=== PATIENT | male | born 1980 | race Caucasian/White ===

== ENCOUNTER → 2018-12-20 09:31 | Outpatient (CLI) | payer BC, SELFPAY ==
[2018-12-20 10:14] LABS: Basophils % 1.2 % (0.1-2.0); Eosinophils # 0.2 K/mm3 (0.0-0.4); Eosinophils % 4.9 % (0.1-12.0); Hematocrit 46.8 % (42.0-52.0); Hemoglobin 15.1 g/dL (14.1-18.0); Lymphocytes # 1.5 K/mm3 (0.7-4.5); Lymphocytes % 46.6 % (10-50); Mean Corpuscular HGB Conc 32.3 g/dL (31.8-35.4); Mean Corpuscular Hemoglobin 31.7 pg (27.0-31.2); Mean Corpuscular Volume 98.2 fl (80-94); Mean Platelet Volume 7.1 fl (7.4-10.4); Monocytes # 0.3 K/mm3 (0.1-1.0); Monocytes % 8.8 % (1.7-9.3); Neutrophils # 1.2 K/mm3 (1.8-7.8); Neutrophils % 38.5 % (37.0-80.0); Platelet Count 191 K/mm3 (142-424); Red Blood Count 4.76 M/mm3 (4.60-6.20); Red Cell Distribution Width 13.5 % (11.5-17.5); White Blood Count 3.1 K/mm3 (4.8-10.8)
[2018-12-20 10:54] LABS: Alanine Aminotransferase 164 U/L (12-78); Albumin Level 3.4 gm/dL (3.4-5.0); Albumin/Globulin Ratio 0.9 (1.1-1.8); Alkaline Phosphatase 96 U/L (46-116); Anion Gap 15.4 mEq/L (5-15); Aspartate Amino Transferase 158 U/L (15-37); Bilirubin,Total 0.5 mg/dL (0.2-1.0); Blood Urea Nitrogen 7 mg/dL (7-18); Calcium 8.5 mg/dL (8.5-10.1); Carbon Dioxide 26 mmol/L (21.0-32.0); Chloride 103 mmol/L (98-107); Creatinine,Serum 0.75 mg/dL (0.70-1.30); Estimated Glomerular Filt Rate 116 ml/min (>60); GFR (African American) 140 ML/MIN (>60); Globulin 3.8 gm/dl (1.3-3.2); Glucose 100 mg/dL (74-106); Potassium 4.4 mmoL/L (3.5-5.1); Sodium 140 mmol/L (136-145); Total Protein,Serum 7.2 gm/dL (6.4-8.2)
[2018-12-23 09:55] LABS: Folate 10.6 ng/mL (>3.0); Testosterone,Total 367 ng/dL (264-916); Vitamin B12 291 pg/mL (232-1245)
[2018-12-23 09:56] LABS: Vitamin D 25 Hydroxy 9.3 ng/mL (30.0-100.0)
== END ==
PROVIDERS: Visit Provider Nurse Practitioner
DX: R53.82 Chronic fatigue, unspecified (principal)
CPT/HCPCS: 36415; 80053; 82607; 82652; 82746; 84403; 85025

== ENCOUNTER → 2019-01-16 15:55 | Outpatient (CLI) | payer BC, SELFPAY | PROVIDERS: PCP Nurse Practitioner; Visit Provider Nurse Practitioner | DX: G47.30 Sleep apnea, unspecified (principal); G47.10 Hypersomnia, unspecified; R06.83 Snoring; E66.9 Obesity, unspecified; G47.33 Obstructive sleep apnea (adult) (pediatric) | CPT/HCPCS: 95806 ==

== ENCOUNTER → 2019-12-31 14:35 | Outpatient (CLI) | payer BC, SELFPAY ==
--- NOTE | 2019-12-31 14:39 | XR_ITS ---
PROCEDURE: XR FOOT WT BEARING RT 3V CLINICAL INDICATION: foot pain COMPARISON: No exams were available for comparison FINDINGS: No fracture or dislocation. No lytic or blastic change. There is normal mineralization. The joint spaces are well-preserved. No significant degenerative/arthritic changes. No erosive changes evident. Other findings:There is a type 2 os navicularis with some osteosclerosis at the ossification center. Small calcaneal spurs noted and there is a small bone island in the mid aspect of the calcaneus. IMPRESSION: 1. Type 2 os navicularis with some sclerosis of the ossification center. 2. Small calcaneal spur and small calcaneal bone island. Dictated by: Ravindra Briseno MD 12/31/2019 15:16 Electronically signed by Ravindra Briseno MD in [place] 12/31/2019 15:16
--- NOTE | 2019-12-31 14:39 | XR_ITS ---
PROCEDURE: XR FOOT WT BEARING LT 3V CLINICAL INDICATION: foot pain COMPARISON: No exams were available for comparison FINDINGS: No fracture or dislocation. No lytic or blastic change. There is normal mineralization. The joint spaces are well-preserved. No significant degenerative/arthritic changes. No erosive changes evident. There is minimal spurring dorsally at the tarsal metatarsal junction. Other findings:There is a type 2 os navicularis without sclerosis at the accessory ossification site. IMPRESSION: No acute finding. Type 2 os navicularis Dictated by: Ravindra Briseno MD 12/31/2019 15:15 Electronically signed by Ravindra Briseno MD in [place] 12/31/2019 15:15
== END ==
PROVIDERS: PCP Family Medicine; Visit Provider Podiatrist
DX: M79.672 Pain in left foot (principal); M79.671 Pain in right foot
CPT/HCPCS: 73630

== ENCOUNTER 2020-03-08 10:35 | Emergency (ER) | payer BC, SELFPAY ==
[2020-03-08 10:40] VITALS: BP 162/97; PULSE 129; RESP 20; TEMP 36.7; O2SAT 96; BMI 37.7
--- NOTE | 2020-03-08 10:51 | HMH.EDGENADL ---
ED Disposition Clinical Impression: Epigastric pain, Alcohol abuse Vomiting Qualifiers: Vomiting type: unspecified Vomiting Intractability: non-intractable Nausea presence: with nausea Qualified Code(s): R11.2 - Nausea with vomiting, unspecified Hematemesis Qualifiers: Nausea presence: with nausea Qualified Code(s): K92.0 - Hematemesis Disposition: Home, Self-Care Condition on Discharge: Good Instructions: DI for Abdominal Pain-Adult, DI for Alcohol Abuse, DI for Nausea -- Adult, DI for Vomiting -- Adult, DI for Alcohol Poisoning Additional Instructions: See Dr. Munoz in his office at 3 PM today. Additional instructions for ABDOMINAL PAIN: See your physician as soon as possible for further evaluation. Return immediately if worsening abdominal pain, vomiting, shortness of breath, fever, vomiting of blood or abdominal distention. Referrals: Nick Munoz MD [Primary Care Provider] - - Critical Care Critical Care Time: No Attestation: On 03/08/20, the high probability of a clinically significant, sudden or life threatening deterioration of the following system(s) required my full and direct attention, intervention and personal management. The time I documented below is in addition to time spent performing reported procedures but includes the following listed in this critical care notation. Medical Decision Making - Medical Records Medical records reviewed: Yes: I reviewed the patient's medical records. - Deny Inquiry Pt receiving controlled substance: Yes Deny was queried for this patient: Yes Reference #:: [id number] Risks and benefits of using a controlled substance: were not discussed with pt by me Comment: 5 rxs. last rx tramadol 10/01/19 Vital Signs: 03/08/20 10:40 03/08/20 11:41 Temperature 98.1 F Temperature Source Oral Pulse Rate [Right Radial] 129 H 120 H Respiratory Rate 20 26 H Blood Pressure [Right Arm] 162/97 H 158/105 H Blood Pressure Mean [Right Arm] 118 122 Blood Pressure Source [Right Arm] Automatic Cuff Blood Pressure Position [Right Arm] Sitting 02 Sat by Pulse Oximetry 96 Oxygen Delivery Method Room Air - Lab Data Lab results reviewed: Yes: I reviewed the patient's lab results. Lab Results 03/08/20 10:40: Urine Color Yellow, Urine Appearance Clear, Urine pH 6.0, Ur Specific [place] >= 1.030, Urine Protein 1+, Urine Glucose (UA) Negative, Urine Ketones 1+, Urine Blood Trace-l, Urine Nitrate Negative, Urine Bilirubin Negative, Urine Urobilinogen 0.2, Ur Leukocyte Esterase Negative, Urine RBC 5-10, Urine WBC 5-10, Ur Squamous Epith Cells Occasional, Urine Bacteria 1+, Hyaline Casts Occasional, Urine Mucus 3+ 03/08/20 10:40: Urine Opiates Screen Negative, Urine Methadone Screen Negative, Ur Barbituates Screen Negative, Ur Phencyclidine Scrn Negative, Ur Amphetamines Screen Negative, U Benzodiazepines Scrn Negative, Urine Cocaine Screen Negative, U Marijuana (THC) Screen Negative 03/08/20 10:48: WBC 5.4, RBC 4.90, Hgb 16.0, Hct 46.8, MCV 95.5 H, MCH 32.8 H, MCHC 34.3, RDW 13.2, Plt Count 238, MPV 8.1, Neut % (Auto) 58.0, Lymph % (Auto) 30.8, [place] % (Auto) 7.7, Eos % (Auto) 1.4, Baso % (Auto) 2.1 H, Neut # (Auto) 3.1, Lymph # (Auto) 1.7, Norton # (Auto) 0.4, Eos # (Auto) 0.1, Baso # (Auto) 0.1 03/08/20 10:48: Sodium 144, Potassium 3.5, Chloride 103, Carbon Dioxide 20 L, Anion Gap 24.5 H, BUN 5 L, Creatinine 0.80, Estimated Creat Clear 242, Estimated GFR 107, Est GFR ( Amer) 129, Glucose 109 H, Calcium 10.6 H, Total Bilirubin 1.3, AST 250 H, ALT 197 H, Alkaline Phosphatase 96, Total Protein 9.7 H, Albumin 5.3 H, Globulin 4.4 H, Albumin/Globulin Ratio 1.2, Amylase 69, Lipase 254 03/08/20 10:48: Plasma/Serum Alcohol 73 H 03/08/20 10:48: Troponin I < 0.01 Result diagrams: 03/08/20 10:48 03/08/20 10:48 Orders (Tests/Meds): ED MEDICATIONS Generic Name Dose Route Start Last Admin Trade Name Freq PRN Reason Stop Dose Admin Multivitamins 10 ml/ Thiamine 1,015 mls @ 1
--- NOTE | 2020-03-08 10:55 | CT_ITS ---
PROCEDURE: CT ABDOMEN PELVIS W CON CLINICAL INDICATION: n/v, hx of pancreatits Left upper abdominal pain, history of pancreatitis COMPARISON: ABDPELW/O CT ABD PELVIS W/O CONTRAST from 10/01/2016 TECHNIQUE: IV Contrast: 75ML OPTIRAY 350 Oral Contrast none Axial images obtained with sagittal and coronal reformats. All CT scans at the facility use one or more dose reduction, viz: automated exposure control, ma/kV adjustment per patient size (including targeted exams where dose is matched to indication, i.e. head), or iterative reconstruction technique. FINDINGS: LOWER THORAX: No acute finding ABDOMEN & PELVIS: There is diffuse fatty liver infiltration. The spleen, adrenal glands, pancreas, and kidneys have an unremarkable appearance. No renal or ureteral calculi. Prior cholecystectomy. There are small lymph nodes in the periportal region not significantly changed No evidence of appendicitis. There is some thickening of the colon at the hepatic flexure with some minimal stranding of the pericolic fat. There is also thickening of the transverse colon, descending colon and proximal sigmoid colon. While this could be due to nondistention, colitis is also a consideration. No pelvic mass or abnormal fluid collection. No evidence of diverticulitis. No acute bony IMPRESSION: Anomalies. 1. Diffuse hepatic steatosis. No evidence of pancreatitis. 2. Mild thickening of the transverse, descending, and proximal sigmoid colon. This could be due to nondistention or mild colitis. Dictated by: Ravindra Briseno MD 03/08/2020 12:14 Electronically signed by Ravindra Briseno MD in [place] 03/08/2020 12:14
--- NOTE | 2020-03-08 10:55 | PC.NURSE ---
rad notified of CT order, spoke with francis
[2020-03-08 11:04] LABS: Basophils # 0.1 K/mm3 (0-0.2); Basophils % 2.1 % (0.1-2.0); Eosinophils # 0.1 K/mm3 (0.0-0.4); Eosinophils % 1.4 % (0.1-12.0); Hematocrit 46.8 % (42.0-52.0); Lymphocytes # 1.7 K/mm3 (0.7-4.5); Lymphocytes % 30.8 % (10-50); Mean Corpuscular HGB Conc 34.3 g/dL (31.8-35.4); Mean Corpuscular Hemoglobin 32.8 pg (27.0-31.2); Mean Corpuscular Volume 95.5 fl (80-94); Mean Platelet Volume 8.1 fl (7.4-10.4); Monocytes # 0.4 K/mm3 (0.1-1.0); Monocytes % 7.7 % (1.7-9.3); Neutrophils # 3.1 K/mm3 (1.8-7.8); Platelet Count 238 K/mm3 (142-424); Red Cell Distribution Width 13.2 % (11.5-17.5); White Blood Count 5.4 K/mm3 (4.8-10.8)
[2020-03-08 11:06] LABS: Chloride 103 mmol/L (98-107); Potassium 3.5 mmoL/L (3.5-5.1); Sodium 144 mmol/L (136-145)
[2020-03-08 11:08] LABS: Microscopic, Urine URINE MICROSCOPIC (MICROSCOPIC)
[2020-03-08 11:09] LABS: Alanine Aminotransferase 197 U/L (12-78); Albumin Level 5.3 g/dl (3.5-5.0); Albumin/Globulin Ratio 1.2 (1.1-1.8); Alkaline Phosphatase 96 U/L (38-126); Amylase 69 U/L (30-110); Anion Gap 24.5 mEq/L (5-15); Aspartate Amino Transferase 250 U/L (17-59); Bilirubin,Total 1.3 mg/dl (0.2-1.3); Blood Urea Nitrogen 5 mg/dl (9-20); Calcium 10.6 mg/dl (8.4-10.2); Carbon Dioxide 20 mmol/L (22.0-30.0); Creatinine Clearance Estimated 242 mL/min (50-200); Estimated Glomerular Filt Rate 107 ml/min (>60); GFR (African American) 129 ML/MIN (>60); Globulin 4.4 g/dL (1.3-3.2); Glucose 109 mg/dl (74-100); Lipase 254 U/L (23-300); Total Protein,Serum 9.7 g/dl (6.3-8.2)
[2020-03-08 11:10] LABS: Appearance,Urine CLEAR (Clear); Blood, Urine TRACE-L (Negative); Color,Urine YELLOW (Yellow); Glucose,Urine (UA) Negative (Negative); Ketones,Urine 1+ (Negative); Leukocyte Esterase,Urine Negative (Negative); Nitrate,Urine Negative (Negative); Protein,Urine 1+ (Negative); Specific Gravity, Urine >= 1.030 (1.005-1.030); Urobilinogen,Urine 0.2 EU/dl (0.2)
[2020-03-08 11:12] LABS: Bilirubin,Urine Negative (Negative)
--- NOTE | 2020-03-08 11:17 | PC.NURSE ---
notified lab of new order, spoke with tico
[2020-03-08 11:21] LABS: Bacteria,Urine 1+ /lpf; Hyaline Casts,Urine Occasional #/lpf (0); Mucus,Urine 3+ /lpf; Squamous Epithelial Cell,Urine Occasional #/hpf (0-5)
--- NOTE | 2020-03-08 11:24 | PC.NURSE ---
pt return from ct
[2020-03-08 11:27] LABS: Ethyl Alcohol 73 mg/dl (0-10)
[2020-03-08 11:41] VITALS: BP 158/105; PULSE 120; RESP 26
[2020-03-08 11:53] LABS: Amphetamine/Metha Screen,Urine Negative ng/ml (<1000); Benzodiazepines Screen,Urine Negative ng/ml (<200)
[2020-03-08 11:54] LABS: Barbiturates Screen,Urine Negative ng/ml (<200)
[2020-03-08 11:55] LABS: Cannabinoid Screen,Urine Negative ng/ml (<50); Methadone Screen,Urine Negative ng/ml (<300)
[2020-03-08 11:56] LABS: Cocaine Screen,Urine Negative ng/ml (<300); Opiate Screen,Urine Negative ng/ml (<300)
--- NOTE | 2020-03-08 11:56 | ECG_ITS ---
APPROVED REPORT Exam: Resting ECG HR:101 bpm ECG Measurements Heart Rate 101 AXES UT 180 P 29 QRSd 164 QRS -10 QT 400 T 109 QTc 518 <Conclusion> Sinus tachycardia left atrial abnormality Left bundle branch block Abnormal ECG Electronically signed by : Nick Veliz, 03/09/2020 08:19:04
[2020-03-08 11:57] LABS: Phencyclidine Screen,Urine Negative ng/ml (<25)
[2020-03-08 12:06] LABS: Troponin I < 0.01 ng/ml (0.00-0.034)
--- NOTE | 2020-03-08 12:44 | PC.NURSE ---
attempted to call Dr. Munoz at his office per ER MD request to speak with him, no answer, asked humid system operator to page him
--- NOTE | 2020-03-08 12:48 | PC.NURSE ---
tape fastener machine operator states she had to leave a message for dr. muniz
[2020-03-08 13:50] VITALS: BP 140/87; PULSE 99; RESP 16; TEMP 36.6; O2SAT 97
== END 2020-03-08 13:52 | disposition home or self-care (01) ==
PROVIDERS: Emergency Provider Emergency Medicine; PCP Family Medicine
DX: R10.12 Left upper quadrant pain (principal); R10.13 Epigastric pain; F10.10 Alcohol abuse, uncomplicated; K92.0 Hematemesis; I10 Essential (primary) hypertension; F41.9 Anxiety disorder, unspecified; Z88.5 Allergy status to narcotic agent; Z79.899 Other long term (current) drug therapy
CPT/HCPCS: 74177; 80053; 80305; 81001; 82150; 83690; 84484; 85025; 93005; 96365; 96367; 96375; 96376; 99284; J2405; Q9967

== ENCOUNTER 2021-08-30 12:15 | Emergency (ER) | payer BC, SELFPAY ==
[2021-08-30 13:30] VITALS: BP 142/118; PULSE 101; RESP 20; TEMP 36.8; O2SAT 97; BMI 40.2
--- NOTE | 2021-08-30 14:23 | HMH.EDUTC ---
[facility] [place] Impression: Viral syndrome Sinusitis Qualifiers: Sinusitis location: unspecified location Chronicity: acute Recurrence: non-recurrent Qualified Code(s): J01.90 - Acute sinusitis, unspecified Disposition: Home, Self-Care Condition on Discharge: Good Instructions: Sinusitis, DI for Sinusitis, DI for COVID-19 (Suspected or Confirmed ), Preventing the Spread of Coronavirus Discharge Instructions Additional Instructions: Drink plenty of fluids. Take tylenol or ibuprofen for pain or fever. Take the medications as directed. Follow up with your regular doctor. GO TO THE ER FOR ANY WORSENING SYMPTOMS Quarantine until you know the results of your covid-19 test. If it is positive, the health department should call you and give you further instructions about your length of Quarantine and other things. Notify your school or workplace of your results and follow their instructions regarding return to work/school. Prescriptions: methylPREDNISolone [Medrol] 4 mg PO DIRECTED 6 Days #21 packet Transmission Status: Received by [facility] Benzonatate [Tessalon Perle 100mg Cap] 100 mg PO TIDP PRN #30 cap PRN Reason: Cough Transmission Status: Received by [id number] Rx Azithromycin [Z-Cristiano 250mg Tab*] 250 mg PO UD DOSE PK #6 tab Transmission Status: Received by [id number] Referrals: Nick Munoz MD [Primary Care Provider] - Time of Disposition: 14:49 Medical Decision Making - Medical Records Medical records reviewed: No: I reviewed the patient's medical records. - Deny Inquiry Pt receiving controlled substance: No Vital Signs: 08/30/21 13:30 08/30/21 14:51 Temperature 98.3 F 98.3 F Temperature Source Oral Pulse Rate 101 H Pulse Rate [Right Brachial] 101 H Respiratory Rate 20 20 Blood Pressure 142/118 H Blood Pressure [Right Arm] 142/118 H Blood Pressure Mean [Right Arm] 126 Blood Pressure Source [Right Arm] Automatic Cuff Blood Pressure Position [Right Arm] Sitting 02 Sat by Pulse Oximetry 97 Oxygen Delivery Method Room Air - Lab Data Lab results reviewed: Yes: I reviewed the patient's lab results. Lab Results 08/30/21 14:23: Strep Scn Rapid Clinic Negative 08/30/21 14:27: Chlamy pneumoniae PCR Not detected, Adenovirus (PCR) Not detected, B. pertussis DNA (PCR) Not detected, Coronavirus OC43 (PCR) Not detected, Coronavirus HKU1 (PCR) Not detected, Coronavirus 229E (PCR) Not detected, SARS-CoV-2 (PCR) Not detected, Coronavirus NL63 (PCR) Not detected, Human Metapneumovir PCR Not detected, Influenza A (H1) PCR Not detected, Influ A (H1N1/09) PCR Not detected, Influenza A (H3) PCR Not detected, Influenza Type A (PCR) Not detected, Influenza Type B (PCR) Not detected, M. pneumoniae (PCR) Not detected, Parainfluenza 1 (PCR) Not detected, Parainfluenza 2 (PCR) Not detected, Parainfluenza 3 (PCR) Not detected, Parainfluenza 4 (PCR) Not detected, RSV (PCR) Detected A, Entero/Rhino (PCR) Not detected Orders (Tests/Meds): ORDERS Category Date Time Status Strep Screen Confirmation Stat Micro 08/30/21 14:23 [place] [facility] [place] - General Stated complaint: no taste/smell, sore throat, cough, congestion Time Seen by Provider: 08/30/21 14:23 Mode of Arrival: Ambulatory Source of Information: Patient Limitations: No Limitations Description of Symptoms (Recalled from Triage Doc. by RN): PATIENT C/O BODY ACHES, RUNNY NOSE, COUGH, SINUS PRESSURE, AND LOSS OF TASTE/SMELL. HAD COVID TESTS SATURDAY AND LAST NIGHT AND BOTH WERE NEGATIVE HEENT Symptoms (Recalled from RN notes): Yes Resp Symptoms (Recalled from RN notes): Yes Skin Symptoms (Recalled from RN notes): No MS Symptoms (Recalled from RN notes): No Functional Status (Recalled from RN notes): WNL - History of Present Illness Provider Complaint: He states that he has been feeling bad for the past 4 days. He has been tested at his job ([employer]
[2021-08-30 14:51] VITALS: BP 142/118; PULSE 101; RESP 20; TEMP 36.8; O2SAT 97
[2021-08-30 14:52] LABS: Adenovirus,PCR Not Detected (NotDetected); Bordetella Pertussis Not Detected (NotDetected); Chlamydophila Pneumoniae, PCR Not Detected (NotDetected); Coronavirus 19, PCR Not Detected (NotDetected); Coronavirus 229E Not Detected (NotDetected); Coronavirus NL63 Not Detected (NotDetected); Coronavirus OC43 Not Detected (NotDetected); Coronovirus HKU1,PCR Not Detected (NotDetected); Human Metapneumovirus Not Detected (NotDetected); Influenza A, PCR Not Detected (NotDetected); Influenza AH1, 2009 Not Detected (NotDetected); Influenza AH1, PCR Not Detected (NotDetected); Influenza AH3,PCR Not Detected (NotDetected); Influenza B, PCR Not Detected (NotDetected); Mycoplasma Pneumoniae, PCR Not Detected (NotDetected); Parainfluenza 1, PCR Not Detected (NotDetected); Parainfluenza 2, PCR Not Detected (NotDetected); Parainfluenza 3, PCR Not Detected (NotDetected); Parainfluenza 4, PCR Not Detected (NotDetected); Rhinovirus/Enterovirus Not Detected (NotDetected)
[2021-08-30 14:58] LABS: UTC Strep Screen (Rapid) Negative (Negative)
[2021-08-30 19:14] LABS: Respiratory Syncytial Virus Detected (NotDetected)
== END 2021-08-30 14:56 | disposition home or self-care (01) ==
PROVIDERS: Emergency Provider Nurse Practitioner Family; PCP Family Medicine
DX: J01.90 Acute sinusitis, unspecified (principal); B97.4 Respiratory syncytial virus as the cause of diseases classified elsewhere; I10 Essential (primary) hypertension; F41.9 Anxiety disorder, unspecified
CPT/HCPCS: 87581; 87632; 87798; 87880; 99203; C9803; G0463; U0003; U0005

== ENCOUNTER → 2022-04-10 13:56 | Outpatient (CLI) | payer BC, SELFPAY ==
--- NOTE | 2022-04-10 14:03 | XR_ITS ---
FINAL REPORT CLINICAL HISTORY: CERVICALGIA. Pt states to have had frequent headaches for the past 3 months, and 4 weeks ago started to feel a cracking and popping No sx FINDINGS: CERVICAL SPINE Five views were obtained. There is no acute fracture. There is no malalignment. There is mild degenerative change with small osteophytes at C5-C6. There is no significant neuroforaminal narrowing. There is no soft tissue abnormality. IMPRESSION: Mild degenerative change with no acute bony abnormality. Reviewed, Interpreted and Dictated by Kobe Mathis III, MD Transcribed by Anupama Meredith Authenticated and [facility]
== END ==
PROVIDERS: PCP Nurse Practitioner Family; Visit Provider Nurse Practitioner Family
DX: M54.2 Cervicalgia (principal)
CPT/HCPCS: 72050

== ENCOUNTER 2022-05-26 12:18 | Emergency (ER) | payer BC, SELFPAY ==
[2022-05-26 12:55] VITALS: BP 164/98; PULSE 85; RESP 19; TEMP 37.2; O2SAT 97; BMI 42.8
[2022-05-26 13:19] VITALS: BP 164/98; PULSE 85; RESP 19; TEMP 37.2; O2SAT 97
--- NOTE | 2022-05-26 13:25 | HMH.EDUTC ---
[facility] [place] Clinical Impression: COVID-19 Disposition: Home, Self-Care Condition on Discharge: Good Instructions: DI for COVID-19 (Suspected or Confirmed ) Additional Instructions: covid swab was sent to lab, call tomorrow for results. self isolate until test results are known to be negative No sign of a bacterial infection. Likely viral. Viruses can take 7-14 days to run their course. Nasal saline and bulb syringe or nose Aria to remove nasal drainage to help with nasal congestion. Hard to eat, drink, sleep with nasal congestion so important to keep this cleaned out. Monitor temp. Tylenol or Motrin as needed for pain or fever Encourage fluids, water, Gatorade, Powerade, Pedialyte if /toddler/child Warm salt water gargles Warm fluids Sore throat lozenges Sleep elevated Humidifier/vaporizer Follow-up immediately for new or worsening symptoms or no noticeable improvement over the next 48-72 hours. Referrals: Trixie Yan APRN [Primary Care Provider] - Forms: Work/School Release Time of Disposition: 13:30 Medical Decision Making - Deny Inquiry Pt receiving controlled substance: No Vital Signs: 05/26/22 12:55 05/26/22 13:19 Temperature 98.9 F 98.9 F Temperature Source Oral Pulse Rate 85 Pulse Rate [Right Brachial] 85 Respiratory Rate 19 19 Blood Pressure 164/98 H Blood Pressure [Right Arm] 164/98 H Blood Pressure Mean [Right Arm] 120 Blood Pressure Source [Right Arm] Automatic Cuff Blood Pressure Position [Right Arm] Sitting 02 Sat by Pulse Oximetry 97 Oxygen Delivery Method Room Air Orders (Tests/Meds): ORDERS Category Date Time Status Covid-19 Nasal PCR ([facility]) Routine Lab 05/26/22 12:50 Received [facility] [place] HPI - General Chief complaint: [facility] Stated complaint: fever,cough,sore throat,diarrhea Time Seen by Provider: 05/26/22 13:25 Mode of Arrival: Ambulatory Source of Information: Patient Limitations: No Limitations Description of Symptoms (Recalled from Triage Doc. by RN): PATIENT C/O CHILLS, RUNNY NOSE, COUGH, BODY ACHES X 2 DAYS. HEENT Symptoms (Recalled from RN notes): Yes Resp Symptoms (Recalled from RN notes): Yes Skin Symptoms (Recalled from RN notes): No MS Symptoms (Recalled from RN notes): No Functional Status (Recalled from RN notes): WNL - History of Present Illness Provider Complaint: 42 yr old male presnets for cough,runny nose,nausea,diarrhea and body aches. tested positive for covid at home and positive for covid - Related Data Home Medications Medication Instructions Recorded Confirmed amlodipine 10 mg tablet 10 mg PO DAILY 12/31/19 08/03/21 buspirone 10 mg tablet mg PO 12/31/19 08/03/21 carvedilol phosphate 40 mg 40 mg PO DAILY 12/31/19 08/03/21 capsule,[id number] multiphase citalopram 40 mg tablet mg PO 12/31/19 08/03/21 omeprazole 40 mg capsule,delayed 40 mg PO cap 03/21/21 08/03/21 release Previous Rx's Medication Instructions Recorded Azithromycin [Z-Cristiano 250mg Tab*] 250 mg PO UD DOSE PK #6 tab 08/30/21 Benzonatate [Tessalon Perle 100mg 100 mg PO TIDP PRN #30 cap 08/30/21 Cap] methylPREDNISolone [Medrol] 4 mg PO DIRECTED 6 Days #21 08/30/21 packet Allergies Allergy/AdvReac Type Severity Reaction Status Date / Time morphine [MORPHINE] Allergy Unknown I-ITCHING Verified 08/03/21 14:16 - Worker's Comp Is this a Worker's Comp case?: No [facility] History - Hepatitis A Screen Attestation statement:: This patient has been screened for Hepatitis A risk factors. I have reviewed the patient's past medical history: Yes Medical History: Reports:: Anxiety, Hypertension Denies:: Diabetes Mellitus Type 1, Diabetes Mellitus Type 2 Other Surgeries: Yes: Hernia Repair, Other Amputation: No Fractures: No Comment: R thumb release - Social History Smoking Status: Light tobacco smoker Tobacco Type: smokeless tobacco # Packs/Day (cigarettes): 0 Alcohol Intake: current Alcohol Intake F
== END 2022-05-26 13:36 | disposition home or self-care (01) ==
PROVIDERS: Emergency Provider Nurse Practitioner Family; PCP Nurse Practitioner Family
DX: U07.1 COVID-19 (principal); R50.81 Fever presenting with conditions classified elsewhere; R05.9 Cough, unspecified; R07.0 Pain in throat; R19.7 Diarrhea, unspecified; M79.10 Myalgia, unspecified site; R09.81 Nasal congestion; R41.9 Unspecified symptoms and signs involving cognitive functions and awareness; I10 Essential (primary) hypertension; Z72.0 Tobacco use
CPT/HCPCS: 99212; C9803; G0463; U0003; U0005

== ENCOUNTER 2022-09-11 10:52 | Emergency (ER) | payer BC, SELFPAY ==
[2022-09-11 12:00] VITALS: BP 150/99; PULSE 90; RESP 19; TEMP 36.6; O2SAT 95; BMI 44.7
[2022-09-11 12:20] LABS: UTC Influenza A Antigen Negative (Negative); UTC Influenza B Antigen Negative (Negative)
--- NOTE | 2022-09-11 12:22 | EXP.UTC ---
Discharge Plan Disposition Patient Disposition: Home, Self-Care Condition: Good Prescriptions Prescriptions: New azithromycin [Zithromax Z-Cristiano] 250 mg tablet See Rx Instructions .ROUTE .COMPLEX 5 Days Qty: 6 0RF Rx Instructions: For 250 mg dose pack: take 500 mg today (day 1), then 250 mg for 4 days (days 2-5) methylprednisolone [Medrol (Cristiano)] 4 mg tablets,dose pack See Rx Instructions .Route .COMPLEX 6 Days Qty: 21 0RF Rx Instructions: taper pack; guaifenesin [Mucinex] 600 mg tablet extended release 12hr 600 mg PO BID PRN (Reason: cough) Qty: 20 0RF No Action amlodipine 10 mg tablet 10 mg PO DAILY carvedilol phosphate 40 mg capsule, ER multiphase 24 hr 40 mg PO DAILY citalopram 40 mg tablet PO buspirone 10 mg tablet PO omeprazole 40 mg capsule,delayed release(DR/EC) 40 mg PO Label Comments: TAKE 1 CAPSULE BY MOUTH ONCE DAILY 30 MINUTES BEFORE MORNING MEAL azithromycin 250 MG tablet 250 mg PO UD DOSE PK Qty: 6 0RF Rx Instructions: Take two (2) tablets today, then one (1) tablet days #2 thru #5 benzonatate 100 MG capsule 100 mg PO TIDP PRN (Reason: Cough) Qty: 30 0RF methylprednisolone 4 MG tablets,dose pack 4 mg PO DIRECTED 6 Days Qty: 21 0RF Referrals Follow up/Referrals: Provider,Referral, MD [Primary Care Provider] - See instructions Activity Restrictions/Add. Instructions Additional Instructions/Restrictions: *Monitor Temp, Over the counter Motrin or Tylenol as directed/as needed Tylenol every 4 hours and Motrin every 6 hours (as long as your family doctor has told you that you can take it) for fever or pain. and straight to ER if unable to lower temp less than 101.0 after medication given *Warm salt water gargles may help to soothe the throat *Throat Lozenges? *Warm fluids like tea with honey may help to soothe the throat? *Sleep elevated *Humidifier/Vaporizer Follow up IMMEDIATELY for new or worsening symptoms or no Noticeable improvement over the next 48-72 hours. 911 for difficulty breathing or swallowing Clinical Impressions Clinical Impression: Bronchitis Stand Alone Forms Stand Alone Forms: Work/School Release Instructions Patient Instructions: Acute Bronchitis, Cough Discharge ED Provider: Sarahi Perry [facility] General Stated complaint: fever, nausea, wants flu test Mode of Arrival: Ambulatory Source of Information: Patient Limitations: No Limitations Time Seen by Provider: 09/11/22 12:22 Description of Symptoms (Recalled from Triage Doc. by RN): PATIENT C/O SORE THROAT, COUGH, FATIGUE, AND HEADACHE X 3 DAYS HEENT Symptoms (Recalled from RN notes): Yes Resp Symptoms (Recalled from RN notes): Yes Skin Symptoms (Recalled from RN notes): No MS Symptoms (Recalled from RN notes): No Functional Status (Recalled from RN notes): WNL History of Present Illness Provider Complaint: Patient states that he had flu last week States that he still had low grade fever yesterday and they made him leave work and told him he needed to get tested again for flu and see someone before he can return States he is feeling a little better today but still having cough and chest congestion so he came in Related Data Home Medications Medication Instructions Recorded Confirmed amlodipine 10 mg tablet 10 mg PO DAILY Hypertension 12/31/19 08/03/21 buspirone 10 mg tablet mg PO 12/31/19 08/03/21 carvedilol phosphate 40 mg 40 mg PO DAILY Hypertension 12/31/19 08/03/21 capsule,[id number] multiphase citalopram 40 mg tablet mg PO 12/31/19 08/03/21 omeprazole 40 mg capsule,delayed 40 mg PO 03/21/21 08/03/21 release Previous Rx's Medication Instructions Recorded azithromycin 250 mg tablet 250 mg PO UD DOSE PK #6 tabs 08/30/21 benzonatate 100 mg capsule 100 mg PO TIDP PRN Cough #30 caps 08/30/21 methylprednisolone 4 mg tablets in 4 mg PO DIRECTED 6 days #21 08/30/21 a dos
[2022-09-11 12:30] VITALS: BP 150/99; PULSE 90; RESP 19; TEMP 36.6; O2SAT 95
== END 2022-09-11 12:35 | disposition home or self-care (01) ==
PROVIDERS: Emergency Provider Nurse Practitioner
DX: J02.9 Acute pharyngitis, unspecified (principal); R50.9 Fever, unspecified; R11.0 Nausea; R53.82 Chronic fatigue, unspecified; R51.9 Headache, unspecified; R05.9 Cough, unspecified; Z20.822 Contact with and (suspected) exposure to COVID-19; I10 Essential (primary) hypertension; E78.5 Hyperlipidemia, unspecified; F41.9 Anxiety disorder, unspecified; F17.290 Nicotine dependence, other tobacco product, uncomplicated; Z79.52 Long term (current) use of systemic steroids; Z79.899 Other long term (current) drug therapy; Z88.5 Allergy status to narcotic agent
CPT/HCPCS: 87804; 99213; C9803; G0463; U0003; U0005

== ENCOUNTER → 2022-11-22 14:51 | Outpatient (CLI) | payer BC, SELFPAY ==
--- NOTE | 2022-11-22 14:54 | CA_ITS ---
APPROVED REPORT EXAM: Comprehensive 2D, Doppler, and color-flow Echocardiogram Oncology Technician: Annette Lozoya RT(R) Ht: 6 ft 1 in Wt: 356lbs BSA: 2.75 BP: 160/88 mmHg Indications: hx of CM 16 years ago, edema, HTN, obesity, 100 lb weight gain in 1 year, SOB, smokeless tobacco 2D Dimensions LVOT 1.93 cm (M/F) 1.5-2.5 LA Volume 61.30 mL LA Volume Index 22.29 mL/m2 (M/F) 16-34 M-Mode Dimensions RVDd 2.59 cm (0.9-2.6) LA Diam 4.71 cm (1.9-4.0) LVDd 6.80 cm (3.5-5.7) Ao Diam 2.69 cm (2.0-3.7) LVDs 5.95 cm (3.5-5.7) IVSd 0.72 cm (0.6-1.1) PWd 1.03 cm (0.6-1.1) EF (Teich) 26.20% FS 12.50% EDV (Teich) 239.20 mL ESV (Teich) 176.60 mL LV Diastology MED E' 4.70 (< 7 cm/sec) LAT E' 10.00 (<10 cm/sec) Left Ventricle Left atrium is mildly enlarged, left ventricle is mildly dilated, there is mild concentric left ventricular hypertrophy, reduced left ventricular systolic function, estimated ejection fraction 40%, left ventricle is globally hypokinetic, diastolic parameters are inconclusive. Right Ventricle Right atrium and right ventricle are normal size and contractility. Aortic Valve Aortic valve is minimally thickened and fibrosed. There is no aortic stenosis or aortic insufficiency. Mitral Valve Mitral valve grossly normal, there is mild mitral regurgitation. Tricuspid Valve Tricuspid valve grossly normal, there is mild tricuspid regurgitation, tricuspid regurgitation jet velocity is inadequate for calculation of the right ventricular systolic pressure. Pulmonic Valve Pulmonic valve is poorly visualized. Great Vessels Aortic root is normal size. Inferior vena cava is poorly visualized. Pericardium No significant pericardial effusion noted. Conclusion 1. Mildly enlarged left atrium, dilated left ventricle, estimated ejection fraction 40% left ventricle is globally hypokinetic, diastolic parameters are inconclusive. 2. Mild mitral and tricuspid regurgitation. 3. No significant pericardial effusion noted. 4. Inferior vena cava is poorly visualized. Electronically signed by : John Valladares MD 11/23/2022 15:37:57
[2022-11-22 15:34] LABS: MANUAL DIFFERENTIAL MANUAL DIFFERENTIAL (MANUAL DIFF); Microscopic, Urine URINE MICROSCOPIC (MICROSCOPIC)
[2022-11-22 16:17] LABS: Appearance,Urine CLEAR (Clear); Bilirubin,Urine Negative (Negative); Blood, Urine Negative (Negative); Color,Urine DK YELLOW (Yellow); Glucose,Urine (UA) Negative (Negative); Ketones,Urine Negative (Negative); Leukocyte Esterase,Urine Negative (Negative); Nitrate,Urine Negative (Negative); PH,Urine 5.5 (5.0-8.5); Protein,Urine Negative (Negative); Specific Gravity, Urine >= 1.030 (1.005-1.030)
[2022-11-22 16:20] LABS: Basophils # 0.1 K/mm3 (0-0.2); Eosinophils # 0.1 K/mm3 (0.0-0.4); Eosinophils % 2.3 % (0.1-12.0); Hematocrit 42.5 % (42.0-52.0); Hemoglobin 14.5 g/dL (14.1-18.0); Lymphocytes # 1.4 K/mm3 (0.7-4.5); Lymphocytes % 24.2 % (10-50); Mean Corpuscular Hemoglobin 32.8 pg (27.0-31.2); Mean Corpuscular Volume 96.4 fl (80-94); Mean Platelet Volume 8.2 fl (7.4-10.4); Monocytes # 0.4 K/mm3 (0.1-1.0); Monocytes % 6.5 % (1.7-9.3); Neutrophils # 3.7 K/mm3 (1.8-7.8); Platelet Count 272 K/mm3 (142-424); Red Cell Distribution Width 13.8 % (11.5-17.5); White Blood Count 5.6 K/mm3 (4.8-10.8)
[2022-11-22 16:47] LABS: Bacteria,Urine Trace /lpf; Mucus,Urine 3+ /lpf; WBC,Urine Occasional #/hpf (0-3)
[2022-11-22 16:48] LABS: Hyaline Casts,Urine Occasional #/lpf (0)
[2022-11-22 17:03] LABS: Eosinophils % 3 % (0-3); Lymphocytes % 28 % (10-50); Monocytes % 11 % (2-9); Neutrophils % 57 % (42-76); Platelet Estimate Normal; RBC Morphology Normal; Total Cells Counted 100
[2022-11-22 17:21] LABS: Chloride 102 mmol/L (98-107); Potassium 4.6 mmoL/L (3.5-5.1); Sodium 136 mmol/L (136-145)
[2022-11-22 17:23] LABS: Blood Urea Nitrogen 19 mg/dl (9-20)
[2022-11-22 17:24] LABS: Alanine Aminotransferase 118 U/L (12-78); Albumin Level 4.8 g/dl (3.5-5.0); Albumin/Globulin Ratio 1.3 (1.1-1.8); Alkaline Phosphatase 109 U/L (38-126); Anion Gap 15.6 mEq/L (5-15); Aspartate Amino Transferase 181 U/L (17-59); Bilirubin,Total 1.7 mg/dl (0.2-1.3); Calcium 9.4 mg/dl (8.4-10.2); Carbon Dioxide 23 mmol/L (22.0-30.0); Estimated Glomerular Filt Rate 123 ml/min (>60); GFR (African American) 149 ML/MIN (>60); Globulin 3.7 g/dL (1.3-3.2); Glucose 100 mg/dl (74-100); Total Protein,Serum 8.5 g/dl (6.3-8.2); Triglycerides 155 mg/dl (30-150); VLDL Cholesterol 31 mg/dL (0-40)
[2022-11-22 17:25] LABS: HDL Cholesterol 99 mg/dl (40-60)
[2022-11-22 17:35] LABS: Direct LDL Cholesterol 228.84 mg/dL (100-129)
[2022-11-22 17:51] LABS: Chol/HDL Ratio 3.7 (1-3.5); Cholesterol 367 mg/dl (140-200)
[2022-11-22 17:56] LABS: Thyroid Stimulating Hormone 2.39 uIU/mL (0.465-4.68)
== END ==
PROVIDERS: PCP Family Medicine; Visit Provider Family Medicine
DX: I10 Essential (primary) hypertension (principal); R60.0 Localized edema; E78.5 Hyperlipidemia, unspecified; F41.9 Anxiety disorder, unspecified; M54.2 Cervicalgia; M87.112 Osteonecrosis due to drugs, left shoulder; R63.5 Abnormal weight gain; T38.0X5A Adverse effect of glucocorticoids and synthetic analogues, initial encounter
CPT/HCPCS: 36415; 80053; 80061; 81001; 83036; 84443; 85007; 85014; 85018; 85048; 85049; 93306

== ENCOUNTER → 2022-11-29 07:01 | Outpatient (CLI) | payer BC, SELFPAY ==
--- NOTE | 2022-11-29 | CA_ITS ---
APPROVED REPORT Exam: Pharmacologic Technologist: Liliana Pate, Ht: 6 ft 1 in Wt: 354 lbs BSA: 2.74 m2 HR: 92 bpm BP: 103/74 mmHg Medical History Medications: Amlodipine,,,,, Carvedilol,,,,, Buspirone,,,,, MeLOXICAM,,,,, OmPERAZOLE,,,,, Citlopram,,,,, Stress Test Details Test: LEXISCAN Reason for pharmacologic stress test: physical limitation. HR Resting HR: 93 bpm Max Heart Rate (APMHR): 177.440934 bpm Max HR Achieved: 115 bpm Target HR (85% APMHR): 150.080224 bpm % of APMHR: 64.97 Recovery HR: 99 bpm BP Resting BP: 103.0/74.0 mmHg Max BP: 115.0/65.0 mmHg Recovery BP: 115.0/65.0 mmHg ECG Resting ECG: NSR, LBBB Clinical Exercise duration: 04:03 min Highest Stage Achieved: Stress ECG Conclusion Symptoms: SOA, head discomfort, malaise, No CP. Arrhythmias/Ectopy: 2.6 second pause immediately after Lexiscan injection. ST-T Changes: No significant changes. Conclusion: Unremarkable Lexiscan stress. Myoview images reported separately. Test Summary REST . . . . . . . Resting REST 04:54 . . 93 . 103/ 74 . . Stage 1 01:00 . . 102 . . . . Stage 2 01:00 . . 115 . . . . Stage 3 01:00 . . 110 . 112/ 59 . . Stage 4 01:00 . . 106 . 94/ 62 . . Stage 4 01:03 . . 108 . 94/ 62 . Stop exercise at 04:03 RECOVERY 01:00 . . 105 . 91/ 64 . . RECOVERY 02:00 . . 99 . 91/ 64 . . RECOVERY 03:00 . . 97 . 101/ 68 . . RECOVERY 03:33 . . 100 . 115/ 65 . . Electronically signed by : John Valladares MD 11/30/2022 10:11:55
--- NOTE | 2022-11-29 07:03 | NM_ITS ---
APPROVED REPORT Exam: Nuclear Stress Test Indication: short of breath..fatigue Patient Location: Outpatient Stress Tech: Liliana Monroe [place] Tech:Jenelle SchmittCLAIR RT(R)(N) Ht: 6 ft 1 in Wt: 355 lbs HR: 93 bpm BP: 103/74 mmHg BSA: 2.75 m2 TID: 1.12 BMI: 46.8 History: short of breath..fatigue Procedure: Patient received 0.4 mg of intravenous Lexiscan, resting heart rate 93 bpm, resting blood pressure 103/74 mmHg, with Lexiscan maximum heart rate achieved was 115 bpm which is Less than 85 % of the maximum predicted heart rate and blood pressure was 115/65 mmHg. With Lexiscan, patient denied any complaint of chest pain. The patient was unable to lay on his belly for prone images. Electrocardiogram Resting electrocardiogram shows sinus rhythm with a bundle branch block, with Lexiscan there is less than 1.[address] segment depression noted from the baseline EKG. The EKG portion of the Lexiscan is nondiagnostic. Cardiac Stress and Resting SPECT Images: Cardiac Stress and Resting SPECT images were obtained using technetium 99m Myoview 32.9 mCi stress and 10.98 mCi at rest. Gated SPECT for analysis of segmental wall motion and calculation of the ejection fraction also done. Cardiac stress and rest SPECT may show a fixed defect anteroseptally with abnormal septal motion is likely secondary to left bundle branch block, no reversible ischemia seen, computer derived ejection fraction is 30% with left ventricular global hypokinesis and abnormal septal motion. Right ventricle is normal size and contractility. Conclusion: 1. The EKG portion of the Lexiscan is nondiagnostic. 2. No scintigraphic evidence of reversible ischemia seen, fixed defect anteroseptally is likely secondary to left bundle branch block, computer derived ejection fraction of 30% with abnormal septal motion, right ventricle is normal size and contractility. 3. Abnormal Lexiscan Myoview study due to low ejection fraction. Electronically signed by : John Valladares MD 11/30/2022 10:17:18
== END ==
PROVIDERS: PCP Family Medicine; Visit Provider Nurse Practitioner Family
DX: R06.09 Other forms of dyspnea (principal); R07.89 Other chest pain; I42.9 Cardiomyopathy, unspecified; I50.9 Heart failure, unspecified; I10 Essential (primary) hypertension; E78.5 Hyperlipidemia, unspecified; F10.20 Alcohol dependence, uncomplicated; F14.91 Cocaine use, unspecified, in remission; F41.9 Anxiety disorder, unspecified; R94.31 Abnormal electrocardiogram [ECG] [EKG]
CPT/HCPCS: 78452; 93017; A9502; J2785

== ENCOUNTER → 2022-12-11 09:18 | Outpatient (CLI) | payer BC, SELFPAY ==
--- NOTE | 2022-12-11 09:25 | US_ITS ---
FINAL REPORT CLINICAL HISTORY: elevated liver enzymes FINDINGS: ULTRASOUND RIGHT UPPER QUADRANT Sonographic imaging of the right upper quadrant was obtained. The pancreas is partially obscured. The liver has increased echogenicity consistent with fatty infiltration. The gallbladder is surgically absent. There is no biliary ductal dilatation. The common duct is normal at 3 mm. Limited images of the right kidney are unremarkable. IMPRESSION: Fatty liver. Cholecystectomy. Reviewed, Interpreted and Dictated by Buster Castillo MD Transcribed by Anupama Meredith Authenticated and [facility]
[2022-12-11 11:49] LABS: Chloride 95 mmol/L (98-107); Potassium 4.3 mmoL/L (3.5-5.1); Sodium 131 mmol/L (136-145)
[2022-12-11 11:51] LABS: Alanine Aminotransferase 133 U/L (12-78); Aspartate Amino Transferase 148 U/L (17-59); Blood Urea Nitrogen 12 mg/dl (9-20); Estimated Glomerular Filt Rate 82 ml/min (>60); GFR (African American) 99 ML/MIN (>60)
[2022-12-11 11:52] LABS: Albumin Level 4.5 g/dl (3.5-5.0); Albumin/Globulin Ratio 1.4 (1.1-1.8); Alkaline Phosphatase 83 U/L (38-126); Anion Gap 14.3 mEq/L (5-15); Bilirubin,Total 1.8 mg/dl (0.2-1.3); Calcium 9.5 mg/dl (8.4-10.2); Carbon Dioxide 26 mmol/L (22.0-30.0); Globulin 3.2 g/dL (1.3-3.2); Glucose 98 mg/dl (74-100); Total Protein,Serum 7.7 g/dl (6.3-8.2)
== END ==
PROVIDERS: PCP Family Medicine; Visit Provider Family Medicine
DX: R74.8 Abnormal levels of other serum enzymes (principal); R94.5 Abnormal results of liver function studies
CPT/HCPCS: 36415; 76705; 80053

== ENCOUNTER 2022-12-17 13:36 | Emergency (ER) | payer BC, SELFPAY ==
[2022-12-17 13:42] VITALS: BP 154/86; PULSE 72; RESP 16; TEMP 36.8; O2SAT 98; BMI 44.4
--- NOTE | 2022-12-17 14:13 | HMH.EDGENADL ---
Discharge Plan Disposition Patient Disposition: Home, Self-Care Condition: Good Prescriptions Prescriptions: New bacitracin 500 unit/gram ointment 1 applic topical BID Qty: 14 0RF hydrocodone-acetaminophen 5-325 mg tablet 1 tab PO Q8H PRN (Reason: pain) Qty: 12 0RF No Action carvedilol phosphate 40 mg capsule, ER multiphase 24 hr 40 mg PO DAILY buspirone 10 mg tablet 10 mg PO citalopram 40 mg tablet 40 mg PO omeprazole 40 mg capsule,delayed release(DR/EC) 40 mg PO DAILY Label Comments: TAKE 1 CAPSULE BY MOUTH ONCE DAILY 30 MINUTES BEFORE MORNING MEAL trazodone 50 mg tablet 50 mg PO HS Qty: 60 0RF Rx Instructions: Take 1-2 tablets PO QHS hydroxyzine HCl 25 mg tablet 25 mg PO QID PRN (Reason: anxiety) Qty: 60 0RF furosemide [Lasix] 40 mg tablet 40 mg PO DAILY Qty: 30 2RF Entresto 49-51 mg tablet 1 tab PO BID Qty: 60 2RF spironolactone [Aldactone] 25 mg tablet 25 mg PO DAILY Qty: 30 2RF Referrals Follow up/Referrals: Nichelle Borrero DO [Primary Care Provider] - See instructions Activity Restrictions/Add. Instructions Additional Instructions/Restrictions: You were evaluated in the emergency department today. Please keep your wound clean and dry. Do not submerge in any water. Do not use peroxide or alcohol, as it will delay wound healing. Return to the emergency department for new or worsening symptoms. Clinical Impressions Clinical Impression: Laceration of blood vessel of left middle finger Qualifiers: Encounter type: initial encounter Qualified Code(s): S65.513A - Laceration of blood vessel of left middle finger, initial encounter Instructions Patient Instructions: DI for Laceration Repair Discharge ED Provider: Natty Cox General Adult HPI General Chief complaint: Wound/Laceration Stated complaint: AO@home 12/16 LT middle finger Time Seen by Provider: 12/17/22 13:43 Mode of Arrival: Ambulatory Source of Information: Patient Limitations: No Limitations Description of Symptoms (Recalled from ER Triage Doc. by RN): Pt c/o left middle finger laceration while using jukebox routeman last PM, states cannot stop the bleeding, pt NAD History of Present Illness HPI narrative: This patient is a 42-year-old male with a history of CHF presented to the emergency department for evaluation with concern for laceration to his left middle finger. He states that he was using a jukebox routeman last night when he accidentally cut the very tip of his finger off. He put a maxi pad on it and tried to get the bleeding to stop at home, however it continued bleeding today so he decided to come to the emergency department. He denies any other injuries. He does not take any blood thinners. He is unsure when his last tetanus shot was. Related Data Home Medications Medication Instructions Recorded Confirmed carvedilol phosphate 40 mg 40 mg PO DAILY Hypertension 12/31/19 12/13/22 capsule,[id number] multiphase buspirone 10 mg tablet 10 mg PO 11/26/22 12/13/22 citalopram 40 mg tablet 40 mg PO 11/26/22 12/13/22 omeprazole 40 mg capsule,delayed 40 mg PO DAILY 11/26/22 12/13/22 release Previous Rx's Medication Instructions Recorded furosemide 40 mg tablet (Lasix) 40 mg PO DAILY #30 tabs 11/26/22 sacubitril 49 mg-valsartan 51 mg 1 tab PO BID #60 tabs 11/26/22 tablet (Entresto) spironolactone 25 mg tablet 25 mg PO DAILY #30 tabs 11/26/22 (Aldactone) hydroxyzine HCl 25 mg tablet 25 mg PO QID PRN anxiety #60 tabs 12/06/22 trazodone 50 mg tablet 50 mg PO HS #60 tabs 12/06/22 bacitracin 500 unit/gram topical 1 applic topical BID #14 grams 12/17/22 ointment hydrocodone 5 mg-acetaminophen 325 1 tab PO Q8H PRN pain #12 tabs 12/17/22 mg tablet Allergies Allergy/AdvReac Type Severity Reaction Status Date / Time morphine [MORPHINE] Allergy Unknown I-ITCHING Verified 12/13/22 13:36 atorvastatin AdvReac Severe Verified 12/13/22 13:36 pr
--- NOTE | 2022-12-17 15:32 | PC.NURSE ---
Rounded on patient, patient is just currently waiting on discharge instructions at this time. Friend at BS and they both report no needs. Call light within reach
[2022-12-17 15:38] VITALS: BP 125/82; PULSE 73; RESP 15; TEMP 36.8; O2SAT 98
== END 2022-12-17 15:39 | disposition home or self-care (01) ==
PROVIDERS: Emergency Provider Emergency Medicine; PCP Family Medicine
DX: S65.513A Laceration of blood vessel of left middle finger, initial encounter (principal); I50.9 Heart failure, unspecified; W26.8XXA Contact with other sharp object(s), not elsewhere classified, initial encounter; F41.9 Anxiety disorder, unspecified; L84 Corns and callosities; E78.5 Hyperlipidemia, unspecified; Z86.16 Personal history of COVID-19; I11.0 Hypertensive heart disease with heart failure; Z90.49 Acquired absence of other specified parts of digestive tract; Z23 Encounter for immunization
CPT/HCPCS: 12001; 90471; 90715; 99283; 99284

== ENCOUNTER 2023-01-03 13:40 | Emergency (ER) | payer BC, SELFPAY ==
[2023-01-03 13:50] VITALS: BP 116/70; PULSE 97; RESP 20; TEMP 37; O2SAT 95; BMI 44.9
--- NOTE | 2023-01-03 13:51 | XR_ITS ---
FINAL REPORT CLINICAL HISTORY: rolled LAST NIGHT,LATERAL FOOT PAIN FINDINGS: AP, oblique, and lateral views of the right ankle were obtained. There is no prior exam for comparison. There is no fracture or dislocation. The ankle mortise is intact. Soft tissues are normal. IMPRESSION: No acute osseous abnormality of the right ankle. Reviewed, Interpreted and Dictated by Yocasta Adams MD Transcribed by Anupama Meredith Authenticated and . [facility]
--- NOTE | 2023-01-03 13:51 | XR_ITS ---
FINAL REPORT CLINICAL HISTORY: rolled LAST NIGHT, LATERAL FOOT PAIN COMPARISON: 12/31/2019 FINDINGS: AP, oblique and lateral views of the right foot were obtained. There is no prior exam for comparison. There is no acute fracture or dislocation. There is mild multi joint degenerative disease. Soft tissues are normal. IMPRESSION: 1. No acute osseous abnormality of the right foot. 2. Mild multi joint degenerative disease. Reviewed, Interpreted and Dictated by Yocasta Adams MD Transcribed by Anupama Meredith Authenticated and [facility]
--- NOTE | 2023-01-03 14:07 | EXP.UTC ---
Discharge Plan Disposition Patient Disposition: Home, Self-Care Condition: Good Prescriptions Prescriptions: New ibuprofen [IBU] 800 mg tablet 800 mg PO Q8HP PRN (Reason: Moderate Pain) Qty: 30 0RF No Action carvedilol phosphate 40 mg capsule, ER multiphase 24 hr 40 mg PO DAILY buspirone 10 mg tablet 10 mg PO DAILY citalopram 40 mg tablet 40 mg PO DAILY omeprazole 40 mg capsule,delayed release(DR/EC) 40 mg PO DAILY Label Comments: TAKE 1 CAPSULE BY MOUTH ONCE DAILY 30 MINUTES BEFORE MORNING MEAL hydroxyzine HCl 25 mg tablet 25 mg PO QID PRN (Reason: anxiety) Qty: 60 0RF furosemide [Lasix] 40 mg tablet 40 mg PO DAILY Qty: 30 2RF Entresto 49-51 mg tablet 1 tab PO BID Qty: 60 2RF spironolactone [Aldactone] 25 mg tablet 25 mg PO DAILY Qty: 30 2RF trazodone 150 mg tablet 150 mg PO DAILY Qty: 30 1RF bacitracin 500 unit/gram ointment 1 applic topical BID Qty: 14 0RF Referrals Follow up/Referrals: Ligia Hdez DPM [Staff Physician] - See instructions Nichelle Borrero DO [Primary Care Provider] - See instructions Activity Restrictions/Add. Instructions Additional Instructions/Restrictions: Rest the extremity, Elevate the extremity as tolerated while you are resting. Take ibuprofen for pain. I sent in a prescription to your pharmacy. Follow up with Dr. Hdez (podiatry). I put in a referral but you need to call her office and schedule an appointment. Follow up with your regular doctor. GO TO THE ER FOR ANY WORSENING SYMPTOMS Clinical Impressions Clinical Impression: Sprain of foot, right Instructions Patient Instructions: DI for Foot Sprain Discharge ED Provider: Tirso Campo [facility] General Stated complaint: Rolled RT ankle@home 01/02 Mode of Arrival: Ambulatory Source of Information: Patient Limitations: No Limitations Time Seen by Provider: 01/03/23 14:07 Description of Symptoms (Recalled from Triage Doc. by RN): right foot/ ankle injury HEENT Symptoms (Recalled from RN notes): No Resp Symptoms (Recalled from RN notes): No Skin Symptoms (Recalled from RN notes): No MS Symptoms (Recalled from RN notes): Yes Functional Status (Recalled from RN notes): n/a History of Present Illness Provider Complaint: He states that he twisted his right foot and ankle in his yard yesterday. He denies ankle pain. He denies any other injury or complaint. Related Data Home Medications Medication Instructions Recorded Confirmed carvedilol phosphate 40 mg 40 mg PO DAILY Hypertension 12/31/19 12/25/22 capsule,[id number] multiphase omeprazole 40 mg capsule,delayed 40 mg PO DAILY 11/26/22 12/25/22 release buspirone 10 mg tablet 10 mg PO DAILY 12/20/22 12/25/22 citalopram 40 mg tablet 40 mg PO DAILY 12/20/22 12/25/22 Previous Rx's Medication Instructions Recorded furosemide 40 mg tablet (Lasix) 40 mg PO DAILY #30 tabs 11/26/22 sacubitril 49 mg-valsartan 51 mg 1 tab PO BID #60 tabs 11/26/22 tablet (Entresto) spironolactone 25 mg tablet 25 mg PO DAILY #30 tabs 11/26/22 (Aldactone) hydroxyzine HCl 25 mg tablet 25 mg PO QID PRN anxiety #60 tabs 12/06/22 bacitracin 500 unit/gram topical 1 applic topical BID #14 grams 12/17/22 ointment trazodone 150 mg tablet 150 mg PO DAILY #30 tabs 12/20/22 ibuprofen 800 mg tablet (IBU) 800 mg PO Q8HP PRN Moderate Pain 01/03/23 #30 tabs Allergies Allergy/AdvReac Type Severity Reaction Status Date / Time morphine [MORPHINE] Allergy Unknown I-ITCHING Verified 01/03/23 13:57 atorvastatin AdvReac Severe Verified 01/03/23 13:57 pravastatin AdvReac Severe Uncoded 12/20/22 14:12 Worker's Comp Is this a Worker's Comp case?: No [facility] Disclaimer: The information contained in this section may have been updated after the patient was seen, as this information can be updated by other users. Medical History Acquired equinus deform
[2023-01-03 15:13] VITALS: BP 116/70; PULSE 97; RESP 20; TEMP 37; O2SAT 95
== END 2023-01-03 15:13 | disposition home or self-care (01) ==
PROVIDERS: Emergency Provider Nurse Practitioner Family; PCP Family Medicine
DX: S93.601A Unspecified sprain of right foot, initial encounter (principal)
CPT/HCPCS: 73610; 73630; 99212; 99213; G0463

== ENCOUNTER → 2023-02-11 16:40 | Outpatient (CLI) | payer BC, SELFPAY ==
[2023-02-11 17:20] LABS: Alanine Aminotransferase 50 U/L (12-78); Albumin Level 4.6 g/dl (3.5-5.0); Albumin/Globulin Ratio 1.5 (1.1-1.8); Alkaline Phosphatase 84 U/L (38-126); Aspartate Amino Transferase 36 U/L (17-59); Bilirubin,Total 0.8 mg/dl (0.2-1.3); Blood Urea Nitrogen 14 mg/dl (9-20); Calcium 9.4 mg/dl (8.4-10.2); Carbon Dioxide 26 mmol/L (22.0-30.0); Chloride 99 mmol/L (98-107); Estimated Glomerular Filt Rate 82 ml/min (>60); GFR (African American) 99 ML/MIN (>60); Globulin 3.1 g/dL (1.3-3.2); Glucose 95 mg/dl (74-100); HDL Cholesterol 75 mg/dl (40-60); Sodium 130 mmol/L (136-145); Total Protein,Serum 7.7 g/dl (6.3-8.2)
[2023-02-11 17:31] LABS: Direct LDL Cholesterol 171.91 mg/dL (100-129)
[2023-02-11 17:36] LABS: Chol/HDL Ratio 4.6 (1-3.5); Cholesterol 346 mg/dl (140-200); Triglycerides 677 mg/dl (30-150)
== END ==
PROVIDERS: PCP Family Medicine; Visit Provider Family Medicine
DX: I10 Essential (primary) hypertension (principal); R79.89 Other specified abnormal findings of blood chemistry; E78.5 Hyperlipidemia, unspecified
CPT/HCPCS: 36415; 80053; 80061

== ENCOUNTER 2023-03-09 12:06 | Emergency (ER) | payer BC, SELFPAY ==
[2023-03-09] VITALS (7 sets, daily range): BP systolic 127–148; BP diastolic 75–90; PULSE 78–86; RESP 10–18; TEMP 36.8–37; O2SAT 96–99; BMI 32.3
--- NOTE | 2023-03-09 12:06 | ECG_ITS ---
APPROVED REPORT Exam: Resting ECG HR:71 bpm ECG Measurements Heart Rate 71 AXES GA 216 P 53 QRSd 165 QRS -1 QT 441 T 7 QTc 463 Conclusion SINUS RHYTHM WITH SINUS ARRHYTHMIA WITH FIRST DEGREE AV BLOCK LEFT BUNDLE BRANCH BLOCK [120+ ms QRS DURATION, 80+ ms Q/S IN V1/V2, 85+ ms R IN I/aVL/V5/V6] ABNORMAL ECG UNCONFIRMED REPORT Electronically signed by : Nick Veliz MD 03/09/2023 15:50:48
--- NOTE | 2023-03-09 12:16 | XR_ITS ---
PROCEDURE INFORMATION: Exam: XR Chest Exam date and time: 03/09/2023 12:15 PM Age: 43 years old Clinical indication: Patient HX: Chest pain in middle of chest that radiates to back; Additional info: SOA TECHNIQUE: Imaging protocol: Radiologic exam of the chest. Views: 2 views. COMPARISON: CR XR CERVICAL SPINE 5V 04/10/2022 2:27 PM FINDINGS: Lungs: Unremarkable. No consolidation. Pleural spaces: Unremarkable. No pleural effusion. No pneumothorax. Heart/Mediastinum: Unremarkable. No cardiomegaly. Bones/joints: Unremarkable. IMPRESSION: No acute findings.
--- NOTE | 2023-03-09 12:20 | PC.NURSE ---
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
--- NOTE | 2023-03-09 12:22 | CT_ITS ---
PROCEDURE INFORMATION: Exam: CTA Chest With Contrast Exam date and time: 03/09/2023 12:55 PM Age: 43 years old Clinical indication: Other: Center of chest pain; Additional info: Acute chest pain rad to back TECHNIQUE: Imaging protocol: Computed tomographic angiography of the chest with contrast. 3D rendering (Not supervised by radiologist): MIP and/or 3D reconstructed images were created by the technologist. Radiation optimization: All CT scans at this facility use at least one of these dose optimization techniques: automated exposure control; mA and/or kV adjustment per patient size (includes targeted exams where dose is matched to clinical indication); or iterative reconstruction. Contrast material: ISOVUE; Contrast volume: 70 ml; Contrast route: INTRAVENOUS (IV); REPORTING DATA: Count of CT and Cardiac NM exams in prior 12 months: This patient has received 0 known CTs and 0 known cardiac nuclear medicine studies in the 12 months prior to the current study. COMPARISON: CR XR CHEST 2V 03/09/2023 12:15 PM FINDINGS: Pulmonary arteries: Normal. No large or central pulmonary embolus. Aorta: Ascending aorta measuring 3.3 cm in maximum dimensions. Lungs: Unremarkable. No consolidation. No masses. Pleural spaces: Unremarkable. No pneumothorax. No pleural effusion. Heart: Unremarkable. No cardiomegaly. No pericardial effusion. Coronary arteries: Coronary artery calcification. Lymph nodes: Densely calcified mediastinal lymph nodes. Liver: Hepatic steatosis. Bones/joints: Thoracic spondylosis. Soft tissues: Unremarkable. IMPRESSION: No evidence of acute abnormality.
[2023-03-09 12:23] LABS: Basophils % 0.5 % (0.1-2.0); Eosinophils # 0.1 K/mm3 (0.0-0.4); Eosinophils % 1.7 % (0.1-12.0); Hematocrit 40.9 % (42.0-52.0); Hemoglobin 13.7 g/dL (14.1-18.0); Lymphocytes # 1.7 K/mm3 (0.7-4.5); Lymphocytes % 32.5 % (10-50); Mean Corpuscular HGB Conc 33.5 g/dL (31.8-35.4); Mean Corpuscular Hemoglobin 31.9 pg (27.0-31.2); Mean Corpuscular Volume 95.4 fl (80-94); Mean Platelet Volume 8.4 fl (7.4-10.4); Monocytes # 0.5 K/mm3 (0.1-1.0); Monocytes % 9.7 % (1.7-9.3); Neutrophils # 2.9 K/mm3 (1.8-7.8); Neutrophils % 55.6 % (37.0-80.0); Platelet Count 194 K/mm3 (142-424); Red Blood Count 4.29 M/mm3 (4.60-6.20); Red Cell Distribution Width 14.7 % (11.5-17.5); White Blood Count 5.2 K/mm3 (4.8-10.8)
--- NOTE | 2023-03-09 12:23 | PC.NURSE ---
PT TO XR
[2023-03-09 12:30] LABS: Alanine Aminotransferase 56 U/L (12-78); Albumin Level 4.3 g/dl (3.5-5.0); Alkaline Phosphatase 67 U/L (38-126); Anion Gap 15.9 mEq/L (5-15); Aspartate Amino Transferase 47 U/L (17-59); Bilirubin,Indirect 0.7 mg/dL (0.0-0.9); Bilirubin,Total 0.7 mg/dl (0.2-1.3); Bilirubin,Unconjugated 0.6 mg/dL (0.0-1.1); Blood Urea Nitrogen 8 mg/dl (9-20); Carbon Dioxide 25 mmol/L (22.0-30.0); Chloride 102 mmol/L (98-107); Creatinine Clearance Estimated 185 mL/min (50-200); Estimated Glomerular Filt Rate 105 ml/min (>60); GFR (African American) 127 ML/MIN (>60); Glucose 100 mg/dl (74-100); Lipase 77 U/L (23-300); Potassium 3.9 mmoL/L (3.5-5.1); Sodium 139 mmol/L (136-145); Total Protein,Serum 7.4 g/dl (6.3-8.2)
[2023-03-09 12:31] LABS: Magnesium 1.8 mg/dl (1.6-2.3)
--- NOTE | 2023-03-09 12:31 | PC.NURSE ---
PT RETURNED FROM XR
[2023-03-09 12:44] LABS: Troponin I < 0.01 ng/ml (0.00-0.034)
--- NOTE | 2023-03-09 12:48 | HMH.EDGENADL ---
Discharge Plan Disposition Patient Disposition: Home, Self-Care Condition: Good Prescriptions Prescriptions: New famotidine [Pepcid] 20 mg tablet 20 mg PO BID 42 Days Qty: 84 0RF ondansetron 4 mg tablet,disintegrating 4 mg PO Q8H PRN (Reason: nausea and vomiting) 4 Days Qty: 12 0RF No Action carvedilol phosphate 40 mg capsule, ER multiphase 24 hr 40 mg PO DAILY citalopram 40 mg tablet 40 mg PO DAILY fenofibrate 54 mg tablet 54 mg PO DAILY Qty: 30 1RF trazodone 50 mg tablet 50 mg PO DAILY Qty: 30 2RF Wegovy 0.25 mg/0.5 mL pen injector 0.25 mg SQ WEEKLY Qty: 2 0RF Rx Instructions: administer weeks 1 through 4 of therapy buspirone 10 mg tablet 10 mg PO DAILY Qty: 30 1RF omeprazole 40 mg capsule,delayed release(DR/EC) 40 mg PO DAILY Qty: 30 1RF hydroxyzine HCl 25 mg tablet See Rx Instructions .ROUTE .COMPLEX Qty: 60 0RF Dose Instruction: TAKE 1 TABLET BY MOUTH 4 TIMES DAILY NEEDED FOR ANXIETY Rx Instructions: TAKE 1 TABLET BY MOUTH 4 TIMES DAILY NEEDED FOR ANXIETY furosemide 40 mg tablet 40 mg PO DAILY Qty: 30 5RF spironolactone 25 mg tablet 25 mg PO DAILY Qty: 90 3RF Entresto 49-51 mg tablet 1 tab PO BID Qty: 180 1RF Referrals Follow up/Referrals: Nichelle Borrero DO [Primary Care Provider] - See instructions Activity Restrictions/Add. Instructions Additional Instructions/Restrictions: You were evaluated in the emergency department today for chest pain. Please lemon picker your prescriptions at the pharmacy and take them as needed. Follow-up with your primary care provider over the next 3 days. Return to the emergency department for any new or worsening symptoms. Clinical Impressions Clinical Impression: Chest pain Qualifiers: Chest pain type: unspecified Qualified Code(s): R07.9 - Chest pain, unspecified GERD (gastroesophageal reflux disease) Qualifiers: Esophagitis presence: esophagitis presence not specified Qualified Code(s): K21.9 - Gastro-esophageal reflux disease without esophagitis Instructions Patient Instructions: DI for Gastroesophageal Reflux Disease (GERD), DI for Atypical Chest Pain Discharge ED Provider: Natty Cox General Adult HPI General Chief complaint: Chest Pain Stated complaint: CP Time Seen by Provider: 03/09/23 12:08 Mode of Arrival: EMS Limitations: No Limitations Description of Symptoms (Recalled from ER Triage Doc. by RN): PT BROUGHT IN VIA EMS FROM [facility] FOR CHEST PAIN THAT BEGAN THIS AM. PT REPORTS CHEST PRESSURE THAT RADIATES TO BACK, CHEST PRESSURE, WORSE WITH EXERTION. History of Present Illness HPI narrative: This patient is a 43-year-old male with a history of cardiomyopathy, bundle branch block, hypertension, hyperlipidemia, alcohol abuse, and obesity presenting to the emergency department for evaluation with concern for chest pain. He describes it as a pressure that radiates straight through to his back. He also feels short of breath and nauseated associated with this. He states that it started today while he was sitting at home at rest and did not resolve, so he called EMS. They gave him aspirin and nitroglycerin with some improvement in his symptoms. They had him on a monitor, and at one point he was noted to be tachycardic into the 140s with concern for atrial tachycardia with rapid ventricular response on their EKG. Given this, they gave him esmolol. They gave 162 mg of aspirin only. Patient denies any other concerns, such as fevers, chills, cough, vomiting, changes in bowel movements, or other concerns. He states that he has had pain similar to this in the past approximately 2 days ago, but it resolved on its own at that time. No history of blood clots or clotting disorders. Related Data Home Medications Medication Instructions Recorded Confirmed carvedilol phosphate 40 mg 40 mg PO DAILY Hypertension 12/31/19 02/12/23 capsule,[id number] multipha
--- NOTE | 2023-03-09 12:50 | PC.NURSE ---
ROUNDED ON PT, MEDICATED PER EMAR, NO NEEDS AT THIS TIME. CALL LIGHT WITHIN REACH. FAMILY AT BEDSIDE
--- NOTE | 2023-03-09 13:25 | PC.NURSE ---
ROUNDED ON PT, NO NEEDS AT THIS TIME. UPDATED ON POC
--- NOTE | 2023-03-09 14:15 | PC.NURSE ---
PT UPDATED AT THIS TIME. CALL LIGHT WITHIN REACH. AT BEDSIDE
[2023-03-09 15:29] LABS: Troponin I < 0.01 ng/ml (0.00-0.034)
--- NOTE | 2023-03-09 15:36 | PC.NURSE ---
DR SHEETS AT BEDSIDE TO UPDATE PT
== END 2023-03-09 15:50 | disposition home or self-care (01) ==
PROVIDERS: Emergency Provider Emergency Medicine; PCP Family Medicine
DX: R07.9 Chest pain, unspecified (principal); K21.9 Gastro-esophageal reflux disease without esophagitis
CPT/HCPCS: 71046; 71275; 80048; 80076; 83690; 83735; 84484; 85025; 93005; 96374; 96375; 99285; J2405; Q9967

== ENCOUNTER → 2023-03-12 12:40 | Outpatient (CLI) | payer BC, SELFPAY ==
[2023-03-12 13:56] LABS: Alanine Aminotransferase 49 U/L (12-78); Albumin Level 4.5 g/dl (3.5-5.0); Albumin/Globulin Ratio 1.5 (1.1-1.8); Alkaline Phosphatase 75 U/L (38-126); Aspartate Amino Transferase 44 U/L (17-59); Bilirubin,Total 0.9 mg/dl (0.2-1.3); Blood Urea Nitrogen 9 mg/dl (9-20); Calcium 9.6 mg/dl (8.4-10.2); Carbon Dioxide 27 mmol/L (22.0-30.0); Chloride 98 mmol/L (98-107); Estimated Glomerular Filt Rate 105 ml/min (>60); GFR (African American) 127 ML/MIN (>60); Globulin 3.1 g/dL (1.3-3.2); Glucose 98 mg/dl (74-100); Sodium 136 mmol/L (136-145); Total Protein,Serum 7.6 g/dl (6.3-8.2); Triglycerides 113 mg/dl (30-150); VLDL Cholesterol 23 mg/dL (0-40)
[2023-03-12 14:07] LABS: Direct LDL Cholesterol 184.34 mg/dL (100-129)
[2023-03-12 14:31] LABS: Chol/HDL Ratio 2.2 (1-3.5); Cholesterol 338 mg/dl (140-200); HDL Cholesterol 154 mg/dl (40-60)
== END ==
PROVIDERS: PCP Family Medicine; Visit Provider Family Medicine
DX: I10 Essential (primary) hypertension (principal); E78.5 Hyperlipidemia, unspecified
CPT/HCPCS: 36415; 80053; 80061

== ENCOUNTER → 2023-03-21 07:57 | Outpatient (CLI) | payer BC, SELFPAY ==
[2023-03-21] VITALS (8 sets, daily range): BP systolic 112–130; BP diastolic 56–81; PULSE 70–87; RESP 17–19; O2SAT 95–99; BMI 44.9
== END ==
PROVIDERS: PCP Nurse Practitioner Family; Visit Provider Nurse Practitioner Family
DX: R06.09 Other forms of dyspnea (principal); R07.9 Chest pain, unspecified; I10 Essential (primary) hypertension; I42.9 Cardiomyopathy, unspecified; I50.9 Heart failure, unspecified; R60.9 Edema, unspecified; R79.89 Other specified abnormal findings of blood chemistry; R94.31 Abnormal electrocardiogram [ECG] [EKG]; F10.20 Alcohol dependence, uncomplicated; F14.91 Cocaine use, unspecified, in remission
CPT/HCPCS: 75574; Q9967

== ENCOUNTER 2023-04-10 07:48 | Day surgery (SDC) | payer BC, SELFPAY ==
[2023-04-10] VITALS (11 sets, daily range): BP systolic 99–149; BP diastolic 66–91; PULSE 78–108; RESP 16–20; O2SAT 94–97; BMI 43.5
--- NOTE | 2023-04-10 07:04 | IR_ITS ---
APPROVED REPORT Patient Location: Outpatient Head Boys Golf Coach: CLAIR Sandoval RT (R) PROCEDURES Selective coronary angiogram INDICATION Systolic congestive heart failure ejection fraction 30%, Abnormal Myoview Informed consent was obtained prior to the procedure. COMPLICATIONS None Estimated Blood Loss: Less than 10 mls TECHNIQUE One percent lidocaine used to anesthetize the right anterior aspect of the wrist. The right radial artery was accessed via the Seldinger technique. A 6 Green[place]ic sheath was placed in the right radial artery. 150 mg magnesium sulfate, 800 mcg of nitroglycerin, 1mg Lidocaine and 5000 U Heparin were given through the arterial sheath. The papa catheter was also used to perform left heart catheterization, left ventriculogram and selective coronary angiogram. At the end of the procedure the sheath was removed good hemostasis was achieved using Traclet band, patient was transferred to the postop holding area in stable condition. ANGIOGRAPHIC RESULTS The left main artery Normal The left anterior descending artery Normal The circumflex artery Normal The right coronary artery Dominant normal The ALEJANDRO ventriculogram reveals Not performed The left ventricular end-diastolic pressure Not measured IMPRESSION Normal coronary arteries PLAN 1. Guideline mediated therapy for systolic heart failure 2. Consider LifeVest and possible [employer]ING OPERATOR-D if appropriate Electronically signed by : Wallace Horvath MD 04/10/2023 09:49:11
[2023-04-10 08:58] LABS: Chloride 88 mmol/L (98-107); Sodium 126 mmol/L (136-145)
[2023-04-10 08:59] LABS: Basophils % 0.6 % (0.1-2.0); Eosinophils # 0.2 K/mm3 (0.0-0.4); Eosinophils % 4.4 % (0.1-12.0); Hematocrit 42.1 % (42.0-52.0); Hemoglobin 14.3 g/dL (14.1-18.0); Lymphocytes # 1.6 K/mm3 (0.7-4.5); Lymphocytes % 34.5 % (10-50); Mean Corpuscular HGB Conc 33.8 g/dL (31.8-35.4); Mean Corpuscular Hemoglobin 32.1 pg (27.0-31.2); Mean Corpuscular Volume 94.9 fl (80-94); Monocytes # 0.5 K/mm3 (0.1-1.0); Monocytes % 10.6 % (1.7-9.3); Neutrophils # 2.3 K/mm3 (1.8-7.8); Neutrophils % 49.9 % (37.0-80.0); Platelet Count 240 K/mm3 (142-424); Potassium 4.5 mmoL/L (3.5-5.1); Red Blood Count 4.44 M/mm3 (4.60-6.20); Red Cell Distribution Width 13.3 % (11.5-17.5); White Blood Count 4.6 K/mm3 (4.8-10.8)
[2023-04-10 09:02] LABS: Anion Gap 16.5 mEq/L (5-15); Blood Urea Nitrogen 19 mg/dl (9-20); Calcium 10.2 mg/dl (8.4-10.2); Carbon Dioxide 26 mmol/L (22.0-30.0); Creatinine Clearance Estimated 67 mL/min (50-200); Estimated Glomerular Filt Rate 47 ml/min (>60); GFR (African American) 57 ML/MIN (>60); Glucose 111 mg/dl (74-100)
--- NOTE | 2023-04-10 09:53 | SUR.PHASEII ---
Patient being taken to outpatient surgery for recovery
== END 2023-04-10 12:45 | disposition home or self-care (01) ==
PROVIDERS: PCP Nurse Practitioner Family; Visit Provider Internal Medicine
DX: I50.23 Acute on chronic systolic (congestive) heart failure (principal); I11.0 Hypertensive heart disease with heart failure; I42.9 Cardiomyopathy, unspecified; E78.5 Hyperlipidemia, unspecified; Z79.899 Other long term (current) drug therapy; F10.20 Alcohol dependence, uncomplicated
CPT/HCPCS: 80048; 85025; 93454; 99152; C1725; C1760; C1769; J1644; Q9967

== ENCOUNTER 2023-04-16 12:34 | Inpatient (IN) | payer BC, SELFPAY ==
[2023-04-16 12:34] VITALS: BP 126/82; PULSE 97; RESP 19; TEMP 37.1; O2SAT 97; BMI 44.9
--- NOTE | 2023-04-16 12:35 | ECG_ITS ---
APPROVED REPORT Exam: Resting ECG HR:88 bpm ECG Measurements Heart Rate 88 AXES AR 240 P 88 QRSd 173 QRS 65 QT 420 T 66 QTc 466 Conclusion SINUS RHYTHM WITH FIRST DEGREE AV BLOCK LEFT BUNDLE BRANCH BLOCK [120+ ms QRS DURATION, 80+ ms Q/S IN V1/V2, 85+ ms R IN I/aVL/V5/V6] ABNORMAL ECG UNCONFIRMED REPORT Electronically signed by : Nick Veliz MD 04/16/2023 20:02:19
--- NOTE | 2023-04-16 12:44 | XR_ITS ---
FINAL REPORT CLINICAL HISTORY: cp FINDINGS: The heart size is normal. The mediastinum is within normal limits. There is no acute cardiopulmonary process. There is no pleural effusion. There is no pneumothorax. The bony thorax is intact. IMPRESSION: No acute cardiopulmonary process. Reviewed, Interpreted and Dictated by Kobe Mathis III, MD Transcribed by Shant Cook Authenticated and [facility]
--- NOTE | 2023-04-16 12:46 | HMH.EDGENADL ---
Discharge Plan Disposition Patient Disposition: Admitted Condition: Fair Chief Complaint: Dizziness Prescriptions Prescriptions: No Action carvedilol phosphate 40 mg capsule, ER multiphase 24 hr 40 mg PO DAILY citalopram 40 mg tablet 40 mg PO DAILY loratadine [Claritin] 10 mg tablet 10 mg PO DAILY ondansetron 4 mg tablet,disintegrating 4 mg PO Q8H PRN (Reason: nausea and vomiting) 4 Days Qty: 12 0RF furosemide 40 mg tablet 40 mg PO DAILY trazodone 50 mg tablet 50 mg PO DAILY omeprazole 40 mg capsule,delayed release(DR/EC) 40 mg PO DAILY spironolactone 25 mg tablet 25 mg PO DAILY famotidine [Pepcid] 20 mg tablet 20 mg PO BID buspirone 10 mg tablet 10 mg PO DAILY hydroxyzine HCl 25 mg tablet See Rx Instructions .ROUTE .COMPLEX Rx Instructions: TAKE 1 TABLET BY MOUTH 4 TIMES DAILY NEEDED FOR ANXIETY fenofibrate 54 mg tablet 54 mg PO DAILY Entresto 97-103 mg tablet 1 tab PO BID semaglutide (weight loss) 0.5 mg/0.5 mL pen injector 0.5 mg SQ WEEKLY Rx Instructions: administer weeks 5 through 8 of therapy Referrals Follow up/Referrals: Honey Rizo APRN [Primary Care Provider] - See instructions Clinical Impressions Clinical Impression: Near syncope, Alcohol withdrawal, Renal failure Discharge ED Provider: Christophe Muhammad Adult HPI General Chief complaint: Dizziness Stated complaint: BP dropping Time Seen by Provider: 04/16/23 13:00 Mode of Arrival: Wheelchair Source of Information: Patient Limitations: No Limitations Description of Symptoms (Recalled from ER Triage Doc. by RN): 43 yo M presents to ED with c/o hypotension, dizzines. pt states that he had a fall at home on saturday. pt states that he felt that his legs and arms stiffened up on him and he lost balance. pt was seen 04/10 for heart cath with dr jacinto (which showed nothing) , pt is to have pacemaker placed soon. History of Present Illness HPI narrative: This is a 43-year-old male who states that he had a LHC last week which was negative and since then he has had multiple episodes of dizziness lightheadedness and low blood pressure. Patient states that Dr. Jacinto told him he needed a pacemaker and is waiting for insurance approval. Patient is not on any blood thinners patient denies any head trauma. Patient denies any chest pain pressure cough hemoptysis or shortness of breath. Related Data Home Medications Medication Instructions Recorded Confirmed carvedilol phosphate 40 mg 40 mg PO DAILY Hypertension 12/31/19 04/10/23 capsule,[id number] multiphase citalopram 40 mg tablet 40 mg PO DAILY Anxiety 12/20/22 04/10/23 buspirone 10 mg tablet 10 mg PO DAILY Anxiety 03/21/23 04/10/23 famotidine 20 mg tablet (Pepcid) 20 mg PO BID GERD 03/21/23 04/10/23 fenofibrate 54 mg tablet 54 mg PO DAILY Cholesterol 03/21/23 04/10/23 furosemide 40 mg tablet 40 mg PO DAILY diuretic 03/21/23 04/10/23 hydroxyzine HCl 25 mg tablet See Rx Instructions .Route 03/21/23 04/10/23 .COMPLEX Anxiety omeprazole 40 mg capsule,delayed 40 mg PO DAILY GERD 03/21/23 04/10/23 release sacubitril 97 mg-valsartan 103 mg 1 tab PO BID Heart failure 03/21/23 04/10/23 tablet (Entresto) semaglutide (weight loss) 0.5 0.5 mg SQ WEEKLY Weight loss 03/21/23 04/10/23 mg/0.5 mL subcutaneous pen injector spironolactone 25 mg tablet 25 mg PO DAILY diuretic 03/21/23 04/10/23 trazodone 50 mg tablet 50 mg PO DAILY sleep 03/21/23 04/10/23 loratadine 10 mg tablet (Claritin) 10 mg PO DAILY Allergy symptoms 04/04/23 04/10/23 Previous Rx's Medication Instructions Recorded ondansetron 4 mg disintegrating 4 mg PO Q8H PRN nausea and 03/09/23 tablet vomiting 4 days #12 tabs Allergies Allergy/AdvReac Type Severity Reaction Status Date / Time morphine [MORPHINE] Allergy Unknown I-ITCHING Verified 04/04/23 15:02 [id number] Reductase AdvReac Severe MUSCLE Verified
--- NOTE | 2023-04-16 12:51 | PC.NURSE ---
ER speaking with josué tellez for cardiology
[2023-04-16 12:59] LABS: Basophils % 0.6 % (0.1-2.0); Eosinophils # 0.1 K/mm3 (0.0-0.4); Eosinophils % 3.3 % (0.1-12.0); Hematocrit 40.7 % (42.0-52.0); Hemoglobin 13.6 g/dL (14.1-18.0); Lymphocytes # 1.3 K/mm3 (0.7-4.5); Lymphocytes % 34.3 % (10-50); Mean Corpuscular HGB Conc 33.5 g/dL (31.8-35.4); Mean Corpuscular Hemoglobin 32.5 pg (27.0-31.2); Mean Platelet Volume 7.6 fl (7.4-10.4); Monocytes # 0.4 K/mm3 (0.1-1.0); Monocytes % 9.9 % (1.7-9.3); Neutrophils % 51.9 % (37.0-80.0); Platelet Count 235 K/mm3 (142-424); Red Cell Distribution Width 13.5 % (11.5-17.5); White Blood Count 3.8 K/mm3 (4.8-10.8)
[2023-04-16 13:05] LABS: Activated Partial Thrombo Time 26.4 seconds (22.8-30.6); Alanine Aminotransferase 92 U/L (12-78); Albumin/Globulin Ratio 1.5 (1.1-1.8); Alkaline Phosphatase 58 U/L (38-126); Anion Gap 21.3 mEq/L (5-15); Aspartate Amino Transferase 88 U/L (17-59); Bilirubin,Total 0.9 mg/dl (0.2-1.3); Blood Urea Nitrogen 31 mg/dl (9-20); Calcium 9.9 mg/dl (8.4-10.2); Carbon Dioxide 23 mmol/L (22.0-30.0); Chloride 89 mmol/L (98-107); Creatinine Clearance Estimated 51 mL/min (50-200); Estimated Glomerular Filt Rate 34 ml/min (>60); GFR (African American) 42 ML/MIN (>60); Globulin 3.3 g/dL (1.3-3.2); Glucose 112 mg/dl (74-100); INR 0.97 (0.9-1.1); Potassium 4.3 mmoL/L (3.5-5.1); Prothrombin Time 10.5 seconds (10.1-12.5); Sodium 129 mmol/L (136-145); Total Protein,Serum 8.3 g/dl (6.3-8.2)
[2023-04-16 13:23] LABS: Troponin I < 0.01 ng/ml (0.00-0.034)
--- NOTE | 2023-04-16 13:25 | PC.NURSE ---
pt sitting upon side of the bed, updated pt on POC
[2023-04-16 13:27] LABS: Coronavirus 19, PCR Not Detected (NotDetected); Influenza A, PCR Not Detected (NotDetected); Influenza B, PCR Not Detected (NotDetected)
[2023-04-16 13:31] VITALS: BP 123/84; PULSE 97; RESP 18; O2SAT 99
--- NOTE | 2023-04-16 13:38 | PC.NURSE ---
at BS checking on pt, pt reports that pt may be going through alcohol withdraw-states pt normally drinks a fifth of liquor daily, states has been approx 12 hours since last etoh intake. notified LAURA GOODEN
--- NOTE | 2023-04-16 13:41 | PC.NURSE ---
LAURA GOODEN speaking with Dr. Gardner
--- NOTE | 2023-04-16 13:45 | PC.NURSE ---
notified care management of admission, spoke with richard
--- NOTE | 2023-04-16 13:53 | PC.NURSE ---
this nurse asked pt and his if pt has ever experienced withdrawals from ETOH before. pt and his states that he has been through ETOH withdrawal but pt has no hx of seizures. seizure pads placed on bed.
--- NOTE | 2023-04-16 13:59 | PC.NURSE ---
assisted pt to the bathroom with wheelchair. advised to pull elina. string if he needed anything
--- NOTE | 2023-04-16 14:13 | PC.NURSE ---
report called to kelechi on second floor
[2023-04-16 14:17] LABS: Magnesium 1.9 mg/dl (1.6-2.3); Phosphorous 3.5 mg/dl (2.5-4.5)
--- NOTE | 2023-04-16 14:17 | PC.NURSE ---
dr. jacinto at
--- NOTE | 2023-04-16 14:19 | HMH.PHAINT1 ---
Pharmacy Intervention Comments: MEDICATION RECONCILIATION COMPLETED ON PATIENT USING EXTERNAL FILL HISTORY FROM PHARMACY AND LIST FROM CARDIOLOGY OFFICE. -GALLITO BELL, PATELD
[2023-04-16 14:24] LABS: Ethyl Alcohol 84 mg/dl (0-10); Lipase 273 U/L (23-300)
--- NOTE | 2023-04-16 14:27 | EXP.CARD.CON ---
History of Present Illness History of Present Illness Consult date: 04/16/23 Requesting physician: Christophe Muhammad Consult reason: hypotension Chief complaint: dizziness History of present illness: 43-year-old white gentleman who presented to the emergency department complaints of dizziness and hypotension. The patient states that he had a fall at home on Saturday. He states that he felt like his legs and arms were stiff and he lost balance and fell. The patient did have left cardiac catheterization on 04/10/2023 which showed normal coronary arteries. At that time Dr. Horvath did mention consideration of a TIRE ADJUSTER-D if the patient was a candidate. However last assessment of his ejection fraction by echocardiogram in November 2022 showed his ejection fraction was 40% and his EF on a Myoview in November 2022 was at 30%. The patient was started on goal-directed medical therapy with diuretics and Entresto at that time. The patient states that he has had worsening dizziness this week with hypotension. He has not felt well. The patient does consume about 1/5 of bourbon a night and feels like he is having alcohol withdrawals as well. He denies any chest pain or pressure. He does have shortness of breath with exertion. This improves with rest. There is no lower extremity edema noted at this time. He denies any fever, chills, nausea, vomiting, diarrhea, PND or orthopnea. [facility] Disclaimer: The information contained in this section may have been updated after the patient was seen, as this information can be updated by other users. Medical History (Updated 04/16/23 @ 14:32 by Gill Gomez APRN) Acquired equinus deformity of both feet Acquired hallux valgus of both feet Acquired hammertoes of both feet Acquired pes planus of both feet Alcohol abuse Alcohol withdrawal Alcoholism Angina pectoris Anxiety Callus of foot Cardiomyopathy Congestive heart failure COVID-19 Elevated LFTs Heel pain, bilateral History of cocaine use Hyperlipidemia Hypertension Hypotension Keratosis Metatarsalgia of both feet Nonischemic cardiomyopathy Pain in both feet Surgical History History of cardiac catheterization History of cholecystectomy Family History Other Family history of hypertension Family history of myocardial infarction Social History (Updated 04/10/23 @ 08:28 by Anh Escalera RN) Smoking Status: Never smoker alcohol intake: current substance use type: denies use current occupational status: employed Travel in the last 8 weeks: None household members: spouse housing: house Exam Data for Last 24 hours Vital signs and Labs for Last 24 Hours: Temp Pulse Resp BP Pulse Ox 98.7 F 97 H 18 123/84 99 04/16/23 12:34 04/16/23 13:31 04/16/23 13:31 04/16/23 13:31 04/16/23 13:31 Laboratory Results - last 24 hr 04/16/23 12:38: PT 10.5, INR 0.97, APTT 26.4 04/16/23 12:38: Sodium 129 L, Potassium 4.3, Chloride 89 L, Carbon Dioxide 23, Anion Gap 21.3 H, BUN 31 H, Creatinine 2.10 H, Estimated Creat Clear 51, Estimated GFR 34 L, Est GFR ( Amer) 42 L, Glucose 112 H, Calcium 9.9, Total Bilirubin 0.9, AST 88 H, ALT 92 H, Alkaline Phosphatase 58, Troponin I < 0.01, NT-Pro-B Natriuret Pep 33.0, Total Protein 8.3 H, Albumin 5.0, Globulin 3.3 H, Albumin/Globulin Ratio 1.5 04/16/23 12:38: WBC 3.8 L, RBC 4.20 L, Hgb 13.6 L, Hct 40.7 L, MCV 97.0 H, MCH 32.5 H, MCHC 33.5, RDW 13.5, Plt Count 235, MPV 7.6, Neut % (Auto) 51.9, Lymph % (Auto) 34.3, [place] % (Auto) 9.9 H, Eos % (Auto) 3.3, Baso % (Auto) 0.6, Neut # (Auto) 2.0, Lymph # (Auto) 1.3, [place] # (Auto) 0.4, Eos # (Auto) 0.1, Baso # (Auto) 0.0 04/16/23 12:38: Lipase 273 04/16/23 12:38: Plasma/Serum Alcohol 84 H 04/16/23 12:38: Phosphorus 3.5, Magnesium 1.9 04/16/23 13:23: SARS-CoV-2 (PCR) Not detected, Influenza A Untype (PCR) Not detected, Influenza Type B (PCR) Not det
[2023-04-16 14:40] VITALS: BP 118/75; PULSE 84; RESP 18; TEMP 36.7; O2SAT 97; BMI 43.5
--- NOTE | 2023-04-16 14:40 | PC.NURSE ---
arrived to floor by w/c from ED
[2023-04-16 14:42] VITALS: BP 123/84; PULSE 97; RESP 18; TEMP 37.1; O2SAT 99
--- NOTE | 2023-04-16 15:48 | EXP.HP ---
History of Present Illness *Admission Date: 04/16/23 *Reason for visit:: dizziness and hypotension *History of present illness: This is a 43-year-old gentleman who presented to the emergency department complaints of dizziness and hypotension.? The patient states that he had a fall at home on Saturday.? He states that he felt like his legs and arms were stiff and he lost balance and fell.? The patient did have left cardiac catheterization on 04/10/2023 which showed normal coronary arteries.? At that time Dr. Horvath did mention consideration of a CENTER DIRECTOR LEAD TEACHER-D if the patient was a candidate.? However last assessment of his ejection fraction by echocardiogram in November 2022 showed his ejection fraction was 40% and his EF on a Myoview in November 2022 was at 30%.? The patient was started on diuretics and Entresto at that time, dose was reduced to half on last recommendations. The patient states that he has had worsening dizziness this week with hypotension.?The patient does consume about 1/5 of bourbon a night and feels like he is having alcohol withdrawals as well.? He denies any chest pain or pressure.? He does have shortness of breath with exertion.? This improves with rest.? There is no lower extremity edema noted at this time.? He denies any fever, chills, nausea, vomiting, diarrhea. Patient admitted for further management. [facility] Disclaimer: The information contained in this section may have been updated after the patient was seen, as this information can be updated by other users. Medical History (Updated 04/16/23 @ 16:27 by Erwin Polk APRN) Acquired equinus deformity of both feet Acquired hallux valgus of both feet Acquired hammertoes of both feet Acquired pes planus of both feet Alcohol abuse Alcohol withdrawal Alcoholism Angina pectoris Anxiety Callus of foot Cardiomyopathy Congestive heart failure COVID-19 Elevated LFTs Heel pain, bilateral History of cocaine use Hyperlipidemia Hypertension Hypotension Keratosis Metatarsalgia of both feet Nonischemic cardiomyopathy Pain in both feet Surgical History History of cardiac catheterization History of cholecystectomy Family History Family history of hypertension Family history of myocardial infarction Social History (Updated 04/16/23 @ 15:38 by Harleen Hernandez RN) Smoking Status: Never smoker alcohol intake: current substance use type: denies use current occupational status: employed Travel in the last 8 weeks: None household members: spouse housing: house Review of Systems Review of Systems Review of systems:: pertinent systems reviewed and negative unless documented below Meds Home Medications and Allergies Home Medications Medication Instructions Recorded Confirmed Type carvedilol phosphate 40 mg 40 mg PO DAILY Hypertension 12/31/19 04/16/23 History capsule,[id number] multiphase citalopram 40 mg tablet 40 mg PO DAILY MOOD 12/20/22 04/16/23 History buspirone 10 mg tablet 10 mg PO DAILY Anxiety 03/21/23 04/16/23 History famotidine 20 mg tablet (Pepcid) 20 mg PO BID Acid reflux 03/21/23 04/16/23 History fenofibrate 54 mg tablet 54 mg PO DAILY Cholesterol 03/21/23 04/16/23 History furosemide 40 mg tablet 40 mg PO DAILY Fluid 03/21/23 04/16/23 History hydroxyzine HCl 25 mg tablet 25 mg PO QIDP PRN Anxiety 03/21/23 04/16/23 History omeprazole 40 mg capsule,delayed 40 mg PO DAILY Acid reflux 03/21/23 04/16/23 History release sacubitril 97 mg-valsartan 103 mg 1 tab PO BID Heart failure 03/21/23 04/16/23 History tablet (Entresto) semaglutide (weight loss) 0.5 0.5 mg SQ WEEKLY Weight loss 03/21/23 04/16/23 History mg/0.5 mL subcutaneous pen injector spironolactone 25 mg tablet 25 mg PO DAILY Fluid 03/21/23 04/16/23 History trazodone 50 mg tablet 50 mg PO HS sleep 03/21/23 04/16/23 History loratadine 10 mg tablet (Claritin) 10 mg PO DAILY Allergy
[2023-04-16 16:00] VITALS: PULSE 100
[2023-04-16 17:10] LABS: Troponin I < 0.01 ng/ml (0.00-0.034)
[2023-04-16 19:30] LABS: Troponin I < 0.01 ng/ml (0.00-0.034)
--- NOTE | 2023-04-16 19:49 | PC.NURSE ---
Addendum entered by Harleen Hernandez RN 04/16/23 19:50: 10mg valium admin, pt resting at this time.home meds locked in consulting services associate room, cpap at bs from home Original Note: notified of 3rd CIWA score of 16. 1
[2023-04-16 20:00] VITALS: BP 124/70; PULSE 100; PULSE 90; RESP 18; TEMP 36.8; O2SAT 93
[2023-04-17] VITALS (9 sets, daily range): BP systolic 102–127; BP diastolic 57–73; PULSE 75–100; RESP 16–20; TEMP 36.3–36.8; O2SAT 93–100; BMI 43.7
[2023-04-17 06:17] LABS: Basophils % 0.7 % (0.1-2.0); Eosinophils # 0.1 K/mm3 (0.0-0.4); Eosinophils % 2.5 % (0.1-12.0); Hematocrit 42.4 % (42.0-52.0); Hemoglobin 13.8 g/dL (14.1-18.0); Lymphocytes # 1.1 K/mm3 (0.7-4.5); Lymphocytes % 25.8 % (10-50); Mean Corpuscular HGB Conc 32.5 g/dL (31.8-35.4); Mean Corpuscular Hemoglobin 32.3 pg (27.0-31.2); Mean Corpuscular Volume 99.1 fl (80-94); Mean Platelet Volume 7.9 fl (7.4-10.4); Monocytes # 0.4 K/mm3 (0.1-1.0); Monocytes % 8.4 % (1.7-9.3); Neutrophils # 2.6 K/mm3 (1.8-7.8); Neutrophils % 62.6 % (37.0-80.0); Platelet Count 194 K/mm3 (142-424); Red Blood Count 4.28 M/mm3 (4.60-6.20); Red Cell Distribution Width 13.5 % (11.5-17.5); White Blood Count 4.2 K/mm3 (4.8-10.8)
[2023-04-17 06:30] LABS: Alanine Aminotransferase 94 U/L (12-78); Albumin/Globulin Ratio 1.5 (1.1-1.8); Alkaline Phosphatase 62 U/L (38-126); Aspartate Amino Transferase 81 U/L (17-59); Bilirubin,Total 1.2 mg/dl (0.2-1.3); Blood Urea Nitrogen 31 mg/dl (9-20); Calcium 9.8 mg/dl (8.4-10.2); Carbon Dioxide 26 mmol/L (22.0-30.0); Chloride 91 mmol/L (98-107); Creatinine Clearance Estimated 57 mL/min (50-200); Estimated Glomerular Filt Rate 41 ml/min (>60); GFR (African American) 50 ML/MIN (>60); Globulin 3.3 g/dL (1.3-3.2); Glucose 142 mg/dl (74-100); Magnesium 2.4 mg/dl (1.6-2.3); Phosphorous 3.5 mg/dl (2.5-4.5); Sodium 130 mmol/L (136-145); Total Protein,Serum 8.3 g/dl (6.3-8.2)
--- NOTE | 2023-04-17 07:00 | NM_ITS ---
APPROVED REPORT NM Technologist: CLAIR Simmons RT (R)(N)(M) Indication Acute CT CAD Congestive Heart Failure Syncope Cardiac Risk Factors Hypertension: Obesity: Height: 149.8, Hyperlipidemia Smoking: Quit: Procedure The above named patient was injected with 23.0 mCi of Tc99m tagged red blood cells. The above named patient was injected with 3.0 mg of cold stannous pyrophosphate. After 20.0 min, the patient was injected with 23.0 mCi of Technecium-99m pertechnetate. Gated imaging was then performed in 45 [address]LEJAN[address]O-TAVARES, ANT RT LAT projections. Findings Calculated LV Ejection Fraction is 50.0%. Normal Ejection Fraction for this facility is 50.0%. Left Ventricle: The left ventricle is of normal size and shape. There is low-normal global LV systolic function. Calculated left ventricular ejection fraction is low-normal at 50%. Right Ventricle: The right ventricle is of normal size and shape. Wall Motion: Left ventricular wall motion is concentric and normal in all regions. Left ventricular motion is within normal limits. Impression Normal MUGA study. Calculated left ventricular ejection fraction is 50 %. Normal left ventricular systolic function. Normal right and left ventricular chamber sizes. Normal right and left ventricular segmental wall motion. Calculated left ventricular ejection fraction is low-normal at 50%. The rest and stress images show normal perfusion, normal contraction and thickening. Left Ventricular size was normal. Image quality was good. There were no wall motion abnormalities. Conclusion Normal right and left ventricular chamber sizes. Normal right and left ventricular segmental wall motion. Calculated left ventricular ejection fraction is low-normal at 50%. Electronically signed by : Antonella Joseph, 04/19/2023 15:23:03
--- NOTE | 2023-04-17 09:38 | EXP.CARD.PN ---
Subjective Subjective Date: 04/17/23 Time: 08:30 Principal diagnosis: NICMP, hypotension, alcohol withdrawal Interval history: This is a 43-year-old white gentleman who presented to the emergency department complaints of dizziness and hypotension. The patient was also experiencing alcohol withdrawal. The patient has been on Valium and gabapentin for the withdrawals. He states he is feeling much better this morning. All of his antihypertensives and diuretics were held yesterday and his blood pressure has improved. This morning he denies any chest pain or pressure. He still has some shortness of breath with exertion but this does improve with rest. He denies any lower extremity edema. He states he is still feeling somewhat weak and fatigued but this is also better. He states his dizziness has significantly improved. He has been having some nausea and vomiting intermittently but this is also improved. He denies any fever, chills, diarrhea, PND or orthopnea. Exam Data for Last 24 hours Vital signs and Labs for Last 24 Hours: Temp Pulse Resp BP Pulse Ox 97.6 F 95 H 20 119/57 L 100 04/17/23 08:00 04/17/23 08:00 04/17/23 08:00 04/17/23 08:28 04/17/23 08:00 Laboratory Results - last 24 hr 04/16/23 12:38: PT 10.5, INR 0.97, APTT 26.4 04/16/23 12:38: Sodium 129 L, Potassium 4.3, Chloride 89 L, Carbon Dioxide 23, Anion Gap 21.3 H, BUN 31 H, Creatinine 2.10 H, Estimated Creat Clear 51, Estimated GFR 34 L, Est GFR ( Amer) 42 L, Glucose 112 H, Calcium 9.9, Total Bilirubin 0.9, AST 88 H, ALT 92 H, Alkaline Phosphatase 58, Troponin I < 0.01, NT-Pro-B Natriuret Pep 33.0, Total Protein 8.3 H, Albumin 5.0, Globulin 3.3 H, Albumin/Globulin Ratio 1.5 04/16/23 12:38: WBC 3.8 L, RBC 4.20 L, Hgb 13.6 L, Hct 40.7 L, MCV 97.0 H, MCH 32.5 H, MCHC 33.5, RDW 13.5, Plt Count 235, MPV 7.6, Neut % (Auto) 51.9, Lymph % (Auto) 34.3, [place] % (Auto) 9.9 H, Eos % (Auto) 3.3, Baso % (Auto) 0.6, Neut # (Auto) 2.0, Lymph # (Auto) 1.3, [place] # (Auto) 0.4, Eos # (Auto) 0.1, Baso # (Auto) 0.0 04/16/23 12:38: Lipase 273 04/16/23 12:38: Plasma/Serum Alcohol 84 H 04/16/23 12:38: Phosphorus 3.5, Magnesium 1.9 04/16/23 13:23: SARS-CoV-2 (PCR) Not detected, Influenza A Untype (PCR) Not detected, Influenza Type B (PCR) Not detected 04/16/23 16:40: Troponin I < 0.01 04/16/23 18:50: Troponin I < 0.01 04/17/23 05:51: WBC 4.2 L, RBC 4.28 L, Hgb 13.8 L, Hct 42.4, MCV 99.1 H, MCH 32.3 H, MCHC 32.5, RDW 13.5, Plt Count 194, MPV 7.9, Neut % (Auto) 62.6, Lymph % (Auto) 25.8, [place] % (Auto) 8.4, Eos % (Auto) 2.5, Baso % (Auto) 0.7, Neut # (Auto) 2.6, Lymph # (Auto) 1.1, [place] # (Auto) 0.4, Eos # (Auto) 0.1, Baso # (Auto) 0.0 04/17/23 05:51: Sodium 130 L, Potassium 4.0, Chloride 91 L, Carbon Dioxide 26, Anion Gap 17.0 H, BUN 31 H, Creatinine 1.80 H, Estimated Creat Clear 57, Estimated GFR 41 L, Est GFR ( Amer) 50 L, Glucose 142 H D, Calcium 9.8, Phosphorus 3.5, Magnesium 2.4 H D, Total Bilirubin 1.2, AST 81 H, ALT 94 H, Alkaline Phosphatase 62, Total Protein 8.3 H, Albumin 5.0, Globulin 3.3 H, Albumin/Globulin Ratio 1.5 I & O for Last 24 hours: Intake & Output 04/14/23 04/15/23 04/16/23 04/17/23 23:59 23:59 23:59 23:59 Intake Total 240 / 240 240 / 240 Output Total 0 / 0 0 / 0 Balance 240 / 240 240 / 240 Weight 328 lb 8 oz 330 lb 6 oz Narrative: Telemetry strip is sinus rhythm. Constitutional Constitutional: no acute distress, morbidly obese, diaphoretic and disheveled *Routine HEENT Exam Head: Present normocephalic and atraumatic ENT: Present mucous membranes moist *Routine Neck Exam Neck: Present supple, full ROM and normal carotid upstroke; Absent JVD, carotid bruit or lymphadenopathy *Routine Respiratory Exam Respiratory: Present CTA bilaterally, normal respiratory effort, able to speak in complete sentences and symmetric chest movement *Routine Cardiovascular Exam Cardiovascular: Present RRR, Normal S1 and Normal S2; Absent murmur or gallop *Routine Abdomi
[2023-04-17 11:10] LABS: Amphetamine/Metha Screen,Urine Negative ng/ml (<1000)
[2023-04-17 11:11] LABS: Barbiturates Screen,Urine Negative ng/ml (<200); Benzodiazepines Screen,Urine Positive ng/ml (<200)
[2023-04-17 11:12] LABS: Cannabinoid Screen,Urine Negative ng/ml (<50); Cocaine Screen,Urine Negative ng/ml (<300)
[2023-04-17 11:13] LABS: Methadone Screen,Urine Negative ng/ml (<300)
[2023-04-17 11:14] LABS: Opiate Screen,Urine Negative ng/ml (<300); Phencyclidine Screen,Urine Negative ng/ml (<25)
--- NOTE | 2023-04-17 15:04 | EXP.ACUTE.PN ---
Subjective *Date: 04/17/23 *Time: 15:04 Interval history: Patient has an elevated CIWA scores initially early in the night, required several doses of Valium. Slept better overnight. Feeling better this morning. Still having some tremor but no nausea or vomiting. Denies chest pain or shortness of breath. Medical Exam Vital signs and Labs for Last 24 Hours: Vital Signs Temp Pulse Pulse Resp BP Pulse Ox 04/17/23 12:00 81 04/17/23 04:00 80 04/17/23 11:53 97.8 F 88 18 115/63 97 04/17/23 08:00 100 H 04/17/23 08:28 119/57 L 04/17/23 08:00 97.6 F 95 H 20 108/73 L 100 04/17/23 04:00 98.2 F 88 18 125/67 97 04/17/23 00:00 90 04/16/23 20:00 100 H 04/17/23 00:00 97.9 F 85 18 127/65 97 04/16/23 20:00 98.2 F 90 18 124/70 93 L 04/16/23 16:00 100 H Intake and Output 04/16/23 04/17/23 04/17/23 23:59 07:59 15:59 Intake Total 240 / 240 960 / 960 Output Total 0 / 0 0 / 0 0 / 0 Balance 240 / 240 0 / 960 960 / 960 Intake: Intake, Oral Amount 240 / 240 960 / 960 Output: Output, Urine Amount 0 / 0 0 / 0 0 / 0 Other: Number of Unmeasured Voids 1 1 2 Number of Bowel Movements 1 Weight 149.856 kg Patient Weight 04/17/23 23:59 Weight 149.856 kg Laboratory Results - last 24 hr 04/16/23 16:40: Troponin I < 0.01 04/16/23 18:50: Troponin I < 0.01 04/17/23 04:30: Urine Opiates Screen Negative, Urine Methadone Screen Negative, Ur Barbituates Screen Negative, Ur Phencyclidine Scrn Negative, Ur Amphetamines Screen Negative, U Benzodiazepines Scrn Positive H, Urine Cocaine Screen Negative, U Marijuana (THC) Screen Negative 04/17/23 05:51: WBC 4.2 L, RBC 4.28 L, Hgb 13.8 L, Hct 42.4, MCV 99.1 H, MCH 32.3 H, MCHC 32.5, RDW 13.5, Plt Count 194, MPV 7.9, Neut % (Auto) 62.6, Lymph % (Auto) 25.8, [place] % (Auto) 8.4, Eos % (Auto) 2.5, Baso % (Auto) 0.7, Neut # (Auto) 2.6, Lymph # (Auto) 1.1, [place] # (Auto) 0.4, Eos # (Auto) 0.1, Baso # (Auto) 0.0 04/17/23 05:51: Sodium 130 L, Potassium 4.0, Chloride 91 L, Carbon Dioxide 26, Anion Gap 17.0 H, BUN 31 H, Creatinine 1.80 H, Estimated Creat Clear 57, Estimated GFR 41 L, Est GFR ( Amer) 50 L, Glucose 142 H D, Calcium 9.8, Phosphorus 3.5, Magnesium 2.4 H D, Total Bilirubin 1.2, AST 81 H, ALT 94 H, Alkaline Phosphatase 62, Total Protein 8.3 H, Albumin 5.0, Globulin 3.3 H, Albumin/Globulin Ratio 1.5 I & O for Labs for Last 24 Hours: Intake & Output 04/14/23 04/15/23 04/16/23 04/17/23 23:59 23:59 23:59 23:59 Intake Total 240 / 240 960 / 960 Output Total 0 / 0 0 / 0 Balance 240 / 240 960 / 960 Weight 149.005 kg 149.856 kg Constitutional: Present no acute distress and morbidly obese Head: Present atraumatic and normocephalic ENT: Present normal exam Neck: Present normal inspection Respiratory: Present normal respiratory effort; Absent rhonchi, wheezes or crackles Cardiac: Present Reg Rate and Rhythm GI: Present soft and normal bowel sounds; Absent distention or tenderness Extremities: Present normal inspection and full ROM Skin: Present intact; Absent erythema Neuro: Present Grossly Intact, alert, awake, oriented x 3 and moves all extremities Comment:: tremor Assessment and Plan *Assessment and plan (1) Nonischemic cardiomyopathy: Status: Acute Category: Medical Code(s): I42.8 - Other cardiomyopathies (2) Hypotension: Status: Acute Qualifiers: Hypotension type: postprocedural hypotension Qualified Code(s): I95.81 - Postprocedural hypotension Category: Medical Code(s): I95.9 - Hypotension, unspecified (3) Renal failure: Status: Acute Qualifiers: Chronic kidney disease stage: stage 3 (moderate) Chronic kidney disease stage 3 subtype: stage 3b (GFR 30-44) Renal failure chronicity: acute on chronic Category: Medical Code(s): N19 - Unspecified kidney failure (4) Alcoholism: Status: Acut
[2023-04-17 18:21] LABS: Chloride 90 mmol/L (98-107); Potassium 4.6 mmoL/L (3.5-5.1); Sodium 131 mmol/L (136-145)
--- NOTE | 2023-04-17 18:21 | PC.NURSE ---
A&OX4. RESPIRATIONS REGULAR AND UNLABORED. PT HAS REMAINED ON RA THROUGHOUT SHIFT. NO COUGH NOTED. ACTIVE BOWEL SOUNDS HEARD IN ALL 4 QUADRANTS. SOFT AND NONTENDER ABDOMEN. NO BM REPORTED THUS FAR. LUNGS CLEAR THROUGHOUT. NO EDEMA NOTED. HAND PARENT EDUCATOR EQUAL. +2 PULSES NOTED THROUGHOUT. HAS REMAINED AT BEDSIDE THROUGHOUT SHIFT. PT REPORTED BACK PAIN ONCE THIS SHIFT AND RECEIVED TYLENOL PER MAR. ON REASSESSMENT, PT REPORTS NO PAIN. PT HAS ONLY REPORTED SOME MILD SHAKING THIS SHIFT. DENIES HEADACHE OR NAUSEA. NO QUESTIONS OR CONCERNS VOICED THUS FAR. BED IN LOWEST POSITION. CALL LIGHT WITHIN REACH. VSS. WILL CONTINUE TO MONITOR.
[2023-04-17 18:24] LABS: Anion Gap 17.6 mEq/L (5-15); Blood Urea Nitrogen 37 mg/dl (9-20); Calcium 10.3 mg/dl (8.4-10.2); Carbon Dioxide 28 mmol/L (22.0-30.0); Creatinine Clearance Estimated 40 mL/min (50-200); Estimated Glomerular Filt Rate 27 ml/min (>60); GFR (African American) 33 ML/MIN (>60); Glucose 112 mg/dl (74-100)
[2023-04-18] VITALS (9 sets, daily range): BP systolic 100–146; BP diastolic 56–84; PULSE 81–110; RESP 18–19; TEMP 36.4–37.1; O2SAT 96–100; BMI 44.4
[2023-04-18 06:44] LABS: Basophils % 0.5 % (0.1-2.0); Eosinophils # 0.2 K/mm3 (0.0-0.4); Eosinophils % 4.9 % (0.1-12.0); Hematocrit 38.6 % (42.0-52.0); Hemoglobin 12.6 g/dL (14.1-18.0); Lymphocytes # 1.4 K/mm3 (0.7-4.5); Mean Corpuscular HGB Conc 32.5 g/dL (31.8-35.4); Mean Corpuscular Hemoglobin 32.1 pg (27.0-31.2); Mean Corpuscular Volume 98.6 fl (80-94); Mean Platelet Volume 7.8 fl (7.4-10.4); Monocytes # 0.5 K/mm3 (0.1-1.0); Monocytes % 9.8 % (1.7-9.3); Neutrophils # 2.5 K/mm3 (1.8-7.8); Neutrophils % 53.8 % (37.0-80.0); Platelet Count 186 K/mm3 (142-424); Red Blood Count 3.92 M/mm3 (4.60-6.20); Red Cell Distribution Width 13.5 % (11.5-17.5); White Blood Count 4.6 K/mm3 (4.8-10.8)
[2023-04-18 06:48] LABS: Chloride 90 mmol/L (98-107); Sodium 128 mmol/L (136-145)
[2023-04-18 06:50] LABS: Blood Urea Nitrogen 38 mg/dl (9-20); Creatinine Clearance Estimated 47 mL/min (50-200); Estimated Glomerular Filt Rate 33 ml/min (>60); GFR (African American) 40 ML/MIN (>60)
[2023-04-18 06:51] LABS: Alanine Aminotransferase 81 U/L (12-78); Albumin Level 4.8 g/dl (3.5-5.0); Albumin/Globulin Ratio 1.5 (1.1-1.8); Alkaline Phosphatase 64 U/L (38-126); Aspartate Amino Transferase 69 U/L (17-59); Bilirubin,Total 0.9 mg/dl (0.2-1.3); Calcium 9.9 mg/dl (8.4-10.2); Carbon Dioxide 27 mmol/L (22.0-30.0); Globulin 3.2 g/dL (1.3-3.2); Glucose 93 mg/dl (74-100); Magnesium 2.2 mg/dl (1.6-2.3)
--- NOTE | 2023-04-18 10:09 | EXP.CARD.PN ---
Subjective Subjective Date: 04/18/23 Time: 08:30 Principal diagnosis: NICMP, hypotension, alcohol withdrawal Interval history: This is a 43-year-old white gentleman who presented to the emergency department complaints of dizziness and hypotension.? The patient was also experiencing alcohol withdrawal.? The patient has been on Valium and gabapentin for the withdrawals.?All of his antihypertensives and diuretics were held yesterday and his blood pressure has improved.? This morning he denies any chest pain or pressure.? He still has some shortness of breath with exertion but this does improve with rest.? states some edema in BLEs at time, but none present on exam.? He states he is still feeling somewhat weak and fatigued but this is also better.? He states his dizziness is better than it was but still present. when he stands up he states he is significantly dizzy and has trouble walking.? He denies any fever, chills, nausea, vomiting, diarrhea, PND or orthopnea. Exam Data for Last 24 hours Vital signs and Labs for Last 24 Hours: Temp Pulse Resp BP Pulse Ox 98.3 F 95 H 19 141/64 H 97 04/18/23 07:51 04/18/23 08:00 04/18/23 07:51 04/18/23 07:51 04/18/23 07:51 Laboratory Results - last 24 hr 04/17/23 04:30: Urine Opiates Screen Negative, Urine Methadone Screen Negative, Ur Barbituates Screen Negative, Ur Phencyclidine Scrn Negative, Ur Amphetamines Screen Negative, U Benzodiazepines Scrn Positive H, Urine Cocaine Screen Negative, U Marijuana (THC) Screen Negative 04/17/23 18:06: Sodium 131 L, Potassium 4.6, Chloride 90 L, Carbon Dioxide 28, Anion Gap 17.6 H, BUN 37 H, Creatinine 2.60 H D, Estimated Creat Clear 40, Estimated GFR 27 L, Est GFR ( Amer) 33 L D, Glucose 112 H D, Calcium 10.3 H 04/18/23 06:15: WBC 4.6 L, RBC 3.92 L, Hgb 12.6 L, Hct 38.6 L, MCV 98.6 H, MCH 32.1 H, MCHC 32.5, RDW 13.5, Plt Count 186, MPV 7.8, Neut % (Auto) 53.8, Lymph % (Auto) 31.0, [place] % (Auto) 9.8 H, Eos % (Auto) 4.9, Baso % (Auto) 0.5, Neut # (Auto) 2.5, Lymph # (Auto) 1.4, [place] # (Auto) 0.5, Eos # (Auto) 0.2, Baso # (Auto) 0.0 04/18/23 06:15: Sodium 128 L, Potassium 4.0, Chloride 90 L, Carbon Dioxide 27, Anion Gap 15.0, BUN 38 H, Creatinine 2.20 H, Estimated Creat Clear 47, Estimated GFR 33 L, Est GFR ( Amer) 40 L D, Glucose 93, Calcium 9.9, Magnesium 2.2, Total Bilirubin 0.9, AST 69 H, ALT 81 H, Alkaline Phosphatase 64, Total Protein 8.0, Albumin 4.8, Globulin 3.2, Albumin/Globulin Ratio 1.5 I & O for Last 24 hours: Intake & Output 04/15/23 04/16/23 04/17/23 04/18/23 23:59 23:59 23:59 23:59 Intake Total 240 / 240 1320 / 1320 360 / 360 Output Total 0 / 0 0 / 0 0 / 0 Balance 240 / 240 1320 / 1320 360 / 360 Weight 328 lb 8 oz 330 lb 6 oz 335 lb 7 oz Narrative: Telemetry strip is sinus rhythm. Constitutional Constitutional: no acute distress, morbidly obese, diaphoretic and disheveled *Routine HEENT Exam Head: Present normocephalic and atraumatic ENT: Present mucous membranes moist *Routine Neck Exam Neck: Present supple, full ROM and normal carotid upstroke; Absent JVD, carotid bruit or lymphadenopathy *Routine Respiratory Exam Respiratory: Present CTA bilaterally, normal respiratory effort, able to speak in complete sentences and symmetric chest movement *Routine Cardiovascular Exam Cardiovascular: Present RRR, Normal S1 and Normal S2; Absent murmur or gallop *Routine Abdominal Exam Abdominal: Present soft and normoactive bowel sounds; Absent tenderness, distended or organomegaly *Routine Extremities Exam Extremities: Present full ROM, pulses intact and normal capillary refill; Absent cyanosis, clubbing or edema *Routine Skin Exam Skin: Present intact and warm; Absent erythema *Routine Neurological Exam Neurological: Present alert, oriented X3 and CN II-XII intact; Absent sensory deficit or motor deficit Routine Psychiatric Exam Psychiatric: Present normal affect Progress Note: A&P Assessment and plan (1) Nonischemic cardiomyopathy:
--- NOTE | 2023-04-18 10:53 | PC.NURSE ---
COURTESY TECH NOTE; ROUNDED ON PT 0845, PT DENIED NEED FOR ASSISTANCE WITH RESTROOM, DRINK, AND NEED TO REPOSITION. CALL LIGHT WITHIN REACH, NO FURTHER REQUESTS AT THIS TIME SANIA WHEATLEY
--- NOTE | 2023-04-18 15:28 | EXP.ACUTE.PN ---
Subjective *Date: 04/18/23 *Time: 15:28 Interval history: Patient had minimal withdrawal symptoms overnight. Feeling better this morning. No chest pain or shortness of breath. Tolerating p.o. intake. Stable on room air. Medical Exam Vital signs and Labs for Last 24 Hours: Vital Signs Temp Pulse Pulse Resp BP Pulse Ox 04/18/23 15:16 97.7 F 101 H 19 146/84 H 96 04/18/23 12:00 90 04/18/23 11:02 97.5 F L 86 19 100/69 L 99 04/18/23 08:00 95 H 04/18/23 07:51 98.3 F 103 H 19 141/64 H 97 04/18/23 04:00 100 H 04/18/23 04:00 98.3 F 97 H 18 112/66 100 04/17/23 20:00 80 04/18/23 00:00 98.4 F 91 H 18 103/65 L 97 04/17/23 19:54 98.0 F 87 18 102/71 L 93 L 04/17/23 16:00 80 04/17/23 16:00 97.4 F L 75 16 114/69 100 Intake and Output 04/17/23 04/18/23 04/18/23 23:59 07:59 15:59 Intake Total 360 / 1320 360 / 720 360 / 720 Output Total 0 / 0 0 / 0 Balance 360 / 1320 360 / 720 360 / 720 Intake: Intake, Oral Amount 360 / 1320 360 / 720 360 / 720 Output: Output, Urine Amount 0 / 0 0 / 0 Other: Number of Unmeasured Voids 1 5 Weight 152.152 kg 152 kg Patient Weight 04/18/23 23:59 Weight 152 kg Laboratory Results - last 24 hr 04/17/23 18:06: Sodium 131 L, Potassium 4.6, Chloride 90 L, Carbon Dioxide 28, Anion Gap 17.6 H, BUN 37 H, Creatinine 2.60 H D, Estimated Creat Clear 40, Estimated GFR 27 L, Est GFR ( Amer) 33 L D, Glucose 112 H D, Calcium 10.3 H 04/18/23 06:15: WBC 4.6 L, RBC 3.92 L, Hgb 12.6 L, Hct 38.6 L, MCV 98.6 H, MCH 32.1 H, MCHC 32.5, RDW 13.5, Plt Count 186, MPV 7.8, Neut % (Auto) 53.8, Lymph % (Auto) 31.0, [place] % (Auto) 9.8 H, Eos % (Auto) 4.9, Baso % (Auto) 0.5, Neut # (Auto) 2.5, Lymph # (Auto) 1.4, [place] # (Auto) 0.5, Eos # (Auto) 0.2, Baso # (Auto) 0.0 04/18/23 06:15: Sodium 128 L, Potassium 4.0, Chloride 90 L, Carbon Dioxide 27, Anion Gap 15.0, BUN 38 H, Creatinine 2.20 H, Estimated Creat Clear 47, Estimated GFR 33 L, Est GFR ( Amer) 40 L D, Glucose 93, Calcium 9.9, Magnesium 2.2, Total Bilirubin 0.9, AST 69 H, ALT 81 H, Alkaline Phosphatase 64, Total Protein 8.0, Albumin 4.8, Globulin 3.2, Albumin/Globulin Ratio 1.5 I & O for Labs for Last 24 Hours: Intake & Output 04/15/23 04/16/23 04/17/23 04/18/23 23:59 23:59 23:59 23:59 Intake Total 240 / 240 1320 / 1320 720 / 720 Output Total 0 / 0 0 / 0 0 / 0 Balance 240 / 240 1320 / 1320 720 / 720 Weight 149.005 kg 149.856 kg 152 kg Constitutional: Present no acute distress and morbidly obese Head: Present atraumatic and normocephalic ENT: Present normal exam Neck: Present normal inspection Respiratory: Present normal respiratory effort; Absent rhonchi, wheezes or crackles Cardiac: Present Reg Rate and Rhythm GI: Present soft and normal bowel sounds; Absent distention or tenderness Extremities: Present normal inspection and full ROM Skin: Present intact; Absent erythema Neuro: Present Grossly Intact, alert, awake, oriented x 3 and moves all extremities Comment:: tremor improving Assessment and Plan *Assessment and plan (1) GUADALUPE (acute kidney injury): Status: Acute Category: Medical Code(s): N17.9 - Acute kidney failure, unspecified (2) Nonischemic cardiomyopathy: Status: Acute Category: Medical Code(s): I42.8 - Other cardiomyopathies (3) Hypotension: Status: Acute Qualifiers: Hypotension type: postprocedural hypotension Qualified Code(s): I95.81 - Postprocedural hypotension Category: Medical Code(s): I95.9 - Hypotension, unspecified (4) Renal failure: Status: Acute Qualifiers: Chronic kidney disease stage: stage 3 (moderate) Chronic kidney disease stage 3 subtype: stage 3b (GFR 30-44) Renal failure chronicity: acute on chronic Category: Medical Code(s): N19 - Unspecified kidney failure (5) Alcoholism: Status: Acute Cat
--- NOTE | 2023-04-18 16:37 | PC.NURSE ---
A&OX4. TOLERATING RA WELL. PT AT BEDSIDE T/O SHIFT. PT HAS HAD NO C/O THUS FAR. HAS SLEPT AT TIMES WITH CPAP. PT DID BECOME DIZZY AND WEAK when standing to go to bathroom, hr decreased to 39. WHEN SITTING BACK DOWN, HR BACK UP TO 100S. VSS.
[2023-04-18 18:31] LABS: Chloride 92 mmol/L (98-107); Sodium 131 mmol/L (136-145)
[2023-04-18 18:32] LABS: Potassium 4.1 mmoL/L (3.5-5.1)
[2023-04-18 18:35] LABS: Anion Gap 16.1 mEq/L (5-15); Blood Urea Nitrogen 35 mg/dl (9-20); Calcium 9.8 mg/dl (8.4-10.2); Carbon Dioxide 27 mmol/L (22.0-30.0); Creatinine Clearance Estimated 40 mL/min (50-200); Estimated Glomerular Filt Rate 27 ml/min (>60); GFR (African American) 33 ML/MIN (>60); Glucose 94 mg/dl (74-100)
[2023-04-19] VITALS (10 sets, daily range): BP systolic 103–117; BP diastolic 44–72; PULSE 60–100; RESP 16–20; TEMP 36.4–36.9; O2SAT 97–99; BMI 44.4
[2023-04-19 06:25] LABS: Chloride 92 mmol/L (98-107); Sodium 130 mmol/L (136-145)
[2023-04-19 06:26] LABS: Potassium 4.5 mmoL/L (3.5-5.1)
[2023-04-19 06:27] LABS: Basophils % 0.8 % (0.1-2.0); Eosinophils # 0.3 K/mm3 (0.0-0.4); Eosinophils % 5.9 % (0.1-12.0); Hematocrit 38.1 % (42.0-52.0); Hemoglobin 12.2 g/dL (14.1-18.0); Lymphocytes # 1.4 K/mm3 (0.7-4.5); Lymphocytes % 29.6 % (10-50); Mean Corpuscular HGB Conc 31.9 g/dL (31.8-35.4); Mean Corpuscular Hemoglobin 31.8 pg (27.0-31.2); Mean Corpuscular Volume 99.8 fl (80-94); Mean Platelet Volume 7.8 fl (7.4-10.4); Monocytes # 0.5 K/mm3 (0.1-1.0); Neutrophils # 2.5 K/mm3 (1.8-7.8); Neutrophils % 52.7 % (37.0-80.0); Platelet Count 186 K/mm3 (142-424); Red Blood Count 3.82 M/mm3 (4.60-6.20); Red Cell Distribution Width 13.4 % (11.5-17.5); White Blood Count 4.7 K/mm3 (4.8-10.8)
[2023-04-19 06:28] LABS: Alanine Aminotransferase 81 U/L (12-78); Albumin Level 4.5 g/dl (3.5-5.0); Albumin/Globulin Ratio 1.5 (1.1-1.8); Alkaline Phosphatase 69 U/L (38-126); Anion Gap 12.5 mEq/L (5-15); Aspartate Amino Transferase 72 U/L (17-59); Bilirubin,Total 0.7 mg/dl (0.2-1.3); Blood Urea Nitrogen 34 mg/dl (9-20); Carbon Dioxide 30 mmol/L (22.0-30.0); Creatinine Clearance Estimated 47 mL/min (50-200); Estimated Glomerular Filt Rate 33 ml/min (>60); GFR (African American) 40 ML/MIN (>60); Globulin 3.1 g/dL (1.3-3.2); Total Protein,Serum 7.6 g/dl (6.3-8.2)
[2023-04-19 06:29] LABS: Calcium 9.6 mg/dl (8.4-10.2); Glucose 98 mg/dl (74-100)
--- NOTE | 2023-04-19 10:18 | PC.NURSE ---
COURTESY TECH NOTE; ROUNDED ON PT 0845, PT DENIED NEED FOR ASSISTANCE WITH DRINK, RESTROOM, AND NEED TO REPOSITION. CALL LIGHT WITHIN REACH, NO FURTHER REQUESTS AT THIS TIME SANIA WHEATLEY
--- NOTE | 2023-04-19 10:26 | HMH.PTEV ---
Physical Therapy Evaluation Rehab PT IP Evaluation Start: 04/19/23 08:36 Freq: ONCE Status: Active Protocol: Document 04/19/23 10:19 PHORMARIAELENA (Rec: 04/19/23 10:26 PHORNE [id number]) Subjective/History History History 43 yowm adm to [facility] with near syncope, renal failure, and falls. He has hx of cardiomyopathy, recent heart cath showin no signs of CAD, and alcohol dependence. He reports feeling fuzzy headed and dizzy for ~ 2 wks. Symptoms include weakness and shakiness in B LE and UE intermittently during ambulation. Subjective Subjective Pt reports feeling better with his BP today and agrees to mobility assessment. No c/o in sitting. Rehab PT IP Eval Objective Appearance Patient Behavior Appropriate Patient Orientation Person,Place,Time Difficulty following instructions none Speech Pattern Clear Ambulation Patient Able to Ambulate Yes Ambulation Observation IP General Gait Pattern Observation Wide Based Gait Ambulation Distance (feet) 10 Ambulation Assistive Device None Ambulation Ability Contact Guard/Hand Hold Balance Ability to Arise Able, uses arms to help Sitting Balance Steady, safe Standing Balance Steady, wide stance Dynamic Sitting Balance Ability Good Dynamic Standing Balance Ability Fair Transfers Bed Transfer Ability Contact Guard/Hand Hold Chair Transfer Ability Contact Guard/Hand Hold Sit to Stand Bed Transfer Ability Contact Guard/Hand Hold Sit to Stand Chair Transfer Ability Contact Guard/Hand Hold ROM All Extremities PT ROM Status WFL MMT All Extremities PT MMT WFL Rehab PT IP prob,goals,plan Problems Date of Evaluation: 04/19/23 PT IP Problems Bed Mobility,Transfers,Gait Rehab Potential Rehab Potential Good Plan PT Intervention Plan Bed Mobility,Transfers,Gait, Therapeutic Exercise PT Plan Frequency Daily Duration LOS Discharge Goals Bed Transfer Ability Supervision/Stand by Sit to Stand Chair Transfer Ability Supervision/Stand by Ambulation Assistive Device Rolling Walker Ambulation Distance (feet) 30 Discharge Plan PT Discharge Plan Pt is currently appropriate to
--- NOTE | 2023-04-19 10:57 | EXP.CARD.PN ---
Subjective Subjective Date: 04/19/23 Time: 09:30 Principal diagnosis: NICMP, hypotension, alcohol withdrawal Interval history: This is a 43-year-old white gentleman who presented to the hospital with dizziness and hypotension. The patient had some renal insufficiency as well is experiencing alcohol withdrawal. The patient was treated for his alcohol withdrawal and has subsequently improved. His blood pressure has improved as well. His renal function still remains elevated this morning. He denies any chest pain or pressure. His shortness of breath and dizziness have significantly improved. He was given IV fluids yesterday for his renal function so he does have a little lower extremity edema today but he states that this has improved since the fluids have been discontinued. He still has fatigue but this is also improving. He denies any fever, chills, nausea, vomiting, diarrhea, PND orthopnea. Exam Data for Last 24 hours Vital signs and Labs for Last 24 Hours: Temp Pulse Resp BP Pulse Ox 98.0 F 94 H 18 113/55 L 97 04/19/23 08:00 04/19/23 08:00 04/19/23 08:00 04/19/23 08:57 04/19/23 08:00 Laboratory Results - last 24 hr 04/18/23 17:50: Sodium 131 L, Potassium 4.1, Chloride 92 L, Carbon Dioxide 27, Anion Gap 16.1 H, BUN 35 H, Creatinine 2.60 H, Estimated Creat Clear 40, Estimated GFR 27 L, Est GFR ( Amer) 33 L, Glucose 94, Calcium 9.8 04/19/23 05:48: Sodium 130 L, Potassium 4.5, Chloride 92 L, Carbon Dioxide 30, Anion Gap 12.5, BUN 34 H, Creatinine 2.20 H, Estimated Creat Clear 47, Estimated GFR 33 L, Est GFR ( Amer) 40 L D, Glucose 98, Calcium 9.6, Total Bilirubin 0.7, AST 72 H, ALT 81 H, Alkaline Phosphatase 69, Total Protein 7.6, Albumin 4.5, Globulin 3.1, Albumin/Globulin Ratio 1.5 04/19/23 05:48: WBC 4.7 L, RBC 3.82 L, Hgb 12.2 L, Hct 38.1 L, MCV 99.8 H, MCH 31.8 H, MCHC 31.9, RDW 13.4, Plt Count 186, MPV 7.8, Neut % (Auto) 52.7, Lymph % (Auto) 29.6, [place] % (Auto) 11.0 H, Eos % (Auto) 5.9, Baso % (Auto) 0.8, Neut # (Auto) 2.5, Lymph # (Auto) 1.4, [place] # (Auto) 0.5, Eos # (Auto) 0.3, Baso # (Auto) 0.0 04/19/23 05:48: Magnesium 2.0 I & O for Last 24 hours: Intake & Output 04/16/23 04/17/23 04/18/23 04/19/23 23:59 23:59 23:59 23:59 Intake Total 240 / 240 1320 / 1320 720 / 2720 2720 / 2720 Output Total 0 / 0 0 / 0 0 / 0 0 / 0 Balance 240 / 240 1320 / 1320 720 / 2720 2720 / 2720 Weight 328 lb 8 oz 330 lb 6 oz 335 lb 1.642 oz 335 lb 1.642 oz Narrative: Telemetry strip is sinus rhythm. Constitutional Constitutional: no acute distress, morbidly obese, diaphoretic and disheveled *Routine HEENT Exam Head: Present normocephalic and atraumatic ENT: Present mucous membranes moist *Routine Neck Exam Neck: Present supple, full ROM and normal carotid upstroke; Absent JVD, carotid bruit or lymphadenopathy *Routine Respiratory Exam Respiratory: Present CTA bilaterally, normal respiratory effort, able to speak in complete sentences and symmetric chest movement *Routine Cardiovascular Exam Cardiovascular: Present RRR, Normal S1 and Normal S2; Absent murmur or gallop *Routine Abdominal Exam Abdominal: Present soft and normoactive bowel sounds; Absent tenderness, distended or organomegaly *Routine Extremities Exam Extremities: Present edema (Trace bilateral lower extremity edema), full ROM, pulses intact and normal capillary refill; Absent cyanosis or clubbing *Routine Skin Exam Skin: Present intact and warm; Absent erythema *Routine Neurological Exam Neurological: Present alert, oriented X3 and CN II-XII intact; Absent sensory deficit or motor deficit Routine Psychiatric Exam Psychiatric: Present normal affect Progress Note: A&P Assessment and plan (1) Nonischemic cardiomyopathy: Status: Acute (2) GUADALUPE (acute kidney injury): Status: Acute (3) Hypotension: Status: Acute (4) Renal failure: Status: Acute (5) Alcoholism: Status: Acute (6) GERD (gastroesophageal reflux disease):
--- NOTE | 2023-04-19 12:03 | EXP.ACUTE.PN ---
Subjective *Date: 04/19/23 *Time: 12:03 Interval history: Patient feeling better today. Does still have some intermittent dizziness when he stands. Orthostatic blood pressures checked today however are not significant. Tolerating p.o. intake. Stable on room air. Voiding independently. Making adequate urine. No chest pain or shortness of breath. Medical Exam Vital signs and Labs for Last 24 Hours: Vital Signs Temp Pulse Pulse Resp BP Pulse Ox 04/19/23 11:01 98.0 F 88 18 104/54 L 98 04/19/23 08:57 113/55 L 04/19/23 08:57 115/72 04/19/23 08:56 116/67 04/19/23 08:00 98.0 F 94 H 18 103/62 L 97 04/19/23 04:00 100 H 04/19/23 04:00 97.6 F 93 H 16 107/44 L 99 04/19/23 00:00 98.2 F 60 16 110/66 98 04/19/23 00:00 90 04/18/23 20:00 81 04/18/23 20:00 97 04/18/23 20:00 98.8 F 83 18 108/56 L 97 04/18/23 16:00 110 H 04/18/23 15:16 97.7 F 101 H 19 146/84 H 96 Intake and Output 04/18/23 04/19/23 04/19/23 23:59 07:59 15:59 Intake Total 1999 720 / 2720 Output Total 0 / 0 0 / 0 Balance 0 2719 720 / 2720 Intake: Intake, Oral Amount 1000 / 1720 720 / 1720 Intake, Total IV Amount 1000 / 1000 Lactated Ringers 1000ML 1,000 1000 / 1000 ml @ 150 mls/hr IV .[id number] [facility] Rx#:[id number] Output: Output, Urine Amount 0 / 0 0 / 0 Other: Number of Voids 5 Number of Unmeasured Voids 1 5 1 Weight 152 kg Patient Weight 04/19/23 23:59 Weight 152 kg Laboratory Results - last 24 hr 04/18/23 17:50: Sodium 131 L, Potassium 4.1, Chloride 92 L, Carbon Dioxide 27, Anion Gap 16.1 H, BUN 35 H, Creatinine 2.60 H, Estimated Creat Clear 40, Estimated GFR 27 L, Est GFR ( Amer) 33 L, Glucose 94, Calcium 9.8 04/19/23 05:48: Sodium 130 L, Potassium 4.5, Chloride 92 L, Carbon Dioxide 30, Anion Gap 12.5, BUN 34 H, Creatinine 2.20 H, Estimated Creat Clear 47, Estimated GFR 33 L, Est GFR ( Amer) 40 L D, Glucose 98, Calcium 9.6, Total Bilirubin 0.7, AST 72 H, ALT 81 H, Alkaline Phosphatase 69, Total Protein 7.6, Albumin 4.5, Globulin 3.1, Albumin/Globulin Ratio 1.5 04/19/23 05:48: WBC 4.7 L, RBC 3.82 L, Hgb 12.2 L, Hct 38.1 L, MCV 99.8 H, MCH 31.8 H, MCHC 31.9, RDW 13.4, Plt Count 186, MPV 7.8, Neut % (Auto) 52.7, Lymph % (Auto) 29.6, [place] % (Auto) 11.0 H, Eos % (Auto) 5.9, Baso % (Auto) 0.8, Neut # (Auto) 2.5, Lymph # (Auto) 1.4, [place] # (Auto) 0.5, Eos # (Auto) 0.3, Baso # (Auto) 0.0 04/19/23 05:48: Magnesium 2.0 I & O for Labs for Last 24 Hours: Intake & Output 04/16/23 04/17/23 04/18/23 04/19/23 23:59 23:59 23:59 23:59 Intake Total 240 / 240 1320 / 1320 720 / 2720 2720 / 2720 Output Total 0 / 0 0 / 0 0 / 0 0 / 0 Balance 240 / 240 1320 / 1320 720 / 2720 2720 / 2720 Weight 149.005 kg 149.856 kg 152 kg 152 kg Constitutional: Present no acute distress and morbidly obese Head: Present atraumatic and normocephalic ENT: Present normal exam Neck: Present normal inspection Respiratory: Present normal respiratory effort; Absent rhonchi, wheezes or crackles Cardiac: Present Reg Rate and Rhythm GI: Present soft and normal bowel sounds; Absent distention or tenderness Extremities: Present normal inspection and full ROM Skin: Present intact; Absent erythema Neuro: Present Grossly Intact, alert, awake, oriented x 3 and moves all extremities Comment:: tremor improving Assessment and Plan *Assessment and plan (1) GUADALUPE (acute kidney injury): Status: Acute Category: Medical Code(s): N17.9 - Acute kidney failure, unspecified (2) Nonischemic cardiomyopathy: Status: Acute Category: Medical Code(s): I42.8 - Other cardiomyopathies (3) Hypotension: Status: Acute Qualifiers: Hypotension type: postprocedural hypotension Qualified Code(s): I95.81 - Postprocedural hypotension Category: Medical Code(s): I95.9 - Hypotension, un
--- NOTE | 2023-04-19 13:37 | PC.NURSE ---
COURTESY TECH NOTE; ROUNDED ON PT 1140, PT REFUSED BATHING TWICE, PT DENIED NEED FOR ASSISTANCE WITH BATHROOM, DRINK, AND NEED TO REPOSITION. CALL LIGHT WITHIN REACH, NO FURTHER REQUESTS AT THIS TIME SANIA WHEATLEY
--- NOTE | 2023-04-19 18:43 | PC.NURSE ---
NO ACUTE CHANGES THIS SHIFT. MEDICATED WITH PRN DIAZEPAM X1 FOR CIWA SCORE THIS AFTERNOON. HE HAS NOT C/O DIZZINESS SINCE THIS MORNING.
[2023-04-19 18:52] LABS: Anion Gap 11.6 mEq/L (5-15); Blood Urea Nitrogen 31 mg/dl (9-20); Calcium 9.3 mg/dl (8.4-10.2); Carbon Dioxide 28 mmol/L (22.0-30.0); Chloride 97 mmol/L (98-107); Creatinine Clearance Estimated 54 mL/min (50-200); Estimated Glomerular Filt Rate 39 ml/min (>60); GFR (African American) 47 ML/MIN (>60); Glucose 93 mg/dl (74-100); Potassium 4.6 mmoL/L (3.5-5.1); Sodium 132 mmol/L (136-145)
--- NOTE | 2023-04-19 20:04 | PC.NURSE ---
spoke with MD Nicholson at bedside about pt's home medications needing to be ordered, MD to review chart and put in medications
--- NOTE | 2023-04-19 22:53 | PC.NURSE ---
pt c/o severe itching, notified JHOAN Sewell APRN to place order for benadryl
[2023-04-20] VITALS: BP 114/52; PULSE 86; PULSE 90; RESP 18; TEMP 36.5; O2SAT 96
[2023-04-20 04:00] VITALS: BP 134/84; PULSE 91; PULSE 97; RESP 18; TEMP 36.5; O2SAT 96; BMI 44.4
[2023-04-20 07:26] VITALS: BP 103/64; PULSE 76; RESP 18; TEMP 36.9; O2SAT 100
[2023-04-20 08:00] VITALS: PULSE 98
[2023-04-20 09:06] LABS: Basophils % 0.7 % (0.1-2.0); Eosinophils # 0.2 K/mm3 (0.0-0.4); Eosinophils % 7.4 % (0.1-12.0); Hematocrit 36.6 % (42.0-52.0); Hemoglobin 11.7 g/dL (14.1-18.0); Lymphocytes # 0.9 K/mm3 (0.7-4.5); Lymphocytes % 29.5 % (10-50); Mean Corpuscular Hemoglobin 32.2 pg (27.0-31.2); Mean Corpuscular Volume 100.7 fl (80-94); Mean Platelet Volume 7.7 fl (7.4-10.4); Monocytes # 0.3 K/mm3 (0.1-1.0); Monocytes % 9.5 % (1.7-9.3); Neutrophils # 1.7 K/mm3 (1.8-7.8); Platelet Count 179 K/mm3 (142-424); Red Blood Count 3.63 M/mm3 (4.60-6.20); Red Cell Distribution Width 13.4 % (11.5-17.5); White Blood Count 3.2 K/mm3 (4.8-10.8)
[2023-04-20 09:20] LABS: Alanine Aminotransferase 87 U/L (12-78); Albumin Level 3.9 g/dl (3.5-5.0); Albumin/Globulin Ratio 1.3 (1.1-1.8); Alkaline Phosphatase 51 U/L (38-126); Aspartate Amino Transferase 78 U/L (17-59); Bilirubin,Total 0.5 mg/dl (0.2-1.3); Blood Urea Nitrogen 24 mg/dl (9-20); Calcium 9.5 mg/dl (8.4-10.2); Carbon Dioxide 26 mmol/L (22.0-30.0); Chloride 102 mmol/L (98-107); Creatinine Clearance Estimated 69 mL/min (50-200); Estimated Glomerular Filt Rate 51 ml/min (>60); GFR (African American) 62 ML/MIN (>60); Globulin 2.9 g/dL (1.3-3.2); Glucose 161 mg/dl (74-100); Sodium 136 mmol/L (136-145); Total Protein,Serum 6.8 g/dl (6.3-8.2)
[2023-04-20 11:05] VITALS: BP 97/47; PULSE 89; RESP 18; TEMP 36.3; O2SAT 92
--- NOTE | 2023-04-20 13:52 | EXP.DC.SUM ---
General Admission date:: 04/16/23 HPI HPI HPI: This is a 43-year-old gentleman who presented to the emergency department complaints of dizziness and hypotension.? The patient states that he had a fall at home on Saturday.? He states that he felt like his legs and arms were stiff and he lost balance and fell.? The patient did have left cardiac catheterization on 04/10/2023 which showed normal coronary arteries.? At that time Dr. Horvath did mention consideration of a [employer] if the patient was a candidate.? However last assessment of his ejection fraction by echocardiogram in November 2022 showed his ejection fraction was 40% and his EF on a Myoview in November 2022 was at 30%.? The patient was started on diuretics and Entresto at that time, dose was reduced to half on last recommendations. The patient states that he has had worsening dizziness this week with hypotension.?The patient does consume about 1/5 of bourbon a night and feels like he is having alcohol withdrawals as well.? He denies any chest pain or pressure.? He does have shortness of breath with exertion.? This improves with rest.? There is no lower extremity edema noted at this time.? He denies any fever, chills, nausea, vomiting, diarrhea. Patient admitted for further management. Hospital Course Hospital Course Hospital Course: Patient admitted for acute on chronic renal insufficiency status postcardiac catheterization 04/10/2023 and recent Lasix administration. Patient subsequently gently hydrated throughout hospitalization. Patient also admitted to drinking 1/5 of bourbon on a regular basis as outpatient, so also treated for alcohol withdrawal. Patient started on thiamine, folate, gabapentin which was continued throughout hospitalization. Patient discharged from hospital on thiamine/folate therapy, and on gabapentin 300 mg nightly at night for continued alcohol withdrawal treatment. Patient also advised to follow-up with primary care physician on outpatient basis for further renal insufficiency/alcohol withdrawal management. Patient will follow-up with Dr. Horvath, sheet metal shop helper, on outpatient basis for continued heart failure management. Exam Data for Last 24 hours Vital signs and Labs for Last 24 Hours: Temp Pulse Resp BP Pulse Ox 97.3 F L 89 18 97/47 L 92 L 04/20/23 11:05 04/20/23 11:05 04/20/23 11:05 04/20/23 11:05 04/20/23 11:05 Laboratory Results - last 24 hr 04/19/23 18:25: Sodium 132 L, Potassium 4.6, Chloride 97 L, Carbon Dioxide 28, Anion Gap 11.6, BUN 31 H, Creatinine 1.90 H, Estimated Creat Clear 54, Estimated GFR 39 L, Est GFR ( Amer) 47 L, Glucose 93, Calcium 9.3 04/20/23 08:44: Sodium 136, Potassium 4.0, Chloride 102, Carbon Dioxide 26, Anion Gap 12.0, BUN 24 H, Creatinine 1.50 H D, Estimated Creat Clear 69, Estimated GFR 51 L, Est GFR ( Amer) 62 D, Glucose 161 H D, Calcium 9.5, Total Bilirubin 0.5, AST 78 H, ALT 87 H, Alkaline Phosphatase 51, Total Protein 6.8, Albumin 3.9 D, Globulin 2.9, Albumin/Globulin Ratio 1.3 04/20/23 08:44: WBC 3.2 L D, RBC 3.63 L, Hgb 11.7 L, Hct 36.6 L, MCV 100.7 H, MCH 32.2 H, MCHC 32.0, RDW 13.4, Plt Count 179, MPV 7.7, Neut % (Auto) 53.0, Lymph % (Auto) 29.5, [place] % (Auto) 9.5 H, Eos % (Auto) 7.4, Baso % (Auto) 0.7, Neut # (Auto) 1.7 L, Lymph # (Auto) 0.9, [place] # (Auto) 0.3, Eos # (Auto) 0.2, Baso # (Auto) 0.0 I & O for Last 24 hours: Intake & Output 04/17/23 04/18/23 04/19/23 04/20/23 23:59 23:59 23:59 23:59 Intake Total 1320 / 1320 720 / 2720 2720 / 3720 1600 / 1600 Output Total 0 / 0 0 / 0 0 / 0 0 / 0 Balance 1320 / 1320 720 / 2720 2720 / 3720 1600 / 1600 Weight 149.856 kg 152 kg 152 kg 152.152 kg Constitutional Constitutional: no acute distress *Routine HEENT Exam Head: Present normocephalic and atraumatic Eye: Present EOMI ENT: Present mucous membranes moist *Routine Neck Exam Neck: Present supple and full ROM Routine Chest/Breast/Axilla Exam Chest wall: Absent tenderness Breast: Absent tenderness
--- NOTE | 2023-04-22 13:01 | SW/DCPLANNER ---
I called and spoke with this patient regarding home health services. Patient stated that he is not interested in home health services at this time. Patient stated that he is doing well at home and does not have any needs at this time.
== END 2023-04-20 14:30 | disposition home or self-care (01) | DRG 683 ==
LOC: ER 13:48 → 2ND 13:53
PROVIDERS: Admitting Provider Internal Medicine Adolescent Medicine; Emergency Provider Emergency Medicine; PCP Nurse Practitioner Family; Visit Provider Internal Medicine Adolescent Medicine
DX: N17.9 Acute kidney failure, unspecified (principal); F10.239 Alcohol dependence with withdrawal, unspecified; I42.8 Other cardiomyopathies; I13.0 Hypertensive heart and chronic kidney disease with heart failure and stage 1 through stage 4 chronic kidney disease, or unspecified chronic kidney disease; I50.22 Chronic systolic (congestive) heart failure; I95.81 Postprocedural hypotension; Z79.899 Other long term (current) drug therapy; N18.30 Chronic kidney disease, stage 3 unspecified; K21.9 Gastro-esophageal reflux disease without esophagitis; R11.2 Nausea with vomiting, unspecified
CPT/HCPCS: 36415; 71045; 78473; 80048; 80053; 80305; 83690; 83735; 83880; 84100; 84484; 85025; 85610; 85730; 87636; 93005; 93306; 93308; 97116; 97163; 99285; A9512; A9560; C9803; J1642; J2405; U0003; U0005

== ENCOUNTER → 2023-04-23 19:29 | Outpatient (CLI) | payer BC, SELFPAY ==
[2023-04-23 14:46] LABS: Basophils % 1.1 % (0.1-2.0); Eosinophils # 0.2 K/mm3 (0.0-0.4); Hematocrit 37.7 % (42.0-52.0); Hemoglobin 12.2 g/dL (14.1-18.0); Lymphocytes # 1.2 K/mm3 (0.7-4.5); Lymphocytes % 34.9 % (10-50); Mean Corpuscular HGB Conc 32.5 g/dL (31.8-35.4); Mean Corpuscular Hemoglobin 31.9 pg (27.0-31.2); Mean Corpuscular Volume 98.3 fl (80-94); Mean Platelet Volume 8.4 fl (7.4-10.4); Monocytes # 0.5 K/mm3 (0.1-1.0); Monocytes % 13.6 % (1.7-9.3); Neutrophils # 1.5 K/mm3 (1.8-7.8); Neutrophils % 44.4 % (37.0-80.0); Platelet Count 235 K/mm3 (142-424); Red Blood Count 3.83 M/mm3 (4.60-6.20); Red Cell Distribution Width 13.3 % (11.5-17.5); White Blood Count 3.3 K/mm3 (4.8-10.8)
[2023-04-23 15:28] LABS: Alanine Aminotransferase 79 U/L (12-78); Albumin Level 4.2 g/dl (3.5-5.0); Albumin/Globulin Ratio 1.5 (1.1-1.8); Alkaline Phosphatase 56 U/L (38-126); Aspartate Amino Transferase 55 U/L (17-59); Bilirubin,Total 0.4 mg/dl (0.2-1.3); Blood Urea Nitrogen 16 mg/dl (9-20); Calcium 10.2 mg/dl (8.4-10.2); Carbon Dioxide 27 mmol/L (22.0-30.0); Chloride 104 mmol/L (98-107); Estimated Glomerular Filt Rate 51 ml/min (>60); GFR (African American) 62 ML/MIN (>60); Globulin 2.8 g/dL (1.3-3.2); Glucose 91 mg/dl (74-100); Sodium 141 mmol/L (136-145)
== END ==
PROVIDERS: PCP Nurse Practitioner Family; Visit Provider Nurse Practitioner Family
DX: N17.9 Acute kidney failure, unspecified (principal); F10.20 Alcohol dependence, uncomplicated
CPT/HCPCS: 80053; 85025

== ENCOUNTER → 2023-04-30 08:19 | Outpatient (CLI) | payer BC, SELFPAY ==
[2023-04-30 09:40] LABS: Basophils # 0.1 K/mm3 (0-0.2); Basophils % 1.3 % (0.1-2.0); Eosinophils # 0.2 K/mm3 (0.0-0.4); Eosinophils % 4.7 % (0.1-12.0); Hematocrit 38.8 % (42.0-52.0); Hemoglobin 12.1 g/dL (14.1-18.0); Lymphocytes # 1.5 K/mm3 (0.7-4.5); Lymphocytes % 37.5 % (10-50); Mean Corpuscular Hemoglobin 31.4 pg (27.0-31.2); Mean Platelet Volume 7.7 fl (7.4-10.4); Monocytes # 0.5 K/mm3 (0.1-1.0); Neutrophils # 1.8 K/mm3 (1.8-7.8); Neutrophils % 44.5 % (37.0-80.0); Platelet Count 282 K/mm3 (142-424); Red Blood Count 3.84 M/mm3 (4.60-6.20); Red Cell Distribution Width 13.7 % (11.5-17.5)
[2023-04-30 09:56] LABS: Chloride 106 mmol/L (98-107); Potassium 4.4 mmoL/L (3.5-5.1); Sodium 142 mmol/L (136-145)
[2023-04-30 09:59] LABS: Anion Gap 14.4 mEq/L (5-15); Blood Urea Nitrogen 11 mg/dl (9-20); Carbon Dioxide 26 mmol/L (22.0-30.0); Estimated Glomerular Filt Rate 66 ml/min (>60); GFR (African American) 80 ML/MIN (>60)
[2023-04-30 10:00] LABS: Calcium 9.4 mg/dl (8.4-10.2); Glucose 86 mg/dl (74-100)
== END ==
PROVIDERS: PCP Nurse Practitioner Family; Visit Provider Nurse Practitioner
DX: N17.9 Acute kidney failure, unspecified (principal)
CPT/HCPCS: 36415; 80048; 85025

== ENCOUNTER → 2023-05-23 14:05 | Outpatient (CLI) | payer BC, SELFPAY ==
[2023-05-23 13:33] LABS: Alanine Aminotransferase 38 U/L (12-78); Albumin Level 4.6 g/dl (3.5-5.0); Albumin/Globulin Ratio 1.7 (1.1-1.8); Alkaline Phosphatase 68 U/L (38-126); Anion Gap 12.2 mEq/L (5-15); Aspartate Amino Transferase 39 U/L (17-59); Bilirubin,Total 0.9 mg/dl (0.2-1.3); Blood Urea Nitrogen 13 mg/dl (9-20); Calcium 9.9 mg/dl (8.4-10.2); Carbon Dioxide 24 mmol/L (22.0-30.0); Chloride 102 mmol/L (98-107); Estimated Glomerular Filt Rate 81 ml/min (>60); GFR (African American) 98 ML/MIN (>60); Globulin 2.7 g/dL (1.3-3.2); Glucose 93 mg/dl (74-100); Potassium 4.2 mmoL/L (3.5-5.1); Sodium 134 mmol/L (136-145); Total Protein,Serum 7.3 g/dl (6.3-8.2)
== END ==
PROVIDERS: PCP Nurse Practitioner Family; Visit Provider Nurse Practitioner Family
DX: F10.20 Alcohol dependence, uncomplicated (principal); R79.89 Other specified abnormal findings of blood chemistry
CPT/HCPCS: 80053

== ENCOUNTER → 2023-06-13 10:30 | Outpatient (CLI) | payer BC, SELFPAY ==
[2023-06-13 11:31] LABS: Iron 97 ug/dL (49-181)
[2023-06-13 11:43] LABS: Total Iron Binding Capacity 408 ug/dL (261-462)
[2023-06-13 12:07] LABS: Ferritin 98.2 ng/ml (17.9-464)
[2023-06-13 12:48] LABS: Vitamin B12 738 pg/mL (239-931)
[2023-06-13 13:01] LABS: Folate > 20.00 ng/mL
== END ==
PROVIDERS: PCP Nurse Practitioner Family; Visit Provider Nurse Practitioner Family
DX: D64.9 Anemia, unspecified (principal); E66.9 Obesity, unspecified; F10.20 Alcohol dependence, uncomplicated; G25.81 Restless legs syndrome; G47.33 Obstructive sleep apnea (adult) (pediatric); Z68.41 Body mass index [BMI] 40.0-44.9, adult
CPT/HCPCS: 36415; 82607; 82728; 82746; 83540; 83550

== ENCOUNTER → 2023-06-21 16:08 | Outpatient (CLI) | payer BC, SELFPAY | PROVIDERS: PCP Nurse Practitioner Family; Visit Provider Internal Medicine | DX: R00.2 Palpitations (principal); I10 Essential (primary) hypertension; E78.5 Hyperlipidemia, unspecified; D64.9 Anemia, unspecified; E66.9 Obesity, unspecified; Z68.41 Body mass index [BMI] 40.0-44.9, adult; F10.20 Alcohol dependence, uncomplicated; G25.81 Restless legs syndrome; G47.33 Obstructive sleep apnea (adult) (pediatric) | CPT/HCPCS: 93225 ==

== ENCOUNTER → 2023-07-03 07:53 | Outpatient (CLI) | payer BC, SELFPAY ==
[2023-07-02 18:03] LABS: Basophils % 0.6 % (0.1-2.0); Eosinophils # 0.1 K/mm3 (0.0-0.4); Eosinophils % 1.9 % (0.1-12.0); Hematocrit 45.2 % (42.0-52.0); Hemoglobin 14.7 g/dL (14.1-18.0); Lymphocytes # 1.7 K/mm3 (0.7-4.5); Lymphocytes % 27.2 % (10-50); Mean Corpuscular HGB Conc 32.5 g/dL (31.8-35.4); Mean Corpuscular Volume 98.5 fl (80-94); Mean Platelet Volume 8.9 fl (7.4-10.4); Monocytes # 0.5 K/mm3 (0.1-1.0); Monocytes % 8.6 % (1.7-9.3); Neutrophils # 3.8 K/mm3 (1.8-7.8); Neutrophils % 61.8 % (37.0-80.0); Platelet Count 293 K/mm3 (142-424); Red Blood Count 4.59 M/mm3 (4.60-6.20); Red Cell Distribution Width 12.6 % (11.5-17.5); White Blood Count 6.1 K/mm3 (4.8-10.8)
[2023-07-02 18:17] LABS: Alanine Aminotransferase 45 U/L (12-78); Albumin Level 4.6 g/dl (3.5-5.0); Albumin/Globulin Ratio 1.3 (1.1-1.8); Alkaline Phosphatase 71 U/L (38-126); Anion Gap 14.3 mEq/L (5-15); Aspartate Amino Transferase 47 U/L (17-59); Bilirubin,Total 0.8 mg/dl (0.2-1.3); Blood Urea Nitrogen 15 mg/dl (9-20); Calcium 9.8 mg/dl (8.4-10.2); Carbon Dioxide 26 mmol/L (22.0-30.0); Chloride 103 mmol/L (98-107); Chol/HDL Ratio 3.4 (1-3.5); Cholesterol 239 mg/dl (140-200); Estimated Glomerular Filt Rate 73 ml/min (>60); GFR (African American) 88 ML/MIN (>60); Globulin 3.5 g/dL (1.3-3.2); Glucose 94 mg/dl (74-100); HDL Cholesterol 70 mg/dl (40-60); Potassium 4.3 mmoL/L (3.5-5.1); Sodium 139 mmol/L (136-145); Total Protein,Serum 8.1 g/dl (6.3-8.2); Triglycerides 147 mg/dl (30-150); VLDL Cholesterol 29 mg/dL (0-40)
[2023-07-02 18:28] LABS: Direct LDL Cholesterol 112.02 mg/dL (100-129)
[2023-07-02 19:12] LABS: Hemoglobin A1C 5.3 % (4.0-6.0)
== END ==
PROVIDERS: PCP Nurse Practitioner Family; Visit Provider Nurse Practitioner Family
DX: R73.03 Prediabetes (principal); D64.9 Anemia, unspecified; E78.5 Hyperlipidemia, unspecified

== ENCOUNTER 2023-07-05 17:11 | Emergency (ER) | payer BC, SELFPAY ==
[2023-07-05 17:13] VITALS: BP 117/78; PULSE 68; RESP 15; TEMP 36.8; O2SAT 98; BMI 42.2
[2023-07-05 17:30] VITALS: BP 117/79; PULSE 75; O2SAT 99
--- NOTE | 2023-07-05 17:31 | XR_ITS ---
PROCEDURE INFORMATION: Exam: XR Right Femur Exam date and time: 07/05/2023 5:44 PM Age: 43 years old Clinical indication: Injury or trauma; Fall; Blunt trauma; Thigh or upper leg; Right TECHNIQUE: Imaging protocol: Radiologic exam of the right femur. Views: 2 views. COMPARISON: CR XR HIP RT 2-3V W/PELVIS 07/05/2023 5:42 PM FINDINGS: Bones/joints: No evidence of acute fracture or malalignment. Soft tissues: Unremarkable. IMPRESSION: No evidence of acute osseous abnormality in the right femur.
--- NOTE | 2023-07-05 17:31 | XR_ITS ---
PROCEDURE INFORMATION: Exam: XR Right Hip Exam date and time: 07/05/2023 5:42 PM Age: 43 years old Clinical indication: Injury or trauma; Fall; Blunt trauma (contusions or hematomas); Right; Hip; Additional info: Injury-fall TECHNIQUE: Imaging protocol: Radiologic exam of the right hip. Views: 2 or 3 views hip with pelvis when performed. COMPARISON: CT ABDOMEN PELVIS W CON 03/08/2020 11:12 AM FINDINGS: Bones/joints: No evidence of acute fracture or malalignment. Pubic symphysis and bilateral sacroiliac joints are congruent. Soft tissues: Unremarkable. IMPRESSION: No evidence of acute osseous abnormality in the right hip.
[2023-07-05 17:34] VITALS: PULSE 79
--- NOTE | 2023-07-05 17:38 | PC.NURSE ---
Dr. Cam at [facility]
--- NOTE | 2023-07-05 17:49 | HMH.EDGENADL ---
Discharge Plan Disposition Patient Disposition: Home, Self-Care Chief Complaint: Extremity Injury, Lower Prescriptions Prescriptions: No Action buspirone 10 mg tablet 10 mg PO DAILY Qty: 90 1RF omeprazole 40 mg capsule,delayed release(DR/EC) 40 mg PO DAILY Qty: 90 1RF valsartan 80 mg tablet 80 mg PO DAILY Qty: 30 3RF carvedilol phosphate 80 mg capsule, ER multiphase 24 hr 80 mg PO DAILY Qty: 30 5RF Rx Instructions: must administer with a meal/food Vraylar 1.5 mg capsule 1.5 mg PO DAILY Qty: 90 1RF citalopram 40 mg tablet 40 mg PO DAILY Qty: 90 1RF fenofibrate 54 mg tablet 54 mg PO DAILY Qty: 90 1RF naltrexone 50 mg tablet See Rx Instructions .ROUTE .COMPLEX Qty: 30 0RF Dose Instruction: Take 1 tablet by mouth once daily Rx Instructions: Take 1 tablet by mouth once daily semaglutide (weight loss) 1 mg/0.5 mL pen injector 1 mg SQ WEEKLY Qty: 2 0RF Rx Instructions: administer weeks 9 through 12 of therapy ondansetron 4 mg tablet,disintegrating 4 mg PO Q8HP PRN (Reason: nausea and vomiting) thiamine mononitrate (vit B1) 100 mg tablet 100 mg PO DAILY Qty: 60 2RF multivitamin with folic acid 400 mcg tablet 1 tab PO DAILY Qty: 90 0RF Referrals Follow up/Referrals: Honey Rizo APRN [Primary Care Provider] - See instructions Clinical Impressions Clinical Impression: Acute pain of right hip, Fall Discharge ED Provider: Loki Cam General Adult [facility] General Chief complaint: Extremity Injury, Lower Stated complaint: AO 07/05 0800 fall RT hip injury Time Seen by Provider: 07/05/23 17:17 Mode of Arrival: Wheelchair Source of Information: Patient and Significant Other Limitations: No Limitations Description of Symptoms (Recalled from ER Triage Doc. by RN): c/o right hip pain after falling this morning at 8am. Pt states that he has osteo necrosis in both hip and he gets shots in his hips which he did on Saturday. Has gotten these shots for 5-6 years every 6 months. States his right foot turned out and got caught on a shelf and caused him to trip, he was able to catch himself and went down on his right hip. 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 Patient states that he tripped over his feet around 8 AM this morning on 07/05. Landed on his right hip on hardwood floor. Has been able to bear weight, but with significant difficulty. Denies shortness of breath, chest pain, syncopal episode, or any other concerns at this time. Has taken Tylenol for the pain, which is mild to moderate in intensity, does not radiate, located under his right buttock Related Data Home Medications Medication Instructions Recorded Confirmed ondansetron 4 mg disintegrating 4 mg PO Q8HP PRN nausea and 04/16/23 07/03/23 tablet vomiting Previous Rx's Medication Instructions Recorded multivitamin with folic acid 400 1 tab PO DAILY #90 tabs 04/20/23 mcg tablet thiamine mononitrate (vit B1) 100 100 mg PO DAILY #60 tabs 04/20/23 mg tablet buspirone 10 mg tablet 10 mg PO DAILY Anxiety #90 tabs 04/23/23 omeprazole 40 mg capsule,delayed 40 mg PO DAILY Acid reflux #90 caps 04/23/23 release valsartan 80 mg tablet 80 mg PO DAILY #30 tabs 04/30/23 carvedilol phosphate 80 mg 80 mg PO DAILY #30 caps 06/19/23 capsule,[id number] multiphase cariprazine 1.5 mg capsule 1.5 mg PO DAILY #90 caps 06/24/23 (Vraylar) citalopram 40 mg tablet 40 mg PO DAILY MOOD #90 tabs 06/24/23 fenofibrate 54 mg tablet 54 mg PO DAILY Cholesterol #90 tabs 06/24/23 naltrexone 50 mg tablet See Rx Instructions .Route 06/24/23 .COMPLEX #30 tabs semaglutide (weight loss) 1 mg/0.5 1 mg (0.5 mL) SQ WEEKLY #2 mL 07/03/23 mL subcutaneous pen injector All
[2023-07-05 18:01] VITALS: BP 141/81; PULSE 69; O2SAT 100
--- NOTE | 2023-07-05 18:18 | CT_ITS ---
PROCEDURE INFORMATION: Exam: CT Pelvis Without Contrast; Skeletal Exam date and time: 07/05/2023 6:27 PM Age: 43 years old Clinical indication: Injury or trauma; Fall; Blunt trauma (contusions or hematomas); Right; Hip; Additional info: Fall, right hip pain, history of osteonecrosis TECHNIQUE: Imaging protocol: Computed tomography of the pelvis without contrast. Exam focused on the skeleton. Radiation optimization: All CT scans at this facility use at least one of these dose optimization techniques: automated exposure control; mA and/or kV adjustment per patient size (includes targeted exams where dose is matched to clinical indication); or iterative reconstruction. REPORTING DATA: Count of CT and Cardiac NM exams in prior 12 months: This patient has received 2 known CTs and 0 known cardiac nuclear medicine studies in the 12 months prior to the current study. COMPARISON: CT ABDOMEN PELVIS W CON 03/08/2020 11:12 AM FINDINGS: Bones/joints: No evidence of acute fracture or malalignment. Pubic symphysis and bilateral sacroiliac joints are congruent. No evidence of hip joint effusion. Multilevel degenerative changes result in varying degrees of moderate to severe spinal canal stenosis and neuroforaminal narrowing. Soft tissues: Unremarkable. Other findings: No emergent findings or suspicious mass lesions in the visualized portions of the abdomen/pelvis. IMPRESSION: 1. No evidence of acute osseous abnormality in the pelvis. Right hip joint is normal. 2. Multilevel degenerative changes result in varying degrees of moderate to severe spinal canal stenosis and neuroforaminal narrowing. Findings do not appear significantly progressed when compared with 03/08/2020 CT abdomen/pelvis.
[2023-07-05 18:31] VITALS: BP 110/78; PULSE 64; O2SAT 97
--- NOTE | 2023-07-05 18:50 | PC.NURSE ---
Rounded on pt. No other needs voiced at this time.
[2023-07-05 19:24] VITALS: BP 126/79; PULSE 67; RESP 19; TEMP 36.8; O2SAT 98
== END 2023-07-05 19:24 | disposition home or self-care (01) ==
PROVIDERS: Emergency Provider Emergency Medicine; PCP Nurse Practitioner Family
DX: M25.551 Pain in right hip (principal); M87.851 Other osteonecrosis, right femur; I51.4 Myocarditis, unspecified; T38.0X5A Adverse effect of glucocorticoids and synthetic analogues, initial encounter; F10.21 Alcohol dependence, in remission; I20.9 Angina pectoris, unspecified; I42.8 Other cardiomyopathies; E78.5 Hyperlipidemia, unspecified; F41.9 Anxiety disorder, unspecified; W01.0XXA Fall on same level from slipping, tripping and stumbling without subsequent striking against object, initial encounter
CPT/HCPCS: 72192; 73502; 73552; 99284

== ENCOUNTER → 2023-07-25 15:57 | Outpatient (CLI) | payer BC, SELFPAY ==
[2023-07-25 15:19] LABS: Anion Gap 16.3 mEq/L (5-15); Blood Urea Nitrogen 15 mg/dl (9-20); Carbon Dioxide 23 mmol/L (22.0-30.0); Chloride 102 mmol/L (98-107); Potassium 4.3 mmoL/L (3.5-5.1); Sodium 137 mmol/L (136-145)
[2023-07-25 15:20] LABS: Alanine Aminotransferase 40 U/L (12-78); Albumin Level 4.5 g/dl (3.5-5.0); Albumin/Globulin Ratio 1.6 (1.1-1.8); Alkaline Phosphatase 66 U/L (38-126); Aspartate Amino Transferase 34 U/L (17-59); Bilirubin,Total 0.6 mg/dl (0.2-1.3); Calcium 9.4 mg/dl (8.4-10.2); Estimated Glomerular Filt Rate 92 ml/min (>60); GFR (African American) 111 ML/MIN (>60); Globulin 2.9 g/dL (1.3-3.2); Glucose 107 mg/dl (74-100); Total Protein,Serum 7.4 g/dl (6.3-8.2)
== END ==
PROVIDERS: PCP Nurse Practitioner Family; Visit Provider Nurse Practitioner Family
DX: Z01.89 Encounter for other specified special examinations (principal); F10.20 Alcohol dependence, uncomplicated
CPT/HCPCS: 80053

== ENCOUNTER 2023-07-31 18:02 | Emergency (ER) | payer BC, SELFPAY ==
[2023-07-31 18:03] VITALS: BP 146/98; PULSE 88; RESP 16; TEMP 36.6; O2SAT 98; BMI 42.2
--- NOTE | 2023-07-31 18:14 | US_ITS ---
PROCEDURE INFORMATION: Exam: US Scrotum Exam date and time: 07/31/2023 6:54 PM Age: 43 years old Clinical indication: Scrotum pain; Additional info: B/l testicle pain l>r TECHNIQUE: Imaging protocol: Real-time ultrasound of the scrotum and contents with color Doppler and image documentation. COMPARISON: CT BONY PELVIS 07/05/2023 6:27 PM FINDINGS: Right testicle: Normal. No mass. No torsion. Normal vascular flow. Left testicle: Normal. No mass. No torsion. Normal vascular flow. Epididymides: Left epididymal head cyst measuring 0.7 cm. Scrotum/soft tissues: Normal. IMPRESSION: Unremarkable scrotal ultrasound.
--- NOTE | 2023-07-31 18:17 | CT_ITS ---
PROCEDURE INFORMATION: Exam: CT Abdomen And Pelvis With Contrast Exam date and time: 07/31/2023 7:09 PM Age: 43 years old Clinical indication: Abdominal pain; Localized; Right lower quadrant (rlq); Additional info: Rlq/periumbilical rad to groin TECHNIQUE: Imaging protocol: Computed tomography of the abdomen and pelvis with contrast. Radiation optimization: All CT scans at this facility use at least one of these dose optimization techniques: automated exposure control; mA and/or kV adjustment per patient size (includes targeted exams where dose is matched to clinical indication); or iterative reconstruction. Contrast material: ISOVUE; Contrast volume: 75 ml; Contrast route: IV; REPORTING DATA: Count of CT and Cardiac NM exams in prior 12 months: This patient has received 3 known CTs and 0 known cardiac nuclear medicine studies in the 12 months prior to the current study. COMPARISON: CT BONY PELVIS 07/05/2023 6:27 PM FINDINGS: Lungs: Nonspecific subpleural reticulation of the lung bases. Liver: Normal. No mass. Gallbladder and bile ducts: The patient is status post cholecystectomy. Pancreas: Normal. No ductal dilation. Spleen: Normal. No splenomegaly. Adrenal glands: Normal. No mass. Kidneys and ureters: Normal. No hydronephrosis. Stomach and bowel: There is under distention versus mild wall thickening of the colon which could reflect underlying colitis. Appendix: The appendix is not clearly visualized, no secondary signs of acute appendicitis are seen. Intraperitoneal space: Unremarkable. No free air. No significant fluid collection. Vasculature: Unremarkable. No abdominal aortic aneurysm. Lymph nodes: Unremarkable. No enlarged lymph nodes. Urinary bladder: There is moderate distention of the urinary bladder. Reproductive: Unremarkable as visualized. Bones/joints: There is straightening of the normal spinal curvature. Soft tissues: There is a fat containing left inguinal hernia. IMPRESSION: 1. The appendix is not clearly visualized, no secondary signs of acute appendicitis are seen. 2. There is under distention versus mild wall thickening of the colon which could reflect underlying colitis.
--- NOTE | 2023-07-31 18:19 | HMH.EDGENADL ---
Discharge Plan Disposition Patient Disposition: Home, Self-Care Prescriptions Prescriptions: New promethazine 25 mg tablet 25 mg PO TID PRN (Reason: nausea and vomiting) Qty: 12 0RF Rx Instructions: Do not combine with other nausea medications No Action buspirone 10 mg tablet 10 mg PO DAILY Qty: 90 1RF omeprazole 40 mg capsule,delayed release(DR/EC) 40 mg PO DAILY Qty: 90 1RF valsartan 80 mg tablet 80 mg PO DAILY Qty: 30 3RF carvedilol phosphate 80 mg capsule, ER multiphase 24 hr 80 mg PO DAILY Qty: 30 5RF Rx Instructions: must administer with a meal/food Vraylar 1.5 mg capsule 1.5 mg PO DAILY Qty: 90 1RF citalopram 40 mg tablet 40 mg PO DAILY Qty: 90 1RF fenofibrate 54 mg tablet 54 mg PO DAILY Qty: 90 1RF semaglutide (weight loss) 1.7 mg/0.75 mL pen injector 1.7 mg SQ WEEKLY Qty: 3 0RF Rx Instructions: administer weeks 13 through 16 of therapy naltrexone 50 mg tablet See Rx Instructions .ROUTE .COMPLEX Qty: 30 0RF Dose Instruction: Take 1 tablet by mouth once daily Rx Instructions: Take 1 tablet by mouth once daily ondansetron 4 mg tablet,disintegrating 4 mg PO Q8HP PRN (Reason: nausea and vomiting) Qty: 20 0RF thiamine mononitrate (vit B1) 100 mg tablet 100 mg PO DAILY Qty: 60 2RF Referrals Follow up/Referrals: Honey Rizo APRN [Primary Care Provider] - See instructions Activity Restrictions/Add. Instructions Additional Instructions/Restrictions: At this time is felt you are safe to be discharged home. If new or worsening symptoms please do not hesitate to return the emergency department. Please take your medication as prescribed. Please follow-up with your family doctor for possible adjustment of your semaglutide. Clinical Impressions Clinical Impression: Abdominal pain, Vomiting Instructions Patient Instructions: DI for Diarrhea and Traveler's Diarrhea -- Adult, DI for Diarrhea and Traveler's Diarrhea -- Child, DI for Nausea -- Adult, DI for Nausea -- Child Discharge ED Provider: Olegario Romano General Adult HPI General Chief complaint: Nausea/Vomiting/Diarrhea Stated complaint: upset stomach, vomiting, diarrhea Time Seen by Provider: 07/31/23 18:10 History of Present Illness HPI narrative: Patient is a 43-year-old male with past medical history of recurrent pancreatitis status post cholecystectomy who presents emergency department for evaluation abdominal pain and vomiting. Patient states that he is on Wegovy for which his dose was recently increased on Saturday. Today he developed periumbilical abdominal pain radiating into his right lower quadrant and bilateral testicles. Testicular soreness left greater than right. Intractable vomiting. Pain is moderate to severe in intensity. Due to worsening symptoms he presents here for continued evaluation. Symptoms refractory to Zofran at home. Related Data Previous Rx's Medication Instructions Recorded thiamine mononitrate (vit B1) 100 100 mg PO DAILY #60 tabs 04/20/23 mg tablet buspirone 10 mg tablet 10 mg PO DAILY Anxiety #90 tabs 04/23/23 omeprazole 40 mg capsule,delayed 40 mg PO DAILY Acid reflux #90 caps 04/23/23 release valsartan 80 mg tablet 80 mg PO DAILY #30 tabs 04/30/23 carvedilol phosphate 80 mg 80 mg PO DAILY #30 caps 06/19/23 capsule,[id number] multiphase cariprazine 1.5 mg capsule 1.5 mg PO DAILY #90 caps 06/24/23 (Vraylar) citalopram 40 mg tablet 40 mg PO DAILY MOOD #90 tabs 06/24/23 fenofibrate 54 mg tablet 54 mg PO DAILY Cholesterol #90 tabs 06/24/23 naltrexone 50 mg tablet See Rx Instructions .Route 07/25/23 .COMPLEX #30 tabs semaglutide (weight loss) 1.7 1.7 mg (0.75 mL) SQ WEEKLY #3 mL 07/25/23 mg/0.75 mL subcutaneous pen injector ondansetron 4 mg disintegrating 4 mg PO Q8HP PRN nausea and 07/31/23 tablet vomiting #20 tabs promethazine 25 mg tablet 25 mg PO TID PRN nausea and 07/31/23 vomiting #12 tabs
[2023-07-31 18:54] LABS: Basophils % 0.1 % (0.1-2.0); Eosinophils % 0.4 % (0.1-12.0); Hematocrit 47.4 % (42.0-52.0); Hemoglobin 15.4 g/dL (14.1-18.0); Lymphocytes # 1.1 K/mm3 (0.7-4.5); Lymphocytes % 15.7 % (10-50); Mean Corpuscular HGB Conc 32.6 g/dL (31.8-35.4); Mean Corpuscular Hemoglobin 30.4 pg (27.0-31.2); Mean Corpuscular Volume 93.4 fl (80-94); Mean Platelet Volume 8.2 fl (7.4-10.4); Monocytes # 0.3 K/mm3 (0.1-1.0); Monocytes % 4.9 % (1.7-9.3); Neutrophils # 5.5 K/mm3 (1.8-7.8); Neutrophils % 78.9 % (37.0-80.0); Platelet Count 282 K/mm3 (142-424); Red Blood Count 5.07 M/mm3 (4.60-6.20); Red Cell Distribution Width 12.8 % (11.5-17.5)
--- NOTE | 2023-07-31 18:56 | PC.NURSE ---
pt gone to rad for ultrasound
[2023-07-31 19:02] LABS: Alanine Aminotransferase 43 U/L (12-78); Albumin/Globulin Ratio 1.3 (1.1-1.8); Alkaline Phosphatase 76 U/L (38-126); Anion Gap 17.2 mEq/L (5-15); Aspartate Amino Transferase 41 U/L (17-59); Bilirubin,Total 1.3 mg/dl (0.2-1.3); Blood Urea Nitrogen 12 mg/dl (9-20); Calcium 10.2 mg/dl (8.4-10.2); Carbon Dioxide 19 mmol/L (22.0-30.0); Chloride 102 mmol/L (98-107); Creatinine Clearance Estimated 107 mL/min (50-200); Estimated Glomerular Filt Rate 81 ml/min (>60); GFR (African American) 98 ML/MIN (>60); Globulin 3.8 g/dL (1.3-3.2); Glucose 124 mg/dl (74-100); Lipase 122 U/L (23-300); Potassium 4.2 mmoL/L (3.5-5.1); Sodium 134 mmol/L (136-145); Total Protein,Serum 8.8 g/dl (6.3-8.2)
[2023-07-31 19:20] LABS: Erythrocyte Sedimentation Rate 30 mm/hr (0-15)
--- NOTE | 2023-07-31 20:13 | PC.NURSE ---
pt aware of need of UA.
[2023-07-31 21:04] LABS: Microscopic, Urine URINE MICROSCOPIC (MICROSCOPIC)
[2023-07-31 21:05] LABS: Appearance,Urine CLEAR (Clear); Blood, Urine Negative (Negative); Color,Urine YELLOW (Yellow); Glucose,Urine (UA) Negative (Negative); Ketones,Urine TRACE (Negative); Leukocyte Esterase,Urine Negative (Negative); Nitrate,Urine Negative (Negative); Protein,Urine TRACE (Negative); Specific Gravity, Urine 1.025 (1.005-1.030)
[2023-07-31 21:15] LABS: Bilirubin,Urine 1+ (Negative)
[2023-07-31 21:35] LABS: RBC,Urine Occasional #/hpf (0-3); Squamous Epithelial Cell,Urine Occasional #/hpf (0-5)
--- NOTE | 2023-07-31 21:37 | PC.NURSE ---
PT sitting up in bed, drinking water, tolerating.
[2023-07-31 21:46] VITALS: BP 113/53; PULSE 95; RESP 18; TEMP 36.6; O2SAT 99
== END 2023-07-31 21:47 | disposition home or self-care (01) ==
PROVIDERS: Emergency Provider Emergency Medicine; PCP Nurse Practitioner Family
DX: R10.33 Periumbilical pain (principal); R10.31 Right lower quadrant pain; R11.10 Vomiting, unspecified; I20.9 Angina pectoris, unspecified; F41.9 Anxiety disorder, unspecified; I42.8 Other cardiomyopathies; I11.0 Hypertensive heart disease with heart failure; I50.9 Heart failure, unspecified; E78.5 Hyperlipidemia, unspecified; G47.33 Obstructive sleep apnea (adult) (pediatric)
CPT/HCPCS: 74177; 76870; 80053; 81001; 83690; 85025; 85651; 96361; 96374; 96375; 99285; J0131; Q9967

== ENCOUNTER 2023-08-29 09:57 | Observation (INO) | payer BC, SELFPAY ==
[2023-08-29] VITALS (19 sets, daily range): BP systolic 132–156; BP diastolic 75–95; PULSE 31–94; RESP 17–20; TEMP 36.6–37; O2SAT 93–99; BMI 39.2; BMI 40.1
--- NOTE | 2023-08-29 10:11 | PC.NURSE ---
Dr. Romano at [facility] for pt eval
--- NOTE | 2023-08-29 10:14 | XR_ITS ---
FINAL REPORT CLINICAL HISTORY: Precordial chest pain COMPARISON: None FINDINGS: A single portable view of the chest was obtained. The heart size and pulmonary vascularity are within normal limits. The mediastinum is within normal limits. No acute pulmonary abnormality is identified. The bony thorax is intact. IMPRESSION: No active cardiopulmonary disease. Reviewed, Interpreted and Dictated by Kobe Mathis III, MD Transcribed by Savanna Be Authenticated and [facility]
--- NOTE | 2023-08-29 10:15 | HMH.EDGENADL ---
Discharge Plan Disposition Patient Disposition: Admitted Chief Complaint: Nausea/Vomiting/Diarrhea Prescriptions Prescriptions: No Action buspirone 10 mg tablet 10 mg PO DAILY Qty: 90 1RF omeprazole 40 mg capsule,delayed release(DR/EC) 40 mg PO DAILY Qty: 90 1RF carvedilol phosphate 80 mg capsule, ER multiphase 24 hr 80 mg PO DAILY Qty: 30 5RF Rx Instructions: must administer with a meal/food Vraylar 1.5 mg capsule 1.5 mg PO DAILY Qty: 90 1RF citalopram 40 mg tablet 40 mg PO DAILY Qty: 90 1RF fenofibrate 54 mg tablet 54 mg PO DAILY Qty: 90 1RF semaglutide (weight loss) 1.7 mg/0.75 mL pen injector 1.7 mg SQ WEEKLY Qty: 3 5RF Rx Instructions: administer weeks 13 through 16 of therapy ondansetron 4 mg tablet,disintegrating 4 mg PO Q8HP PRN (Reason: nausea and vomiting) Qty: 20 0RF valsartan 80 mg tablet 80 mg PO DAILY Qty: 90 1RF thiamine mononitrate (vit B1) 100 mg tablet 100 mg PO DAILY Qty: 60 2RF promethazine 25 mg tablet 25 mg PO TID PRN (Reason: nausea and vomiting) Qty: 12 0RF Rx Instructions: Do not combine with other nausea medications Referrals Follow up/Referrals: Honey Rizo APRN [Primary Care Provider] - See instructions Clinical Impressions Clinical Impression: Acute pancreatitis Discharge ED Provider: Olegario Romano General Adult HPI General Chief complaint: Nausea/Vomiting/Diarrhea Stated complaint: vomiting Time Seen by Provider: 08/29/23 10:04 Mode of Arrival: Family Vehicle Source of Information: Patient and Spouse Limitations: No Limitations Description of Symptoms (Recalled from ER Triage Doc. by RN): Pt c/o nausea, vomiting, and diarrhea for 3 days. Also reports dizziness, body aches, and chills. Denies any Real fever . He was at PCP's office today and they sent him over for evaluation. He also c/o abd cramping and tighenting when he's about to vomit or have a bm. He is concerned for dehydration. History of Present Illness HPI narrative: Patient is a 43-year-old male with past medical history of CHF who presents emergency department for evaluation of vomiting, diarrhea. Onset was acute, over the last few days. He presented to PCPs office where they were concerned for orthostatic hypotension and referred him here for continued evaluation. Patient has had large inability to tolerate p.o. over the last few days. Vomiting diarrhea have been nonbloody. There is intermittent slight chest pain that is poorly localized. No other acute complaints at this time. Related Data Previous Rx's Medication Instructions Recorded thiamine mononitrate (vit B1) 100 100 mg PO DAILY #60 tabs 04/20/23 mg tablet buspirone 10 mg tablet 10 mg PO DAILY Anxiety #90 tabs 04/23/23 omeprazole 40 mg capsule,delayed 40 mg PO DAILY Acid reflux #90 caps 04/23/23 release carvedilol phosphate 80 mg 80 mg PO DAILY #30 caps 06/19/23 capsule,[id number] multiphase cariprazine 1.5 mg capsule 1.5 mg PO DAILY #90 caps 06/24/23 (Vraylar) citalopram 40 mg tablet 40 mg PO DAILY MOOD #90 tabs 06/24/23 fenofibrate 54 mg tablet 54 mg PO DAILY Cholesterol #90 tabs 06/24/23 ondansetron 4 mg disintegrating 4 mg PO Q8HP PRN nausea and 07/31/23 tablet vomiting #20 tabs promethazine 25 mg tablet 25 mg PO TID PRN nausea and 07/31/23 vomiting #12 tabs valsartan 80 mg tablet 80 mg PO DAILY #90 tabs 08/20/23 semaglutide (weight loss) 1.7 1.7 mg (0.75 mL) SQ WEEKLY #3 mL 08/22/23 mg/0.75 mL subcutaneous pen injector Allergies Allergy/AdvReac Type Severity Reaction Status Date / Time morphine [MORPHINE] Allergy Unknown I-ITCHING Verified 08/29/23 09:34 [id number] Reductase AdvReac Severe MUSCLE Verified 08/29/23 09:34 Inhibitor CRAMPING/PAIN pravastatin AdvReac Intermediate myalgia Verified 08/29/23 09:34 lipitor AdvReac Intermediate myalgia Uncoded 08/29/23 09:34 vascepa AdvReac Mild myalgia Uncoded 08/29/23 09:34 [facility]
[2023-08-29 10:16] LABS: Coronavirus 19, PCR Not Detected (NotDetected); Influenza A, PCR Not Detected (NotDetected); Influenza B, PCR Not Detected (NotDetected)
[2023-08-29 10:20] LABS: Basophils % 0.2 % (0.1-2.0); Eosinophils # 0.1 K/mm3 (0.0-0.4); Eosinophils % 1.2 % (0.1-12.0); Hematocrit 45.8 % (42.0-52.0); Hemoglobin 15.8 g/dL (14.1-18.0); Lymphocytes # 1.8 K/mm3 (0.7-4.5); Lymphocytes % 14.8 % (10-50); Mean Corpuscular HGB Conc 34.5 g/dL (31.8-35.4); Mean Corpuscular Hemoglobin 32.1 pg (27.0-31.2); Mean Corpuscular Volume 93.2 fl (80-94); Mean Platelet Volume 7.8 fl (7.4-10.4); Monocytes # 0.7 K/mm3 (0.1-1.0); Monocytes % 5.4 % (1.7-9.3); Neutrophils # 9.5 K/mm3 (1.8-7.8); Neutrophils % 78.4 % (37.0-80.0); Platelet Count 230 K/mm3 (142-424); Red Blood Count 4.91 M/mm3 (4.60-6.20); Red Cell Distribution Width 13.1 % (11.5-17.5); White Blood Count 12.1 K/mm3 (4.8-10.8)
--- NOTE | 2023-08-29 10:23 | ECG_ITS ---
APPROVED REPORT Exam: Resting ECG HR:81 bpm ECG Measurements Heart Rate 81 AXES AL 161 P -10 QRSd 172 QRS -11 QT 421 T 123 QTc 458 Conclusion SINUS RHYTHM LEFT BUNDLE BRANCH BLOCK [120+ ms QRS DURATION, 80+ ms Q/S IN V1/V2, 85+ ms R IN I/aVL/V5/V6] ABNORMAL ECG UNCONFIRMED REPORT Electronically signed by : Nick Veliz MD 08/30/2023 17:06:49
[2023-08-29 10:51] LABS: Chloride 100 mmol/L (98-107); Sodium 135 mmol/L (136-145)
[2023-08-29 10:52] LABS: Potassium 3.8 mmoL/L (3.5-5.1)
[2023-08-29 10:54] LABS: Alanine Aminotransferase 47 U/L (12-78); Albumin/Globulin Ratio 1.4 (1.1-1.8); Alkaline Phosphatase 72 U/L (38-126); Anion Gap 14.8 mEq/L (5-15); Aspartate Amino Transferase 48 U/L (17-59); Bilirubin,Total 2.1 mg/dl (0.2-1.3); Blood Urea Nitrogen 23 mg/dl (9-20); Carbon Dioxide 24 mmol/L (22.0-30.0); Creatinine Clearance Estimated 95 mL/min (50-200); Estimated Glomerular Filt Rate 39 ml/min (>60); GFR (African American) 47 ML/MIN (>60); Globulin 3.6 g/dL (1.3-3.2); Glucose 107 mg/dl (74-100); Lipase 441 U/L (23-300); Total Protein,Serum 8.6 g/dl (6.3-8.2)
[2023-08-29 10:55] LABS: Magnesium 1.8 mg/dl (1.6-2.3)
[2023-08-29 11:27] LABS: Bilirubin,Direct 0.3 mg/dl (0.0-0.4)
[2023-08-29 11:31] LABS: Troponin I < 0.01 ng/ml (0.00-0.034)
--- NOTE | 2023-08-29 11:50 | PC.NURSE ---
Pt given water to PO challenge patient.
--- NOTE | 2023-08-29 12:47 | PC.NURSE ---
on phone with hospitalist
--- NOTE | 2023-08-29 12:51 | PC.NURSE ---
notified case management of admission
--- NOTE | 2023-08-29 13:16 | EXP.HP ---
History of Present Illness *Admission Date: 08/29/23 *Reason for visit:: nausea and vomiting. *History of present illness: Mr. Salazar is a 43-year-old male who presented to the ER with report of 3 to 4 days of nausea, vomiting, diarrhea and abdominal pain. History of pancreatitis, he said, anxiety, alcoholism (abstinent for 4 months). States he had a similar episode a little over a week ago that resolved in 24 hours. Thought this would resolve on its own but has not gotten better. Has been intolerant of oral antiemetics as he throws them up. Poor p.o. tolerance for the past few days. On arrival to the ER, found to have elevated lipase, GUADALUPE, intractable nausea. Lipase elevated in the 400s. ER consulted medicine for admission and further management. Patient reports emesis is nonbloody and nonbilious. No blood in his stool. Denies any chest pain or shortness of breath. No syncope or confusion. Stable on room air. Has been afebrile but has had occasional chills. Reports his urine has been very dark. Has seen some improvement in his nausea with IV antiemetics. Currently tolerating sips of water. [facility] Disclaimer: The information contained in this section may have been updated after the patient was seen, as this information can be updated by other users. Medical History Acquired equinus deformity of both feet Acquired hallux valgus of both feet Acquired hammertoes of both feet Acquired pes planus of both feet Acute pain of right hip Alcohol abuse Alcohol withdrawal Alcoholism Angina pectoris Anxiety Callus of foot Cardiomyopathy Chest pain Congestive heart failure COVID-19 Edema Elevated LFTs Fall Heel pain, bilateral History of cocaine use Hyperlipidemia Hypertension Hypotension Keratosis Laceration of blood vessel of left middle finger Metatarsalgia of both feet Near syncope Neck pain Nonischemic cardiomyopathy Numbness and tingling in both hands TIRSO (obstructive sleep apnea) Pain in both feet Palpitations Plantar fasciitis Sprain of foot, right Vertigo Weight gain Surgical History History of cardiac catheterization History of cholecystectomy Family History Family history of hypertension Family history of myocardial infarction Social History Smoking Status: Never smoker alcohol intake: current substance use type: denies use current occupational status: employed Travel in the last 8 weeks: None household members: spouse housing: house Review of Systems Review of Systems Review of systems (narrative): 14 point review of systems performed, pertinent positives and negatives as per HPI Meds Home Medications and Allergies Home Medications Medication Instructions Recorded Confirmed Type buspirone 10 mg tablet 10 mg PO DAILY Anxiety #90 tabs 04/23/23 08/29/23 Rx omeprazole 40 mg capsule,delayed 40 mg PO DAILY Acid reflux #90 caps 04/23/23 08/29/23 Rx release fenofibrate 54 mg tablet 54 mg PO DAILY Cholesterol #90 tabs 06/24/23 08/29/23 Rx ondansetron 4 mg disintegrating 4 mg PO Q8HP PRN nausea and 07/31/23 08/29/23 Rx tablet vomiting #20 tabs cariprazine 1.5 mg capsule 1.5 mg PO DAILY Mood 08/29/23 08/29/23 History (Vraylar) carvedilol phosphate 80 mg 80 mg PO DAILY High Blood Pressure 08/29/23 08/29/23 History capsule,ext.[id number] multiphase citalopram 40 mg tablet 40 mg PO DAILY Mood 08/29/23 08/29/23 History promethazine 25 mg tablet 25 mg PO TIDP PRN nausea and 08/29/23 08/29/23 History vomiting semaglutide (weight loss) 1.7 1.7 mg SQ WEEKLY Weight Loss 08/29/23 08/29/23 History mg/0.75 mL subcutaneous pen injector valsartan 80 mg tablet 80 mg PO DAILY High Blood Pressure 08/29/23 08/29/23 History New Prescriptions to Start Prescriptions: A
--- NOTE | 2023-08-29 13:19 | HMH.PHAINT1 ---
Pharmacy Intervention Comments: MEDICATION RECONCILIATION COMPLETED ON PATIENT USING EXTERNAL FILL HISTORY FROM PHARMACY AND LIST FROM PCP OFFICE. -GALLITO BELL, PATELD
[2023-08-29 13:30] LABS: Chol/HDL Ratio 4.5 (1-3.5); Cholesterol 265 mg/dl (140-200); HDL Cholesterol 59 mg/dl (40-60); Triglycerides 161 mg/dl (30-150); VLDL Cholesterol 32 mg/dL (0-40)
[2023-08-29 13:41] LABS: Direct LDL Cholesterol 159.33 mg/dL (100-129)
--- NOTE | 2023-08-29 13:49 | PC.NURSE ---
Patient stated he was still having severe abd pain. MD notified and gave V/O for 0.5mg IVP of Dilaudid.
--- NOTE | 2023-08-29 13:53 | PC.NURSE ---
Rounded on patient and family. Call light within reach
--- NOTE | 2023-08-29 14:02 | PC.NURSE ---
Patient to second floor with second floor staff via wheelchair. No acute distress noted at this time
--- NOTE | 2023-08-29 15:40 | PC.NURSE ---
A&OX4. TOLERATING RA WELL. PT HAS BEEN FEELING SLIGHTLY BETTER AND ABLE TO REST SINCE ARRIVAL TO FLOOR. UP INDEPENDENTLY BUT ENCOURAGED TO RING OUT WHEN GETTING UP FOR SOME WEAKNESS. PT HAS HAD NO NEEDS OR C/O NOTED THUS FAR, VSS.
[2023-08-30] VITALS: BP 119/64; PULSE 95; RESP 18; TEMP 36.9; O2SAT 93
--- NOTE | 2023-08-30 03:54 | PC.NURSE ---
Pt is alert and oriented x4, currently on RA. _Pt has complained of pain and nausea this shift however has rested well in between doses of pain and antinausea medications. Pt was able to hold down a cup of jello. Pt denies other needs at this time
[2023-08-30 04:00] VITALS: BP 133/68; PULSE 73; RESP 18; TEMP 36.4; O2SAT 96; BMI 41.9
[2023-08-30 08:00] VITALS: BP 141/85; PULSE 92; RESP 18; TEMP 36.5; O2SAT 94
[2023-08-30 09:38] LABS: Basophils % 0.4 % (0.1-2.0); Eosinophils % 0.7 % (0.1-12.0); Hematocrit 42.1 % (42.0-52.0); Hemoglobin 14.6 g/dL (14.1-18.0); Lymphocytes # 1.5 K/mm3 (0.7-4.5); Lymphocytes % 30.4 % (10-50); Mean Corpuscular HGB Conc 34.6 g/dL (31.8-35.4); Mean Corpuscular Hemoglobin 32.4 pg (27.0-31.2); Mean Corpuscular Volume 93.5 fl (80-94); Mean Platelet Volume 7.5 fl (7.4-10.4); Monocytes # 0.5 K/mm3 (0.1-1.0); Monocytes % 10.1 % (1.7-9.3); Neutrophils # 2.9 K/mm3 (1.8-7.8); Neutrophils % 58.3 % (37.0-80.0); Platelet Count 172 K/mm3 (142-424); Red Cell Distribution Width 12.9 % (11.5-17.5); White Blood Count 4.9 K/mm3 (4.8-10.8)
[2023-08-30 09:49] LABS: Chloride 105 mmol/L (98-107); Potassium 3.7 mmoL/L (3.5-5.1); Sodium 138 mmol/L (136-145)
[2023-08-30 09:51] LABS: Blood Urea Nitrogen 13 mg/dl (9-20); Creatinine Clearance Estimated 115 mL/min (50-200); Estimated Glomerular Filt Rate 92 ml/min (>60); GFR (African American) 111 ML/MIN (>60)
[2023-08-30 09:52] LABS: Alanine Aminotransferase 38 U/L (12-78); Albumin Level 4.2 g/dl (3.5-5.0); Albumin/Globulin Ratio 1.4 (1.1-1.8); Alkaline Phosphatase 61 U/L (38-126); Anion Gap 8.7 mEq/L (5-15); Aspartate Amino Transferase 40 U/L (17-59); Bilirubin,Total 1.2 mg/dl (0.2-1.3); Calcium 9.2 mg/dl (8.4-10.2); Carbon Dioxide 28 mmol/L (22.0-30.0); Globulin 2.9 g/dL (1.3-3.2); Glucose 111 mg/dl (74-100); Lipase 102 U/L (23-300); Total Protein,Serum 7.1 g/dl (6.3-8.2)
[2023-08-30 09:53] LABS: Magnesium 1.8 mg/dl (1.6-2.3)
--- NOTE | 2023-08-30 11:27 | PC.NURSE ---
courtesy tech note: pt is resting and no requests at this time. call light is within reach.
--- NOTE | 2023-08-30 14:56 | EXP.ACUTE.PN ---
Subjective *Date: 08/30/23 *Time: 14:56 Interval history: Intermittent tolerance of p.o. intake. Stable on room air. Still having intermittent abdominal pain and nausea with vomiting this morning. No fevers. No diarrhea. States he is feeling somewhat better but still having a hard time keeping meds and food down. Medical Exam Vital signs and Labs for Last 24 Hours: Vital Signs Temp Pulse Resp BP Pulse Ox O2 Del Method 08/30/23 13:00 Room Air 08/30/23 11:00 Room Air 08/30/23 09:00 Room Air 08/30/23 08:00 Room Air 08/30/23 08:00 97.7 F 92 H 18 141/85 H 94 L Room Air 08/30/23 06:40 Room Air 08/30/23 04:00 97.6 F 73 18 133/68 96 Room Air 08/30/23 05:00 Room Air 08/30/23 03:00 Room Air 08/30/23 00:00 98.4 F 95 H 18 119/64 93 L Room Air 08/30/23 01:00 Room Air 08/29/23 23:00 Room Air 08/29/23 21:00 Room Air 08/29/23 20:00 97 Room Air 08/29/23 18:31 Room Air 08/29/23 16:00 97.8 F 90 18 137/75 97 Room Air 08/29/23 16:43 Room Air Intake and Output 08/29/23 08/30/23 08/30/23 23:59 07:59 15:59 Intake Total 2602 / 2872 270 / 2872 Output Total 0 / 0 0 / 0 Balance 0 / 4512 2602 / 2872 270 / 2872 Intake: Intake, Oral Amount 270 / 270 Intake, Total IV Amount 2387 / 2387 Lactated Ringers 1000ML 1,000 2387 / 2387 ml @ 100 mls/hr IV .Q10H [facility] Rx #:[id number] Infusion Intake 215 / 215 Lactated Ringers 1000ML 1,000 215 / 215 ml @ 100 mls/hr IV .Q10H [facility] Rx #:[id number] Output: Output, Urine Amount 0 / 0 0 / 0 Other: Number of Voids 0 Number of Unmeasured Voids 1 1 Weight 143.59 kg Patient Weight 08/30/23 23:59 Weight 143.59 kg Laboratory Results - last 24 hr 10/27/23 09:05: WBC 4.9 D, RBC 4.50 L, Hgb 14.6, Hct 42.1, MCV 93.5, MCH 32.4 H, MCHC 34.6, RDW 12.9, Plt Count 172 D, MPV 7.5, Neut % (Auto) 58.3, Lymph % (Auto) 30.4, [place] % (Auto) 10.1 H, Eos % (Auto) 0.7, Baso % (Auto) 0.4, Neut # (Auto) 2.9, Lymph # (Auto) 1.5, [place] # (Auto) 0.5, Eos # (Auto) 0.0, Baso # (Auto) 0.0, Sodium 138, Potassium 3.7, Chloride 105, Carbon Dioxide 28, Anion Gap 8.7, BUN 13 D, Creatinine 0.90 D, Estimated Creat Clear 115, Estimated GFR 92, Est GFR ( Amer) 111 D, Glucose 111 H, Calcium 9.2, Magnesium 1.8, Total Bilirubin 1.2, AST 40, ALT 38, Alkaline Phosphatase 61, Total Protein 7.1, Albumin 4.2 D, Globulin 2.9, Albumin/Globulin Ratio 1.4, Lipase 102 I & O for Labs for Last 24 Hours: Intake & Output 08/27/23 08/28/23 08/29/23 08/30/23 23:59 23:59 23:59 23:59 Intake Total 2125 / 4512 2872 / 2872 Output Total 0 / 0 0 / 0 Balance 21242 2872 / 2872 Weight 138.119 kg 143.59 kg Constitutional: Present no acute distress and morbidly obese Head: Present atraumatic and normocephalic ENT: Present normal exam Neck: Present normal inspection Respiratory: Present normal respiratory effort; Absent rhonchi, wheezes or crackles Cardiac: Present Reg Rate and Rhythm GI: Present soft, tenderness (mild epigastric) and normal bowel sounds; Absent distention Extremities: Present normal inspection and full ROM Skin: Present intact; Absent erythema Neuro: Present Grossly Intact, alert, awake, oriented x 3 and moves all extremities Assessment and Plan *Assessment and plan (1) Acute pancreatitis: Status: Acute Qualifiers: Acute pancreatitis complication: no infection or necrosis Pancreatitis type: idiopathic Qualified Code(s): K85.00 - Idiopathic acute pancreatitis without necrosis or infection Category: Medical Code(s): K85.90 - Acute pancreatitis without necrosis or infection, unspecified (2) GUADALUPE (acute kidney injury): Status: Acute Category: Medical Code(s): N17.9 - Acute kidney failure, unspecified (3) Abdominal pain: Status: Acute Qualifiers: Abdominal location: periumbilical
[2023-08-30 16:00] VITALS: BP 167/94; PULSE 92; RESP 20; TEMP 36.8; O2SAT 92
[2023-08-30 20:00] VITALS: BP 138/74; PULSE 91; RESP 16; TEMP 36.6; O2SAT 93; O2SAT 96
[2023-08-31 04:00] VITALS: BP 144/71; PULSE 78; RESP 16; TEMP 36.6; O2SAT 98; BMI 41.9
--- NOTE | 2023-08-31 05:46 | PC.NURSE ---
Patient VS WNL; zachariah nausea, vomiting, pain at time of assessment. Has tolerated 1 cup of chicken broth with no c/o n/v. Pt denies any further concerns at this time.
--- NOTE | 2023-08-31 07:30 | EXP.DC.SUM ---
General Admission date:: 08/29/23 Discharge date: 08/31/23 HPI HPI HPI: Mr. Salazar is a 43-year-old male who presented to the ER with report of 3 to 4 days of nausea, vomiting, diarrhea and abdominal pain. History of pancreatitis, he said, anxiety, alcoholism (abstinent for 4 months). States he had a similar episode a little over a week ago that resolved in 24 hours. Thought this would resolve on its own but has not gotten better. Has been intolerant of oral antiemetics as he throws them up. Poor p.o. tolerance for the past few days. On arrival to the ER, found to have elevated lipase, GUADALUPE, intractable nausea. Lipase elevated in the 400s. ER consulted medicine for admission and further management. Patient reports emesis is nonbloody and nonbilious. No blood in his stool. Denies any chest pain or shortness of breath. No syncope or confusion. Stable on room air. Has been afebrile but has had occasional chills. Reports his urine has been very dark. Has seen some improvement in his nausea with IV antiemetics. Currently tolerating sips of water. Hospital Course Hospital Course Hospital Course: 43-year-old male with history of obesity, previous alcoholism (currently abstinent), hypertension and anxiety. Presents with 3 days of intractable nausea and vomiting. Found to have GUADALUPE and pancreatitis. Discussed case with ER physician, requested admission for fluid resuscitation and treatment of intractable nausea and vomiting. Medicine admitted to [facility] for further management. Showing gradual improvement in p.o. tolerance. Having nausea in the morning but otherwise better during the day. Stable for discharge home with oral antiemetics. Patient is on Wegovy, recommend he hold this medication as pancreatitis can be a side effect along with gastroparesis. Recommend reviewing need for resumption with PCP. Problems addressed as follows: Pancreatitis Intractable nausea and vomiting -Several days of nausea and vomiting. Found to have pancreatitis with lipase in the 400s. No longer drinking, risk factor is his semaglutide. Treated with IV fluids and IV antiemetics. Showed gradual improvement with p.o. tolerance. Still having some mild pain in his abdomen. Stable for discharge home however given normalization of liver enzymes and lipase. Recommend close follow-up with PCP to reevaluate semaglutide. Recommend holding until as candid discussion with PCP. GUADALUPE: Creatinine 1.9 on admission. Improved to 0.9 with hydration. Recommend repeat labs in 1 to 2 weeks. Chronic conditions: Valsartan held at admission, resumed for blood pressure. Continue carvedilol. Vraylar 1.5 mg daily, buspirone 10 mg daily, citalopram milligrams daily for mood. Holding semaglutide given GI symptoms and mild pancreatitis. Continue fenofibrate 54 mg daily for HLD continue PPI daily PO for reflux Exam Data for Last 24 hours Vital signs and Labs for Last 24 Hours: Temp Pulse Resp BP Pulse Ox O2 Del Method 98 F 78 16 144/71 H 98 Room Air 08/31/23 04:00 08/31/23 04:00 08/31/23 04:00 08/31/23 04:00 08/31/23 04:00 08/31/23 06:35 Laboratory Results - last 24 hr 08/30/23 09:05: WBC 4.9 D, RBC 4.50 L, Hgb 14.6, Hct 42.1, MCV 93.5, MCH 32.4 H, MCHC 34.6, RDW 12.9, Plt Count 172 D, MPV 7.5, Neut % (Auto) 58.3, Lymph % (Auto) 30.4, [place] % (Auto) 10.1 H, Eos % (Auto) 0.7, Baso % (Auto) 0.4, Neut # (Auto) 2.9, Lymph # (Auto) 1.5, [place] # (Auto) 0.5, Eos # (Auto) 0.0, Baso # (Auto) 0.0, Sodium 138, Potassium 3.7, Chloride 105, Carbon Dioxide 28, Anion Gap 8.7, BUN 13 D, Creatinine 0.90 D, Estimated Creat Clear 115, Estimated GFR 92, Est GFR ( Amer) 111 D, Glucose 111 H, Calcium 9.2, Magnesium 1.8, Total Bilirubin 1.2, AST 40, ALT 38, Alkaline Phosphatase 61, Total Protein 7.1, Albumin 4.2 D, Globulin 2.9, Albumin/Globulin Ratio 1.4, Lipase 102 I & O for Last 24 hours: Intake & Output 08/28/23 08/29/23 08/30/23 08/31/23 23:59 23:59 23:5
[2023-08-31 07:52] VITALS: BP 130/57; PULSE 86; RESP 18; TEMP 36.6; O2SAT 95
[2023-08-31 08:11] LABS: Chloride 106 mmol/L (98-107)
[2023-08-31 08:12] LABS: Potassium 3.6 mmoL/L (3.5-5.1); Sodium 138 mmol/L (136-145)
[2023-08-31 08:15] LABS: Alanine Aminotransferase 33 U/L (12-78); Albumin Level 4.1 g/dl (3.5-5.0); Albumin/Globulin Ratio 1.5 (1.1-1.8); Alkaline Phosphatase 62 U/L (38-126); Anion Gap 8.6 mEq/L (5-15); Aspartate Amino Transferase 35 U/L (17-59); Bilirubin,Total 0.9 mg/dl (0.2-1.3); Blood Urea Nitrogen 9 mg/dl (9-20); Calcium 8.9 mg/dl (8.4-10.2); Carbon Dioxide 27 mmol/L (22.0-30.0); Creatinine Clearance Estimated 129 mL/min (50-200); Estimated Glomerular Filt Rate 105 ml/min (>60); GFR (African American) 127 ML/MIN (>60); Globulin 2.8 g/dL (1.3-3.2); Glucose 95 mg/dl (74-100); Magnesium 1.9 mg/dl (1.6-2.3); Total Protein,Serum 6.9 g/dl (6.3-8.2)
[2023-08-31 08:18] LABS: Basophils % 0.4 % (0.1-2.0); Eosinophils # 0.1 K/mm3 (0.0-0.4); Eosinophils % 1.5 % (0.1-12.0); Hematocrit 39.9 % (42.0-52.0); Hemoglobin 13.8 g/dL (14.1-18.0); Lymphocytes # 1.5 K/mm3 (0.7-4.5); Lymphocytes % 28.1 % (10-50); Mean Corpuscular HGB Conc 34.5 g/dL (31.8-35.4); Mean Corpuscular Hemoglobin 32.4 pg (27.0-31.2); Mean Corpuscular Volume 93.9 fl (80-94); Mean Platelet Volume 8.2 fl (7.4-10.4); Monocytes # 0.5 K/mm3 (0.1-1.0); Monocytes % 8.9 % (1.7-9.3); Neutrophils # 3.3 K/mm3 (1.8-7.8); Neutrophils % 61.1 % (37.0-80.0); Platelet Count 159 K/mm3 (142-424); Red Blood Count 4.25 M/mm3 (4.60-6.20); Red Cell Distribution Width 12.9 % (11.5-17.5); White Blood Count 5.5 K/mm3 (4.8-10.8)
--- NOTE | 2023-09-03 11:38 | CARE MANAGER ---
Attempted to contact patient related to hospital discharge x2. Left voicemail message. GRACIA Modi
== END 2023-08-31 12:05 | disposition home or self-care (01) ==
LOC: ER 12:50 → 2ND 14:33
PROVIDERS: Admitting Provider Internal Medicine Adolescent Medicine; Emergency Provider Emergency Medicine; PCP Nurse Practitioner Family; Referring Provider Nurse Practitioner Family; Visit Provider Internal Medicine Adolescent Medicine
DX: K85.00 Idiopathic acute pancreatitis without necrosis or infection (principal); N17.9 Acute kidney failure, unspecified; R10.33 Periumbilical pain; I10 Essential (primary) hypertension; F41.9 Anxiety disorder, unspecified; E78.5 Hyperlipidemia, unspecified; Z79.899 Other long term (current) drug therapy; Z86.16 Personal history of COVID-19; I42.9 Cardiomyopathy, unspecified; E66.01 Morbid (severe) obesity due to excess calories; Z68.41 Body mass index [BMI] 40.0-44.9, adult; F10.11 Alcohol abuse, in remission
CPT/HCPCS: 36415; 71045; 80053; 80061; 82248; 83690; 83735; 84484; 85025; 87636; 93005; 99285; G0378; J0131; J2405

== ENCOUNTER 2023-10-15 08:29 | Emergency (ER) | payer BC, SELFPAY ==
[2023-10-15] VITALS (10 sets, daily range): BP systolic 105–170; BP diastolic 53–96; PULSE 59–95; RESP 14–19; TEMP 37.2; O2SAT 95–99; BMI 41.5
--- NOTE | 2023-10-15 08:29 | ECG_ITS ---
APPROVED REPORT Exam: Resting ECG HR:60 bpm ECG Measurements Heart Rate 60 AXES AR 180 P -24 QRSd 157 QRS 60 QT 446 T -26 QTc 447 Conclusion SINUS RHYTHM LEFT BUNDLE BRANCH BLOCK [120+ ms QRS DURATION, 80+ ms Q/S IN V1/V2, 85+ ms R IN I/aVL/V5/V6] ABNORMAL ECG UNCONFIRMED REPORT Electronically signed by : Nick Veliz MD 10/15/2023 16:51:43
--- NOTE | 2023-10-15 08:58 | XR_ITS ---
FINAL REPORT CLINICAL HISTORY: chest pain Presents to ED with c/o nausea and substernal chest tightness that started while he was vomiting this morning. Patient reports taking 4mg Zofran at 0600 and tums with mild relief. Patient reports similiar episode of chest pain Saturday but stated he was very stressed that day. - blood thinner. PMH:CHF COMPARISON: 08/29/2023 FINDINGS: SINGLE-VIEW CHEST The heart size is normal. The mediastinum is normal. The lungs are clear. There is no pneumothorax. IMPRESSION: No acute cardiopulmonary process. Reviewed, Interpreted and Dictated by Buster Castillo MD Transcribed by Mandie Neri Authenticated and [facility]
[2023-10-15 09:12] LABS: Basophils % 0.2 % (0.1-2.0); Eosinophils # 0.1 K/mm3 (0.0-0.4); Eosinophils % 0.5 % (0.1-12.0); Hematocrit 41.5 % (42.0-52.0); Hemoglobin 14.5 g/dL (14.1-18.0); Lymphocytes # 1.4 K/mm3 (0.7-4.5); Lymphocytes % 14.6 % (10-50); Mean Corpuscular Hemoglobin 31.9 pg (27.0-31.2); Mean Corpuscular Volume 91.2 fl (80-94); Monocytes # 0.6 K/mm3 (0.1-1.0); Monocytes % 6.3 % (1.7-9.3); Neutrophils # 7.5 K/mm3 (1.8-7.8); Neutrophils % 78.4 % (37.0-80.0); Platelet Count 267 K/mm3 (142-424); Red Blood Count 4.56 M/mm3 (4.60-6.20); Red Cell Distribution Width 13.7 % (11.5-17.5); White Blood Count 9.6 K/mm3 (4.8-10.8)
[2023-10-15 09:20] LABS: Chloride 105 mmol/L (98-107)
[2023-10-15 09:21] LABS: Potassium 3.6 mmoL/L (3.5-5.1); Sodium 138 mmol/L (136-145)
--- NOTE | 2023-10-15 09:22 | HMH.EDGENADL ---
Discharge Plan Disposition Patient Disposition: Home, Self-Care Condition: Good Chief Complaint: Chest Pain Prescriptions Prescriptions: No Action buspirone 10 mg tablet 10 mg PO DAILY Qty: 90 1RF Vraylar 1.5 mg capsule 1.5 mg PO DAILY fenofibrate 54 mg tablet 54 mg PO DAILY Qty: 90 1RF ondansetron 4 mg tablet,disintegrating 4 mg PO Q8HP PRN (Reason: nausea and vomiting) Qty: 20 0RF omeprazole 40 mg capsule,delayed release(DR/EC) See Rx Instructions .ROUTE .COMPLEX Qty: 90 0RF Dose Instruction: Take 1 capsule by mouth once daily Rx Instructions: Take 1 capsule by mouth once daily citalopram 40 mg tablet 40 mg PO DAILY valsartan 80 mg tablet 80 mg PO DAILY promethazine 25 mg tablet 25 mg PO TIDP PRN (Reason: nausea and vomiting) Rx Instructions: Do not combine with other nausea medications carvedilol phosphate 80 mg capsule, ER multiphase 24 hr 80 mg PO DAILY Rx Instructions: must administer with a meal/food famotidine 40 mg tablet 40 mg PO DAILY 10 Days Qty: 10 0RF Referrals Follow up/Referrals: Honey Rizo APRN [Primary Care Provider] - See instructions Clinical Impressions Clinical Impression: Chest pain Instructions Patient Instructions: DI for Chest Pain, DI for Atypical Chest Pain Discharge ED Provider: Bria Eagle General Adult HPI General Chief complaint: Chest Pain Stated complaint: CP Time Seen by Provider: 10/15/23 09:17 Mode of Arrival: Ambulatory Source of Information: Patient Limitations: No Limitations Description of Symptoms (Recalled from ER Triage Doc. by RN): Presents to ED with c/o nausea and substernal chest tightness that started while he was vomiting this morning. Patient reports taking 4mg Zofran at 0600 and tums with mild relief. Patient reports similiar episode of chest pain Saturday but stated he was very stressed that day. - blood thinner. PMH:CHF History of Present Illness HPI narrative: Patient has a PMHx significant for congestive heart failure, hypertension who presents to the ED with complaints of chest pain. Presents to ED with c/o nausea and substernal chest tightness that started while he was vomiting this morning. Patient reports taking 4mg Zofran at 0600 and tums with mild relief. Patient reports similiar episode of chest pain Saturday but stated he was very stressed that day. - blood thinner. Related Data Home Medications Medication Instructions Recorded Confirmed carvedilol phosphate 80 mg 80 mg PO DAILY High Blood Pressure 08/29/23 09/02/23 capsule,[id number] multiphase citalopram 40 mg tablet 40 mg PO DAILY Mood 08/29/23 09/02/23 promethazine 25 mg tablet 25 mg PO TIDP PRN nausea and 08/29/23 09/02/23 vomiting valsartan 80 mg tablet 80 mg PO DAILY High Blood Pressure 08/29/23 09/02/23 cariprazine 1.5 mg capsule 1.5 mg PO DAILY 09/02/23 09/02/23 (Patrica) Previous Rx's Medication Instructions Recorded buspirone 10 mg tablet 10 mg PO DAILY Anxiety #90 tabs 04/23/23 fenofibrate 54 mg tablet 54 mg PO DAILY Cholesterol #90 tabs 06/24/23 famotidine 40 mg tablet 40 mg PO DAILY 10 days #10 tabs 08/31/23 ondansetron 4 mg disintegrating 4 mg PO Q8HP PRN nausea and 09/06/23 tablet vomiting #20 tabs omeprazole 40 mg capsule,delayed See Rx Instructions .Route 09/09/23 release .COMPLEX #90 caps Allergies Allergy/AdvReac Type Severity Reaction Status Date / Time morphine [MORPHINE] Allergy Unknown I-ITCHING Verified 09/02/23 13:05 semaglutide AdvReac Severe Pancreatiti Verified 09/02/23 13:45 s Dnwfeib-UOH-HlP Reductase AdvReac Severe MUSCLE Verified 09/02/23 13:05 Inhibitor CRAMPING/PAIN pravastatin AdvReac Intermediate myalgia Verified 09/02/23 13:05 lipitor AdvReac Intermediate myalgia Uncoded 09/02/23 13:05 vascepa AdvReac Mild myalgia Uncoded 09/02/23 13:05 [facility] Disclaimer: The information contained in this section may have been
[2023-10-15 09:23] LABS: Blood Urea Nitrogen 14 mg/dl (9-20); Creatinine Clearance Estimated 118 mL/min (50-200); Estimated Glomerular Filt Rate 92 ml/min (>60); GFR (African American) 111 ML/MIN (>60)
[2023-10-15 09:24] LABS: Alanine Aminotransferase 43 U/L (12-78); Albumin Level 4.7 g/dl (3.5-5.0); Albumin/Globulin Ratio 1.5 (1.1-1.8); Alkaline Phosphatase 80 U/L (38-126); Anion Gap 11.6 mEq/L (5-15); Aspartate Amino Transferase 37 U/L (17-59); Bilirubin,Total 1.2 mg/dl (0.2-1.3); Calcium 9.7 mg/dl (8.4-10.2); Carbon Dioxide 25 mmol/L (22.0-30.0); Globulin 3.2 g/dL (1.3-3.2); Glucose 124 mg/dl (74-100); Total Protein,Serum 7.9 g/dl (6.3-8.2)
--- NOTE | 2023-10-15 09:28 | PC.NURSE ---
Verbal order for Droperidol given and put inby Dr Eagle
[2023-10-15 09:34] LABS: Lipase 64 U/L (23-300)
--- NOTE | 2023-10-15 09:35 | PC.NURSE ---
Medic did not given Morphine per patient request. Patient states he feels much better after Droperidol. Call light within reach of patient
[2023-10-15 09:37] LABS: Troponin I < 0.01 ng/ml (0.00-0.034)
[2023-10-15 09:44] LABS: NT Pro Brain Natriuretic Pep. 356 pg/mL (0-125)
--- NOTE | 2023-10-15 09:46 | PC.NURSE ---
DR SOLER NOTIFIED OF RHYTHM CHANGE AFTER DROPERIDOL, NEW EKG TAKEN. PT ASYMPTOMATIC, RESTING COMFORTABLY
--- NOTE | 2023-10-15 09:47 | ECG_ITS ---
APPROVED REPORT Exam: Resting ECG HR:57 bpm ECG Measurements Heart Rate 57 AXES IN 193 P 17 QRSd 159 QRS 78 QT 508 T -69 QTc 502 Conclusion SINUS BRADYCARDIA WITH SINUS ARRHYTHMIA LEFT BUNDLE BRANCH BLOCK [120+ ms QRS DURATION, 80+ ms Q/S IN V1/V2, 85+ ms R IN I/aVL/V5/V6] ABNORMAL ECG UNCONFIRMED REPORT Electronically signed by : Nick Veliz MD 10/15/2023 16:51:39
--- NOTE | 2023-10-15 10:53 | PC.NURSE ---
Rounded on patient; call light within reach of patient
--- NOTE | 2023-10-15 12:07 | PC.NURSE ---
REPEAT TROP SENT TO LAB, PT UPDATED AT THIS TIME.
[2023-10-15 12:38] LABS: Troponin I < 0.01 ng/ml (0.00-0.034)
== END 2023-10-15 12:56 | disposition home or self-care (01) ==
PROVIDERS: Emergency Provider Emergency Medicine; PCP Nurse Practitioner Family
DX: R07.9 Chest pain, unspecified (principal); R11.2 Nausea with vomiting, unspecified; I11.9 Hypertensive heart disease without heart failure; E78.5 Hyperlipidemia, unspecified; I50.9 Heart failure, unspecified; I42.8 Other cardiomyopathies
CPT/HCPCS: 71045; 80053; 83690; 83880; 84484; 85025; 93005; 96361; 96374; 96375; 99285; J1790; J2405

== ENCOUNTER 2024-01-01 15:53 | Outpatient (CLI) | payer BC, SELFPAY ==
[2024-01-01 16:28] LABS: Basophils % 0.6 % (0.1-2.0); Eosinophils # 0.1 K/mm3 (0.0-0.4); Eosinophils % 2.4 % (0.1-12.0); Hematocrit 45.4 % (42.0-52.0); Hemoglobin 14.7 g/dL (14.1-18.0); Lymphocytes % 36.5 % (10-50); Mean Corpuscular HGB Conc 32.3 g/dL (31.8-35.4); Mean Corpuscular Hemoglobin 31.9 pg (27.0-31.2); Mean Corpuscular Volume 98.9 fl (80-94); Mean Platelet Volume 8.6 fl (7.4-10.4); Monocytes # 0.5 K/mm3 (0.1-1.0); Monocytes % 8.9 % (1.7-9.3); Neutrophils # 2.8 K/mm3 (1.8-7.8); Neutrophils % 51.7 % (37.0-80.0); Platelet Count 204 K/mm3 (142-424); Red Blood Count 4.59 M/mm3 (4.60-6.20); Red Cell Distribution Width 13.1 % (11.5-17.5); White Blood Count 5.5 K/mm3 (4.8-10.8)
[2024-01-01 16:59] LABS: Free T4 (Free Thyroxine) 1.17 ng/dl (0.78-2.19)
[2024-01-01 17:32] LABS: Alanine Aminotransferase 45 U/L (12-78); Albumin Level 4.6 g/dl (3.5-5.0); Alkaline Phosphatase 81 U/L (38-126); Anion Gap 11.2 mEq/L (5-15); Aspartate Amino Transferase 42 U/L (17-59); Bilirubin,Direct 0.1 mg/dl (0.0-0.4); Bilirubin,Indirect 0.9 mg/dL (0.0-0.9); Bilirubin,Unconjugated 0.9 mg/dL (0.0-1.1); Blood Urea Nitrogen 13 mg/dl (9-20); Calcium 10.1 mg/dl (8.4-10.2); Carbon Dioxide 25 mmol/L (22.0-30.0); Chloride 108 mmol/L (98-107); Chol/HDL Ratio 5.3 (1-3.5); Cholesterol 314 mg/dl (140-200); Estimated Glomerular Filt Rate 81 ml/min (>60); GFR (African American) 98 ML/MIN (>60); Glucose 86 mg/dl (74-100); HDL Cholesterol 59 mg/dl (40-60); Potassium 4.2 mmoL/L (3.5-5.1); Sodium 140 mmol/L (136-145); Total Protein,Serum 7.5 g/dl (6.3-8.2); Triglycerides 212 mg/dl (30-150); VLDL Cholesterol 42 mg/dL (0-40)
[2024-01-01 18:02] LABS: Thyroid Stimulating Hormone 3.63 uIU/mL (0.465-4.68)
== END 2024-01-01 23:59 ==
PROVIDERS: PCP Nurse Practitioner Family; Visit Provider Internal Medicine
DX: I42.8 Other cardiomyopathies (principal); I10 Essential (primary) hypertension; E78.5 Hyperlipidemia, unspecified; K70.0 Alcoholic fatty liver; E66.01 Morbid (severe) obesity due to excess calories; Z68.41 Body mass index [BMI] 40.0-44.9, adult
CPT/HCPCS: 36415; 80048; 80061; 80076; 83735; 84439; 84443; 85025

== ENCOUNTER 2024-01-14 15:18 | Outpatient (POV) | payer BC, SELFPAY | END 2024-01-14 23:59 | disposition home or self-care (01) | LOC: SC 15:18 | PROVIDERS: PCP Nurse Practitioner Family; Visit Provider Dermatology | DX: Z00.00 Encounter for general adult medical examination without abnormal findings (principal) ==

== ENCOUNTER 2024-01-16 09:50 | Emergency (ER) | payer BC, SELFPAY ==
[2024-01-16] VITALS (7 sets, daily range): BP systolic 133–160; BP diastolic 76–102; PULSE 67–100; RESP 18–20; TEMP 36.7; O2SAT 92–99; BMI 41.0
--- NOTE | 2024-01-16 09:50 | ECG_ITS ---
APPROVED REPORT Exam: Resting ECG HR:75 bpm ECG Measurements Heart Rate 75 AXES KS 168 P -24 QRSd 165 QRS 26 QT 426 T 5 QTc 456 Conclusion SINUS RHYTHM LEFT BUNDLE BRANCH BLOCK [120+ ms QRS DURATION, 80+ ms Q/S IN V1/V2, 85+ ms R IN I/aVL/V5/V6] Electronically signed by : SHOSHANA SHEETS, 01/17/2024 03:29:05
--- NOTE | 2024-01-16 09:54 | XR_ITS ---
FINAL REPORT CLINICAL HISTORY: chest pain COMPARISON: 10/15/2023 FINDINGS: SINGLE-VIEW CHEST The heart size is normal. The mediastinum is normal. The lungs are clear. There is no pneumothorax. IMPRESSION: No acute cardiopulmonary process. Reviewed, Interpreted and Dictated by Kobe Mathis III, MD Transcribed by Mandie Neri Authenticated and [facility]
[2024-01-16] MEDS: ONDANSETRON 4MG/2ML VIAL 8 MG IV (09:55)
--- NOTE | 2024-01-16 09:56 | PC.NURSE ---
Dr Cam at bedside
--- NOTE | 2024-01-16 10:03 | PC.NURSE ---
XR AT BEDSIDE
[2024-01-16 10:04] LABS: Basophils % 0.5 % (0.1-2.0); Eosinophils # 0.1 K/mm3 (0.0-0.4); Eosinophils % 1.7 % (0.1-12.0); Hematocrit 47.7 % (42.0-52.0); Hemoglobin 15.6 g/dL (14.1-18.0); Lymphocytes # 1.2 K/mm3 (0.7-4.5); Lymphocytes % 15.3 % (10-50); Mean Corpuscular HGB Conc 32.6 g/dL (31.8-35.4); Mean Corpuscular Hemoglobin 32.5 pg (27.0-31.2); Mean Corpuscular Volume 99.5 fl (80-94); Monocytes # 0.5 K/mm3 (0.1-1.0); Monocytes % 6.7 % (1.7-9.3); Neutrophils # 5.7 K/mm3 (1.8-7.8); Neutrophils % 75.9 % (37.0-80.0); Platelet Count 228 K/mm3 (142-424); Red Cell Distribution Width 13.5 % (11.5-17.5); White Blood Count 7.6 K/mm3 (4.8-10.8)
--- NOTE | 2024-01-16 10:07 | [facility].EDCP ---
Discharge Plan Disposition Patient Disposition: Home, Self-Care Prescriptions Prescriptions: New ondansetron 4 mg tablet,disintegrating 4 mg PO Q6H PRN (Reason: nausea and vomiting) Qty: 10 2RF No Action Jardiance 10 mg tablet 10 mg PO DAILY Qty: 90 3RF ondansetron 4 mg tablet,disintegrating 4 mg PO Q8HP PRN (Reason: nausea and vomiting) Qty: 20 0RF buspirone 15 mg tablet 15 mg PO BID Qty: 180 3RF citalopram 40 mg tablet 40 mg PO DAILY Qty: 90 3RF omeprazole 40 mg capsule,delayed release(DR/EC) 40 mg PO DAILY Qty: 90 0RF fenofibrate 54 mg tablet 54 mg PO DAILY Qty: 90 3RF carvedilol phosphate 80 mg capsule, ER multiphase 24 hr 80 mg PO DAILY Qty: 90 3RF Rx Instructions: must administer with a meal/food valsartan 80 mg tablet 80 mg PO DAILY Qty: 90 3RF Repatha SureClick 140 mg/mL pen injector 140 mg SQ Q2W Qty: 2 5RF Referrals Follow up/Referrals: Provider,Referral, MD [Referring] - See instructions Activity Restrictions/Add. Instructions Additional Instructions/Restrictions: Call your family doctor to establish care for this visit to the emergency department and schedule follow-up within 48 hours to ensure improvement. If you have any worsening of your condition or any other concerning signs or symptoms, return to the emergency department or your primary care doctor for further evaluation. Clinical Impressions Clinical Impression: Enteritis Discharge ED Provider: Loki Cam [facility] General Chief Complaint: Chest Pain Stated Complaint: chest pain Time Seen by Provider: 01/16/24 09:50 Mode of Arrival: Ambulatory Source of Information: Patient Limitations: No Limitations Description of Symptoms (Recalled from ER Triage Doc. by RN): PT C/O DULL LEFT SIDED CHEST PAIN, BURNING ROCK IN MY CHEST EPIGASTRIC PAIN. REPORTS N/V AND SHORTNESS OF BREATH. HAD SIMILAR SYMPTOMS ON SATURDAY THAT RESOLVED. History of Present Illness HPI narrative: 43-year-old male with history of hypertension, hyperlipidemia, alcoholic pancreatitis no longer drinking, obesity, cholecystectomy, GERD, CHF secondary to nonischemic cardiomyopathy presenting with vomiting and epigastric pain. Patient states that it started 2 or 3 nights ago on the or . Today on the , patient states that he started having a feeling of something being stuck right here, as he points to his epigastrium that will not come out. He states that it is causing him to vomit and retch. He states that when he initially vomited, there was some dark red blood but has not had any during this episode of vomiting. States that he intermittently has blood in his stool, has not had blood in his stool the past couple of days and has been having watery diarrhea No fevers or chills, chest pain. He is diaphoretic from vomiting. States that his last drink was months ago Related Data Previous Rx's Medication Instructions Recorded ondansetron 4 mg disintegrating 4 mg PO Q8HP PRN nausea and 09/06/23 tablet vomiting #20 tabs buspirone 15 mg tablet 15 mg PO BID #180 tabs 11/21/23 citalopram 40 mg tablet 40 mg PO DAILY Mood #90 tabs 11/21/23 fenofibrate 54 mg tablet 54 mg PO DAILY Cholesterol #90 tabs 11/21/23 omeprazole 40 mg capsule,delayed 40 mg PO DAILY #90 caps 11/21/23 release carvedilol phosphate 80 mg 80 mg PO DAILY High Blood Pressure 11/22/23 capsule,[id number] multiphase #90 caps valsartan 80 mg tablet 80 mg PO DAILY High Blood Pressure 11/22/23 #90 tabs empagliflozin 10 mg tablet 10 mg PO DAILY #90 tabs 01/01/24 (Jardiance) evolocumab 140 mg/mL subcutaneous 140 mg SQ Q2W #2 mL 01/10/24 pen injector (Sameer Bradshaw) ondansetron 4 mg disintegrating 4 mg PO Q6H PRN nausea and 01/16/24 tablet vomiting #10 tabs Allergies Allergy/AdvReac Type Severity Reaction Status Date / Time morphine [MORPHINE] Allergy Unknown I-ITCHING Verified 01/01/24 15:19 semaglutide AdvReac Severe Pancreatiti Verified 01/01/24 15:19 s [id number] Reductase AdvReac Severe MUSCLE Verified 01/01/24 15:19 Inhibitor CRAMPING/PAIN pravastatin AdvReac Intermediate myalgia Verified 01/01/24 15:19 lipitor AdvReac Intermediate myalgia Uncoded 01/01/24 15:19 vascepa AdvReac Mild myalgia Uncoded 01/01/24 15:19 [facility] Disclaimer: The information contained in this section may have been updated after the patient was seen, as this information can be updated by other users. Medical History Abdominal pain Acquired equinus deformity of both feet Acquired hallux valgus of both feet Acquired hammertoes of both feet Acquired pes planus of both feet Acute pain of right hip Alcohol abuse Alcohol withdrawal Alcoholism Since the age of 14, last drink 04/15/2023 Angina pectoris Anxiety Callus of foot Cardiomyopathy Chest pain Chest pain Congestive heart failure COVID-19 Edema Elevated LFTs Fall Heel pain, bilateral History of cocaine use Hyperlipidemia Hypertension Hypotension Keratosis Laceration of blood vessel of left middle finger Metatarsalgia of both feet Near syncope Neck pain Nonischemic cardiomyopathy Numbness and tingling in both hands TIRSO (obstructive sleep apnea) Moderate positional TIRSO diagnosed in 2019, compliant on CPAP without evidence of hypoxemia with significant improvement prior to initial eval after changing medications (PCP and cardiology) Pain in both feet Palpitations Plantar fasciitis Sprain of foot, right Vertigo Weight gain Surgical History History of cardiac catheterization History of cholecystectomy Family History Other Family history of hypertension Family history of myocardial infarction Social History Smoking Status: Never smoker second hand exposure: No alcohol intake: current counseling given: No substance use type: denies use counseling given: No current occupational status: employed Travel in the last 8 weeks: None household members: spouse housing: house lives independently: Yes marital status: number of children: 0 education level: high school 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 Recent Travel: No sexually active: Yes caffeine: No physical activity: none blane/jew: Islam working smoke detector in home: Yes fire extinguisher in home: Yes carbon monox detector in home: Yes firearms in home: Yes do you feel safe at home: Yes victim of physical abuse: No victim of emotional abuse: No victim of sexual abuse: No would you like helpful sources: No ROS Obtained: Yes All systems reviewed & no additional complaints except as documented Physical Exam General General appearance: alert, in distress and obese Neck Neck exam: Present trachea midline Chest Chest inspection: Present normal inspection and symmetric chest wall rise Respiratory Respiratory exam: Present normal lung sounds bilaterally; Absent respiratory distress, wheezes, stridor, accessory muscle use or prolonged expiratory phase Cardiovascular Cardiovascular exam: Present regular rate and normal rhythm Abdominal Exam Abdominal exam: Present soft; Absent distention, tenderness, guarding, rebound or rigidity Extremities Exam Extremities exam: Absent edema Neurological Exam Neurological exam: Present alert, oriented X3 and CN II-XII intact Skin Skin exam: Present warm and diaphoresis; Absent cyanosis or pallor HEART Score HEART Score HEART Score assessment performed?: Yes History (anamnesis): Moderately suspicious ECG: Non-specific disturbance Age: <45 years Risk factors: 1-2 risk factors Troponin: </= normal limit HEART Score: 3 Critical Care Critical Care Time Critical Care Time: No Medical Decision Making Medical Records Medical records reviewed: Yes I reviewed the patient's medical records. Deny Inquiry Pt receiving controlled substance: No Deny was queried for this patient: No Vital Signs Vital Signs: 01/16/24 09:49 01/16/24 10:31 01/16/24 12:31 Temperature 98.0 F Temperature Source Oral Pulse Rate 67 83 Pulse Rate [Apical] 77 Respiratory Rate 20 20 Blood Pressure 160/83 H 152/93 H Blood Pressure [Right Arm] 154/94 H Blood Pressure Mean 113 Blood Pressure Mean [Right Arm] 114 Blood Pressure Source [Right Arm] Automatic Cuff Blood Pressure Position [Right Arm] Sitting 02 Sat by Pulse Oximetry 99 95 94 L Oxygen Delivery Method Room Air Room Air 01/16/24 13:00 01/16/24 13:30 01/16/24 14:00 Temperature Temperature Source Pulse Rate 99 H 100 H 100 H Pulse Rate [Apical] Respiratory Rate Blood Pressure 157/86 H 133/76 158/102 H Blood Pressure [Right Arm] Blood Pressure Mean 109 95 117 Blood Pressure Mean [Right Arm] Blood Pressure Source [Right Arm] Blood Pressure Position [Right Arm] 02 Sat by Pulse Oximetry 92 L 92 L 92 L Oxygen Delivery Method Lab Data Labs: Lab Results 01/16/24 09:52: WBC 7.6, RBC 4.80, Hgb 15.6, Hct 47.7, MCV 99.5 H, MCH 32.5 H, MCHC 32.6, RDW 13.5, Plt Count 228, MPV 8.0, Neut % (Auto) 75.9, Lymph % (Auto) 15.3, Mcdonald % (Auto) 6.7, Eos % (Auto) 1.7, Baso % (Auto) 0.5, Neut # (Auto) 5.7, Lymph # (Auto) 1.2, Mcdonald # (Auto) 0.5, Eos # (Auto) 0.1, Baso # (Auto) 0.0, Sodium 141, Potassium 4.0, Chloride 107, Carbon Dioxide 22, Anion Gap 16.0 H, BUN 14, Creatinine 1.10, Estimated Creat Clear 171, Estimated GFR 73, Est GFR ( Amer) 88, Glucose 118 H, Calcium 10.1, Troponin I < 0.01, Lipase 50 01/16/24 10:00: NT-Pro-B Natriuret Pep 28.4, SARS-CoV-2 (PCR) Not detected, Influenza A Untype (PCR) Not detected, Influenza Type B (PCR) Not detected 01/16/24 10:08: VBG pH 7.43 H, VBG pCO2 33.9 L, VBG pO2 38.7, VBG HCO3 22.2 L, VBG Total CO2 23.2, VBG O2 Saturation 75.6 H, VBG Base Excess -2.0, VBG Lactic Acid 4.4 H 01/16/24 12:40: Troponin I < 0.01 01/16/24 09:52 01/16/24 09:52 Response Orders (Tests/Meds): ED MEDICATIONS Generic Name Dose Route Start Last Admin Trade Name Freq PRN Reason Stop Dose Admin Sodium Chloride 10 ml 01/16/24 09:55 01/16/24 10:12 Sodium Chloride 0.9% 10ml Flush Syringe IV 02/15/24 09:54 10 ml NEEDED PRN Administration Maintain IV Site Discontinued Medications Generic Name Dose Route Start Last Admin Trade Name Freq PRN Reason Stop Dose Admin Belladonna Alkaloids 60 ml 01/16/24 10:00 01/16/24 10:48 Belladonna Alkaloids 60 Ml Ml PO 01/16/24 10:01 60 ml ONCE ONE Administration Lactated Ringer's 1,000 mls @ 999 mls/hr 01/16/24 09:55 01/16/24 10:48 Lactated Ringer's 1000 Ml Bag IV 01/16/24 10:55 999 mls/hr .Q1H1M ONE Administration Iopamidol 100 ml 01/16/24 11:41 01/16/24 11:43 Iopamidol-370 (76%);100ml Bottle IV 01/16/24 11:42 100 ml ONCE ONE Administration Ondansetron HCl 8 mg 01/16/24 09:54 01/16/24 09:55 Ondansetron 4mg/2ml Vial IV 01/16/24 09:55 8 mg ONCE ONE Administration Promethazine HCl 25 mg 01/16/24 10:00 01/16/24 10:11 Promethazine Hcl 25mg/Ml 1ml Vial IV 01/16/24 10:01 25 mg ONCE ONE Administration Promethazine HCl 25 mg 01/16/24 12:44 01/16/24 12:47 Promethazine Hcl 25mg/Ml 1ml Vial IV 01/16/24 12:45 25 mg ONCE ONE Administration Sodium Chloride 25 ml 01/16/24 10:00 01/16/24 10:12 Sodium Chloride 0.9% 25ml Bag IV 01/16/24 10:01 25 ml ONCE ONE Administration Sodium Chloride 50 ml 01/16/24 11:41 01/16/24 11:43 0.9 % Sodium Chloride 50 Ml Vial IV 01/16/24 11:42 50 ml ONCE ONE Administration Sodium Chloride 10 ml 01/16/24 11:41 01/16/24 11:43 Sodium Chloride 0.9% 10ml Syr (Rad Only) IV 01/16/24 11:42 10 ml ONCE ONE Administration Sodium Chloride 25 ml 01/16/24 12:44 01/16/24 12:47 Sodium Chloride 0.9% 25ml Bag IV 01/16/24 12:45 25 ml ONCE ONE Administration ORDERS Category Date Time Status CT angio abdomen pelvis Stat Cat Scan 01/16/24 10:26 Completed CTA Chest [CT angio chest - dissection] Stat Cat Scan 01/16/24 10:25 Completed XR chest portable Stat Exams 01/16/24 09:54 Completed Basic Metabolic Panel Stat Lab 01/16/24 09:52 Completed Brain Natriuretic Peptide Stat Lab 01/16/24 10:00 Completed Complete Blood Count Auto Diff Stat Lab 01/16/24 09:52 Completed Lipase Stat Lab 01/16/24 09:52 Completed Rapid PCR Covid and Flu A/B Stat Lab 01/16/24 10:00 Completed Troponin I Q3H Lab 01/16/24 12:40 Completed Troponin I Q3H Lab 01/16/24 16:00 Ordered Troponin I Stat Lab 01/16/24 09:52 Completed Blood Culture Stat Micro 01/16/24 12:02 Received VBG [Venous Blood Gas] Stat RT 01/16/24 10:08 Completed MDM Narrative Medical Decision Narrative: 43-year-old male with history of hypertension, hyperlipidemia, alcoholic pancreatitis no longer drinking, obesity, GERD, CHF secondary to nonischemic cardiomyopathy presenting with vomiting and epigastric pain. Patient states that it started 2 or 3 nights ago on the or . Today on the , patient states that he started having a feeling of something being stuck right here, as he points to his epigastrium that will not come out. He states that it is causing him to vomit and retch. He states that when he initially vomited, there was some dark red blood but has not had any during this episode of vomiting. States that he intermittently has blood in his stool, has not had blood in his stool the past couple of days and has been having watery diarrhea No fevers or chills, chest pain. He is diaphoretic from vomiting. States that his last drink was months ago. History was obtained via conversation with patient. On arrival, patient hemodynamically stable, alert, oriented x4, appropriate, GCS 15, moving all extremities spontaneously, pupils equal and reactive to light. Full physical exam performed and significant for diaphoretic male in mild distress actively retching. Lungs are clear to auscultation, cardiac exam within normal limits. Abdomen is soft, nontender, nondistended. No flank tenderness. Nontachycardic, hemodynamically stable. Differential includes PUD, gastritis, enteritis, gastroenteritis, pancreatitis, SBO, colitis, diverticulitis, nephrolithiasis, UTI, cholecystitis, choledocholithiasis, appendicitis, torsion, hepatitis, aortic pathology, mesenteric ischemia among others. Patient was given Zofran and fluids for symptomatic management and correction of underlying abnormalities. On reevaluation shortly thereafter, patient continuing to retch and be diaphoretic. Was given 25 mg IV Phenergan. This seemed to help her symptoms more Workup independently interpreted and significant for no leukocytosis. Patient with compensated metabolic acidosis. No leukocytosis, lactate 4.4. Kidney function normal. CT of the chest abdomen pelvis without acute vascular pathology. He appears to have diffuse enteritis. See radiology read for full review of final results. Independent interpretation of EKG shows sinus rhythm [address] or T wave changes concerning for acute ischemia. Left bundle branch block morphology with Sgarbossa negative criteria. WA, QT intervals within normal limits. QRS widened at 165 ms. Heart score 3. Because patient having intractable nausea and vomiting, given another dose of IV Phenergan. Patient was placed in observation beginning at 12 PM in order to give fluids, Phenergan, rule out need for admission by p.o. challenge and determine need for admission versus home-going. The patient was provided serial exams and monitoring, IV fluids and Phenergan while awaiting results. Independent interpretation of results demonstrated diffuse enteritis. On reevaluation, patient able to tolerate p.o. intake. At this time, I feel patient is appropriate for discharge. Total observation time 2.5 hours. On reevaluation, patient feeling much better not actively retching and tolerating p.o. intake. Given patient presentation, workup, history, this most likely represents diffuse enteritis. Because patient at baseline without signs or symptoms of clinical decompensation, deemed appropriate for discharge. Results were relayed to patient who voiced understanding and were agreeable to outpatient management and follow up. At the time of discharge the patient was hemodynamically stable, tolerating PO, and mobilizing appropriately.
[2024-01-16 10:10] LABS: Coronavirus 19, PCR Not Detected (NotDetected); Influenza A, PCR Not Detected (NotDetected); Influenza B, PCR Not Detected (NotDetected)
[2024-01-16] MEDS: PROMETHAZINE HCL 25MG/ML 1ML VIAL 25 MG IV ×2 (10:11→12:47)
[2024-01-16] MEDS: SODIUM CHLORIDE 0.9% 10ML FLUSH SYRINGE 10 ML IV (10:12)
[2024-01-16] MEDS: SODIUM CHLORIDE 0.9% 25ML BAG 25 ML IV ×2 (10:12→12:47)
[2024-01-16 10:17] LABS: VBG HCO3 22.2 mmol/L (23-30); VBG Oxygen Saturation 75.6 % (50-70); VBG PCO2 33.9 mmol/L (35-51); VBG PH 7.43 mmol/L (7.31-7.41); VBG PO2 38.7 mmol/L (28-40); VBG Total CO2 23.2 mmol/L (23-27)
[2024-01-16 10:19] LABS: Lactate Venous 4.4 mmol/L (0.4-2.0)
--- NOTE | 2024-01-16 10:25 | CT_ITS ---
FINAL REPORT TECHNIQUE: Then section axial CT images of the chest were obtained with contrast. Three-D reformatted images were also obtained.This study was performed with techniques to keep radiation doses as low as reasonably achievable (ALARA). Individualized dose reduction techniques using automated exposure control or adjustment of mA and/or kV according to the patient''s size were employed. CLINICAL HISTORY: epigastric/chest pain intractable vomitnig/pain COMPARISON: 03/09/2023 FINDINGS: There is no evidence of pulmonary embolism. There is no evidence of thoracic aortic aneurysm or dissection. There is no evidence of mediastinal or hilar mass or adenopathy. There is no evidence of pulmonary mass or suspicious nodule. Mild right base atelectasis is present. No localized inflammatory process is seen within the lungs. IMPRESSION: No evidence of pulmonary embolism. No mass or localized inflammatory process. Reviewed, Interpreted and Dictated by Kobe Mathis III, MD Transcribed by Dalia Justin Authenticated and . [facility]
--- NOTE | 2024-01-16 10:26 | CT_ITS ---
FINAL REPORT TECHNIQUE: Pre-and postcontrast images of the abdomen and pelvis were performed by computed tomography. Extensive 3-D reconstruction images were performed. A CTA was performed. This study was performed with techniques to keep radiation doses as low as reasonably achievable (ALARA). Individualized dose reduction techniques using automated exposure control or adjustment of mA and/or kV according to the patient's size were employed. CLINICAL HISTORY: CP/epigastric pain, lactic 4, vomiting COMPARISON: CT abdomen and pelvis 01/28/2023 FINDINGS: ABDOMEN AND PELVIS: The patient has undergone a prior cholecystectomy. There are fluid-filled loops of small bowel, which are nonspecific. There is mild diffuse colonic wall thickening, also nonspecific but may be secondary to mild colitis. The solid organs are unremarkable. The appendix is not seen on this exam. There is a left inguinal hernia with fat. CTA: The abdominal aorta is unremarkable in appearance. The origins of the celiac axis and superior mesenteric artery are unremarkable. The renal artery origins are unremarkable bilaterally. No focal areas of stenosis are identified. The inferior mesenteric artery is patent. The common iliac, external and internal iliac arteries are patent and unremarkable in appearance. IMPRESSION: Fluid-filled small bowel loops, nonspecific. Mild diffuse colonic wall thickening, nonspecific but may be secondary to mild colitis. Unremarkable CTA of the abdomen and pelvis. Reviewed, Interpreted and Dictated by Kobe Mathis III, MD Transcribed by Dalia Justin Authenticated and [facility]
[2024-01-16 10:47] LABS: Lipase 50 U/L (23-300)
[2024-01-16 10:48] LABS: Blood Urea Nitrogen 14 mg/dl (9-20); Calcium 10.1 mg/dl (8.4-10.2); Carbon Dioxide 22 mmol/L (22.0-30.0); Chloride 107 mmol/L (98-107); Creatinine Clearance Estimated 171 mL/min (50-200); Estimated Glomerular Filt Rate 73 ml/min (>60); GFR (African American) 88 ML/MIN (>60); Glucose 118 mg/dl (74-100); Sodium 141 mmol/L (136-145)
[2024-01-16] MEDS: LACTATED RINGERS 1000ML 1,000 ML 999 ML IV (10:48)
[2024-01-16] MEDS: BELLADONNA ALKALOIDS 60 ML ML PO (10:48)
[2024-01-16 10:57] LABS: NT Pro Brain Natriuretic Pep. 28.4 pg/mL (0-125)
[2024-01-16 11:07] LABS: Troponin I < 0.01 ng/ml (0.00-0.034)
--- NOTE | 2024-01-16 11:20 | PC.NURSE ---
PT TO CT
[2024-01-16] MEDS: IOPAMIDOL-370 (76%);100ML BOTTLE 100 ML IV (11:43)
[2024-01-16] MEDS: SODIUM CHLORIDE 0.9% 10ML SYR (RAD ONLY) 10 ML IV (11:43)
[2024-01-16] MEDS: 0.9 % SODIUM CHLORIDE 50 ML VIAL IV (11:43)
--- NOTE | 2024-01-16 12:04 | PC.NURSE ---
Rounded on pt. No needs voiced at this time. Call light remains within reach.
[2024-01-16 13:27] LABS: Troponin I < 0.01 ng/ml (0.00-0.034)
--- NOTE | 2024-01-16 14:05 | PC.NURSE ---
DR BONILLA AT BEDSIDE
[2024-01-16 14:20] LABS: Reflex Lactic Add Lactic Reflex
--- NOTE | 2024-01-16 14:26 | PC.NURSE ---
PT HAS DECIDED HE WANTS TO GO HOME
== END 2024-01-16 14:47 | disposition home or self-care (01) ==
PROVIDERS: Emergency Provider Emergency Medicine; PCP Nurse Practitioner Family
DX: R07.9 Chest pain, unspecified (principal); R10.13 Epigastric pain; K52.9 Noninfective gastroenteritis and colitis, unspecified; R06.02 Shortness of breath; I11.0 Hypertensive heart disease with heart failure; E78.5 Hyperlipidemia, unspecified; K85.20 Alcohol induced acute pancreatitis without necrosis or infection; I50.9 Heart failure, unspecified; G47.33 Obstructive sleep apnea (adult) (pediatric)
CPT/HCPCS: 71045; 71275; 74174; 80048; 82803; 83690; 83880; 84484; 85025; 87040; 87636; 93005; 96361; 96374; 96375; 96376; 99285; J2405; Q9967

== ENCOUNTER 2024-01-31 09:53 | Outpatient (CLI) | payer BC, SELFPAY ==
--- NOTE | 2024-01-31 09:54 | MR_ITS ---
APPROVED REPORT Adult Nurse Practitioner: CLINICAL INDICATION Cardiomyopathy evaluation TECHNIQUE Image Acquisition: Cardiac magnetic resonance (CMR) was performed on Siemens Espree MRI 1.5T scanner. Software platform sequences were performed using the Siemens Cartiva MR B19 platform. A set of three-plane, low-resolution, large [id number]-vy-[id number] localizers were initially acquired. Then axial, coronal, sagittal TrueFISP, as well as axial HASTE images, were obtained. These were followed by gated TrueFISP breathold cinematic sequences obtained in the short axis with 8 mm slices and 2 mm gaps, 2-chamber (vertical long axis), 3-chamber, 4-chamber (horizontal long axis). A bolus of contrast was injected intravenously with first-pass sequences obtained in the short axis and four-chamber planes. After approximately 10 minutes, a TI car shagger sequence was performed to determine the optimal TI time. Using the optimized TI time, delayed contrast enhancement segmented inversion???recovery TurboFLASH sequences were obtained in the short axis, 2-chamber, 3-chamber, and 4-chamber projections. 2D-velocity phase mapping was performed. Functional parameters were calculated by offline analysis on an independent workstation ([employer], [employer]). Contrast: ProHance??? (Gadoteridol) FINDINGS MORPHOLOGY AND FUNCTION Left ventricle: The left ventricle is normal in size. The indexed left ventricular end-diastolic volume (LVEDVi) is 76 ml/m2 (reference range 57-105 ml/m2 in males, 56-96 ml/m2 in females). Normal left ventricular systolic function is present. There is mild increase in left ventricular wall thickness (maximum thickness 11.5 mm). The septal wall appears asynchronous. There is also mild hypokinesis of the inferior and inferoseptal LV guthrie. LVEF is calculated at 64.3% (reference range 57-77%). Right ventricle: The right ventricle is normal in size. The indexed right ventricular end-diastolic volume (RVEDVi) is 66 ml/m2 (reference range 61-121 ml/m2 in males, 48-112 ml/m2 in females). Normal right ventricular systolic function is present. RVEF is calculated at 69.3% (reference range 52-72% in males, 51-71% in females). Atria: The left atrium is normal in size. The maximum indexed left atrial volume is 29 ml/m2 (reference range 26-52 ml/m2 in males, 27-53 ml/m2 in females). The right atrium is normal in size. The maximum indexed right atrial volume is 24 ml/m2 (reference range 18-90 ml/m2). Aorta: The diameter of the aortic annulus is normal, measuring 27 mm (coronal view reference range 21-30 mm in males, 19-27 mm in females). The diameter of the aortic sinus is normal, measuring 34 mm (coronal view reference range 25-42 mm in males, 24-36 mm in females). The diameter of the sinotubular junction is normal, measuring 29 mm (coronal view reference range 18-32 mm in males, 18-28 mm in females). The diameters of the ascending and descending thoracic aorta are normal. Main pulmonary artery: The main pulmonary artery diameter is normal. Pericardium: The pericardial thickness is normal. The pericardial thickness measures 1.6 cm (normal < 4.0 cm). There is no pericardial effusion. VALVES The valvular morphologies in the visualized sequences appear normal. There is no significant valvular stenosis or regurgitation of the mitral, aortic, tricuspid, or pulmonic valve noted visually. Systolic anterior motion of the mitral valve is not visualized. Ratio of pulmonary to systemic flow, Qp:Qs ratio = 1.1 (normal < or = 1.2), demonstrating no evidence of hemodynamically significant shunt. TISSUE CHARACTERIZATION Resting Perfusion: Normal myocardial blood flow at rest. No evidence of resting hypoperfusion. Myocardial Fibrosis and/or edema: Normal gadolinium kinetics are present. No evidence of late gadolinium enhancement is noted, consistent with absence of myocardial scarring, infarction, or necrosis. T2-weighted imaging demonstrates no evidence of myocardial edema or inflammation. OTHER No other significant findings are noted. However, this exam is focused on the cardiac structure and function. IMPRESSION Normal LV size with normal LV systolic function. LVEDVi= 76 ml/m2 and LVEF= 64.3%. The septal wall appears asynchronous. There is also mild hypokinesis of the inferior and inferoseptal LV guthrie. Normal RV size with normal RV systolic function. RVEDVi= 66 ml/m2 and RVEF= 69.3%. No atrial enlargement. No CMR evidence of myocardial scarring, infarction, or necrosis. No evidence of myocardial edema or inflammation. Perfusion analysis demonstrates normal blood flow at rest with no evidence of resting hypoperfusion. Ratio of pulmonary to systemic flow, Qp:Qs ratio = 1.1 (normal < or = 1.2), demonstrating no evidence of hemodynamically significant shunt. COMPARISON None CRITICAL RESULT None COMMUNICATION Per this written report The findings of this cardiac MR were reviewed, reported, and signed by Ramon Joseph MD ([employer] Faculty Member). Conclusion Electronically signed by : Antonella Joseph MD 02/12/2024 11:54:36
[2024-01-31] MEDS: SODIUM CHLORIDE 0.9% 50ML BAG 25 ML IV (11:26)
[2024-01-31] MEDS: SODIUM CHLORIDE 0.9% 10ML SYR (RAD ONLY) 10 ML IV (11:26)
[2024-01-31] MEDS: GADOTERIDOL INJ 17ML SYRINGE 30 ML IV (11:26)
== END 2024-01-31 23:59 ==
LOC: RAD 09:54
PROVIDERS: PCP Nurse Practitioner Family; Visit Provider Internal Medicine
DX: I42.8 Other cardiomyopathies (principal)
CPT/HCPCS: 75561; A9576

== ENCOUNTER 2024-03-10 15:45 | Outpatient (POV) | payer BC, SELFPAY | END 2024-03-10 23:59 | disposition home or self-care (01) | LOC: SC 15:46 | PROVIDERS: PCP Nurse Practitioner Family; Visit Provider Dermatology | DX: Z00.00 Encounter for general adult medical examination without abnormal findings (principal) ==

== ENCOUNTER 2024-05-21 13:00 | Outpatient (RCR) | payer BC, SELFPAY | END 2024-05-21 13:05 | disposition home or self-care (01) | LOC: PT 13:00 | PROVIDERS: Visit Provider Orthopaedic Surgery Adult Reconstructive Orthopaedic Surgery | DX: M16.11 Unilateral primary osteoarthritis, right hip (principal); Z96.641 Presence of right artificial hip joint | CPT/HCPCS: 97010; 97014; 97110; 97116; 97163; 97164; G0283 ==

== ENCOUNTER 2024-07-16 16:37 | Outpatient (CLI) | payer BC, SELFPAY ==
--- NOTE | 2024-07-16 16:42 | XR_ITS ---
PROCEDURE INFORMATION: Exam: XR Cervical Spine Exam date and time: 07/16/2024 4:43 PM Age: 44 years old Clinical indication: Neck pain TECHNIQUE: Imaging protocol: Radiologic exam of the cervical spine. Views: 2 or 3 views. COMPARISON: CR XR CERVICAL SPINE 5V 04/10/2022 2:27 PM FINDINGS: Limitations: Limited visualization of C6 and C7 on lateral view due to summation artifact from superimposed structures. Bones/joints: No evidence of acute fracture or malalignment. Multi-level degenerative uncovertebral and facet hypertrophy, most prominent in the lower cervical spine and likely associated with some degree of neuroforaminal narrowing. Soft tissues: Unremarkable. IMPRESSION: 1. No evidence of acute osseous abnormality in the cervical spine within the limits of this exam. 2. Multi-level degenerative uncovertebral and facet hypertrophy, most prominent in the lower cervical spine and likely associated with some degree of neuroforaminal narrowing. CT or MR could better evaluate.
== END 2024-07-16 23:59 | disposition home or self-care (01) ==
LOC: RAD 16:38
PROVIDERS: PCP Nurse Practitioner Family; Visit Provider Student in an Organized Health Care Education/Training Program
DX: M54.2 Cervicalgia (principal)
CPT/HCPCS: 72040

== ENCOUNTER 2024-07-20 06:37 | Emergency (ER) | payer BC, SELFPAY ==
[2024-07-20] VITALS (14 sets, daily range): BP systolic 123–173; BP diastolic 92–116; PULSE 63–79; RESP 16–23; TEMP 36.8; O2SAT 95–97; BMI 43.5
--- NOTE | 2024-07-20 06:34 | ECG_ITS ---
APPROVED REPORT Exam: Resting ECG HR:73 bpm ECG Measurements Heart Rate 73 AXES NC 203 P 57 QRSd 148 QRS 100 QT 413 T -7 QTc 438 Conclusion SINUS RHYTHM BORDERLINE RIGHT AXIS DEVIATION [QRS AXIS > 90] INTRAVENTRICULAR CONDUCTION DELAY [130+ ms QRS DURATION] ABNORMAL ECG Electronically signed by : SHOSHANA SHEETS, 07/20/2024 16:34:08
--- NOTE | 2024-07-20 06:36 | XR_ITS ---
FINAL REPORT TECHNIQUE: Single view chest CLINICAL HISTORY: Midsternal chest pain COMPARISON: 01/16/2024 FINDINGS: A single view of the chest was obtained. The heart and mediastinum are within normal limits. There is a right base opacity, favor atelectasis. There is no pneumothorax or effusion. IMPRESSION: Right base opacity, favor atelectasis. Reviewed, Interpreted and Dictated by Yocasta Adams MD Transcribed by Brittney Leal Authenticated and [facility]
--- NOTE | 2024-07-20 06:42 | HMH.EDGENADL ---
Discharge Plan Disposition Patient Disposition: Home, Self-Care Condition: Good Prescriptions Prescriptions: New naproxen 500 mg tablet 500 mg PO BID Qty: 20 0RF lidocaine [Lidoderm] 5 % adhesive patch,medicated 1 patch topical DAILY Qty: 15 0RF Rx Instructions: leave on most painful area for up to 12 hrs No Action ondansetron 4 mg tablet,disintegrating 4 mg PO Q8HP PRN (Reason: nausea and vomiting) Qty: 30 2RF naltrexone 50 mg tablet 50 mg PO DAILY Qty: 30 2RF triamcinolone acetonide 0.1 % cream 1 applic topical BID Qty: 30 0RF oxazepam 15 mg capsule 15 mg PO TID PRN (Reason: alcohol withdrawal) 5 Days Qty: 15 0RF cyclobenzaprine 5 mg tablet 5 mg PO TID PRN (Reason: muscle spasm) Qty: 14 0RF buspirone 15 mg tablet 15 mg PO BID Qty: 180 3RF citalopram 40 mg tablet 40 mg PO DAILY Qty: 90 3RF fenofibrate 54 mg tablet 54 mg PO DAILY Qty: 90 3RF carvedilol phosphate 80 mg capsule, ER multiphase 24 hr 80 mg PO DAILY Qty: 90 3RF Rx Instructions: must administer with a meal/food Repatha SureClick 140 mg/mL pen injector 140 mg SQ Q2W Qty: 2 5RF valsartan 80 mg tablet 80 mg PO DAILY Qty: 90 1RF omeprazole 40 mg capsule,delayed release(DR/EC) See Rx Instructions .ROUTE .COMPLEX Qty: 90 1RF Dose Instruction: TAKE 1 CAPSULE DAILY Rx Instructions: TAKE 1 CAPSULE DAILY methylprednisolone 4 mg tablets,dose pack See Rx Instructions PO PER PKG DIR Qty: 21 0RF Rx Instructions: PO PER PKG DIR ibuprofen 800 mg tablet 800 mg PO Q8H Qty: 20 0RF ondansetron 4 mg tablet,disintegrating 4 mg PO Q6H PRN (Reason: nausea and vomiting) Qty: 10 2RF Referrals Follow up/Referrals: Honey Rizo APRN [Primary Care Provider] - See instructions Activity Restrictions/Add. Instructions Additional Instructions/Restrictions: You were evaluated in the ED for chest pain. At this time, your workup is reassuring. 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 Return to the ED for new or worsening symptoms. Clinical Impressions Clinical Impression: Pleurisy, Chest pain Stand Alone Forms Stand Alone Forms: Work/School Release Instructions Patient Instructions: DI for Atypical Chest Pain, DI for Pleurisy Print Language Print Language: [place] Discharge ED Provider: Natty Cox General Adult HPI <Jens Calzada MD - Last Filed: 07/20/24 06:49> General Stated complaint: Chest Pain Time Seen by Provider: 07/20/24 06:41 History of Present Illness HPI narrative: 44-year-old male with reported history of alcoholic cardiomyopathy that is now improved, obesity, presents for chest pain. He reports it happened as he was getting out of his truck at about 530 this morning. Severe in nature lasting approximately 10 minutes. Left-sided. Associated with sweating. Spontaneously resolved. Got full dose aspirin by EMS denies history of DVT, no recent surgery or immobilization. Related Data Previous Rx's ?Medication ?Instructions ?Recorded buspirone 15 mg tablet 15 mg PO BID #180 tabs 11/21/23 citalopram 40 mg tablet 40 mg PO DAILY Mood #90 tabs 11/21/23 fenofibrate 54 mg tablet 54 mg PO DAILY Cholesterol #90 tabs 11/21/23 carvedilol phosphate 80 mg 80 mg PO DAILY High Blood Pressure 11/22/23 capsule,[id number] multiphase #90 caps evolocumab 140 mg/mL subcutaneous 140 mg SQ Q2W #2 mL 01/10/24 pen injector (Sameer Bradshaw) ondansetron 4 mg disintegrating 4 mg PO Q6H PRN nausea and 01/16/24 tablet vomiting #10 tabs valsartan 80 mg tablet 80 mg PO DAILY High Blood Pressure 03/06/24 #90 tabs naltrexone 50 mg tablet 50 mg PO DAILY #30 tabs 04/13/24 ondansetron 4 mg disintegrating 4 mg PO Q8HP PRN nausea and 04/13/24 tablet vomiting #30 tabs oxazepam 15 mg capsule 15 mg PO TID PRN alcohol 04/13/24 withdrawal 5 days #15 caps triamcinolone acetonide 0.1 % 1 applic topical BID #30 grams 04/13/24 topical cream omeprazole 40 mg capsule,delayed See Rx Instructions .Route 05/19/24 release .COMPLEX #90 caps cyclobenzaprine 5 mg tablet 5 mg PO TID PRN muscle spasm #14 07/16/24 tabs ibuprofen 800 mg tablet 800 mg PO Q8H #20 tabs 07/17/24 methylprednisolone 4 mg tablets in See Rx Instructions PO PER PKG DIR 07/17/24 a dose pack #21 tabs lidocaine 5 % topical patch 1 patch topical DAILY #15 ea 07/20/24 (Lidoderm) naproxen 500 mg tablet 500 mg PO BID #20 tabs 07/20/24 Allergies Allergy/AdvReac Type Severity Reaction Status Date / Time morphine [MORPHINE] Allergy Unknown I-ITCHING Verified 07/16/24 15:51 semaglutide AdvReac Severe Pancreatiti Verified 07/16/24 15:51 s [id number] Reductase AdvReac Severe MUSCLE Verified 07/16/24 15:51 Inhibitor CRAMPING/PAIN pravastatin AdvReac Intermediate myalgia Verified 07/16/24 15:51 lipitor AdvReac Intermediate myalgia Uncoded 02/12/24 14:41 vascepa AdvReac Mild myalgia Uncoded 02/12/24 14:41 PFS <Jens Calzada MD - Last Filed: 07/20/24 06:49> [facility] Disclaimer: The information contained in this section may have been updated after the patient was seen, as this information can be updated by other users. Medical History (HFpEF) heart failure with preserved ejection fraction Chest pain Abdominal pain Fall Acute pain of right hip Palpitations TIRSO (obstructive sleep apnea) Moderate positional TIRSO diagnosed in 2019, compliant on CPAP without evidence of hypoxemia with significant improvement prior to initial eval after changing medications (PCP and cardiology) Hypotension Nonischemic cardiomyopathy Alcohol withdrawal Near syncope Angina pectoris Chest pain Numbness and tingling in both hands Vertigo Sprain of foot, right Laceration of blood vessel of left middle finger Elevated LFTs Congestive heart failure History of cocaine use Alcoholism Since the age of 14, last drink 04/15/2023 Cardiomyopathy Weight gain Neck pain Edema Anxiety Hyperlipidemia Hypertension COVID-19 Heel pain, bilateral Callus of foot Keratosis Acquired hammertoes of both feet Acquired hallux valgus of both feet Acquired equinus deformity of both feet Pain in both feet Acquired pes planus of both feet Metatarsalgia of both feet Plantar fasciitis Alcohol abuse Surgical History History of right hip replacement History of cholecystectomy History of cardiac catheterization Family History Other Family history of hypertension Family history of myocardial infarction Social History Smoking Status: Never smoker second hand exposure: No alcohol intake: current alcohol intake frequency: 3 or more drinks per day counseling given: No substance use type: denies use counseling given: No current occupational status: employed Travel in the last 8 weeks: None household members: spouse housing: house lives independently: Yes marital status: number of children: 0 education level: high school 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 [employer] Recent Travel: No sexually active: Yes caffeine: No physical activity: none blane/sikhism: Denominational working smoke detector in home: Yes fire extinguisher in home: Yes carbon monox detector in home: Yes firearms in home: Yes do you feel safe at home: Yes victim of physical abuse: No victim of emotional abuse: No victim of sexual abuse: No would you like helpful sources: No <Jens Calzada MD - Last Filed: 07/20/24 06:49> ROS Obtained: Yes All systems reviewed & no additional complaints except as documented Physical Exam <Jens Calzada MD - Last Filed: 07/20/24 06:49> General General appearance: alert and in no apparent distress Head Head exam: atraumatic and normocephalic Eye Eye exam: Present normal appearance, PERRL and EOMI ENT ENT exam: Present normal oropharynx and normal external ear exam Neck Neck exam: Present normal inspection and full ROM Chest Chest inspection: Present normal inspection and symmetric chest wall rise; Absent tenderness Respiratory Respiratory exam: Present normal lung sounds bilaterally; Absent respiratory distress Cardiovascular Cardiovascular exam: Present regular rate and normal rhythm Abdominal Exam Abdominal exam: Present soft; Absent distention, tenderness or guarding Extremities Exam Extremities exam: Present normal inspection; Absent edema or joint swelling Back Exam Back exam: Present normal inspection; Absent tenderness Neurological Exam Neurological exam: Present alert and oriented X3; Absent motor sensory deficit Psychiatric Psychiatric exam: Present normal affect and normal mood Skin Skin exam: Present warm, dry and normal color Lymphatic Lymphatic Findings: no adenopathy Medical Decision Making <Jens Calzada MD - Last Filed: 07/20/24 06:49> Medical Records Medical records reviewed: Yes I reviewed the patient's medical records. Deny Inquiry Pt receiving controlled substance: No Deny was queried for this patient: No Vital Signs: 07/20/24 06:37 07/20/24 07:00 07/20/24 08:00 Temperature 98.2 F Temperature Source Oral Pulse Rate 78 77 Pulse Rate [Right Radial] 77 Respiratory Rate 18 22 19 Blood Pressure 150/106 H Blood Pressure [Left Arm] 173/105 H Blood Pressure Mean Blood Pressure Mean [Left Arm] 127 Blood Pressure Source Blood Pressure Source [Left Arm] Automatic Cuff Blood Pressure Position Blood Pressure Position [Left Arm] Supine 02 Sat by Pulse Oximetry 97 96 97 Oxygen Delivery Method Room Air 07/20/24 08:58 07/20/24 09:00 07/20/24 10:00 Temperature Temperature Source Pulse Rate 76 76 78 Pulse Rate [Right Radial] Respiratory Rate 20 23 17 Blood Pressure 164/97 H 146/116 H 155/104 H Blood Pressure [Left Arm] Blood Pressure Mean 118 121 Blood Pressure Mean [Left Arm] Blood Pressure Source Blood Pressure Source [Left Arm] Blood Pressure Position Blood Pressure Position [Left Arm] 02 Sat by Pulse Oximetry 96 96 97 Oxygen Delivery Method Room Air Room Air Room Air 07/20/24 10:45 07/20/24 10:52 07/20/24 11:01 Temperature Temperature Source Pulse Rate 77 79 77 Pulse Rate [Right Radial] Respiratory Rate 18 22 17 Blood Pressure 134/116 H 134/116 H 136/93 H Blood Pressure [Left Arm] Blood Pressure Mean 119 107 Blood Pressure Mean [Left Arm] Blood Pressure Source Blood Pressure Source [Left Arm] Blood Pressure Position Blood Pressure Position [Left Arm] 02 Sat by Pulse Oximetry 95 95 96 Oxygen Delivery Method Room Air Room Air Room Air 07/20/24 11:30 07/20/24 12:01 07/20/24 12:32 Temperature Temperature Source Pulse Rate 76 63 76 Pulse Rate [Right Radial] Respiratory Rate 19 16 17 Blood Pressure 141/114 H 123/93 H 154/92 H Blood Pressure [Left Arm] Blood Pressure Mean 122 103 103 Blood Pressure Mean [Left Arm] Blood Pressure Source Blood Pressure Source [Left Arm] Blood Pressure Position Blood Pressure Position [Left Arm] 02 Sat by Pulse Oximetry 96 97 97 Oxygen Delivery Method Room Air Room Air Room Air 07/20/24 13:01 07/20/24 14:36 Temperature 98.2 F Temperature Source Oral Pulse Rate 69 69 Pulse Rate [Right Radial] Respiratory Rate 19 19 Blood Pressure 165/94 H 165/94 H Blood Pressure [Left Arm] Blood Pressure Mean 111 Blood Pressure Mean [Left Arm] Blood Pressure Source Automatic Cuff Blood Pressure Source [Left Arm] Blood Pressure Position Sitting Blood Pressure Position [Left Arm] 02 Sat by Pulse Oximetry 96 Oxygen Delivery Method Room Air Room Air Lab Data Lab results reviewed: Yes I reviewed the patient's lab results. Lab Results 07/20/24 06:36: WBC 6.8, RBC 4.14 L, Hgb 12.6 L, Hct 40.4 L, MCV 97.6 H, MCH 30.5, MCHC 31.2 L, RDW 14.7, Plt Count 215, MPV 8.2, Neut % (Auto) 60.1, Lymph % (Auto) 29.0, Coryell % (Auto) 9.9 H, Eos % (Auto) 0.2, Baso % (Auto) 0.8, Neut # (Auto) 4.1, Lymph # (Auto) 2.0, Coryell # (Auto) 0.7, Eos # (Auto) 0.0, Baso # (Auto) 0.1, Sodium 141, Potassium 4.0, Chloride 110 H, Carbon Dioxide 31 H, Anion Gap 4.0 L, BUN 19, Creatinine 0.70, Estimated Creat Clear 151, Estimated GFR 122, Est GFR ( Amer) 148, Glucose 115 H, Calcium 8.9, Total Bilirubin 0.5, AST 45, ALT 48, Alkaline Phosphatase 74, Troponin I < 0.01, Total Protein 7.0, Albumin 4.1, Globulin 2.9, Albumin/Globulin Ratio 1.4 07/20/24 09:32: Troponin I < 0.01, Lipase 111 07/20/24 06:36 07/20/24 06:36 Orders (Tests/Meds): ED MEDICATIONS Discontinued Medications Generic Name Dose Route Start Last Admin Trade Name Freq PRN Reason Stop Dose Admin Acetaminophen 1,000 mg 07/20/24 08:05 07/20/24 08:10 Acetaminophen 500mg Tab PO 07/20/24 08:06 1,000 mg ONCE ONE Administration Belladonna Alkaloids 60 ml 07/20/24 08:05 07/20/24 08:10 Belladonna Alkaloids 60 Ml Ml PO 07/20/24 08:06 60 ml ONCE ONE Administration Iopamidol 100 ml 07/20/24 13:33 07/20/24 13:34 Iopamidol-370 (76%);100ml Bottle IV 07/20/24 13:34 100 ml ONCE ONE Administration Ketorolac Tromethamine 15 mg 07/20/24 09:35 07/20/24 09:53 Ketorolac 30mg/Ml Vial IV 07/20/24 09:36 15 mg ONCE ONE Administration Sodium Chloride 50 ml 07/20/24 13:33 07/20/24 13:34 0.9 % Sodium Chloride 50 Ml Vial IV 07/20/24 13:34 50 ml ONCE ONE Administration Sodium Chloride 10 ml 07/20/24 13:33 07/20/24 13:34 Sodium Chloride 0.9% 10ml Syr (Rad Only) IV 07/20/24 13:34 10 ml ONCE ONE Administration ORDERS Category Date Time Status CT angio chest PE protocol Stat Cat Scan 07/20/24 12:37 Completed CXR --portable [XR chest portable] Stat Exams 07/20/24 06:36 Completed CBC w/Auto Diff [Complete Blood Count Auto Diff] Stat Lab 07/20/24 06:36 Completed CMP [Comprehensive Metabolic Panel] Stat Lab 07/20/24 06:36 Completed D-Dimer Stat Lab 07/20/24 11:16 Received Lipase Stat Lab 07/20/24 09:32 Completed Troponin I Q3H Lab 07/20/24 06:36 Completed Troponin I Q3H Lab 07/20/24 09:32 Completed ECG Data Tracing #1: I reviewed this ECG and interpreted as documented below: Sinus rhythm, ventricular rate of 73, no significant ST elevation. ECG initial impression date: 07/20/24 ECG initial impression time: 06:34 Medical Decision Narrative: 44-year-old male with history of alcoholic cardiomyopathy, obesity dents for 10 minutes of sharp left-sided chest pain that spontaneously resolved.. History was obtained via interactive discussion with patient, EMS. On arrival, patient is [afebrile, hemodynamically stable, satting appropriately, alert, oriented x4, GCS 15], moving all extremities spontaneously. Full physical exam performed and significant for no significant physical exam abnormality Differential includes but is not limited to ACS, PE, musculoskeletal chest pain, pleurisy, esophageal spasm. Patient was given full dose aspirin by EMS prior to arrival. Workup initiated including CBC CMP troponin EKG chest x-ray. Patient is PERC negative and does not require D-dimer. At this time care handed off to oncoming physician.. <Natty Jon Cox, DO - Last Filed: 07/20/24 16:00> Vital Signs: 07/20/24 06:37 07/20/24 07:00 07/20/24 08:00 Temperature 98.2 F Temperature Source Oral Pulse Rate 78 77 Pulse Rate [Right Radial] 77 Respiratory Rate 18 22 19 Blood Pressure 150/106 H Blood Pressure [Left Arm] 173/105 H Blood Pressure Mean Blood Pressure Mean [Left Arm] 127 Blood Pressure Source Blood Pressure Source [Left Arm] Automatic Cuff Blood Pressure Position Blood Pressure Position [Left Arm] Supine 02 Sat by Pulse Oximetry 97 96 97 Oxygen Delivery Method Room Air 07/20/24 08:58 07/20/24 09:00 07/20/24 10:00 Temperature Temperature Source Pulse Rate 76 76 78 Pulse Rate [Right Radial] Respiratory Rate 20 23 17 Blood Pressure 164/97 H 146/116 H 155/104 H Blood Pressure [Left Arm] Blood Pressure Mean 118 121 Blood Pressure Mean [Left Arm] Blood Pressure Source Blood Pressure Source [Left Arm] Blood Pressure Position Blood Pressure Position [Left Arm] 02 Sat by Pulse Oximetry 96 96 97 Oxygen Delivery Method Room Air Room Air Room Air 07/20/24 10:45 07/20/24 10:52 07/20/24 11:01 Temperature Temperature Source Pulse Rate 77 79 77 Pulse Rate [Right Radial] Respiratory Rate 18 22 17 Blood Pressure 134/116 H 134/116 H 136/93 H Blood Pressure [Left Arm] Blood Pressure Mean 119 107 Blood Pressure Mean [Left Arm] Blood Pressure Source Blood Pressure Source [Left Arm] Blood Pressure Position Blood Pressure Position [Left Arm] 02 Sat by Pulse Oximetry 95 95 96 Oxygen Delivery Method Room Air Room Air Room Air 07/20/24 11:30 07/20/24 12:01 07/20/24 12:32 Temperature Temperature Source Pulse Rate 76 63 76 Pulse Rate [Right Radial] Respiratory Rate 19 16 17 Blood Pressure 141/114 H 123/93 H 154/92 H Blood Pressure [Left Arm] Blood Pressure Mean 122 103 103 Blood Pressure Mean [Left Arm] Blood Pressure Source Blood Pressure Source [Left Arm] Blood Pressure Position Blood Pressure Position [Left Arm] 02 Sat by Pulse Oximetry 96 97 97 Oxygen Delivery Method Room Air Room Air Room Air 07/20/24 13:01 07/20/24 14:36 Temperature 98.2 F Temperature Source Oral Pulse Rate 69 69 Pulse Rate [Right Radial] Respiratory Rate 19 19 Blood Pressure 165/94 H 165/94 H Blood Pressure [Left Arm] Blood Pressure Mean 111 Blood Pressure Mean [Left Arm] Blood Pressure Source Automatic Cuff Blood Pressure Source [Left Arm] Blood Pressure Position Sitting Blood Pressure Position [Left Arm] 02 Sat by Pulse Oximetry 96 Oxygen Delivery Method Room Air Room Air Lab Data Lab Results 07/20/24 06:36: WBC 6.8, RBC 4.14 L, Hgb 12.6 L, Hct 40.4 L, MCV 97.6 H, MCH 30.5, MCHC 31.2 L, RDW 14.7, Plt Count 215, MPV 8.2, Neut % (Auto) 60.1, Lymph % (Auto) 29.0, Coryell % (Auto) 9.9 H, Eos % (Auto) 0.2, Baso % (Auto) 0.8, Neut # (Auto) 4.1, Lymph # (Auto) 2.0, Coryell # (Auto) 0.7, Eos # (Auto) 0.0, Baso # (Auto) 0.1, Sodium 141, Potassium 4.0, Chloride 110 H, Carbon Dioxide 31 H, Anion Gap 4.0 L, BUN 19, Creatinine 0.70, Estimated Creat Clear 151, Estimated GFR 122, Est GFR ( Amer) 148, Glucose 115 H, Calcium 8.9, Total Bilirubin 0.5, AST 45, ALT 48, Alkaline Phosphatase 74, Troponin I < 0.01, Total Protein 7.0, Albumin 4.1, Globulin 2.9, Albumin/Globulin Ratio 1.4 07/20/24 09:32: Troponin I < 0.01, Lipase 111 Orders (Tests/Meds): ED MEDICATIONS Discontinued Medications Generic Name Dose Route Start Last Admin Trade Name Freq PRN Reason Stop Dose Admin Acetaminophen 1,000 mg 07/20/24 08:05 07/20/24 08:10 Acetaminophen 500mg Tab PO 07/20/24 08:06 1,000 mg ONCE ONE Administration Belladonna Alkaloids 60 ml 07/20/24 08:05 07/20/24 08:10 Belladonna Alkaloids 60 Ml Ml PO 07/20/24 08:06 60 ml ONCE ONE Administration Iopamidol 100 ml 07/20/24 13:33 07/20/24 13:34 Iopamidol-370 (76%);100ml Bottle IV 07/20/24 13:34 100 ml ONCE ONE Administration Ketorolac Tromethamine 15 mg 07/20/24 09:35 07/20/24 09:53 Ketorolac 30mg/Ml Vial IV 07/20/24 09:36 15 mg ONCE ONE Administration Sodium Chloride 50 ml 07/20/24 13:33 07/20/24 13:34 0.9 % Sodium Chloride 50 Ml Vial IV 07/20/24 13:34 50 ml ONCE ONE Administration Sodium Chloride 10 ml 07/20/24 13:33 07/20/24 13:34 Sodium Chloride 0.9% 10ml Syr (Rad Only) IV 07/20/24 13:34 10 ml ONCE ONE Administration ORDERS Category Date Time Status CT angio chest PE protocol Stat Cat Scan 07/20/24 12:37 Completed CXR --portable [XR chest portable] Stat Exams 07/20/24 06:36 Completed CBC w/Auto Diff [Complete Blood Count Auto Diff] Stat Lab 07/20/24 06:36 Completed CMP [Comprehensive Metabolic Panel] Stat Lab 07/20/24 06:36 Completed D-Dimer Stat Lab 07/20/24 11:16 Received Lipase Stat Lab 07/20/24 09:32 Completed Troponin I Q3H Lab 07/20/24 06:36 Completed Troponin I Q3H Lab 07/20/24 09:32 Completed HEART Score History (anamnesis): Slightly suspicious ECG: Normal Age: 45-65 years Risk factors: 3 or more risk factors Troponin: </= normal limit HEART Score: 3 Medical Decision Narrative: 44-year-old male with history of alcoholic cardiomyopathy, obesity dents for 10 minutes of sharp left-sided chest pain that spontaneously resolved.. History was obtained via interactive discussion with patient, EMS. On arrival, patient is [afebrile, hemodynamically stable, satting appropriately, alert, oriented x4, GCS 15], moving all extremities spontaneously. Full physical exam performed and significant for no significant physical exam abnormality Differential includes but is not limited to ACS, PE, musculoskeletal chest pain, pleurisy, esophageal spasm. Patient was given full dose aspirin by EMS prior to arrival. Workup initiated including CBC CMP troponin EKG chest x-ray. Patient is PERC negative and does not require D-dimer. At this time care handed off to oncoming physician.. DO Kenny: I assumed care of the patient at 0700. On my assessment, he states the pain had gone away but now it has recurred. He is having left sided chest pain. Vitals are normal on cardiac telemetry. Given recurrence of pain, will plan to keep the patient for serial troponins to rule out ACS as a cause of his pain. In the meantime, he was given tylenol and GI cocktail for pain. At 0800, patient was placed in ED observation status pending serial troponin to determine whether or not the patient would be appropriate for discharge versus admission. The patient was provided serial reevaluations and cardiac monitoring while awaiting ultimate disposition. Second troponin resulted and was negative, the patient continued to complain of significant pain, this especially pleuritic on the left side. Given this D-dimer was ordered but did not come back as lab encountered an issue. This delayed care. CT PE protocol was then ordered for further workup, which did not demonstrate any blood clots. Please see final read for interpretation. Ultimately on multiple reassessments, the patient is resting comfortably with normal vital signs on cardiac telemetry. I feel we have excluded acute life-threatening pathology as a cause of his chest pain and he was feeling better after symptomatic management with Toradol. Ultimately, it is felt he is appropriate for discharge home with close follow-up with primary care and cardiology. He is given instructions for this as well as prescription for anti-inflammatory and lidocaine patches to take for pleurisy versus musculoskeletal chest wall pain. He was discharged in stable condition after all questions were answered at 1430 after approximately 6.5 hours in ED observation. I had a [id number] visit with the patient when providing discharge instructions. The total time involved in discharging this patient was less than 30 minutes. Procedures <Jens Calzada MD - Last Filed: 07/20/24 06:49> Risk/Benefits of Procedure(s) Were Explained: Yes Critical Care <Jens Calzada MD - Last Filed: 09/16/24 06:49> Critical Care Time Critical Care Time: No
[2024-07-20 06:54] LABS: Basophils # 0.1 K/mm3 (0-0.2); Basophils % 0.8 % (0.1-2.0); Eosinophils % 0.2 % (0.1-12.0); Hematocrit 40.4 % (42.0-52.0); Hemoglobin 12.6 g/dL (14.1-18.0); Mean Corpuscular HGB Conc 31.2 g/dL (31.8-35.4); Mean Corpuscular Hemoglobin 30.5 pg (27.0-31.2); Mean Corpuscular Volume 97.6 fl (80-94); Mean Platelet Volume 8.2 fl (7.4-10.4); Monocytes # 0.7 K/mm3 (0.1-1.0); Monocytes % 9.9 % (1.7-9.3); Neutrophils # 4.1 K/mm3 (1.8-7.8); Neutrophils % 60.1 % (37.0-80.0); Platelet Count 215 K/mm3 (142-424); Red Blood Count 4.14 M/mm3 (4.60-6.20); Red Cell Distribution Width 14.7 % (11.5-17.5); White Blood Count 6.8 K/mm3 (4.8-10.8)
[2024-07-20 06:57] LABS: Albumin Level 4.1 g/dl (3.5-5.0); Chloride 110 mmol/L (98-107); Sodium 141 mmol/L (136-145)
[2024-07-20 06:59] LABS: Blood Urea Nitrogen 19 mg/dl (9-20); Creatinine Clearance Estimated 151 mL/min (50-200); Estimated Glomerular Filt Rate 122 ml/min (>60); GFR (African American) 148 ML/MIN (>60)
[2024-07-20 07:00] LABS: Alanine Aminotransferase 48 U/L (12-78); Albumin/Globulin Ratio 1.4 (1.1-1.8); Alkaline Phosphatase 74 U/L (38-126); Aspartate Amino Transferase 45 U/L (17-59); Bilirubin,Total 0.5 mg/dl (0.2-1.3); Calcium 8.9 mg/dl (8.4-10.2); Carbon Dioxide 31 mmol/L (22.0-30.0); Globulin 2.9 g/dL (1.3-3.2); Glucose 115 mg/dl (74-100)
[2024-07-20 07:36] LABS: Troponin I < 0.01 ng/ml (0.00-0.034)
[2024-07-20] MEDS: BELLADONNA ALKALOIDS 60 ML ML PO (08:10)
[2024-07-20] MEDS: ACETAMINOPHEN 500MG TAB 1000 MG PO (08:10)
[2024-07-20 09:48] LABS: Lipase 111 U/L (23-300)
[2024-07-20] MEDS: KETOROLAC 30MG/ML VIAL 15 MG IV (09:53)
--- NOTE | 2024-07-20 10:02 | PC.NURSE ---
Rounded on PT. PT stated that he didn't need anything at this time. Call light is in reach of PT.
[2024-07-20 10:06] LABS: Troponin I < 0.01 ng/ml (0.00-0.034)
--- NOTE | 2024-07-20 12:37 | CT_ITS ---
FINAL REPORT TECHNIQUE: Axial imaging of the chest is obtained after the administration of contrast. 3-D MIP reformatted images were also obtained and reviewed per PE protocol. This study was performed with techniques to keep radiation doses as low as reasonably achievable (ALARA). Individualized dose reduction techniques using automated exposure control or adjustment of mA and/or kV according to the patient's size were employed. CLINICAL HISTORY: chest pain, L, soa COMPARISON: 01/16/2024 FINDINGS: The pulmonary arteries are well filled. There is no evidence of pulmonary embolus. There is no aortic dissection or intimal flap. There is no mediastinal, hilar, or axillary lymphadenopathy. Right middle lobe and right lower lobe atelectasis are present.. There is no pleural or pericardial effusion. Limited evaluation of the upper abdomen is without acute abnormality. No acute osseous abnormality. IMPRESSION: No evidence of pulmonary embolism or aortic dissection. Right middle lobe and right lower lobe atelectasis are present. Reviewed, Interpreted and Dictated by Yocasta Adams MD Transcribed by Dalia Justin Authenticated and [facility]
[2024-07-20] MEDS: SODIUM CHLORIDE 0.9% 10ML SYR (RAD ONLY) 10 ML IV (13:34)
[2024-07-20] MEDS: 0.9 % SODIUM CHLORIDE 50 ML VIAL IV (13:34)
[2024-07-20] MEDS: IOPAMIDOL-370 (76%);100ML BOTTLE 100 ML IV (13:34)
[2024-07-20 19:51] LABS: D-Dimer 0.39 ug/mL (0.0-0.5)
== END 2024-07-20 14:38 | disposition home or self-care (01) ==
PROVIDERS: Emergency Medicine; Emergency Provider Emergency Medicine; PCP Nurse Practitioner Family
DX: R09.1 Pleurisy (principal); R07.9 Chest pain, unspecified; I10 Essential (primary) hypertension; E78.5 Hyperlipidemia, unspecified; Z86.79 Personal history of other diseases of the circulatory system
CPT/HCPCS: 71045; 71275; 80053; 83690; 84484; 85025; 85378; 93005; 96374; 99285; J1885; Q9967

== ENCOUNTER 2024-08-16 09:40 | Emergency (ER) | payer BC, SELFPAY ==
[2024-08-16] VITALS (11 sets, daily range): BP systolic 125–144; BP diastolic 74–96; PULSE 78–96; RESP 12–21; TEMP 36.4–36.6; O2SAT 88–98; BMI 45.5
--- NOTE | 2024-08-16 09:41 | ECG_ITS ---
APPROVED REPORT Exam: Resting ECG HR:93 bpm ECG Measurements Heart Rate 93 AXES MD 212 P 46 QRSd 158 QRS 67 QT 407 T 16 QTc 457 Conclusion SINUS RHYTHM WITH FIRST DEGREE AV BLOCK LEFT BUNDLE BRANCH BLOCK [120+ ms QRS DURATION, 80+ ms Q/S IN V1/V2, 85+ ms R IN I/aVL/V5/V6] ABNORMAL ECG Electronically signed by : SHOSHANA SHEETS, 08/17/2024 23:19:47
--- NOTE | 2024-08-16 09:49 | PC.NURSE ---
family at [facility]
--- NOTE | 2024-08-16 10:08 | CT_ITS ---
PROCEDURE INFORMATION: Exam: CT Cervical Spine Without Contrast Exam date and time: 08/16/2024 11:30 AM Age: 44 years old Clinical indication: Neck pain; Additional info: Upper back/neck pain, numbness/tingling R side TECHNIQUE: Imaging protocol: Computed tomography of the cervical spine without contrast. Radiation optimization: All CT scans at this facility use at least one of these dose optimization techniques: automated exposure control; mA and/or kV adjustment per patient size (includes targeted exams where dose is matched to clinical indication); or iterative reconstruction. COMPARISON: CR XR CERVICAL SPINE 3V 07/16/2024 4:43 PM FINDINGS: Bones: There is normal alignment of the cervical spine. Craniocervical relationship is maintained. The vertebral body heights are maintained. There is no spondylolisthesis. There are no fractures or dislocations. There is no bony spinal canal narrowing. There is left bony neural foraminal narrowing at C3-C4 level. There is bilateral bony neural foraminal narrowing at C5-C6 level. There is right bony neural foraminal narrowing at C6-C7 level. Lungs: Lung apices are normal. Soft tissues: Unremarkable. IMPRESSION: 1. No evidence of osseous injury in the cervical spine. 2. Degenerative changes in the cervical spine.
--- NOTE | 2024-08-16 10:08 | CT_ITS ---
PROCEDURE INFORMATION: Exam: CTA Neck With Contrast Exam date and time: 08/16/2024 11:36 AM Age: 44 years old Clinical indication: Other: Pain, numb; Additional info: Upper back/neck pain, numbness/tingling R side TECHNIQUE: Imaging protocol: Computed tomographic angiography of the neck with contrast. Exam focused on the cervical segments of the vasculature. 3D rendering (Not supervised by radiologist): MIP and/or 3D reconstructed images were created by the technologist. Radiation optimization: All CT scans at this facility use at least one of these dose optimization techniques: automated exposure control; mA and/or kV adjustment per patient size (includes targeted exams where dose is matched to clinical indication); or iterative reconstruction. Contrast material: ISOVUE 370; Contrast volume: 80 ml; Contrast route: INTRAVENOUS (IV); COMPARISON: CT CERVICAL SPINE WO CON 08/16/2024 11:30 AM FINDINGS: Right common carotid artery: No stenosis. No dissection or occlusion. Right internal carotid artery: There is no significant stenosis or occlusion (0%). Right external carotid artery: No occlusion or stenosis of the origin. Left common carotid artery: No stenosis. No dissection or occlusion. Left internal carotid artery: There is no significant stenosis or occlusion (0%). Left external carotid artery: No occlusion or stenosis of the origin. Right vertebral artery: There is no significant stenosis or occlusion (0%). Left vertebral artery: There is no significant stenosis or occlusion (0%). Salivary glands: Submandibular glands and parotid glands are normal. Thyroid: Thyroid gland appears unremarkable. Soft tissues: The soft tissues of the neck are unremarkable. Bones/joints: The osseous structures of the neck demonstrate no acute abnormalities. Lungs: The partially imaged lungs are clear. IMPRESSION: No significant stenosis or occlusion in the vertebral arteries and carotid arteries in the neck. REFERENCES: NASCET CRITERIA. The degree of stenosis in the cervical segment of the internal carotid artery is based on NASCET criteria. Normal is no stenosis. Mild is less than 50% stenosis. Moderate is 50-69% stenosis. Severe is 70% to 99% stenosis. Total occlusion is no detectable patent lumen.
--- NOTE | 2024-08-16 10:08 | CT_ITS ---
PROCEDURE INFORMATION: Exam: CT Thoracic Spine Without Contrast Exam date and time: 08/16/2024 11:33 AM Age: 44 years old Clinical indication: Pain in thoracic spine; Additional info: Upper back/neck pain, numbness/tingling R side TECHNIQUE: Imaging protocol: Computed tomography of the thoracic spine without contrast. Radiation optimization: All CT scans at this facility use at least one of these dose optimization techniques: automated exposure control; mA and/or kV adjustment per patient size (includes targeted exams where dose is matched to clinical indication); or iterative reconstruction. COMPARISON: CT CERVICAL SPINE WO CON 08/16/2024 11:30 AM FINDINGS: Bones/joints: No acute fracture. Normal alignment. Bridging anterolateral osteophytes in the midthoracic spine No significant disc bulge or herniation. No severe spinal canal stenosis. No significant neural foraminal narrowing. Soft tissues: Unremarkable. IMPRESSION: No acute findings.
--- NOTE | 2024-08-16 10:08 | CT_ITS ---
PROCEDURE INFORMATION: Exam: CTA Head With Contrast, Arteriography Exam date and time: 08/16/2024 11:36 AM Age: 44 years old Clinical indication: Other: Pain, numb; Additional info: Headache/upper back/neck pain, numb R side TECHNIQUE: Imaging protocol: Computed tomographic angiography of the head with contrast. Exam focused on the arteries. 3D rendering (Not supervised by radiologist): MIP and/or 3D reconstructed images were created by the technologist. Radiation optimization: All CT scans at this facility use at least one of these dose optimization techniques: automated exposure control; mA and/or kV adjustment per patient size (includes targeted exams where dose is matched to clinical indication); or iterative reconstruction. Contrast material: ISOVUE 370; Contrast volume: 80 ml; Contrast route: INTRAVENOUS (IV); COMPARISON: CT HEAD/BRAIN WO CON 08/16/2024 11:28 AM FINDINGS: ANTERIOR CIRCULATION: Right internal carotid artery: Intracranial segment is patent with no significant stenosis or occlusion. No aneurysm. Right middle cerebral artery: No occlusion or significant stenosis. No aneurysm. Right anterior cerebral artery: No occlusion or significant stenosis. No aneurysm. Left internal carotid artery: Intracranial segment is patent with no significant stenosis or occlusion. No aneurysm. Left middle cerebral artery: No occlusion or significant stenosis. No aneurysm. Left anterior cerebral artery: No occlusion or significant stenosis. No aneurysm. POSTERIOR CIRCULATION: Right vertebral artery: No occlusion or significant stenosis. No aneurysm. Left vertebral artery: No occlusion or significant stenosis. No aneurysm. Basilar artery: No occlusion or significant stenosis. No aneurysm. Right posterior cerebral artery: No occlusion or significant stenosis. No aneurysm. Left posterior cerebral artery: No occlusion or significant stenosis. No aneurysm. Veins: Dural venous sinuses are patent. Brain: There are no areas of abnormal enhancement in the brain. There is normal density in the basal ganglia and thalamus. Cerebral ventricles: The ventricles have normal size. Orbital cavities: Globes and orbits are normal. Bones/joints: Unremarkable. No acute fracture. Soft tissues: Unremarkable. IMPRESSION: [id number] is intact. No evidence of large vessel occlusion.
--- NOTE | 2024-08-16 10:08 | CT_ITS ---
PROCEDURE INFORMATION: Exam: CT Head Without Contrast Exam date and time: 08/16/2024 11:28 AM Age: 44 years old Clinical indication: Other: Pain, numb; Additional info: Upper back/neck pain, numbness/tingling R side TECHNIQUE: Imaging protocol: Computed tomography of the head without contrast. Radiation optimization: All CT scans at this facility use at least one of these dose optimization techniques: automated exposure control; mA and/or kV adjustment per patient size (includes targeted exams where dose is matched to clinical indication); or iterative reconstruction. COMPARISON: CR XR CERVICAL SPINE 3V 07/16/2024 4:43 PM FINDINGS: Brain: Oneal-white matter differentiation and sulcation pattern is normal. There is normal density in the basal ganglia and thalamus. There is no intracranial hemorrhage. There are no pathologic extra-axial fluid collections. Cerebral ventricles: No ventriculomegaly. Paranasal sinuses: There are small mucous retention cysts in the maxillary sinuses. Mastoid air cells: Visualized mastoid air cells are well aerated. Bones: Unremarkable. No acute fracture. Soft tissues: Unremarkable. IMPRESSION: No acute intracranial pathology.
--- NOTE | 2024-08-16 10:08 | CT_ITS ---
PROCEDURE INFORMATION: Exam: CTA Chest With Contrast Exam date and time: 08/16/2024 11:40 AM Age: 44 years old Clinical indication: Pain; Other: Cp; Additional info: Upper back/neck pain, numbness/tingling R side TECHNIQUE: Imaging protocol: Computed tomographic angiography of the chest with contrast. Exam focused on the arteries. 3D rendering (Not supervised by radiologist): MIP and/or 3D reconstructed images were created by the technologist. Radiation optimization: All CT scans at this facility use at least one of these dose optimization techniques: automated exposure control; mA and/or kV adjustment per patient size (includes targeted exams where dose is matched to clinical indication); or iterative reconstruction. Contrast material: ISOVUE 370; Contrast volume: 70 ml; Contrast route: INTRAVENOUS (IV); COMPARISON: CT ANGIO CHEST PE PROTOCOL 07/20/2024 1:24 PM FINDINGS: Pulmonary arteries: Normal. No pulmonary emboli. Aorta: Unremarkable. No aortic aneurysm. No aortic dissection. Lungs: Mild dependent atelectasis. No consolidation. No masses. Pleural spaces: Unremarkable. No pneumothorax. No pleural effusion. Heart: Unremarkable. No cardiomegaly. No pericardial effusion. Lymph nodes: Coarsely calcified subcarinal lymph node. Bones/joints: Unremarkable. No acute fracture. Soft tissues: Unremarkable. IMPRESSION: No acute findings.
[2024-08-16 10:16] LABS: Basophils # 0.1 K/mm3 (0-0.2); Basophils % 1.4 % (0.1-2.0); Eosinophils # 0.1 K/mm3 (0.0-0.4); Eosinophils % 2.9 % (0.1-12.0); Hematocrit 40.1 % (42.0-52.0); Hemoglobin 13.4 g/dL (14.1-18.0); Lymphocytes # 1.8 K/mm3 (0.7-4.5); Lymphocytes % 42.9 % (10-50); Mean Corpuscular HGB Conc 33.3 g/dL (31.8-35.4); Mean Corpuscular Hemoglobin 31.1 pg (27.0-31.2); Mean Corpuscular Volume 93.3 fl (80-94); Mean Platelet Volume 7.2 fl (7.4-10.4); Monocytes # 0.4 K/mm3 (0.1-1.0); Monocytes % 8.6 % (1.7-9.3); Neutrophils # 1.9 K/mm3 (1.8-7.8); Neutrophils % 44.2 % (37.0-80.0); Platelet Count 203 K/mm3 (142-424); Red Cell Distribution Width 15.2 % (11.5-17.5); White Blood Count 4.2 K/mm3 (4.8-10.8)
[2024-08-16] MEDS: ACETAMINOPHEN 500MG TAB 1000 MG PO (10:16)
[2024-08-16] MEDS: LIDOCAINE 5% TRANSDERMAL PATCH 1 EACH TP (10:16)
[2024-08-16] MEDS: KETOROLAC 30MG/ML VIAL 15 MG IV (10:16)
[2024-08-16] MEDS: diazePAM 5MG TABLET 5 MG PO (10:16)
[2024-08-16 10:30] LABS: VBG Base Excess -5.1 mmol/L (-2.4-2.3); VBG HCO3 18.7 mmol/L (23-30); VBG PCO2 31.4 mmol/L (35-51); VBG PH 7.39 mmol/L (7.31-7.41); VBG PO2 107.6 mmol/L (28-40); VBG Total CO2 19.6 mmol/L (23-27)
[2024-08-16 10:31] LABS: Lactate Venous 2.5 mmol/L (0.4-2.0)
[2024-08-16 10:36] LABS: Coronavirus 19, PCR Not Detected (NotDetected); Influenza A, PCR Not Detected (NotDetected); Influenza B, PCR Not Detected (NotDetected)
--- NOTE | 2024-08-16 10:57 | [facility].EDCP ---
Discharge Plan Disposition Patient Disposition: Home, Self-Care Condition: Good Prescriptions Prescriptions: New ketorolac 10 mg tablet 10 mg PO Q8H PRN (Reason: pain) 3 Days Qty: 10 0RF diazepam [Valium] 5 mg tablet 5 mg PO Q8H PRN (Reason: muscle spasm) Qty: 10 0RF No Action naloxone 4 mg/actuation spray,non-aerosol intranasal Patient Comments: CALL 911. DO NOT PRIME. ADMINISTER A SINGLE SPRAY IN NOSTRIL. IF NO TO MINIMAL RESPONSE AFTER 2-5 MINUTES, AN ADDITIONAL DOSE MAY BE GIVEN IN THE ALTERNATE NOSTRIL, THEN NEEDED (IF DOSES ARE AVAILABLE) EVERY 2-5 MINUTES valacyclovir [Valtrex] 1 gram tablet 1,000 mg PO Q8H 10 Days Qty: 30 3RF hydrocodone-acetaminophen 7.5-325 mg tablet 1 tab PO Q4-6H PRN (Reason: pain) Qty: 30 0RF gabapentin 100 mg capsule 200 mg PO TID Qty: 90 3RF baclofen 10 mg tablet 10 mg PO TID PRN (Reason: muscle spasm) Qty: 60 0RF triamcinolone acetonide 0.1 % cream 1 applic topical BID Qty: 30 0RF meloxicam 15 mg tablet 15 mg PO DAILY Qty: 30 0RF buspirone 15 mg tablet 15 mg PO BID Qty: 180 3RF citalopram 40 mg tablet 40 mg PO DAILY Qty: 90 3RF fenofibrate 54 mg tablet 54 mg PO DAILY Qty: 90 3RF carvedilol phosphate 80 mg capsule, ER multiphase 24 hr 80 mg PO DAILY Qty: 90 3RF Rx Instructions: must administer with a meal/food valsartan 80 mg tablet 80 mg PO DAILY Qty: 90 1RF omeprazole 40 mg capsule,delayed release(DR/EC) See Rx Instructions .ROUTE .COMPLEX Qty: 90 1RF Dose Instruction: TAKE 1 CAPSULE DAILY Rx Instructions: TAKE 1 CAPSULE DAILY Repatha SureClick 140 mg/mL pen injector 140 mg SQ Q2W Qty: 2 5RF Referrals Follow up/Referrals: Provider,Referral, MD [Primary Care Provider] - See instructions Activity Restrictions/Add. Instructions Additional Instructions/Restrictions: You were evaluated in the emergency department today. 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 academic support coordinator your prescription for Valium and take as needed for severe breakthrough pain and muscle spasms. Do not take this with gabapentin, hydrocodone, or other sedating medications, as this can lead to oversedation, breathing issues, and even . Do not drive or operate heavy machinery while taking this pain medication. Let your primary care provider know if you felt that this helped you more than other medications. academic support coordinator your prescription for Toradol and to take as needed for inflammation. Do not take this with other NSAIDs, such as your meloxicam, ibuprofen, Aleve. Return to the emergency department for new or worsening symptoms. Clinical Impressions Clinical Impression: Cervical radiculopathy due to degenerative joint disease of spine Stand Alone Forms Stand Alone Forms: Work/School Release Instructions Patient Instructions: DI for Cervical Radiculopathy, DI for Neck Pain Print Language Print Language: [place] Discharge ED Provider: Natty Cox HPI General Chief Complaint: Chest Pain Stated Complaint: chest pain Time Seen by Provider: 08/16/24 09:41 Mode of Arrival: Ambulatory Source of Information: Patient Limitations: No Limitations Description of Symptoms (Recalled from ER Triage Doc. by RN): pt presents to ED with c/o chest pain that began approx 2 hours ago. pt reports that he has had ongoing neck pain for the past 4 weeks with no relief from medications prescribed by pcp. pt reports everyday the pain is getting worse. pt reports hx of spinal stenosis. pt reports 44 second episode of what he descibes as paralysis this am. pt ambulated into ED with no noted deficits. History of Present Illness HPI narrative: This patient is a 44-year-old male with a history of obesity, cervical spinal stenosis, degenerative disc disease, TIRSO, prediabetes, hypertension, cardiomyopathy, and GERD presenting to the emergency department for evaluation with concern for severe neck pain and chest pain. Patient states that he has had neck pain for quite some time and has been seen multiple times by his primary care provider. He is also had outpatient MRI obtained. This pain acutely worsened 3 to 4 weeks ago. No known falls or traumatic injuries. He is had progressively worsening neurologic symptoms over this time as well, including tingling in his right arm and his feet. He states that he woke up this morning and his right arm was completely paralyzed. He was lying on his back, and his arm was not tucked underneath him in any awkward position. He states that he slowly has regained movement in his right arm since waking up, but his tingling is still persistent. He has been prescribed pain medications, including gabapentin, by his primary care provider, but these do not help. He has used a TENS unit was helped some, but not enough. This morning, he states that he is absolutely miserable and feels like his neck is broken. His pain radiates into his chest. He also has pressure in his head and ears. No vision changes, bladder or bowel incontinence or retention, fevers, chills, or other concerns. He is awaiting outpatient spine consultation at 08/28 Related Data Home Medications ?Medication ?Instructions ?Recorded ?Confirmed naloxone 4 mg/actuation nasal spray intranasal 08/14/24 08/14/24 Previous Rx's ?Medication ?Instructions ?Recorded buspirone 15 mg tablet 15 mg PO BID #180 tabs 11/21/23 citalopram 40 mg tablet 40 mg PO DAILY Mood #90 tabs 11/21/23 fenofibrate 54 mg tablet 54 mg PO DAILY Cholesterol #90 tabs 11/21/23 carvedilol phosphate 80 mg 80 mg PO DAILY High Blood Pressure 11/22/23 capsule,[id number] multiphase #90 caps valsartan 80 mg tablet 80 mg PO DAILY High Blood Pressure 03/06/24 #90 tabs triamcinolone acetonide 0.1 % 1 applic topical BID #30 grams 04/13/24 topical cream omeprazole 40 mg capsule,delayed See Rx Instructions .Route 05/19/24 release .COMPLEX #90 caps evolocumab 140 mg/mL subcutaneous 140 mg SQ Q2W #2 mL 07/24/24 pen injector (Sameer Bradshaw) meloxicam 15 mg tablet 15 mg PO DAILY #30 tabs 08/03/24 baclofen 10 mg tablet 10 mg PO TID PRN muscle spasm #60 08/14/24 tabs gabapentin 100 mg capsule 200 mg (2 x 100 mg) PO TID #90 caps 08/14/24 hydrocodone 7.5 mg-acetaminophen 1 tab PO Q4-6H PRN pain #30 tabs 08/14/24 325 mg tablet valacyclovir 1 gram tablet 1,000 mg PO Q8H 10 days #30 tabs 08/14/24 (Valtrex) diazepam 5 mg tablet (Valium) 5 mg PO Q8H PRN muscle spasm #10 08/16/24 tabs ketorolac 10 mg tablet 10 mg PO Q8H PRN pain 3 days #10 08/16/24 tabs Allergies Allergy/AdvReac Type Severity Reaction Status Date / Time morphine [MORPHINE] Allergy Unknown I-ITCHING Verified 08/14/24 11:18 semaglutide AdvReac Severe Pancreatiti Verified 08/14/24 11:18 s [id number] Reductase AdvReac Severe MUSCLE Verified 08/14/24 11:18 Inhibitor CRAMPING/PAIN pravastatin AdvReac Intermediate myalgia Verified 08/14/24 11:18 lipitor AdvReac Intermediate myalgia Uncoded 08/14/24 11:18 vascepa AdvReac Mild myalgia Uncoded 08/14/24 11:18 PFSH PFS Disclaimer: The information contained in this section may have been updated after the patient was seen, as this information can be updated by other users. Medical History Pleurisy Chest pain (HFpEF) heart failure with preserved ejection fraction Chest pain Abdominal pain Fall Acute pain of right hip Palpitations TIRSO (obstructive sleep apnea) Hypotension Nonischemic cardiomyopathy Alcohol withdrawal Near syncope Angina pectoris Chest pain Numbness and tingling in both hands Vertigo Sprain of foot, right Laceration of blood vessel of left middle finger Elevated LFTs Congestive heart failure History of cocaine use Alcoholism Cardiomyopathy Weight gain Neck pain Edema Anxiety Hyperlipidemia Hypertension COVID-19 Heel pain, bilateral Callus of foot Keratosis Acquired hammertoes of both feet Acquired hallux valgus of both feet Acquired equinus deformity of both feet Pain in both feet Acquired pes planus of both feet Metatarsalgia of both feet Plantar fasciitis Alcohol abuse Surgical History History of right hip replacement History of cholecystectomy History of cardiac catheterization Family History Other Family history of hypertension Family history of myocardial infarction Social History Smoking Status: Never smoker second hand exposure: No alcohol intake: current alcohol intake frequency: 3 or more drinks per day counseling given: No substance use type: denies use counseling given: No current occupational status: employed Travel in the last 8 weeks: None household members: spouse housing: house lives independently: Yes marital status: number of children: 0 education level: high school 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 [employer] Recent Travel: No sexually active: Yes caffeine: No physical activity: none blane/worship: Sikh working smoke detector in home: Yes fire extinguisher in home: Yes carbon monox detector in home: Yes firearms in home: Yes do you feel safe at home: Yes victim of physical abuse: No victim of emotional abuse: No victim of sexual abuse: No would you like helpful sources: No Other Medical History Have you received the Flu Vaccine for this season: No Have you received the Pneumonia Vaccine: No ROS Obtained: Yes All systems reviewed & no additional complaints except as documented Physical Exam General General appearance: alert and obese Comment: Uncomfortable appearing Head Head exam: atraumatic and normocephalic Eye Eye exam: Present normal appearance, PERRL and EOMI ENT ENT exam: Present normal exam, normal oropharynx, mucous membranes moist, TM's normal bilaterally and normal external ear exam Neck Neck exam: Present trachea midline and tenderness; Absent full ROM, meningismus or lymphadenopathy Chest Chest inspection: Present normal inspection and symmetric chest wall rise; Absent tenderness Respiratory Respiratory exam: Present normal lung sounds bilaterally; Absent respiratory distress, wheezes, stridor or accessory muscle use Cardiovascular Cardiovascular exam: Present regular rate and normal rhythm Abdominal Exam Abdominal exam: Present soft; Absent distention, tenderness or guarding Extremities Exam Extremities exam: Present normal inspection, full ROM and normal capillary refill; Absent tenderness or edema Back Exam Back exam: Present normal inspection and full ROM; Absent tenderness Neurological Exam Neurological exam: Present alert, oriented X3, CN II-XII intact, normal gait, motor sensory deficit and other (Subjective decrease in sensation of the right upper extremity and right lower extremity, but otherwise neurologically intact) Psychiatric Psychiatric exam: Present anxious Skin Skin exam: Present warm and diaphoresis HEART Score HEART Score HEART Score assessment performed?: Yes History (anamnesis): Slightly suspicious ECG: Normal Age: <45 years Risk factors: 3 or more risk factors Troponin: </= normal limit HEART Score: 2 Critical Care Critical Care Time Critical Care Time: No Medical Decision Making Deny Inquiry Pt receiving controlled substance: Yes Deny was queried for this patient: Yes Risks and benefits of using a controlled substance: were discussed with pt by me Vital Signs Vital Signs: 08/16/24 09:41 08/16/24 09:56 08/16/24 10:00 Temperature 97.5 F L Temperature Source Oral Pulse Rate 87 83 Pulse Rate [Left Radial] 93 H Respiratory Rate 13 21 15 Blood Pressure 133/80 138/76 Blood Pressure [Right Arm] 125/82 Blood Pressure Mean [Right Arm] 96 02 Sat by Pulse Oximetry 96 88 L 90 L Oxygen Delivery Method Room Air Room Air Room Air Oxygen Flow Rate (LPM) 08/16/24 10:11 08/16/24 10:30 08/16/24 11:01 Temperature Temperature Source Pulse Rate 86 78 78 Pulse Rate [Left Radial] Respiratory Rate 18 17 15 Blood Pressure 138/86 143/79 H 136/74 Blood Pressure [Right Arm] Blood Pressure Mean [Right Arm] 02 Sat by Pulse Oximetry 98 93 L 94 L Oxygen Delivery Method Nasal Cannula Nasal Cannula Nasal Cannula Oxygen Flow Rate (LPM) 2 08/16/24 12:00 08/16/24 12:30 08/16/24 13:00 Temperature Temperature Source Pulse Rate 87 78 80 Pulse Rate [Left Radial] Respiratory Rate 16 12 17 Blood Pressure 130/84 144/80 H 133/84 Blood Pressure [Right Arm] Blood Pressure Mean [Right Arm] 02 Sat by Pulse Oximetry 95 94 L 93 L Oxygen Delivery Method Nasal Cannula Nasal Cannula Oxygen Flow Rate (LPM) 08/16/24 13:30 08/16/24 14:10 Temperature 97.9 F Temperature Source Pulse Rate 96 H 89 Pulse Rate [Left Radial] Respiratory Rate 15 18 Blood Pressure 143/96 H 143/96 H Blood Pressure [Right Arm] Blood Pressure Mean [Right Arm] 02 Sat by Pulse Oximetry 96 Oxygen Delivery Method Oxygen Flow Rate (LPM) Lab Data Labs: Lab Results 08/16/24 09:44: WBC 4.2 L, RBC 4.30 L, Hgb 13.4 L, Hct 40.1 L, MCV 93.3, MCH 31.1, MCHC 33.3, RDW 15.2, Plt Count 203, MPV 7.2 L, Neut % (Auto) 44.2, Lymph % (Auto) 42.9, [place] % (Auto) 8.6, Eos % (Auto) 2.9, Baso % (Auto) 1.4, Neut # (Auto) 1.9, Lymph # (Auto) 1.8, [place] # (Auto) 0.4, Eos # (Auto) 0.1, Baso # (Auto) 0.1, Sodium 138, Potassium 3.9, Chloride 105, Carbon Dioxide 22, Anion Gap 14.9, BUN 18, Creatinine 1.20, Estimated Creat Clear 88, Estimated GFR 65, Est GFR ( Amer) 79, Glucose 101 H, Calcium 9.1, Total Bilirubin 0.8, AST 72 H, ALT 55, Alkaline Phosphatase 70, Troponin I < 0.01, Total Protein 7.3, Albumin 4.5, Globulin 2.8, Albumin/Globulin Ratio 1.6, TSH 1.97, Thyroxine (T4) 6.7, HIV 1&2 Antibody Rapid Nonreactive 08/16/24 10:11: VBG pH 7.39, VBG pCO2 31.4 L, VBG pO2 107.6 H, VBG HCO3 18.7 L, VBG Total CO2 19.6 L, VBG O2 Saturation 97.0 H, VBG Base Excess -5.1 L, VBG Lactic Acid 2.5 H 08/16/24 10:33: SARS-CoV-2 (PCR) Not detected, Influenza A Untype (PCR) Not detected, Influenza Type B (PCR) Not detected 08/16/24 11:46: Urine Color Yellow, Urine Appearance Clear, Urine pH 6.0, Ur Specific [place] 1.010, Urine Protein Negative, Urine Glucose (UA) Negative, Urine Ketones Negative, Urine Blood Negative, Urine Nitrate Negative, Urine Bilirubin Negative, Urine Urobilinogen 0.2, Ur Leukocyte Esterase Negative, Urine RBC None, Urine WBC Occasional, Ur Squamous Epith Cells Occasional, Urine Bacteria Trace, Hyaline Casts Occ, Urine Opiates Screen Positive H, Urine Methadone Screen Negative, Ur Barbituates Screen Negative, Ur Phencyclidine Scrn Negative, Ur Amphetamines Screen Negative, U Benzodiazepines Scrn Negative, Urine Cocaine Screen Negative, U Marijuana (THC) Screen Negative 08/16/24 12:40: Troponin I < 0.01 08/16/24 09:44 08/16/24 09:44 Response Orders (Tests/Meds): ED MEDICATIONS Discontinued Medications Generic Name Dose Route Start Last Admin Trade Name Freq PRN Reason Stop Dose Admin Acetaminophen 1,000 mg 08/16/24 10:11 08/16/24 10:16 Acetaminophen 500mg Tab PO 08/16/24 10:12 1,000 mg ONCE ONE Administration Diazepam 5 mg 08/16/24 10:11 08/16/24 10:16 Diazepam 5mg Tablet PO 08/16/24 10:12 5 mg ONCE ONE Administration Iopamidol 150 ml 08/16/24 11:47 08/16/24 11:47 Iopamidol-370 (76%);100ml Bottle IV 08/16/24 11:48 150 ml ONCE ONE Administration Ketorolac Tromethamine 15 mg 08/16/24 10:11 08/16/24 10:16 Ketorolac 30mg/Ml Vial IV 08/16/24 10:12 15 mg ONCE ONE Administration Lidocaine 1 each 08/16/24 10:11 08/16/24 10:16 Lidocaine 5% Transdermal Patch TP 08/16/24 10:12 1 each ONCE ONE Administration Sodium Chloride 10 ml 08/16/24 11:47 08/16/24 11:47 Sodium Chloride 0.9% 10ml Syr (Rad Only) IV 08/16/24 11:48 10 ml ONCE ONE Administration Sodium Chloride 50 ml 08/16/24 11:47 08/16/24 11:47 0.9 % Sodium Chloride 50 Ml Vial IV 08/16/24 11:48 50 ml ONCE ONE Administration ORDERS Category Date Time Status CT angio chest PE protocol Stat Cat Scan 08/16/24 10:[address] angio head Stat Cat Scan 08/16/24 10:[address] angio neck Stat Cat Scan 08/16/24 10:[address] cervical spine wo con Stat Cat Scan 08/16/24 10:[address] head/brain wo con Stat Cat Scan 08/16/24 10:[address] thoracic spine wo con Stat Cat Scan 08/16/24 10:08 Completed CBC w/Auto Diff [Complete Blood Count Auto Diff] Stat Lab 08/16/24 09:44 Completed CMP [Comprehensive Metabolic Panel] Stat Lab 08/16/24 09:44 Completed HIV (1&2) Antibody Rapid Stat Lab 08/16/24 09:44 Completed Hep C Ab with Reflex to RNA Stat Lab 08/16/24 09:44 Received Rapid PCR Covid and Flu A/B Stat Lab 08/16/24 10:33 Completed T4 (Thyroxine) Stat Lab 08/16/24 09:44 Completed TSH [Thyroid Stimulating Hormone] Stat Lab 08/16/24 09:44 Completed Trop I [Troponin I] Stat Lab 08/16/24 09:44 Completed Troponin I Q3H Lab 08/16/24 12:40 Completed UA [Urinalysis and Microscopic] Stat Lab 08/16/24 11:46 Completed UDS [Drug Screen,Urine] Stat Lab 08/16/24 11:46 Completed VBG [Venous Blood Gas] Stat RT 08/16/24 10:11 Completed ECG Data Tracing #1: Attestation: I reviewed this ECG and interpreted as documented below: ECG Narrative: Normal sinus rhythm with first-degree AV block with a NJ interval of [address] changes concerning for ischemia. Left bundle branch block noted. No significant changes noted from prior EKG ECG initial impression date: 08/16/24 ECG initial impression time: 09:42 MDM Narrative Medical Decision Narrative: In summary, this patient is a 44-year-old male presenting to the Emergency Department for evaluation of severe neck pain, head pressure, chest pain, sensory deficits of his right arm and feet. Differential diagnoses considered include but are not limited to cervical stenosis, cervical disc herniation, aortic pathology, ACS, CVA. Ruling out the most morbid conditions drove assessment. It should be noted patient's history includes obesity, hypertension, cardiomyopathy which may or may not be at goal therapy. This complicates all aspects of care by increasing patient's risk for morbidity. I reviewed patient's past medical records and noted previous evaluations as an outpatient as well as in the ED for this neck pain. On exam, the patient is lying in bed and is very uncomfortable appearing. He is diaphoretic and rolling [id number] in bed trying to get comfortable. Workup included lab evaluation to evaluate for infectious, metabolic, cardiac causes of the patient's symptoms as well as CT head, CT angiogram chest, head, and neck, and CT cervical and thoracic spine. He was given oral Valium, IV Toradol, oral Tylenol, and a topical Lidoderm patch for symptomatic improvement. I independently interpreted CT scans prior to the radiologist read and noted no obvious acute fracture and no obvious vascular dissection. Please see their read for final interpretation. Labs were obtained that demonstrated no acutely concerning abnormalities at this time aside from mildly elevated AST. Troponins negative x 2. On reassessment, patient had fantastic improvement after administration of interventions above. He states that this medication worked a lot better than the medications that he had been trying at home, as the pain medication and gabapentin were not helping with his pain. I advised him that his CT scans are reassuring without acute pathology and that I feel that it is safe for him to continue to follow-up outpatient with spine and his primary care provider given that he has had improvement in his symptoms and has no focal neurologic deficits or symptoms on exam. He is able to ambulate without difficulty throughout the emergency department with no recurrence of numbness, tingling, or other concerns. He is in agreement with plan to go home. He has spine follow-up arranged on 08/28/2024. After shared decision-making, he is requesting prescriptions for the medications he was given here today because they helped him tremendously when compared to the gabapentin and hydrocodone. I advised him that I do not feel that it is safe to take Valium, hydrocodone, and gabapentin together as all of them can be sedating and can cause respiratory failure. He expressed understanding agreement and states that he would rather take the Valium and then these other medications because he did not get relief from them. I did give him a very brief prescription for this that we will hold him over until he can follow-up with his primary care provider and with spine. We discussed precautions extensively.. I also prescribed Toradol. At this time, patient was deemed to be appropriate for discharge home. He was given strict return precautions and was discharged after all questions were answered.
[2024-08-16 11:06] LABS: Albumin Level 4.5 g/dl (3.5-5.0); Chloride 105 mmol/L (98-107); Potassium 3.9 mmoL/L (3.5-5.1); Sodium 138 mmol/L (136-145)
[2024-08-16 11:09] LABS: Alanine Aminotransferase 55 U/L (12-78); Albumin/Globulin Ratio 1.6 (1.1-1.8); Alkaline Phosphatase 70 U/L (38-126); Anion Gap 14.9 mEq/L (5-15); Aspartate Amino Transferase 72 U/L (17-59); Bilirubin,Total 0.8 mg/dl (0.2-1.3); Blood Urea Nitrogen 18 mg/dl (9-20); Carbon Dioxide 22 mmol/L (22.0-30.0); Creatinine Clearance Estimated 88 mL/min (50-200); Estimated Glomerular Filt Rate 65 ml/min (>60); GFR (African American) 79 ML/MIN (>60); Globulin 2.8 g/dL (1.3-3.2); Total Protein,Serum 7.3 g/dl (6.3-8.2)
[2024-08-16 11:10] LABS: Calcium 9.1 mg/dl (8.4-10.2); Glucose 101 mg/dl (74-100)
[2024-08-16 11:18] LABS: HIV (1&2) Antibody Rapid NONREACTIVE (NONREACTIVE)
--- NOTE | 2024-08-16 11:22 | PC.NURSE ---
pt to CT via wheelchair
[2024-08-16 11:27] LABS: T4 (Thyroxine) 6.7 ug/dl (5.53-11.0)
[2024-08-16 11:29] LABS: Troponin I < 0.01 ng/ml (0.00-0.034)
[2024-08-16 11:40] LABS: Thyroid Stimulating Hormone 1.97 uIU/mL (0.465-4.68)
--- NOTE | 2024-08-16 11:42 | PC.NURSE ---
pt back from ct
[2024-08-16] MEDS: 0.9 % SODIUM CHLORIDE 50 ML VIAL IV (11:47)
[2024-08-16] MEDS: SODIUM CHLORIDE 0.9% 10ML SYR (RAD ONLY) 10 ML IV (11:47)
[2024-08-16] MEDS: IOPAMIDOL-370 (76%);100ML BOTTLE 150 ML IV (11:47)
--- NOTE | 2024-08-16 11:48 | PC.NURSE ---
UA sent to lab at 0841
[2024-08-16 12:00] LABS: Microscopic, Urine URINE MICROSCOPIC (MICROSCOPIC)
[2024-08-16 12:15] LABS: Appearance,Urine CLEAR (Clear); Bilirubin,Urine Negative (Negative); Blood, Urine Negative (Negative); Color,Urine YELLOW (Yellow); Glucose,Urine (UA) Negative (Negative); Ketones,Urine Negative (Negative); Leukocyte Esterase,Urine Negative (Negative); Nitrate,Urine Negative (Negative); Protein,Urine Negative (Negative); Urobilinogen,Urine 0.2 EU/dl (0.2)
[2024-08-16 12:25] LABS: Bacteria,Urine Trace /lpf; Hyaline Casts,Urine OCC #/lpf (0); Squamous Epithelial Cell,Urine Occasional #/hpf (0-5); WBC,Urine Occasional #/hpf (0-3)
[2024-08-16 12:28] LABS: Barbiturates Screen,Urine Negative ng/ml (<200)
[2024-08-16 12:29] LABS: Benzodiazepines Screen,Urine Negative ng/ml (<200)
[2024-08-16 12:30] LABS: Amphetamine/Metha Screen,Urine Negative ng/ml (<1000); Cannabinoid Screen,Urine Negative ng/ml (<50)
[2024-08-16 12:31] LABS: Cocaine Screen,Urine Negative ng/ml (<300); Methadone Screen,Urine Negative ng/ml (<300)
[2024-08-16 12:32] LABS: Opiate Screen,Urine Positive ng/ml (<300)
[2024-08-16 12:33] LABS: Phencyclidine Screen,Urine Negative ng/ml (<25)
[2024-08-16 13:16] LABS: Troponin I < 0.01 ng/ml (0.00-0.034)
[2024-08-16 14:31] LABS: Reflex Lactic Add Lactic Reflex
[2024-08-18 05:09] LABS: HCV Ab Non Reactive (Non Reactive)
== END 2024-08-16 14:15 | disposition home or self-care (01) ==
PROVIDERS: Emergency Provider Emergency Medicine
DX: M47.22 Other spondylosis with radiculopathy, cervical region (principal); R07.9 Chest pain, unspecified; M54.2 Cervicalgia; R51.9 Headache, unspecified; F44.9 Dissociative and conversion disorder, unspecified
CPT/HCPCS: 96374; 70450; 70496; 70498; 71275; 72125; 72128; 80053; 80307; 81001; 82803; 84436; 84443; 84484; 85025; 86803; 87389; 87636; 93005; 99285; J1885; Q9967

== ENCOUNTER 2024-08-31 13:58 | Outpatient (POV) | payer BC, SELFPAY ==
[2024-08-31 15:13] VITALS: BP 149/84; PULSE 87; RESP 18; O2SAT 95; BMI 45.5
--- NOTE | 2024-08-31 15:24 | EXP.PAIN.OV ---
HPI Data of Consult Patient: new to practice Consult date: 08/31/24 Requesting Physician: Natty Healy APRN Primary Care Provider: Trixie Yan APRN Consult Narrative Reason for consult: Neck pain, bilateral arm numbness tingling, low back pain, bilateral lower History of present illness: Mr. Salazar is a 44 year old male who presents today as a new patient. He is a referral from Shahriar Rizo's office. Today he rates his pain a 10 out of 10. Patient states his pain is in multiple areas however does state that his neck is the worst. He states that this started about 2 months ago unrelated to any trauma or injury. He states the pain was severe and he could barely move. Patient states that it is a constant aching, throbbing sensation with stiffness and now numbness that radiates down both of his extremities. Patient states that he has tried oral medications including baclofen, Lortab, meloxicam, Lyrica, Toradol injection and orals as well as oral and IM steroids with minimal relief. Patient has stated that ice seems to provide temporary relief along with a TENS unit. Patient has tried at home exercising and stretching for longer than 8 weeks. Patient did go to to see neurosurgery and saw one of the advanced providers however after she reviewed the MRI from [facility] said that he needed to be seen by the actual physician. Patient states that he is scheduled to see this provider tomorrow. Patient is interested in injection therapy. He states that any little thing he does causes severe pain and disability. He does state that pain is interfering with his ability perform activities of daily living such as cooking and cleaning. Patient does state that the MRI did show nerve impingement at what he thought was around C3-C4 but that he did have findings all the way from C2 down. He is currently prescribed diazepam, Howard and pregabalin from his PCP. His Deny has been reviewed and is appropriate. CC: Natty Healy APRN [facility] Disclaimer: The information contained in this section may have been updated after the patient was seen, as this information can be updated by other users. Medical History Pleurisy Chest pain (HFpEF) heart failure with preserved ejection fraction Chest pain Abdominal pain Fall Acute pain of right hip Palpitations TIRSO (obstructive sleep apnea) Moderate positional TIRSO diagnosed in 2019, compliant on CPAP without evidence of hypoxemia with significant improvement prior to initial eval after changing medications (PCP and cardiology) Hypotension Nonischemic cardiomyopathy Alcohol withdrawal Near syncope Angina pectoris Chest pain Numbness and tingling in both hands Vertigo Sprain of foot, right Laceration of blood vessel of left middle finger Elevated LFTs Congestive heart failure History of cocaine use Alcoholism Since the age of 14, last drink 04/15/2023 Cardiomyopathy Weight gain Neck pain Edema Anxiety Hyperlipidemia Hypertension COVID-19 Heel pain, bilateral Callus of foot Keratosis Acquired hammertoes of both feet Acquired hallux valgus of both feet Acquired equinus deformity of both feet Pain in both feet Acquired pes planus of both feet Metatarsalgia of both feet Plantar fasciitis Alcohol abuse Surgical History History of right hip replacement History of cholecystectomy History of cardiac catheterization Family History Other Family history of hypertension Family history of myocardial infarction Social History (Updated 08/31/24 @ 15:14 by Mili Rouse RN) Smoking Status: Never smoker second hand exposure: No alcohol intake: current alcohol intake frequency: 3 or more drinks per day counseling given: No substance use type: denies use counseling given: No current occupational status: employed Travel in the last 8 weeks: None household members: spouse housing: house lives independently: Yes marital status: number of children: 0 education level: high school 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 [employer] Recent Travel: No sexually active: Yes caffeine: No physical activity: none blane/confucianism: Holiness working smoke detector in home: Yes fire extinguisher in home: Yes carbon monox detector in home: Yes firearms in home: Yes do you feel safe at home: Yes victim of physical abuse: No victim of emotional abuse: No victim of sexual abuse: No would you like helpful sources: No Review of Systems Review of Systems Review of systems:: pertinent systems reviewed and negative unless documented below Review of systems (narrative): Review of Systems: General: No recent weight changes, no fever, no sleep disturbances Respiratory: No cough, no shortness of air, no recurring pulmonary infections Cardiovascular/peripheral vascular: No chest pain, no palpitations, no edema, no shortness of breath Gastrointestinal: No new onset incontinence, normal bowel movements reported Genitourinary: No new onset incontinence Musculoskeletal: Neck pain, bilateral arm/hand/finger numbness tingling, low back pain, bilateral lower extremity numbness Psychiatric: [Normal mood/affect] Neurological: [Denies weakness in extremities], [denies balance issues] Meds Home Medications and Allergies Home Medications ?Medication ?Instructions ?Recorded ?Confirmed ?Type buspirone 15 mg tablet 15 mg PO BID #180 tabs 11/21/23 08/31/24 Rx citalopram 40 mg tablet 40 mg PO DAILY Mood #90 tabs 11/21/23 08/31/24 Rx fenofibrate 54 mg tablet 54 mg PO DAILY Cholesterol #90 tabs 11/21/23 08/31/24 Rx carvedilol phosphate 80 mg 80 mg PO DAILY High Blood Pressure 11/22/23 08/31/24 Rx capsule,[id number] multiphase #90 caps valsartan 80 mg tablet 80 mg PO DAILY High Blood Pressure 03/06/24 08/31/24 Rx #90 tabs triamcinolone acetonide 0.1 % 1 applic topical BID #30 grams 04/13/24 08/31/24 Rx topical cream omeprazole 40 mg capsule,delayed See Rx Instructions .Route 05/19/24 08/31/24 Rx release .COMPLEX #90 caps evolocumab 140 mg/mL subcutaneous 140 mg SQ Q2W #2 mL 07/24/24 08/31/24 Rx pen injector (Sameer Bradshaw) naloxone 4 mg/actuation nasal spray 4 mg intranasal DIRECTED OVER 08/14/24 08/31/24 History SEDATION valacyclovir 1 gram tablet 1,000 mg PO Q8H 10 days #30 tabs 08/14/24 08/31/24 Rx (Valtrex) diazepam 5 mg tablet (Valium) 5 mg PO Q8H PRN muscle spasm #10 08/16/24 08/31/24 Rx tabs ketorolac 10 mg tablet 10 mg PO Q8H PRN pain 3 days #10 08/19/24 08/31/24 Rx tabs methocarbamol 750 mg tablet 750 mg PO Q4H #180 tabs 08/19/24 08/31/24 Rx pregabalin 75 mg capsule 75 mg PO BID #60 caps 08/19/24 08/31/24 Rx hydrocodone 7.5 mg-acetaminophen 1 tab PO Q4-6H PRN pain #30 tabs 08/28/24 08/31/24 Rx 325 mg tablet New Prescriptions to Start Prescriptions: Allergies Allergy/AdvReac Type Severity Reaction Status Date / Time morphine [MORPHINE] Allergy Unknown I-ITCHING Verified 08/19/24 14:23 semaglutide AdvReac Severe Pancreatiti Verified 08/19/24 14:23 s [id number] Reductase AdvReac Severe MUSCLE Verified 08/19/24 14:23 Inhibitor CRAMPING/PAIN pravastatin AdvReac Intermediate myalgia Verified 08/19/24 14:23 lipitor AdvReac Intermediate myalgia Uncoded 08/19/24 14:23 vascepa AdvReac Mild myalgia Uncoded 08/19/24 14:23 Objective Narrative: Physical Exam: General: Alert and oriented x3, no acute distress, pleasant and cooperative Lungs: Respirations even and unlabored, symmetrical chest expansion Eyes: PERRL Musculoskeletal: Flexion and extension of cervical [spine] somewhat guarded secondary to pain, [antalgic gait noted] positive Spurling's test Neurological: Speech clear, no gross sensory deficit Assessment and Plan *Assessment and plan (1) Cervical radiculopathy due to degenerative joint disease of spine: Status: Acute Category: Medical Code(s): M47.22 - Other spondylosis with radiculopathy, cervical region (2) Foraminal stenosis of cervical region: Status: Acute Category: Medical Code(s): M48.02 - Spinal stenosis, cervical region (3) Degenerative cervical disc: Status: Acute Category: Medical Code(s): M50.30 - Other cervical disc degeneration, unspecified cervical region Plan Patient is experiencing significant pain throughout his neck with radiating symptoms into his upper extremities. Patient did have limited range of motion of his cervical spine with a positive Spurling's test. I did discuss with the patient that I do believe he would benefit from a cervical epidural steroid injection. Risk and benefits were discussed with the patient and he would like to proceed forward with this plan of care. Patient has tried and failed conservative therapy including continued at home stretching exercise for longer than 8 weeks. Patient was counseled that the steroid injection may interfere with surgical intervention of his cervical spine and that I do recommend he discuss this with the doctor he sees tomorrow. Patient acknowledges understanding agrees with this plan of care. Patient will be scheduled for a RAJESH C5-C6 under fluoroscopy. Patient has been instructed to contact the clinic with any concerns before the next appointment. Dr. Rai has reviewed this note and agrees with this plan of care. This note was dictated using voice recognition software and make contain errors or omissions. All injections are used with Lidocaine or Bupivacaine and Depo Medrol.
== END 2024-08-31 23:59 | disposition home or self-care (01) ==
LOC: SC.PAIN 13:58
PROVIDERS: PCP Nurse Practitioner Family; Visit Provider Nurse Practitioner Family
DX: M47.22 Other spondylosis with radiculopathy, cervical region (principal); M48.02 Spinal stenosis, cervical region; M50.30 Other cervical disc degeneration, unspecified cervical region; Z73.89 Other problems related to life management difficulty
CPT/HCPCS: 99202; G0463

== ENCOUNTER 2024-09-16 14:33 | Outpatient (CLI) | payer BC, SELFPAY ==
[2024-09-16 14:58] LABS: Basophils # 0.1 K/mm3 (0-0.2); Basophils % 2.6 % (0.1-2.0); Eosinophils # 0.2 K/mm3 (0.0-0.4); Eosinophils % 5.6 % (0.1-12.0); Hematocrit 37.2 % (42.0-52.0); Hemoglobin 12.9 g/dL (14.1-18.0); Lymphocytes % 27.2 % (10-50); Mean Corpuscular HGB Conc 34.7 g/dL (31.8-35.4); Mean Corpuscular Hemoglobin 32.6 pg (27.0-31.2); Mean Platelet Volume 7.9 fl (7.4-10.4); Monocytes # 0.5 K/mm3 (0.1-1.0); Monocytes % 13.4 % (1.7-9.3); Neutrophils # 1.9 K/mm3 (1.8-7.8); Neutrophils % 51.2 % (37.0-80.0); Platelet Count 222 K/mm3 (142-424); Red Blood Count 3.96 M/mm3 (4.60-6.20); Red Cell Distribution Width 14.9 % (11.5-17.5); White Blood Count 3.7 K/mm3 (4.8-10.8)
[2024-09-16 15:12] LABS: Hemoglobin A1C 5.4 % (4.0-6.0)
[2024-09-16 15:15] LABS: Alanine Aminotransferase 108 U/L (12-78); Albumin Level 4.1 g/dl (3.5-5.0); Albumin/Globulin Ratio 1.8 (1.1-1.8); Alkaline Phosphatase 64 U/L (38-126); Aspartate Amino Transferase 106 U/L (17-59); Bilirubin,Total 0.6 mg/dl (0.2-1.3); Blood Urea Nitrogen 10 mg/dl (9-20); Calcium 9.8 mg/dl (8.4-10.2); Carbon Dioxide 26 mmol/L (22.0-30.0); Chloride 97 mmol/L (98-107); Estimated Glomerular Filt Rate 72 ml/min (>60); GFR (African American) 88 ML/MIN (>60); Globulin 2.3 g/dL (1.3-3.2); Glucose 107 mg/dl (74-100); Magnesium 1.8 mg/dl (1.6-2.3); Sodium 132 mmol/L (136-145); Total Protein,Serum 6.4 g/dl (6.3-8.2)
[2024-09-16 15:20] LABS: C-Reactive Protein 1.3 mg/L (0-4)
[2024-09-16 15:46] LABS: Thyroid Stimulating Hormone 2.51 uIU/mL (0.465-4.68)
[2024-09-16 15:50] LABS: Ferritin 291 ng/ml (17.9-464)
[2024-09-16 16:05] LABS: Vitamin B12 984 pg/mL (239-931)
[2024-09-20 00:09] LABS: Vitamin B1 72.6 nmol/L (66.5-200.0)
[2024-09-20 18:39] LABS: Vitamin B6 9.2 ug/L (3.4-65.2)
== END 2024-09-16 23:59 | disposition home or self-care (01) ==
LOC: LAB 14:34
PROVIDERS: PCP Nurse Practitioner Family; Visit Provider Nurse Practitioner Family
DX: R29.898 Other symptoms and signs involving the musculoskeletal system (principal); R51.9 Headache, unspecified; F10.10 Alcohol abuse, uncomplicated; R73.03 Prediabetes
CPT/HCPCS: 36415; 80050; 80053; 82607; 82728; 83036; 83735; 84207; 84425; 84443; 85025; 86140

== ENCOUNTER 2024-09-22 14:00 | Day surgery (SDC) | payer BC, SELFPAY ==
[2024-09-22 14:12] VITALS: BP 119/69; PULSE 76; RESP 16; TEMP 36.5; O2SAT 97; BMI 44.1
[2024-09-22] MEDS: methylPREDNISolone ACETATE 80MG/ML VIAL 80 MG (14:38)
[2024-09-22 14:39] VITALS: BP 125/83; PULSE 100; RESP 18; O2SAT 96
[2024-09-22 14:40] VITALS: BP 125/83; PULSE 100; RESP 18; O2SAT 96
[2024-09-22] MEDS: IOPAMIDOL-200 (41%);10ML VIAL 10 ML IV (14:41)
[2024-09-22 14:50] VITALS: BP 116/66; PULSE 98; RESP 16; O2SAT 97
--- NOTE | 2024-09-22 14:50 | P.PCN_ITS ---
Procedure Date: 09/22/24 Time: 14:40 Anesthesiologist:: Pato Gibbs CRNA Complications:: None Pre-procedure Diagnosis:: Degenerative disc cervical spine multilevels. Cervical radiculopathy. Post-procedure Diagnosis:: Same. Indications for Procedure:: Patient is a very pleasant 44-year-old male who comes our clinic today for cervical epidural steroid injection. Patient describes cervical neck pain as constant, dull, aching. Patient also reports bilateral arm radicular symptoms. He rates his pain 7/10. Procedure Details:: Procedure:Cervical epidural steroid injection Informed consent was obtained and the risks and benefits of the procedure were explained to the patient. The patient was taken to the procedure room and noninvasive monitors placed, including noninvasive blood pressure cuff and pulse oximeter. The neck was prepped using Chloraprep as a cleansing solution. The C6- C7 interspace was viewed using fluroscopy. The skin and subcutaneous tissues were anesthetized using lidocaine 1.5% and a 25-gauge needle. After this an 18- gauge Touhy epidural needle was placed into the C6-C7 interspace under fluroscopy guidance and advanced using loss of resistance to air until the epidural space was encountered. After confirmation of needle placement in the epidural space using contrast dye, a solution containing normal saline, 2 mL and Depo-Medrol 80 mg was incrementally injected into the cervical epidural space.~ The patient tolerated the procedure well with no complications. The patient was observed in the Pain Clinic and then discharged home neurologically intact. Plan and Disposition:: Patient was discharged without incident.
== END 2024-09-22 14:50 | disposition home or self-care (01) ==
PROVIDERS: PCP Nurse Practitioner Family; Visit Provider Nurse Anesthetist, Certified Registered
DX: M50.30 Other cervical disc degeneration, unspecified cervical region (principal); M54.12 Radiculopathy, cervical region
CPT/HCPCS: 62321; J1010; Q9966

== ENCOUNTER 2024-09-29 08:23 | Outpatient (CLI) | payer BC, SELFPAY ==
--- NOTE | 2024-09-29 08:26 | US_ITS ---
FINAL REPORT TECHNIQUE: Sonographic images of the right upper quadrant were obtained. CLINICAL HISTORY: Elevated liver enzymes COMPARISON: None FINDINGS: PANCREAS: Unremarkable. LIVER: Enlarged, with increased echogenicity consistent with fatty infiltration.. No focal hepatic lesion. No intrahepatic biliary ductal dilatation. GALLBLADDER: Has been surgically resected.. . COMMON DUCT: 4 mm. Normal for age. RIGHT KIDNEY: The right kidney measures 9.8 cm. There is no hydronephrosis, mass, or stone. FREE FLUID: None. IMPRESSION: Prior cholecystectomy. Enlarged liver with fatty infiltration. Reviewed, Interpreted and Dictated by Yocasta Adams MD Transcribed by Dalia Justin Authenticated and [facility]
== END 2024-09-29 23:59 | disposition home or self-care (01) ==
LOC: RAD 08:24
PROVIDERS: PCP Nurse Practitioner Family; Visit Provider Nurse Practitioner Family
DX: R74.8 Abnormal levels of other serum enzymes (principal)
CPT/HCPCS: 76705

== ENCOUNTER 2024-10-12 13:06 | Outpatient (POV) | payer BC, SELFPAY ==
--- NOTE | 2024-10-12 13:37 | A.OFFVIS_ITS ---
[facility] Disclaimer: The information contained in this section may have been updated after the patient was seen, as this information can be updated by other users. Medical History (HFpEF) heart failure with preserved ejection fraction Abdominal pain Acquired equinus deformity of both feet Acquired hallux valgus of both feet Acquired hammertoes of both feet Acquired pes planus of both feet Acute pain of right hip Alcohol abuse Alcohol withdrawal Alcoholism Since the age of 14, last drink 04/15/2023 Angina pectoris Anxiety Callus of foot Cardiomyopathy Chest pain Chest pain Chest pain Congestive heart failure COVID-19 Edema Elevated LFTs Fall Heel pain, bilateral History of cocaine use Hyperlipidemia Hypertension Hypotension Keratosis Laceration of blood vessel of left middle finger Metatarsalgia of both feet Near syncope Neck pain Nonischemic cardiomyopathy Numbness and tingling in both hands TIRSO (obstructive sleep apnea) Moderate positional TIRSO diagnosed in 2019, compliant on CPAP without evidence of hypoxemia with significant improvement prior to initial eval after changing medications (PCP and cardiology) Pain in both feet Palpitations Plantar fasciitis Pleurisy Sprain of foot, right Vertigo Weight gain Surgical History History of cardiac catheterization History of cholecystectomy History of right hip replacement Family History Other Family history of hypertension Family history of myocardial infarction Social History Smoking Status: Never smoker second hand exposure: No alcohol intake: current alcohol intake frequency: 3 or more drinks per day counseling given: No substance use type: denies use counseling given: No current occupational status: employed Travel in the last 8 weeks: None household members: spouse housing: house lives independently: Yes marital status: number of children: 0 education level: high school 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 Today he rates his pain a 4-5 out of 10. He denies any new trauma or injury. Patient does state that the day of this procedure he did get approximately 75% improvement however it was very short-lived and once the numbing medication wore off the pain did return. Patient states that he continues to have the chronic pain throughout his neck and does have very limited range of motion overall. Patient does state that he has a lot of trouble turning his head [id number] or bending up and down due to the pain. Patient states this does cause significant difficulty when he is driving or when he was working more and going between his computer screens. Patient does state the pain interferes with his ability perform activities of daily living such as cooking and cleaning. Patient is still going to physical therapy and states it does provide temporary relief and that the traction does help. Patient has continued his at home stretching and exercise regimen that was physician guided along with a TENS unit and ice. Patient did see Dr. Lalito Healy and he was wanting him to proceed forward with conservative therapy of injections before proceeding forward with surgery. Patient is currently on pregabalin 50 mg 3 times a day from his PCP. He does state that right now he takes it more like twice a day and it does seem to help and he takes the third tablet if he ends up having worsening pain. His Deny has been reviewed and is appropriate. Review of Systems: General: No recent weight changes, no fever, no sleep disturbances Respiratory: No cough, no shortness of air, no recurring pulmonary infections Cardiovascular/peripheral vascular: No chest pain, no palpitations, no edema, no shortness of breath Gastrointestinal: No new onset incontinence, normal bowel movements reported Genitourinary: No new onset incontinence Musculoskeletal: Neck pain Psychiatric: [Normal mood/affect] Neurological: [Denies weakness in extremities], [denies balance issues] Pain at rest (0-10 scale): 5 Objective Objective:: Physical Exam: General: Alert and oriented x3, no acute distress, pleasant and cooperative Lungs: Respirations even and unlabored, symmetrical chest expansion Eyes: PERRL Musculoskeletal: Flexion and extension of cervical [spine] somewhat guarded secondary to pain, [antalgic gait noted] positive Kemps test Neurological: Speech clear, no gross sensory deficit Has patient had previous pain injection?: Yes Percent improvement in pain since last injection: 75% Conservative treatment options previously tried: Home exercise plan Length of treatment: Longer than 12 weeks and Physical Therapy Length of treatment: Ongoing Meds Home Medications and Allergies Home Medications ?Medication ?Instructions ?Recorded ?Confirmed ?Type buspirone 15 mg tablet 15 mg PO BID #180 tabs 11/21/23 09/29/24 Rx citalopram 40 mg tablet 40 mg PO DAILY Mood #90 tabs 11/21/23 09/29/24 Rx fenofibrate 54 mg tablet 54 mg PO DAILY Cholesterol #90 tabs 11/21/23 09/29/24 Rx carvedilol phosphate 80 mg 80 mg PO DAILY High Blood Pressure 11/22/23 09/29/24 Rx capsule,[id number] multiphase #90 caps valsartan 80 mg tablet 80 mg PO DAILY High Blood Pressure 03/06/24 09/29/24 Rx #90 tabs triamcinolone acetonide 0.1 % 1 applic topical BID #30 grams 04/13/24 09/29/24 Rx topical cream omeprazole 40 mg capsule,delayed See Rx Instructions .Route 05/19/24 09/29/24 Rx release .COMPLEX #90 caps evolocumab 140 mg/mL subcutaneous 140 mg SQ Q2W #2 mL 07/24/24 09/29/24 Rx pen injector (Sameer Bradshaw) ondansetron 4 mg disintegrating 4 mg PO . PRN . 09/02/24 09/29/24 History tablet promethazine 25 mg tablet 25 mg PO Q6H PRN nausea and 09/02/24 09/29/24 Rx vomiting #30 tabs hydrocortisone acetate 25 mg 25 mg CO BID PRN hemorrhoids 12 09/29/24 09/29/24 Rx rectal suppository (Anusol-HC) days #12 ea pregabalin 50 mg capsule 50 mg PO Q8H #90 caps 09/29/24 09/29/24 Rx New Prescriptions to Start Prescriptions: Allergies Allergy/AdvReac Type Severity Reaction Status Date / Time morphine (MORPHINE) Allergy Unknown I-ITCHING Verified 09/29/24 14:28 semaglutide AdvReac Severe Pancreatiti Verified 09/29/24 14:28 s [id number] Reductase AdvReac Severe MUSCLE Verified 09/29/24 14:28 Inhibitor CRAMPING/PAIN pravastatin AdvReac Intermediate myalgia Verified 09/29/24 14:28 lipitor AdvReac Intermediate myalgia Uncoded 09/29/24 14:28 vascepa AdvReac Mild myalgia Uncoded 09/29/24 14:28 Assessment and Plan *Assessment and plan (1) Cervical spinal stenosis: Status: Acute Category: Medical Code(s): M48.02 - Spinal stenosis, cervical region (2) Cervical spondylosis: Status: Acute Category: Medical Code(s): M47.812 - Spondylosis without myelopathy or radiculopathy, cervical region Plan Patient is experiencing significant pain throughout his neck with very limited range of motion. Patient did have limited range of motion of his cervical spine with a positive Kemps test. I did discuss with patient that he may benefit from a cervical medial branch block. Risk and benefits were discussed with the patient and he would like to proceed forward with this plan of care. Patient has tried and failed conservative therapy including continued at home stretching exercise for longer than 12 weeks and current ongoing physical therapy. I did discuss with patient if he has significant relief with this block and we will plan on repeating it at a later date to proceed forward with a cervical RFA in future. Patient will be scheduled for a cervical medial branch block bilaterally C3-C4 and C4-C5 under fluoroscopy. I will also order the patient a compounded cream. Patient has been instructed to contact the clinic with any concerns before the next appointment. Dr. Rai has reviewed this note and agrees with this plan of care. This note was dictated using voice recognition software and make contain errors or omissions. All injections are used with Lidocaine or Bupivacaine and Depo Medrol.
[2024-10-12 14:35] VITALS: BP 124/80; PULSE 59; RESP 14; O2SAT 98; BMI 44.1
== END 2024-10-12 23:59 | disposition home or self-care (01) ==
LOC: SC.PAIN 13:07
PROVIDERS: PCP Nurse Practitioner Family; Visit Provider Nurse Practitioner Family
DX: M48.02 Spinal stenosis, cervical region (principal); M47.812 Spondylosis without myelopathy or radiculopathy, cervical region; Z73.89 Other problems related to life management difficulty
CPT/HCPCS: 99212; G0463

== ENCOUNTER 2024-10-22 14:00 | Outpatient (RCR) | payer BC, SELFPAY | END 2024-10-22 23:59 | disposition home or self-care (01) | LOC: PT 14:00 | PROVIDERS: PCP Nurse Practitioner Family; Visit Provider Orthopaedic Surgery | DX: M50.21 Other cervical disc displacement, high cervical region (principal) | CPT/HCPCS: 97010; 97012; 97014; 97016; 97035; 97110; 97163; 97164; G0283 ==

== ENCOUNTER 2024-10-22 14:59 | Outpatient (CLI) | payer BC, SELFPAY ==
[2024-10-22 15:44] LABS: Eosinophils % 3.6 % (0.1-12.0); Hematocrit 36.8 % (42.0-52.0); Hemoglobin 12.1 g/dL (14.1-18.0); Lymphocytes % 39.9 % (10-50); Mean Corpuscular HGB Conc 32.9 g/dL (31.8-35.4); Mean Corpuscular Hemoglobin 32.2 pg (27.0-31.2); Mean Corpuscular Volume 97.9 fl (80-94); Mean Platelet Volume 9.2 fl (7.4-10.4); Monocytes % 15.3 % (1.7-9.3); Neutrophils % 39.6 % (37.0-80.0); Platelet Count 173 K/mm3 (142-424); Red Blood Count 3.76 M/mm3 (4.60-6.20); Red Cell Distribution Width 15.9 % (11.5-17.5); White Blood Count 2.5 K/mm3 (4.8-10.8)
[2024-10-22 15:45] LABS: Basophils % 1.2 % (0.1-2.0); Eosinophils # 0.1 K/mm3 (0.0-0.4); Monocytes # 0.4 K/mm3 (0.1-1.0)
[2024-10-22 17:00] LABS: Alanine Aminotransferase 55 U/L (12-78); Albumin Level 4.3 g/dl (3.5-5.0); Albumin/Globulin Ratio 1.8 (1.1-1.8); Alkaline Phosphatase 56 U/L (38-126); Anion Gap 11.4 mEq/L (5-15); Aspartate Amino Transferase 57 U/L (17-59); Bilirubin,Total 0.8 mg/dl (0.2-1.3); Blood Urea Nitrogen 14 mg/dl (9-20); Calcium 9.5 mg/dl (8.4-10.2); Carbon Dioxide 22 mmol/L (22.0-30.0); Chloride 111 mmol/L (98-107); Estimated Glomerular Filt Rate 91 ml/min (>60); GFR (African American) 110 ML/MIN (>60); Globulin 2.4 g/dL (1.3-3.2); Glucose 102 mg/dl (74-100); Magnesium 1.8 mg/dl (1.6-2.3); Potassium 4.4 mmoL/L (3.5-5.1); Sodium 140 mmol/L (136-145); Total Protein,Serum 6.7 g/dl (6.3-8.2)
[2024-10-22 17:30] LABS: Thyroid Stimulating Hormone 1.16 uIU/mL (0.465-4.68)
[2024-10-22 17:53] LABS: Vitamin B12 > 1000 pg/mL (239-931)
[2024-10-25 09:35] LABS: Peripheral Smear Review Scanned Result
[2024-10-26 22:31] LABS: Vitamin B6 19.7 ug/L (3.4-65.2)
[2024-10-26 23:07] LABS: ALT (SGPT) P5P 51 IU/L (0-55); AST (SGOT) P5P 43 IU/L (0-40); Alpha 2-Macroglobulins, Qn 155 mg/dL (110-276); Apolipoprotein A-1 295 mg/dL (101-178); Bilirubin, Total 0.1 mg/dL (0.0-1.2); Cholesterol, Total 248 mg/dL (100-199); GGT 238 IU/L (0-65); Glucose 106 mg/dL (70-99); Haptoglobin 121 mg/dL (23-355); Triglycerides 136 mg/dL (0-149)
[2024-10-29 09:38] LABS: Vitamin B1 95.6 nmol/L (66.5-200.0)
== END 2024-10-22 23:59 | disposition home or self-care (01) ==
LOC: LAB 15:00
PROVIDERS: PCP Nurse Practitioner Family; Visit Provider Internal Medicine Gastroenterology
DX: R74.01 Elevation of levels of liver transaminase levels (principal); K76.0 Fatty (change of) liver, not elsewhere classified; R20.0 Anesthesia of skin; R20.2 Paresthesia of skin; I10 Essential (primary) hypertension; E78.5 Hyperlipidemia, unspecified; R29.898 Other symptoms and signs involving the musculoskeletal system; D72.819 Decreased white blood cell count, unspecified
CPT/HCPCS: 80050; 80053; 82607; 83735; 84207; 84425; 84443; 85025

== ENCOUNTER 2024-11-02 16:02 | Observation (INO) | payer BC, SELFPAY ==
[2024-11-02] VITALS (9 sets, daily range): BP systolic 105–143; BP diastolic 67–80; PULSE 58–100; RESP 14–20; TEMP 36.7–36.9; O2SAT 96–97; BMI 45.5; BMI 44.1
--- NOTE | 2024-11-02 16:09 | ED_ITS ---
Discharge Plan Disposition Patient Disposition: Admitted Condition: Serious Clinical Impressions Clinical Impression: Atrial fibrillation with RVR, COVID-19, Acute exacerbation of CHF (congestive heart failure) Discharge ED Provider: Loki Cam General Adult HPI <AAMIR Finn - Last Filed: 11/02/24 19:44> General Chief complaint: Arrhythmia/Palpitations Stated complaint: A Fib,Possible Covid Time Seen by Provider: 11/02/24 16:09 History of Present Illness HPI narrative: Patient presents from his PCPs office for A-fib RVR. Patient had a routine follow-up scheduled today for his chronic neck pain. He was noted to be in atrial fibrillation with rapid ventricular response and was sent to the ER for evaluation. Patient does have a past medical history of alcohol abuse known for drinking 1/5 of whiskey a day. He has self DC'd since Saturday. Patient denies any withdrawal symptoms and is currently CIWA of 0. He does report that his significant other has been diagnosed with COVID and he is having similar symptoms of cough that is nonproductive along with congestion and headache. He denies any fever chills hemoptysis hematochezia melena nausea vomiting diarrhea increased work of breathing subjective shortness of breath. Patient has noted for the past 2 days he is felt when he is trying to go to sleep that he has a rapid heart rate. He does have a history of nonischemic cardiomyopathy and has had a cardiac MRI as well as a heart cath and his last known ejection fraction from that was 65%. Related Data Home Medications ?Medication ?Instructions ?Recorded ?Confirmed ondansetron 4 mg disintegrating 4 mg PO . PRN . 09/02/24 11/02/24 tablet Previous Rx's ?Medication ?Instructions ?Recorded buspirone 15 mg tablet 15 mg PO BID #180 tabs 11/21/23 citalopram 40 mg tablet 40 mg PO DAILY Mood #90 tabs 11/21/23 fenofibrate 54 mg tablet 54 mg PO DAILY Cholesterol #90 tabs 11/21/23 carvedilol phosphate 80 mg 80 mg PO DAILY High Blood Pressure 11/22/23 capsule,[id number] multiphase #90 caps valsartan 80 mg tablet 80 mg PO DAILY High Blood Pressure 03/06/24 #90 tabs triamcinolone acetonide 0.1 % 1 applic topical BID #30 grams 04/13/24 topical cream omeprazole 40 mg capsule,delayed See Rx Instructions .Route 05/19/24 release .COMPLEX #90 caps evolocumab 140 mg/mL subcutaneous 140 mg SQ Q2W #2 mL 07/24/24 pen injector (Sameer Bradshaw) promethazine 25 mg tablet 25 mg PO Q6H PRN nausea and 09/02/24 vomiting #30 tabs hydrocortisone acetate 25 mg 25 mg FL BID PRN hemorrhoids 12 09/29/24 rectal suppository (Anusol-HC) days #12 ea pregabalin 50 mg capsule 50 mg PO Q8H #90 caps 09/29/24 Allergies Allergy/AdvReac Type Severity Reaction Status Date / Time morphine (MORPHINE) Allergy Unknown I-ITCHING Verified 11/02/24 15:00 semaglutide AdvReac Severe Pancreatiti Verified 11/02/24 15:00 s [id number] Reductase AdvReac Severe MUSCLE Verified 11/02/24 15:00 Inhibitor CRAMPING/PAIN pravastatin AdvReac Intermediate myalgia Verified 11/02/24 15:00 lipitor AdvReac Intermediate myalgia Uncoded 11/02/24 15:00 vascepa AdvReac Mild myalgia Uncoded 11/02/24 15:00 PFS <AAMIR Finn - Last Filed: 11/02/24 19:44> [facility] Disclaimer: The information contained in this section may have been updated after the patient was seen, as this information can be updated by other users. Medical History (HFpEF) heart failure with preserved ejection fraction Abdominal pain Acquired equinus deformity of both feet Acquired hallux valgus of both feet Acquired hammertoes of both feet Acquired pes planus of both feet Acute pain of right hip Alcohol abuse Alcohol withdrawal Alcoholism Since the age of 14, last drink 04/15/2023 Anemia Angina pectoris Anxiety Callus of foot Cardiomyopathy Chest pain Chest pain Chest pain Congestive heart failure COVID-19 Edema Elevated LFTs Fall Heel pain, bilateral History of cocaine use Hyperlipidemia Hypertension Hypotension Keratosis Laceration of blood vessel of left middle finger Metatarsalgia of both feet Near syncope Neck pain Nonischemic cardiomyopathy Numbness and tingling in both hands TIRSO (obstructive sleep apnea) Moderate positional TIRSO diagnosed in 2019, compliant on CPAP without evidence of hypoxemia with significant improvement prior to initial eval after changing medications (PCP and cardiology) Pain in both feet Palpitations Plantar fasciitis Pleurisy Sprain of foot, right Vertigo Weight gain Surgical History History of cardiac catheterization History of cholecystectomy History of right hip replacement Family History Other Family history of hypertension Family history of myocardial infarction Social History Smoking Status: Never smoker second hand exposure: No alcohol intake: current alcohol intake frequency: 3 or more drinks per day counseling given: No counseling given: No current occupational status: employed Travel in the last 8 weeks: None household members: spouse housing: house lives independently: Yes marital status: number of children: 0 education level: high school 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 [employer] Recent Travel: No sexually active: Yes caffeine: No physical activity: none blane/sikhism: Quaker working smoke detector in home: Yes fire extinguisher in home: Yes carbon monox detector in home: Yes firearms in home: Yes do you feel safe at home: Yes victim of physical abuse: No victim of emotional abuse: No victim of sexual abuse: No would you like helpful sources: No Have you lived/traveled outside [place] in past 30 days?: No Contact w/someone who lives/traveled outside [place] past 30 days?: No Exposure to someone with infectious disease in past 14 days?: No Do you have a fever (greater than 100.4 F or 38 C)?: No Have you tested positive for COVID-19: No Exposed to someone with COVID-19 in past 14 days?: No Do you have a sore throat?: No Do you have a cough?: No Do you have any weakness?: No Do you have any diarrhea?: No Are you experiencing any unusual bleeding?: No Do you have any muscle aches/pain?: No Do you have any abdominal pain?: No Are you experiencing loss of taste or smell?: No Other Medical History Have you received the Flu Vaccine for this season: No Have you received the Pneumonia Vaccine: No <AAMIR Finn - Last Filed: 12/30/24 19:44> ROS Obtained: Yes Systems reviewed as appropriate & no additional complaints except as documented Physical Exam <AAMIR Finn - Last Filed: 11/02/24 19:44> General General appearance: alert and in no apparent distress Neck Neck exam: Present lymphadenopathy Respiratory Respiratory exam: Present normal lung sounds bilaterally Cardiovascular Cardiovascular exam: Present regular rate Neurological Exam Neurological exam: Present alert and oriented X3 Medical Decision Making <AAMIR Finn - Last Filed: 11/02/24 19:44> Medical Records Medical records reviewed: Yes I reviewed the patient's medical records. Screening: Per USPSTF and CDC recommendations, given the prevalence of disease in our region, it is our hospital?s policy to screen for HIV and viral Hepatitis for all patients aged 18 and over and those with ongoing risk factors. Deny Inquiry Pt receiving controlled substance: No Vital Signs: 11/02/24 16:03 11/02/24 17:11 11/02/24 17:31 Temperature 98.0 F Temperature Source Oral Pulse Rate 63 63 Pulse Rate [Left Radial] 85 Respiratory Rate 19 18 15 Blood Pressure 128/67 121/74 Blood Pressure [Right Arm] 113/75 Blood Pressure Mean [Right Arm] 87 Blood Pressure Source [Right Arm] 02 Sat by Pulse Oximetry 97 96 97 Oxygen Delivery Method Room Air Room Air 11/02/24 18:00 11/02/24 18:30 11/02/24 20:37 Temperature 98.0 F Temperature Source Oral Pulse Rate 58 L 76 Pulse Rate [Left Radial] 97 H Respiratory Rate 18 14 19 Blood Pressure 119/77 120/80 Blood Pressure [Right Arm] 105/67 L Blood Pressure Mean [Right Arm] 79 Blood Pressure Source [Right Arm] Automatic Cuff 02 Sat by Pulse Oximetry 96 96 96 Oxygen Delivery Method Room Air Room Air Room Air Lab Data Lab results reviewed: Yes I reviewed the patient's lab results. Lab Results 11/02/24 16:15: SARS-CoV-2 (PCR) Detected A, Influenza A Untype (PCR) Not detected, Influenza Type B (PCR) Not detected 11/02/24 16:19: WBC 2.8 L, RBC 4.08 L, Hgb 13.4 L, Hct 40.1 L, MCV 98.3 H, MCH 32.8 H, MCHC 33.4, RDW 14.9, Plt Count 166, MPV 9.7, Neut % (Auto) 49.2, Lymph % (Auto) 31.7, Alfalfa % (Auto) 16.2 H, Eos % (Auto) 1.8, Baso % (Auto) 0.7, Neut # (Auto) 1.4 L, Lymph # (Auto) 0.9, Alfalfa # (Auto) 0.5, Eos # (Auto) 0.1, Baso # (Auto) 0.0, Sodium 138, Potassium 3.6, Chloride 103, Carbon Dioxide 25, Anion Gap 13.6, BUN 17, Creatinine 1.10, Estimated Creat Clear 96, Estimated GFR 72, Est GFR ( Amer) 88, Glucose 116 H, Calcium 10.1, Magnesium 1.7, Total Bilirubin 1.2, AST 62 H, ALT 49, Alkaline Phosphatase 53, Troponin I < 0.01, N T-Pro-B Natriuret Pep 2840 H, Total Protein 7.4, Albumin 4.5, Globulin 2.9, Albumin/Globulin Ratio 1.6 11/02/24 16:19 11/02/24 16:19 Orders (Tests/Meds): ED MEDICATIONS Generic Name Dose Route Start Last Admin Trade Name Freq PRN Reason Stop Dose Admin Enoxaparin Sodium 155 mg 11/02/24 19:45 11/02/24 19:39 Enoxaparin 100mg/Ml Syringe 1 mg/kg (155 mg) 12/02/24 19:44 155 mg SUBCUT Administration Q12H EMMA Discontinued Medications Generic Name Dose Route Start Last Admin Trade Name Freq PRN Reason Stop Dose Admin Magnesium Sulfate 2 gm in 50 mls @ 50 mls/hr 11/02/24 16:30 11/02/24 17:23 Magnesium Sulfate 2gm/50ml Premix IV 11/02/24 17:29 50 mls/hr ONCE ONE Administration ORDERS Category Date Time Status Chest XR -- portable [XR chest portable] Stat Exams 11/02/24 18:38 Completed BNP [NT Pro Brain Natriuretic Pep.] Stat Lab 11/02/24 16:19 Completed CBC w/Auto Diff [Complete Blood Count Auto Diff] Stat Lab 11/02/24 16:19 Completed CMP [Comprehensive Metabolic Panel] Stat Lab 11/02/24 16:19 Completed INR [Prothrombin Time INR] Stat Lab 11/02/24 16:19 Received Magnesium Stat Lab 11/02/24 16:19 Completed PTT [Activated Partial Thrombo Time] Stat Lab 11/02/24 16:19 Received Rapid PCR Covid and Flu A/B Stat Lab 11/02/24 16:15 Completed Trop I [Troponin I] Stat Lab 11/02/24 16:19 Completed Troponin I Q3H Lab 11/02/24 19:25 Received Troponin I Q3H Lab 11/02/24 22:30 Ordered HEART Score History (anamnesis): Moderately suspicious ECG: Non-specific disturbance Age: 45-65 years Risk factors: 3 or more risk factors Troponin: </= normal limit HEART Score: 5 Medical Decision Narrative: In summary patient is a 44-year-old male who presents to the emergency department for evaluation of new onset atrial fibrillation with rapid ventricular response and COVID exposure. Patient is initially normotensive 113/75 his heart rate at the time my exam was 125 sustained but breathing 19 times a minute satting at 97% on room air upon arrival, afebrile at 98. Physical exam is remarkable for normal breath sounds with no increased work of breathing or adventitious sounds, satting at 97% on room air, atrial fibrillation with rapid ventricular response noted on the bedside monitor, no abdominal pain with normal bowel sounds.. Differential diagnosis includes atrial fibrillation rapid ventricular response versus ACS versus electrolyte abnormality versus heart failure etc. Initial workup will be conducted with hematologic labs plain film chest x-ray respiratory swabs. Initial interventions were considered however patient is afebrile and has no oxygen requirement currently thus deferred for now. Initial workup reviewed by me shows that he is indeed positive for COVID-19, hematologic labs show white count of 2.8 with a hemoglobin hematocrit of 13.4 and 40.1 respectively with an absolute neutrophil count of 1.4, his initial troponin is undetectable at 0.01, NT proBNP is significantly elevated at 2840 and the remainder of his hematologic labs are nonactionable, my informal interpretation of his plain film chest x-ray shows. Upon repeat evaluation patient is still in atrial fibrillation but more rate controlled in the 80s and 90s. Given this I had interactive discussion with hospital medicine regarding patient management and he will be admitted for further evaluation and care. <Loki Cam MD - Last Filed: 11/02/24 20:49> Vital Signs: 11/02/24 16:03 11/02/24 17:11 11/02/24 17:31 Temperature 98.0 F Temperature Source Oral Pulse Rate 63 63 Pulse Rate [Left Radial] 85 Respiratory Rate 19 18 15 Blood Pressure 128/67 121/74 Blood Pressure [Right Arm] 113/75 Blood Pressure Mean [Right Arm] 87 Blood Pressure Source [Right Arm] 02 Sat by Pulse Oximetry 97 96 97 Oxygen Delivery Method Room Air Room Air 11/02/24 18:00 11/02/24 18:30 11/02/24 20:37 Temperature 98.0 F Temperature Source Oral Pulse Rate 58 L 76 Pulse Rate [Left Radial] 97 H Respiratory Rate 18 14 19 Blood Pressure 119/77 120/80 Blood Pressure [Right Arm] 105/67 L Blood Pressure Mean [Right Arm] 79 Blood Pressure Source [Right Arm] Automatic Cuff 02 Sat by Pulse Oximetry 96 96 96 Oxygen Delivery Method Room Air Room Air Room Air Lab Data Lab Results 11/02/24 16:15: SARS-CoV-2 (PCR) Detected A, Influenza A Untype (PCR) Not detected, Influenza Type B (PCR) Not detected 11/02/24 16:19: WBC 2.8 L, RBC 4.08 L, Hgb 13.4 L, Hct 40.1 L, MCV 98.3 H, MCH 32.8 H, MCHC 33.4, RDW 14.9, Plt Count 166, MPV 9.7, Neut % (Auto) 49.2, Lymph % (Auto) 31.7, Alfalfa % (Auto) 16.2 H, Eos % (Auto) 1.8, Baso % (Auto) 0.7, Neut # (Auto) 1.4 L, Lymph # (Auto) 0.9, Alfalfa # (Auto) 0.5, Eos # (Auto) 0.1, Baso # (Auto) 0.0, Sodium 138, Potassium 3.6, Chloride 103, Carbon Dioxide 25, Anion Gap 13.6, BUN 17, Creatinine 1.10, Estimated Creat Clear 96, Estimated GFR 72, Est GFR ( Amer) 88, Glucose 116 H, Calcium 10.1, Magnesium 1.7, Total Bilirubin 1.2, AST 62 H, ALT 49, Alkaline Phosphatase 53, Troponin I < 0.01, N T-Pro-B Natriuret Pep 2840 H, Total Protein 7.4, Albumin 4.5, Globulin 2.9, Albumin/Globulin Ratio 1.6 Orders (Tests/Meds): ED MEDICATIONS Generic Name Dose Route Start Last Admin Trade Name Freq PRN Reason Stop Dose Admin Enoxaparin Sodium 155 mg 11/02/24 19:45 11/02/24 19:39 Enoxaparin 100mg/Ml Syringe 1 mg/kg (155 mg) 12/02/24 19:44 155 mg SUBCUT Administration Q12H EMMA Discontinued Medications Generic Name Dose Route Start Last Admin Trade Name Freq PRN Reason Stop Dose Admin Magnesium Sulfate 2 gm in 50 mls @ 50 mls/hr 11/02/24 16:30 11/02/24 17:23 Magnesium Sulfate 2gm/50ml Premix IV 11/02/24 17:29 50 mls/hr ONCE ONE Administration ORDERS Category Date Time Status Chest XR -- portable [XR chest portable] Stat Exams 11/02/24 18:38 Completed BNP [NT Pro Brain Natriuretic Pep.] Stat Lab 11/02/24 16:19 Completed CBC w/Auto Diff [Complete Blood Count Auto Diff] Stat Lab 11/02/24 16:19 Completed CMP [Comprehensive Metabolic Panel] Stat Lab 11/02/24 16:19 Completed INR [Prothrombin Time INR] Stat Lab 11/02/24 16:19 Received Magnesium Stat Lab 11/02/24 16:19 Completed PTT [Activated Partial Thrombo Time] Stat Lab 11/02/24 16:19 Received Rapid PCR Covid and Flu A/B Stat Lab 11/02/24 16:15 Completed Trop I [Troponin I] Stat Lab 11/02/24 16:19 Completed Troponin I Q3H Lab 11/02/24 19:25 Received Troponin I Q3H Lab 11/02/24 22:30 Ordered HEART Score HEART Score: 5 Medical Decision Narrative: In summary patient is a 44-year-old male who presents to the emergency department for evaluation of new onset atrial fibrillation with rapid ventricular response and COVID exposure. Patient is initially normotensive 113/75 his heart rate at the time my exam was 125 sustained but breathing 19 times a minute satting at 97% on room air upon arrival, afebrile at 98. Physical exam is remarkable for normal breath sounds with no increased work of breathing or adventitious sounds, satting at 97% on room air, atrial fibrillation with rapid ventricular response noted on the bedside monitor, no abdominal pain with normal bowel sounds.. Differential diagnosis includes atrial fibrillation rapid ventricular response versus ACS versus electrolyte abnormality versus heart failure etc. Initial workup will be conducted with hematologic labs plain film chest x-ray respiratory swabs. Initial interventions were considered however patient is afebrile and has no oxygen requirement currently thus deferred for now. Initial workup reviewed by me shows that he is indeed positive for COVID-19, hematologic labs show white count of 2.8 with a hemoglobin hematocrit of 13.4 and 40.1 respectively with an absolute neutrophil count of 1.4, his initial troponin is undetectable at 0.01, NT proBNP is significantly elevated at 2840 and the remainder of his hematologic labs are nonactionable, my informal interpretation of his plain film chest x-ray shows. Upon repeat evaluation patient is still in atrial fibrillation but more rate controlled in the 80s and 90s. Given this I had interactive discussion with hospital medicine regarding patient management and he will be admitted for further evaluation and care. I was consulted by the ISA, and we discussed the complexity of the problems being addressed. I approved the treatment and management plan for this patient's care in the Emergency Department, thus performing a substantive portion of the medical decision making. EKG independently interpreted at 1611 A-fib with RVR with left bundle branch block morphology. Sgarbossa negative changes. QRS wide at 165, QTc prolonged at 480 ms. Given magnesium for this. Patient high risk for decompensation with new onset heart failure and A-fib. Given therapeutic anticoagulation and admitted for further workup Loki Cam MD Critical Care <AAMIR Finn - Last Filed: 11/02/24 19:44> Critical Care Time Critical Care Time: Yes Attestation: On 11/02/24, the high probability of a clinically significant, sudden or life threatening deterioration of the following system: Cardiovascular; pulmonary; required my full and direct attention, intervention and personal management. The time I documented below is in addition to time spent performing reported procedures but includes the following listed in this critical care notation. Total Time Total Critical Care Time: 30 <Loki Cam MD - Last Filed: 11/02/24 20:49> Total Time Total Critical Care Time: 35
--- NOTE | 2024-11-02 16:11 | ECG_ITS ---
APPROVED REPORT Exam: Resting ECG HR:100 bpm ECG Measurements Heart Rate 100 AXES QRSd 165 QRS 17 QT 423 T 29 QTc 480 Conclusion A-fib with RVR Left bundle branch block Electronically signed by : MATTY BONILLA, 11/02/2024 20:58:31
[2024-11-02 16:28] LABS: Influenza A, PCR Not Detected (NotDetected); Influenza B, PCR Not Detected (NotDetected)
[2024-11-02 16:47] LABS: Basophils % 0.7 % (0.1-2.0); Eosinophils # 0.1 K/mm3 (0.0-0.4); Eosinophils % 1.8 % (0.1-12.0); Hematocrit 40.1 % (42.0-52.0); Hemoglobin 13.4 g/dL (14.1-18.0); Lymphocytes # 0.9 K/mm3 (0.7-4.5); Lymphocytes % 31.7 % (10-50); Mean Corpuscular HGB Conc 33.4 g/dL (31.8-35.4); Mean Corpuscular Hemoglobin 32.8 pg (27.0-31.2); Mean Corpuscular Volume 98.3 fl (80-94); Mean Platelet Volume 9.7 fl (7.4-10.4); Monocytes # 0.5 K/mm3 (0.1-1.0); Monocytes % 16.2 % (1.7-9.3); Neutrophils # 1.4 K/mm3 (1.8-7.8); Neutrophils % 49.2 % (37.0-80.0); Platelet Count 166 K/mm3 (142-424); Red Blood Count 4.08 M/mm3 (4.60-6.20); Red Cell Distribution Width 14.9 % (11.5-17.5); White Blood Count 2.8 K/mm3 (4.8-10.8)
[2024-11-02 16:54] LABS: Alanine Aminotransferase 49 U/L (12-78); Albumin Level 4.5 g/dl (3.5-5.0); Albumin/Globulin Ratio 1.6 (1.1-1.8); Alkaline Phosphatase 53 U/L (38-126); Anion Gap 13.6 mEq/L (5-15); Aspartate Amino Transferase 62 U/L (17-59); Bilirubin,Total 1.2 mg/dl (0.2-1.3); Blood Urea Nitrogen 17 mg/dl (9-20); Calcium 10.1 mg/dl (8.4-10.2); Carbon Dioxide 25 mmol/L (22.0-30.0); Chloride 103 mmol/L (98-107); Creatinine Clearance Estimated 96 mL/min (50-200); Estimated Glomerular Filt Rate 72 ml/min (>60); GFR (African American) 88 ML/MIN (>60); Globulin 2.9 g/dL (1.3-3.2); Glucose 116 mg/dl (74-100); Magnesium 1.7 mg/dl (1.6-2.3); Potassium 3.6 mmoL/L (3.5-5.1); Sodium 138 mmol/L (136-145); Total Protein,Serum 7.4 g/dl (6.3-8.2)
[2024-11-02 17:05] LABS: Coronavirus 19, PCR Detected (NotDetected)
[2024-11-02 17:07] LABS: NT Pro Brain Natriuretic Pep. 2840 pg/mL (0-125)
[2024-11-02 17:23] LABS: Troponin I < 0.01 ng/ml (0.00-0.034)
[2024-11-02] MEDS: MAGNESIUM SULFATE IN WATER 2 GM/50 ML PIGGYBACK IV (17:23)
--- NOTE | 2024-11-02 18:38 | XR_ITS ---
PROCEDURE INFORMATION: Exam: XR Chest Exam date and time: 11/02/2024 6:43 PM Age: 44 years old Clinical indication: Other: A-fib rvr TECHNIQUE: Imaging protocol: Radiologic exam of the chest. Views: 1 view. Total images: 1 COMPARISON: CT ANGIO CHEST PE PROTOCOL 08/16/2024 11:40 AM FINDINGS: Tubes, catheters and devices: EKG leads are present. Lungs: Unremarkable. No consolidation. No pulmonary vascular congestion or edema. Pleural spaces: Unremarkable. No pleural effusion. No pneumothorax. Heart/Mediastinum: Unremarkable. No cardiomegaly. No mediastinal widening or hilar enlargement. Diaphragm: Mild elevation right hemidiaphragm. Bones/joints: Unremarkable. Other findings: Lordotic positioning. IMPRESSION: No radiographically acute cardiopulmonary process.
--- NOTE | 2024-11-02 19:14 | PC.NURSE ---
Report received from Sujit FAGAN Pt resting quietly in bed Skin pink warm and dry Resp full and easy Speech clear and appropriate. IV infusing without difficulty.
--- NOTE | 2024-11-02 19:28 | PC.NURSE ---
Repeat troponin drawn and sent to lab
--- NOTE | 2024-11-02 19:37 | PC.NURSE ---
Pt aware of plans for admission.
[2024-11-02] MEDS: ENOXAPARIN 100MG/ML SYRINGE 155 MG SUBCUT (19:39)
[2024-11-02 20:04] LABS: INR 0.94 (0.9-1.1); Prothrombin Time 10.6 seconds (10.1-12.5)
--- NOTE | 2024-11-02 20:08 | PC.NURSE ---
?Report called to Jessika FAGAN Pt to floor via wheelchair No change in previous assessment at time of transfer
--- NOTE | 2024-11-02 20:08 | PC.NURSE ---
Pt in atrial fib per continuous heart monitor
--- NOTE | 2024-11-02 20:29 | PC.NURSE ---
Patient arrived to floor via wheelchair from ED at 20:28.
[2024-11-02 20:47] LABS: Activated Partial Thrombo Time 28.2 seconds (22.8-30.6)
[2024-11-02 20:53] LABS: Troponin I < 0.01 ng/ml (0.00-0.034)
--- NOTE | 2024-11-02 21:20 | P.HP_ITS ---
History of Present Illness *Admission Date: 11/02/24 *Reason for visit:: Atrial fibs with RVR, COVID-positive *History of present illness: This 44-year-old male, with an off-and-on again history of alcohol/drug abuse., He had been going to his doctor with complaints of cervical spine pain actually referred to an orthopedics per note. Also then exposed to COVID his significant other had COVID. Also noted recently has been having bright red rectal bleeding question internal hemorrhoids. Patient showed no signs of alcohol withdrawal CIWA score 0 in the emergency room. Was noted at 1 time he had a significantly decreased ejection fraction that has recovered back to 65%. Patient also noted with morbid obesity his weight on December 2023 was 319 pounds when weight in the emergency was 303 pounds but the day before in the doctor's office saw a weight of 342 this may have been with close in boots on. Review of his labs also noted hyperlipidemia, but liver function relatively normal with 1 elevated GGT reading in the past. Chest x-ray also showed a moderate left ventricular enlargement Patient is stable at this time in the emergency, but we are unsure of when this atrial fibrillation started unsure of how to coagulate, or to cardiovert. Will start on Lovenox. And consult and cardiology [facility] Disclaimer: The information contained in this section may have been updated after the patient was seen, as this information can be updated by other users. Medical History (HFpEF) heart failure with preserved ejection fraction Abdominal pain Acquired equinus deformity of both feet Acquired hallux valgus of both feet Acquired hammertoes of both feet Acquired pes planus of both feet Acute pain of right hip Alcohol abuse Alcohol withdrawal Alcoholism Since the age of 14, last drink 04/15/2023 Anemia Angina pectoris Anxiety Callus of foot Cardiomyopathy Chest pain Chest pain Chest pain Congestive heart failure COVID-19 Edema Elevated LFTs Fall Heel pain, bilateral History of cocaine use Hyperlipidemia Hypertension Hypotension Keratosis Laceration of blood vessel of left middle finger Metatarsalgia of both feet Near syncope Neck pain Nonischemic cardiomyopathy Numbness and tingling in both hands TIRSO (obstructive sleep apnea) Moderate positional TIRSO diagnosed in 2019, compliant on CPAP without evidence of hypoxemia with significant improvement prior to initial eval after changing medications (PCP and cardiology) Pain in both feet Palpitations Plantar fasciitis Pleurisy Sprain of foot, right Vertigo Weight gain Surgical History History of cardiac catheterization History of cholecystectomy History of right hip replacement Family History Other Family history of hypertension Family history of myocardial infarction Social History (Updated 11/02/24 @ 22:05 by Marixa Watts RN) Smoking Status: Never smoker second hand exposure: No alcohol intake: current alcohol intake frequency: 3 or more drinks per day counseling given: No counseling given: No current occupational status: employed Travel in the last 8 weeks: None household members: spouse housing: house lives independently: Yes marital status: number of children: 0 education level: high school 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 [employer] Recent Travel: No sexually active: Yes caffeine: No physical activity: none blane/synagogue: Buddhism working smoke detector in home: Yes fire extinguisher in home: Yes carbon monox detector in home: Yes firearms in home: Yes do you feel safe at home: Yes victim of physical abuse: No victim of emotional abuse: No victim of sexual abuse: No would you like helpful sources: No Other Medical History Have you received the Flu Vaccine for this season: No Have you received the Pneumonia Vaccine: No Review of Systems Review of Systems Review of systems:: pertinent systems reviewed and negative unless documented below Review of systems (narrative): Patient sitting up on the bed in no acute distress at this time significant other in the room with him. Constitutional Constitutional: Reports as per HPI and Reports weight gain Eyes Eyes: Reports as per HPI ENT Ears, Nose, Mouth, and Throat: Reports as per HPI *Cardiovascular Cardiovascular: Reports as per HPI and Reports irregular heart rhythm *Respiratory Respiratory: Reports as per HPI Comments: Denies any shortness of breath *Gastrointestinal Gastrointestinal: Reports as per HPI Comments: Patient is noted that he dips does not smoke *Genitourinary Genitourinary: Reports as per HPI *Musculoskeletal Musculoskeletal: Reports as per HPI Integumentary/Breasts Skin/Breast: Reports as per HPI *Neurologic Neurologic: Reports as per HPI Psychiatric Psychiatric: Reports as per HPI Endocrine Endocrine: Reports as per HPI Hematologic/Lymphatic Hematologic/Lymphatic: Reports as per HPI Allergic/Immunologic Allergic/Immunologic: Reports as per HPI Meds Home Medications and Allergies Home Medications ?Medication ?Instructions ?Recorded ?Confirmed ?Type buspirone 15 mg tablet 15 mg PO BID #180 tabs 11/21/23 11/03/24 Rx citalopram 40 mg tablet 40 mg PO DAILY Mood #90 tabs 11/21/23 11/03/24 Rx fenofibrate 54 mg tablet 54 mg PO DAILY Cholesterol #90 tabs 11/21/23 11/03/24 Rx valsartan 80 mg tablet 80 mg PO DAILY High Blood Pressure 03/06/24 11/03/24 Rx #90 tabs evolocumab 140 mg/mL subcutaneous 140 mg SQ Q2W #2 mL 07/24/24 11/03/24 Rx pen injector (Sameer Bradshaw) pregabalin 50 mg capsule 50 mg PO Q8H #90 caps 09/29/24 11/03/24 Rx omeprazole 40 mg capsule,delayed 40 mg PO DAILY 11/02/24 11/03/24 History release baclofen 10 mg tablet 10 mg PO TID PRN Muscle Spasm 11/03/24 11/03/24 History metoprolol succinate 50 mg 50 mg PO BID 30 days #60 tabs 11/03/24 Rx tablet,extended release 24 hr (Toprol XL) rivaroxaban 20 mg tablet 20 mg PO HS 30 days #30 tabs 11/03/24 Rx New Prescriptions to Start Prescriptions: metoprolol succinate [Toprol XL] Tirso Gardner rivaroxaban Tirso Gardner Allergies Allergy/AdvReac Type Severity Reaction Status Date / Time morphine (MORPHINE) Allergy Unknown I-ITCHING Verified 11/02/24 21:59 semaglutide AdvReac Severe Pancreatiti Verified 11/02/24 21:59 s Lthrwed-OPV-UrZ Reductase AdvReac Severe MUSCLE Verified 11/02/24 21:59 Inhibitor CRAMPING/PAIN pravastatin AdvReac Intermediate myalgia Verified 11/02/24 21:59 lipitor AdvReac Intermediate myalgia Uncoded 11/02/24 15:00 vascepa AdvReac Mild myalgia Uncoded 11/02/24 15:00 Exam Data for Last 24 hours Vital signs and Labs for Last 24 Hours: Temp Pulse Resp BP Pulse Ox O2 Del Method 98.4 F 100 H 20 140/70 96 Room Air 11/02/24 20:53 11/02/24 20:53 11/02/24 20:53 11/02/24 20:53 11/02/24 20:37 11/02/24 20:53 Laboratory Results - last 24 hr 11/02/24 16:15: SARS-CoV-2 (PCR) Detected A, Influenza A Untype (PCR) Not detected, Influenza Type B (PCR) Not detected 11/02/24 16:19: WBC 2.8 L, RBC 4.08 L, Hgb 13.4 L, Hct 40.1 L, MCV 98.3 H, MCH 32.8 H, MCHC 33.4, RDW 14.9, Plt Count 166, MPV 9.7, Neut % (Auto) 49.2, Lymph % (Auto) 31.7, [place] % (Auto) 16.2 H, Eos % (Auto) 1.8, Baso % (Auto) 0.7, Neut # (Auto) 1.4 L, Lymph # (Auto) 0.9, [place] # (Auto) 0.5, Eos # (Auto) 0.1, Baso # (Auto) 0.0, PT 10.6, INR 0.94, APTT 28.2, Sodium 138, Potassium 3.6, Chloride 103, Carbon Dioxide 25, Anion Gap 13.6, BUN 17, Creatinine 1.10, Estimated Creat Clear 96, Estimated GFR 72, Est GFR ( Amer) 88, Glucose 116 H, Calcium 10.1, Magnesium 1.7, Total Bilirubin 1.2, AST 62 H, ALT 49, Alkaline Phosphatase 53, Troponin I < 0.01, NT-Pro-B Natriuret Pep 2840 H, Total Protein 7.4, Albumin 4.5, Globulin 2.9, Albumin/Globulin Ratio 1.6 11/02/24 19:25: Troponin I < 0.01 I & O for Last 24 hours: Intake & Output 10/31/24 11/01/24 11/02/24 11/03/24 05:59 05:59 05:59 05:59 Weight 333 lb 4.8 oz Radiology Reports for the Last 24 Hours: Chest x-ray was done showing no really acute findings left ventricle is slightly enlarged but patient is morbidly obese Constitutional Constitutional: no acute distress and morbidly obese Comments: Patient is calm and collected at this time and no signs of distress, *Routine HEENT Exam Head: Present normocephalic and atraumatic Eye: Present EOMI, PERRL and normal accommodation ENT: Present mucous membranes moist, oropharynx clear and external ear normal Comments: Normal upper airway exam *Routine Neck Exam Neck: Present supple and full ROM Comments: Patient good range of motion in the neck no signs of any neck pain Routine Chest/Breast/Axilla Exam Comments: No chest wall tenderness noted during exam no signs of injury *Routine Respiratory Exam Respiratory: Present CTA bilaterally, normal respiratory effort, able to speak in complete sentences and symmetric chest movement *Routine Cardiovascular Exam Cardiovascular: Present RRR, Normal S1, Normal S2, tachycardia and irregular rhythm Comments: Patient heart sounds very distant sees very thick upper body *Routine Abdominal Exam Abdominal: Present soft, normoactive bowel sounds and obese Comments: The patient has no signs of nausea or abdominal tenderness during the exam *Routine Rectal Exam Rectal:: deferred *Routine Genitalia Exam Genitalia:: deferred *Routine Extremities Exam Extremities: Present pulses intact and normal capillary refill Comments: Patient has no injuries difficulty with his upper or lower limbs good range of motion no signs of any significant edema, he feels his lower legs are slightly swollen compared to normal but there was no pitting edema noted Routine Back/Spine/Pelvis Exam Back/Spine: Present full ROM Comments: Patient shows no signs of back pain or injury at this time he is able to move twist stand sit up without any difficulty *Routine Skin Exam Skin: Present intact, warm and normal turgor Comments: Patient shows no jaundice *Routine Neurological Exam Neurological: Present alert, oriented X3, CN II-XII intact and tremors (While examining patient in the emergency room there was no tremor. But did receive a phone call from the nurse once he was up on the floor that he was slightly anxious with a small amount of tremor CIWA scoring started on the floor medication prescribed if needed) Routine Psychiatric Exam Psychiatric: Present normal affect, normal thought process, cooperative, good insight and good judgment Comments: Patient seems to be very well educated he is intelligent he knows what is going on it was able to talk about teaching far as any type of side effects to chewing tobacco versus smoking of his cardiac condition with his atrial fibs explained in detail. Showing no signs of any type of anxiety at this point in time understanding that he needs to stay in the hospital for workup and to get anticoagulation started due to this A-fib. Additional Findings:: Present CIWA scores are 0 H&P: Result Impressions 1, new onset atrial fibs with RVR. Time of onset unknown. Patient with past history of having very low ejection fraction that did recover back up to 65%. 2. Positive COVID infection. 3. Off-and-on again history of alcohol abuse up to fifth a day. Presently no signs of withdrawal 4. Oral tobacco use Imaging and Cardiology Chest x-ray: Status: image reviewed by me Additional comments: No acute findings left ventricle slightly enlarged Assessment and Plan *Assessment and plan (1) Acute exacerbation of CHF (congestive heart failure): Status: Acute Qualifiers: Heart failure type: unspecified Qualified Code(s): I50.9 - Heart failure, unspecified Category: Medical Code(s): I50.9 - Heart failure, unspecified (2) Atrial fibrillation with RVR: Status: Acute Category: Medical Code(s): I48.91 - Unspecified atrial fibrillation (3) COVID-19: Status: Acute Category: Medical Code(s): U07.1 - COVID-19 (4) Leukopenia: Status: Acute Qualifiers: Leukopenia type: neutropenia Neutropenia type: unspecified Qualified Code(s): D70.9 - Neutropenia, unspecified Category: Medical Code(s): D72.819 - Decreased white blood cell count, unspecified (5) Alcohol abuse: Status: Acute Category: Social Hx Code(s): F10.10 - Alcohol abuse, uncomplicated (6) Morbid obesity: Status: Chronic Category: Medical Code(s): E66.01 - Morbid (severe) obesity due to excess calories Plan 1. After discussion with the ER physician about need for admission to treat A- fib and cardiology eval, medicine agreed to admit. Patient will be admitted to the floor, started on Lovenox, unsure of when this atrial fibs started, and patient is stable at this point in time not going to cardiovert. Cardiology has been consulted. Patient will be kept on the monitor. Patient has a history of CHF had apparently dropped his ejection fraction to around 25% that has recovered back to normal. 2. COVID positive, basically asymptomatic from COVID chest x-ray showing no infiltrate.. But also noting the patient is supposed to be on CPAP but there is a note that his machine has broken. Will also be keeping the patient on continuous vehicle monitor technician over the night we will keep him on continuous pulse ox to see if he drops his oxygen saturation. Question if dropping too low it may be one of the reasons he is gone into atrial fibs 3. Alcohol abuse, off-and-on again use of significant amounts of alcohol. At present time not having any signs of withdrawal last drink if this Saturday/or Saturday 4. History of chronic pain also in feet but also in neck has been worked up for this. 5, abnormal labs his white count has been below normal for the last several months. Noting a distant past that his liver functions are basically normal but GGT TP was 238 in the past and an alpha protein was 293 on checking for liver functions in the past his BNP today is actually elevated to 2840. Plan to keep patient as inpatient try to get him converted back to sinus rhythm again evaluate for any blood clots into the heart. Continue teaching on the fact of the effects of excessive alcohol binging. Also needing to address his morbid obesity as weight continues to increase 6. Morbid obesity with weight gain from December 2023 was 319 up to of high of 342 now presently 1 weight in the emergency room was 333 pounds. Rounded on patient after nurse practitioner. Personally examined and interviewed patient. Agree with exam findings and care plan as documented.
[2024-11-02] MEDS: PANTOPRAZOLE 40MG TABLET 40 MG PO (22:06)
[2024-11-02] MEDS: PREGABALIN 50MG CAPSULE 50 MG PO (22:06)
[2024-11-02 23:02] LABS: Troponin I < 0.01 ng/ml (0.00-0.034)
[2024-11-03] VITALS: PULSE 80
[2024-11-03] MEDS: ACETAMINOPHEN 325MG TAB 650 MG PO (02:07)
[2024-11-03] MEDS: LORazepam 0.5MG TABLET 0.5 MG PO (02:07)
[2024-11-03 04:00] VITALS: BP 136/80; PULSE 78; PULSE 84; RESP 17; TEMP 36.6; O2SAT 98; BMI 44.1
[2024-11-03] MEDS: PREGABALIN 50MG CAPSULE 50 MG PO (06:12)
[2024-11-03 06:54] LABS: Eosinophils # 0.1 K/mm3 (0.0-0.4); Eosinophils % 2.7 % (0.1-12.0); Hematocrit 36.7 % (42.0-52.0); Hemoglobin 12.4 g/dL (14.1-18.0); Lymphocytes # 1.4 K/mm3 (0.7-4.5); Lymphocytes % 48.5 % (10-50); Mean Corpuscular HGB Conc 33.8 g/dL (31.8-35.4); Mean Corpuscular Hemoglobin 33.2 pg (27.0-31.2); Mean Corpuscular Volume 98.4 fl (80-94); Mean Platelet Volume 9.9 fl (7.4-10.4); Monocytes # 0.6 K/mm3 (0.1-1.0); Monocytes % 18.6 % (1.7-9.3); Neutrophils # 0.9 K/mm3 (1.8-7.8); Neutrophils % 28.9 % (37.0-80.0); Platelet Count 133 K/mm3 (142-424); Red Blood Count 3.73 M/mm3 (4.60-6.20); Red Cell Distribution Width 14.7 % (11.5-17.5)
[2024-11-03 07:15] LABS: Albumin Level 4.1 g/dl (3.5-5.0); Chloride 101 mmol/L (98-107); Sodium 131 mmol/L (136-145)
[2024-11-03 07:17] LABS: Alanine Aminotransferase 44 U/L (12-78); Aspartate Amino Transferase 56 U/L (17-59); Blood Urea Nitrogen 19 mg/dl (9-20); Creatinine Clearance Estimated 93 mL/min (50-200); Estimated Glomerular Filt Rate 72 ml/min (>60); GFR (African American) 88 ML/MIN (>60)
[2024-11-03 07:18] LABS: Albumin/Globulin Ratio 1.6 (1.1-1.8); Alkaline Phosphatase 53 U/L (38-126); Anion Gap 9.5 mEq/L (5-15); Bilirubin,Total 1.2 mg/dl (0.2-1.3); Calcium 9.5 mg/dl (8.4-10.2); Carbon Dioxide 24 mmol/L (22.0-30.0); Globulin 2.5 g/dL (1.3-3.2); Glucose 100 mg/dl (74-100); Potassium 3.5 mmoL/L (3.5-5.1); Total Protein,Serum 6.6 g/dl (6.3-8.2)
[2024-11-03 07:45] VITALS: BP 124/87; PULSE 72; RESP 17; TEMP 36.5; O2SAT 95
[2024-11-03 08:00] VITALS: PULSE 70
--- NOTE | 2024-11-03 09:13 | EXP.CARD.CON ---
History of Present Illness History of Present Illness Consult date: 11/03/24 Requesting physician: Tirso Gardner Consult reason: atrial fibrillation Chief complaint: SOA, palpitations Additional Medical History:: 1. History of alcohol use and remote cocaine use 2. History of alcoholic cardiomyopathy with recovery (EF improved from 25% to 64% on cardiac MRI, 01/2024) A. Normal coronary arteries 2022 3. Hypertension A. MUGA, 04/17/2023, EF 50% B. Echo, 04/2023, EF mildly to moderately reduced with hypokinetic inferior wall, dyskinetic inferoseptal wall. C.. Echo, 11/22/2022, EF 40% with Lexiscan Myoview 11/29/2022 showing EF 30% with no ischemia 4. Hyperlipidemia A. Intolerant of statins B. On Repatha and fenofibrate 5. Obesity A. History of recurrent pancreatitis on Wegovy 6. Atrial fibrillation with rapid ventricular response, newly diagnosed, 11/02/2024 A. EF by echo 45%, 10/2024 B. COVID positive History of present illness: 44-year-old white male with history of cardiomyopathy felt related to alcohol and drug abuse that has recovered presented to the emergency department yesterday for evaluation of atrial fibrillation which was noted on a routine visit to his primary care doctor. During workup in the ER patient was noted to be COVID-positive. Subsequently admitted for further treatment of his A-fib with rapid ventricular response. He does relate recent alcohol use as early as this month but has been feeling bad only for about a week with noticeable palpitations at night for the last 3 to 4 days. He denies any recent drug use. Troponins this admission are normal. NT proBNP noted to be 2840 but no chest x-ray evidence of CHF Echocardiogram this morning shows reduced EF at 45% with chronic inferior and septal hypokinesis/dyskinesis. [facility] Disclaimer: The information contained in this section may have been updated after the patient was seen, as this information can be updated by other users. Medical History (HFpEF) heart failure with preserved ejection fraction Abdominal pain Acquired equinus deformity of both feet Acquired hallux valgus of both feet Acquired hammertoes of both feet Acquired pes planus of both feet Acute pain of right hip Alcohol abuse Alcohol withdrawal Alcoholism Since the age of 14, last drink 04/15/2023 Anemia Angina pectoris Anxiety Callus of foot Cardiomyopathy Chest pain Chest pain Chest pain Congestive heart failure COVID-19 Edema Elevated LFTs Fall Heel pain, bilateral History of cocaine use Hyperlipidemia Hypertension Hypotension Keratosis Laceration of blood vessel of left middle finger Metatarsalgia of both feet Near syncope Neck pain Nonischemic cardiomyopathy Numbness and tingling in both hands TIRSO (obstructive sleep apnea) Moderate positional TIRSO diagnosed in 2019, compliant on CPAP without evidence of hypoxemia with significant improvement prior to initial eval after changing medications (PCP and cardiology) Pain in both feet Palpitations Plantar fasciitis Pleurisy Sprain of foot, right Vertigo Weight gain Surgical History History of cardiac catheterization History of cholecystectomy History of right hip replacement Family History Other Family history of hypertension Family history of myocardial infarction Social History (Updated 11/02/24 @ 22:05 by Marixa Watts RN) Smoking Status: Never smoker second hand exposure: No alcohol intake: current alcohol intake frequency: 3 or more drinks per day counseling given: No counseling given: No current occupational status: employed Travel in the last 8 weeks: None household members: spouse housing: house lives independently: Yes marital status: number of children: 0 education level: high school 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 [employer] Recent Travel: No sexually active: Yes caffeine: No physical activity: none blane/yazidi: Jehovah'[employer] Witness working smoke detector in home: Yes fire extinguisher in home: Yes carbon monox detector in home: Yes firearms in home: Yes do you feel safe at home: Yes victim of physical abuse: No victim of emotional abuse: No victim of sexual abuse: No would you like helpful sources: No Have you lived/traveled outside [place] in past 30 days?: No Contact w/someone who lives/traveled outside US past 30 days?: No Exposure to someone with infectious disease in past 14 days?: No Do you have a fever (greater than 100.4 F or 38 C)?: No Have you tested positive for COVID-19: No Exposed to someone with COVID-19 in past 14 days?: No Do you have a sore throat?: No Do you have a cough?: No Do you have any weakness?: No Are you experiencing any nausea/vomitting?: No Do you have any diarrhea?: No Are you experiencing any unusual bleeding?: No Do you have any muscle aches/pain?: No Do you have any abdominal pain?: No Are you experiencing loss of taste or smell?: No Review of Systems Review of Systems Review of systems:: pertinent systems reviewed and negative unless documented below Constitutional Constitutional: Reports malaise and Reports weakness *Cardiovascular Cardiovascular: Reports dyspnea on exertion, Reports palpitations and Reports rapid heart rate *Respiratory Respiratory: Reports dyspnea on exertion *Neurologic Neurologic: Reports as per HPI and Reports weakness Endocrine Endocrine: Reports palpitations Exam Data for Last 24 hours Vital signs and Labs for Last 24 Hours: Temp Pulse Resp BP Pulse Ox O2 Del Method 97.7 F 72 17 124/87 95 Room Air 11/03/24 07:45 11/03/24 07:45 11/03/24 07:45 11/03/24 07:45 11/03/24 07:45 11/03/24 07:45 Laboratory Results - last 24 hr 11/02/24 16:15: SARS-CoV-2 (PCR) Detected A, Influenza A Untype (PCR) Not detected, Influenza Type B (PCR) Not detected 11/02/24 16:19: WBC 2.8 L, RBC 4.08 L, Hgb 13.4 L, Hct 40.1 L, MCV 98.3 H, MCH 32.8 H, MCHC 33.4, RDW 14.9, Plt Count 166, MPV 9.7, Neut % (Auto) 49.2, Lymph % (Auto) 31.7, Scott % (Auto) 16.2 H, Eos % (Auto) 1.8, Baso % (Auto) 0.7, Neut # (Auto) 1.4 L, Lymph # (Auto) 0.9, Scott # (Auto) 0.5, Eos # (Auto) 0.1, Baso # (Auto) 0.0, PT 10.6, INR 0.94, APTT 28.2, Sodium 138, Potassium 3.6, Chloride 103, Carbon Dioxide 25, Anion Gap 13.6, BUN 17, Creatinine 1.10, Estimated Creat Clear 96, Estimated GFR 72, Est GFR ( Amer) 88, Glucose 116 H, Calcium 10.1, Magnesium 1.7, Total Bilirubin 1.2, AST 62 H, ALT 49, Alkaline Phosphatase 53, Troponin I < 0.01, NT-Pro-B Natriuret Pep 2840 H, Total Protein 7.4, Albumin 4.5, Globulin 2.9, Albumin/Globulin Ratio 1.6 11/02/24 19:25: Troponin I < 0.01 11/02/24 22:22: Troponin I < 0.01 11/03/24 06:01: WBC 3.0 L, RBC 3.73 L, Hgb 12.4 L, Hct 36.7 L, MCV 98.4 H, MCH 33.2 H, MCHC 33.8, RDW 14.7, Plt Count 133 L, MPV 9.9, Neut % (Auto) 28.9 L, Lymph % (Auto) 48.5, Scott % (Auto) 18.6 H, Eos % (Auto) 2.7, Baso % (Auto) 1.0, Neut # (Auto) 0.9 L*, Lymph # (Auto) 1.4, Scott # (Auto) 0.6, Eos # (Auto) 0.1, Baso # (Auto) 0.0, Sodium 131 L, Potassium 3.5, Chloride 101, Carbon Dioxide 24, Anion Gap 9.5, BUN 19, Creatinine 1.10, Estimated Creat Clear 93, Estimated GFR 72, Est GFR ( Amer) 88, Glucose 100, Calcium 9.5, Magnesium 2.0 D, Total Bilirubin 1.2, AST 56, ALT 44, Alkaline Phosphatase 53, Total Protein 6.6, Albumin 4.1, Globulin 2.5, Albumin/Globulin Ratio 1.6 I & O for Last 24 hours: Intake & Output 10/31/24 11/01/24 11/02/24 11/03/24 11:59 11:59 11:59 11:59 Intake Total 120 / 120 Output Total 0 / 0 Balance 120 / 120 Weight 333 lb 4.8 oz Constitutional Constitutional: no acute distress *Routine Respiratory Exam Respiratory: Present CTA bilaterally; Absent rhonchi, wheezes or crackles *Routine Cardiovascular Exam Cardiovascular: Present irregularly irregular *Routine Extremities Exam Extremities: Absent edema *Routine Neurological Exam Neurological: Present alert and oriented X3 Meds Home Medications and Allergies Home Medications ?Medication ?Instructions ?Recorded ?Confirmed ?Type buspirone 15 mg tablet 15 mg PO BID #180 tabs 11/21/23 11/02/24 Rx citalopram 40 mg tablet 40 mg PO DAILY Mood #90 tabs 11/21/23 11/02/24 Rx fenofibrate 54 mg tablet 54 mg PO DAILY Cholesterol #90 tabs 11/21/23 11/02/24 Rx carvedilol phosphate 80 mg 80 mg PO DAILY High Blood Pressure 11/22/23 11/02/24 Rx capsule,[id number] multiphase #90 caps valsartan 80 mg tablet 80 mg PO DAILY High Blood Pressure 03/06/24 11/02/24 Rx #90 tabs evolocumab 140 mg/mL subcutaneous 140 mg SQ Q2W #2 mL 07/24/24 11/02/24 Rx pen injector (Sameer Bradshaw) pregabalin 50 mg capsule 50 mg PO Q8H #90 caps 09/29/24 11/02/24 Rx omeprazole 40 mg capsule,delayed 40 mg PO DAILY 11/02/24 11/02/24 History release baclofen 10 mg tablet 10 mg PO TID PRN Muscle Spasm 11/03/24 11/03/24 History New Prescriptions to Start Prescriptions: Allergies Allergy/AdvReac Type Severity Reaction Status Date / Time morphine (MORPHINE) Allergy Unknown I-ITCHING Verified 11/02/24 21:59 semaglutide AdvReac Severe Pancreatiti Verified 11/02/24 21:59 s [id number] Reductase AdvReac Severe MUSCLE Verified 11/02/24 21:59 Inhibitor CRAMPING/PAIN pravastatin AdvReac Intermediate myalgia Verified 11/02/24 21:59 lipitor AdvReac Intermediate myalgia Uncoded 11/02/24 15:00 vascepa AdvReac Mild myalgia Uncoded 11/02/24 15:00 Assessment and Plan *Assessment and plan (1) Atrial fibrillation with RVR: Status: Acute Category: Medical Code(s): I48.91 - Unspecified atrial fibrillation (2) COVID-19: Status: Acute Category: Medical Code(s): U07.1 - COVID-19 (3) Flu-like symptoms: Status: Acute Category: Medical Code(s): R68.89 - Other general symptoms and signs (4) Shortness of breath: Status: Acute Category: Medical Code(s): R06.02 - Shortness of breath (5) BRBPR (bright red blood per rectum): Status: Acute Category: Medical Code(s): K62.5 - Hemorrhage of anus and rectum (6) Alcohol abuse: Status: Acute Category: Social Hx Code(s): F10.10 - Alcohol abuse, uncomplicated (7) Hypertension: Status: Chronic Qualifiers: Hypertension type: unspecified Qualified Code(s): I10 - Essential (primary) hypertension Category: Medical Code(s): I10 - Essential (primary) hypertension (8) Cardiomyopathy: Status: Acute Qualifiers: Cardiomyopathy type: unspecified Qualified Code(s): I42.9 - Cardiomyopathy, unspecified Category: Medical Code(s): I42.9 - Cardiomyopathy, unspecified Plan 1. A. Fib with RVR -started on lovenox with CHADS-VASC score of 2 (CHF, HTN) with plans to switch to oral anticoagulation (Xarelto 20 mg daily) -likely due to combination of recent alcohol use and COVID-19 -Will not cardiovert at this time due to unknown length of A-fib -Recommend 30 days of oral anticoagulation and rate control with consideration of outpatient cardioversion after that -Patient is maxed out on carvedilol, therefore will switch to metoprolol succinate 50 mg twice daily and titrate up as needed. Consider holding valsartan for increased dose of metoprolol for rate control if needed -Rate control should improve as COVID resolves. 2. COVID-19 -Loss of sense of smell and taste 3. Alcohol abuse -Cessation recommended 4. History of bright red blood per rectum with history of hemorrhoids -Monitor on oral anticoagulation with plans for outpatient GI follow-up 5. Hypertension -Controlled 6. Pancytopenia likely related to COVID Switch Coreg to metoprolol succinate 50 mg twice daily for better rate control A-fib likely to return to sinus once COVID has resolved Patient has a previously scheduled appointment with Dr. Berman next week which he will keep Anticipate RAINA with cardioversion in 30 days if needed Patient can be discharged home later today from cardiac standpoint. Home medication recommendations: Metoprolol succinate 50 mg twice daily (new medication) Xarelto 20 mg once daily with food (new medication) Valsartan 80 mg daily Repatha 140 mg subcu every 2 weeks Fenofibrate 54 mg daily Stop carvedilol Keep follow-up as scheduled next week
[2024-11-03] MEDS: CITALOPRAM 40MG TABLET 40 MG PO (09:52)
[2024-11-03] MEDS: IRBESARTAN 75MG TABLET 75 MG PO (09:52)
[2024-11-03] MEDS: FENOFIBRATE 54MG TABLET 54 MG PO (09:52)
[2024-11-03] MEDS: BUSPIRONE HCL 5 MG TABLET 15 MG PO (09:53)
[2024-11-03] MEDS: ENOXAPARIN 150MG/ML SYRINGE 150 MG SUBCUT (09:53)
[2024-11-03] MEDS: CARVEDILOL 25MG TABLET 25 MG PO (10:16)
--- NOTE | 2024-11-03 10:57 | EXP.DC.SUM ---
General Admission date:: 11/02/24 Discharge date: 11/03/24 HPI HPI HPI: This 44-year-old male, with an off-and-on again history of alcohol/drug abuse., He had been going to his doctor with complaints of cervical spine pain actually referred to an orthopedics per note. Also then exposed to COVID his significant other had COVID. Also noted recently has been having bright red rectal bleeding question internal hemorrhoids. Patient showed no signs of alcohol withdrawal CIWA score 0 in the emergency room. Was noted at 1 time he had a significantly decreased ejection fraction that has recovered back to 65%. Patient also noted with morbid obesity his weight on December 2023 was 319 pounds when weight in the emergency was 303 pounds but the day before in the doctor's office saw a weight of 342 this may have been with close in boots on. Review of his labs also noted hyperlipidemia, but liver function relatively normal with 1 elevated GGT reading in the past. Chest x-ray also showed a moderate left ventricular enlargement Patient is stable at this time in the emergency, but we are unsure of when this atrial fibrillation started unsure of how to coagulate, or to cardiovert. Will start on Lovenox. And consult and cardiology Hospital Course Hospital Course Hospital Course: 1. A. Fib with RVR -started on lovenox with CHADS-VASC score of 2 (CHF, HTN) with plans to switch to oral anticoagulation (Xarelto 20 mg daily) -likely due to combination of recent alcohol use and COVID-19 -Will not cardiovert at this time due to unknown length of A-fib -Recommend 30 days of oral anticoagulation and rate control with consideration of outpatient cardioversion after that -Patient is maxed out on carvedilol, therefore will switch to metoprolol succinate 50 mg twice daily and titrate up as needed. Consider holding valsartan for increased dose of metoprolol for rate control if needed -Rate control should improve as COVID resolves. 2. COVID-19 -Loss of sense of smell and taste 3. Alcohol abuse -Cessation recommended 4. History of bright red blood per rectum with history of hemorrhoids -Monitor on oral anticoagulation with plans for outpatient GI follow-up 5. Hypertension -Controlled 6. Pancytopenia likely related to COVID Switch Coreg to metoprolol succinate 50 mg twice daily for better rate control A-fib likely to return to sinus once COVID has resolved Patient has a previously scheduled appointment with Dr. Berman next week which he will keep Anticipate RAINA with cardioversion in 30 days if needed Patient can be discharged home later today from cardiac standpoint. Home medication recommendations: Metoprolol succinate 50 mg twice daily (new medication) Xarelto 20 mg once daily with food (new medication) Valsartan 80 mg daily Repatha 140 mg subcu every 2 weeks Fenofibrate 54 mg daily Stop carvedilol Total time spent on discharge 36 minutes in counseling, documentation, chart review, and direct care with patient. Exam Data for Last 24 hours Vital signs and Labs for Last 24 Hours: Temp Pulse Resp BP Pulse Ox O2 Del Method 97.7 F 72 17 124/87 95 Room Air 11/03/24 07:45 11/03/24 07:45 11/03/24 07:45 11/03/24 07:45 11/03/24 07:45 11/03/24 07:45 Laboratory Results - last 24 hr 11/02/24 16:15: SARS-CoV-2 (PCR) Detected A, Influenza A Untype (PCR) Not detected, Influenza Type B (PCR) Not detected 11/02/24 16:19: WBC 2.8 L, RBC 4.08 L, Hgb 13.4 L, Hct 40.1 L, MCV 98.3 H, MCH 32.8 H, MCHC 33.4, RDW 14.9, Plt Count 166, MPV 9.7, Neut % (Auto) 49.2, Lymph % (Auto) 31.7, [place] % (Auto) 16.2 H, Eos % (Auto) 1.8, Baso % (Auto) 0.7, Neut # (Auto) 1.4 L, Lymph # (Auto) 0.9, [place] # (Auto) 0.5, Eos # (Auto) 0.1, Baso # (Auto) 0.0, PT 10.6, INR 0.94, APTT 28.2, Sodium 138, Potassium 3.6, Chloride 103, Carbon Dioxide 25, Anion Gap 13.6, BUN 17, Creatinine 1.10, Estimated Creat Clear 96, Estimated GFR 72, Est GFR ( Amer) 88, Glucose 116 H, Calcium 10.1, Magnesium 1.7, Total Bilirubin 1.2, AST 62 H, ALT 49, Alkaline Phosphatase 53, Troponin I < 0.01, NT-Pro-B Natriuret Pep 2840 H, Total Protein 7.4, Albumin 4.5, Globulin 2.9, Albumin/Globulin Ratio 1.6 11/02/24 19:25: Troponin I < 0.01 11/02/24 22:22: Troponin I < 0.01 11/03/24 06:01: WBC 3.0 L, RBC 3.73 L, Hgb 12.4 L, Hct 36.7 L, MCV 98.4 H, MCH 33.2 H, MCHC 33.8, RDW 14.7, Plt Count 133 L, MPV 9.9, Neut % (Auto) 28.9 L, Lymph % (Auto) 48.5, [place] % (Auto) 18.6 H, Eos % (Auto) 2.7, Baso % (Auto) 1.0, Neut # (Auto) 0.9 L*, Lymph # (Auto) 1.4, [place] # (Auto) 0.6, Eos # (Auto) 0.1, Baso # (Auto) 0.0, Sodium 131 L, Potassium 3.5, Chloride 101, Carbon Dioxide 24, Anion Gap 9.5, BUN 19, Creatinine 1.10, Estimated Creat Clear 93, Estimated GFR 72, Est GFR ( Amer) 88, Glucose 100, Calcium 9.5, Magnesium 2.0 D, Total Bilirubin 1.2, AST 56, ALT 44, Alkaline Phosphatase 53, Total Protein 6.6, Albumin 4.1, Globulin 2.5, Albumin/Globulin Ratio 1.6 I & O for Last 24 hours: Intake & Output 10/31/24 11/01/24 11/02/24 11/03/24 23:59 23:59 23:59 23:59 Intake Total 120 / 120 Output Total 0 / 0 Balance 120 / 120 Weight 151.182 kg 151.182 kg Constitutional Constitutional: no acute distress, morbidly obese and cooperative *Routine HEENT Exam Head: Present normocephalic and atraumatic Eye: Present EOMI ENT: Present mucous membranes moist *Routine Neck Exam Neck: Present supple and full ROM Routine Chest/Breast/Axilla Exam Chest wall: Absent tenderness Breast: Absent tenderness *Routine Respiratory Exam Respiratory: Present CTA bilaterally; Absent accessory muscle use, rhonchi, wheezes or crackles *Routine Cardiovascular Exam Cardiovascular: Present RRR and Normal S1 Comments: Has converted to sinus rhythm on exam *Routine Abdominal Exam Abdominal: Present soft, normoactive bowel sounds and tenderness (minimal epigastric); Absent rebound or guarding *Routine Rectal Exam Patient deferred: visual exam *Routine Exam Patient deferred: penile exam *Routine Extremities Exam Extremities: Absent cyanosis or clubbing *Routine Skin Exam Skin: Present intact; Absent cyanosis or erythema *Routine Neurological Exam Neurological: Present alert, oriented X3 and moving all extremities; Absent altered mental status Routine Psychiatric Exam Psychiatric: Present normal affect and normal thought process Results Data Completed and Pending Labs on day of discharge: Labs from last 24 hours 11/03/24 11/02/24 11/02/24 06:01 22:22 19:25 WBC 3.0 L RBC 3.73 L Hgb 12.4 L Hct 36.7 L MCV 98.4 H MCH 33.2 H MCHC 33.8 RDW 14.7 Plt Count 133 L MPV 9.9 Neut % (Auto) 28.9 L Lymph % (Auto) 48.5 [place] % (Auto) 18.6 H Eos % (Auto) 2.7 Baso % (Auto) 1.0 Neut # (Auto) 0.9 L* Lymph # (Auto) 1.4 [place] # (Auto) 0.6 Eos # (Auto) 0.1 Baso # (Auto) 0.0 PT INR APTT Sodium 131 L Potassium 3.5 Chloride 101 Carbon Dioxide 24 Anion Gap 9.5 BUN 19 Creatinine 1.10 Estimated Creat Clear 93 Estimated GFR 72 Est GFR ( Amer) 88 Glucose 100 Calcium 9.5 Magnesium 2.0 D Total Bilirubin 1.2 AST 56 ALT 44 Alkaline Phosphatase 53 Troponin I < 0.01 < 0.01 NT-Pro-B Natriuret Pep Total Protein 6.6 Albumin 4.1 Globulin 2.5 Albumin/Globulin Ratio 1.6 SARS-CoV-2 (PCR) Influenza A Untype (PCR) Influenza Type B (PCR) 11/02/24 11/02/24 16:19 16:15 WBC 2.8 L RBC 4.08 L Hgb 13.4 L Hct 40.1 L MCV 98.3 H MCH 32.8 H MCHC 33.4 RDW 14.9 Plt Count 166 MPV 9.7 Neut % (Auto) 49.2 Lymph % (Auto) 31.7 [place] % (Auto) 16.2 H Eos % (Auto) 1.8 Baso % (Auto) 0.7 Neut # (Auto) 1.4 L Lymph # (Auto) 0.9 [place] # (Auto) 0.5 Eos # (Auto) 0.1 Baso # (Auto) 0.0 PT 10.6 INR 0.94 APTT 28.2 Sodium 138 Potassium 3.6 Chloride 103 Carbon Dioxide 25 Anion Gap 13.6 BUN 17 Creatinine 1.10 Estimated Creat Clear 96 Estimated GFR 72 Est GFR ( Amer) 88 Glucose 116 H Calcium 10.1 Magnesium 1.7 Total Bilirubin 1.2 AST 62 H ALT 49 Alkaline Phosphatase 53 Troponin I < 0.01 NT-Pro-B Natriuret Pep 2840 H Total Protein 7.4 Albumin 4.5 Globulin 2.9 Albumin/Globulin Ratio 1.6 SARS-CoV-2 (PCR) Detected A Influenza A Untype (PCR) Not detected Influenza Type B (PCR) Not detected DS: Diagnosis Discharge Diagnosis (1) Atrial fibrillation with RVR: Status: Acute Code(s): I48.91 - Unspecified atrial fibrillation (2) COVID-19: Status: Acute Code(s): U07.1 - COVID-19 (3) Flu-like symptoms: Status: Acute Code(s): R68.89 - Other general symptoms and signs (4) Shortness of breath: Status: Acute Code(s): R06.02 - Shortness of breath (5) BRBPR (bright red blood per rectum): Status: Acute Code(s): K62.5 - Hemorrhage of anus and rectum (6) Alcohol abuse: Status: Acute Code(s): F10.10 - Alcohol abuse, uncomplicated (7) Hypertension: Status: Chronic Code(s): I10 - Essential (primary) hypertension Qualifiers: Hypertension type: unspecified Qualified Code(s): I10 - Essential (primary) hypertension (8) Cardiomyopathy: Status: Acute Code(s): I42.9 - Cardiomyopathy, unspecified Qualifiers: Cardiomyopathy type: unspecified Qualified Code(s): I42.9 - Cardiomyopathy, unspecified Meds Home Medications and Allergies Home Medications ?Medication ?Instructions ?Recorded ?Confirmed ?Type buspirone 15 mg tablet 15 mg PO BID #180 tabs 11/21/23 11/03/24 Rx citalopram 40 mg tablet 40 mg PO DAILY Mood #90 tabs 11/21/23 11/03/24 Rx fenofibrate 54 mg tablet 54 mg PO DAILY Cholesterol #90 tabs 11/21/23 11/03/24 Rx valsartan 80 mg tablet 80 mg PO DAILY High Blood Pressure 03/06/24 11/03/24 Rx #90 tabs evolocumab 140 mg/mL subcutaneous 140 mg SQ Q2W #2 mL 07/24/24 11/03/24 Rx pen injector (Sameer Bradshaw) pregabalin 50 mg capsule 50 mg PO Q8H #90 caps 09/29/24 11/03/24 Rx omeprazole 40 mg capsule,delayed 40 mg PO DAILY 11/02/24 11/03/24 History release baclofen 10 mg tablet 10 mg PO TID PRN Muscle Spasm 11/03/24 11/03/24 History metoprolol succinate 50 mg 50 mg PO BID 30 days #60 tabs 11/03/24 Rx tablet,extended release 24 hr (Toprol XL) rivaroxaban 20 mg tablet 20 mg PO HS 30 days #30 tabs 11/03/24 Rx New Prescriptions to Start Prescriptions: metoprolol succinate [Toprol XL] Tirso Gardner rivaroxaban Tirso Gardner Allergies Allergy/AdvReac Type Severity Reaction Status Date / Time morphine (MORPHINE) Allergy Unknown I-ITCHING Verified 11/02/24 21:59 semaglutide AdvReac Severe Pancreatiti Verified 11/02/24 21:59 s [id number] Reductase AdvReac Severe MUSCLE Verified 11/02/24 21:59 Inhibitor CRAMPING/PAIN pravastatin AdvReac Intermediate myalgia Verified 11/02/24 21:59 lipitor AdvReac Intermediate myalgia Uncoded 11/02/24 15:00 vascepa AdvReac Mild myalgia Uncoded 11/02/24 15:00 Discharge Plan Disposition Patient Disposition: Home, Self-Care Condition: Fair Follow up Plan Follow up with: Trixie Yan APRN [Primary Care Provider] - 11/16/24 3:00 pm Ramon Joseph MD [Staff Physician] - 11/18/24 1:15 pm Prescriptions/Medication Reconciliation: New metoprolol succinate [Toprol XL] 50 mg Tablet Extended Release 24 Hr 50 mg PO BID 30 Days Qty: 60 0RF rivaroxaban 20 mg tablet 20 mg PO HS 30 Days Qty: 30 0RF Continued pregabalin 50 mg capsule 50 mg PO Q8H Qty: 90 0RF buspirone 15 mg tablet 15 mg PO BID Qty: 180 3RF citalopram 40 mg tablet 40 mg PO DAILY Qty: 90 3RF fenofibrate 54 mg tablet 54 mg PO DAILY Qty: 90 3RF valsartan 80 mg tablet 80 mg PO DAILY Qty: 90 1RF Repatha SureClick 140 mg/mL pen injector 140 mg SQ Q2W Qty: 2 5RF omeprazole 40 mg capsule,delayed release(DR/EC) 40 mg PO DAILY Rx Instructions: TAKE 1 CAPSULE DAILY baclofen 10 mg tablet 10 mg PO TID PRN (Reason: Muscle Spasm) Patient Comments: TAKE 1 TABLET BY MOUTH THREE TIMES DAILY NEEDED FOR MUSCLE SPASM Discontinued carvedilol phosphate 80 mg capsule, ER multiphase 24 hr 80 mg PO DAILY Qty: 90 3RF Rx Instructions: must administer with a meal/food Problem Reconciliation Problems Reviewed?: Yes Patient Discharge Instructions Patient Instructions: DI for Atrial Fibrillation, DI for COVID-19 (Suspected or Confirmed ) Print Language: French Providers Primary Care Provider: Trixie Yan Admit Provider: Tirso Gardner Attending Provider: Tirso Gardner
[2024-11-03 11:37] LABS: HIV Combo NEGATIVE (Negative)
--- NOTE | 2024-11-03 11:51 | HMH.PHAINT1 ---
Pharmacy Intervention Comments: Counselled patient on new medications and discontinued medications prior to discharge. Patient verbalized understanding.
[2024-11-03 11:53] VITALS: BP 126/100; PULSE 75; RESP 18; TEMP 36.8; O2SAT 97
[2024-11-03] MEDS: RIVAROXABAN 10MG TABLET 20 MG PO (12:20)
--- NOTE | 2024-11-03 21:55 | CA_ITS ---
APPROVED REPORT EXAM: Comprehensive 2D, Doppler, and color-flow Echocardiogram Shift Engineer: Krystal Medina CRT Ht: 6 ft 0 in Wt: 333lbs BSA: 2.65 BP: 140/70 mmHg Indications: Atrial Fibrillation, Peripheral Edema, Hyperlipidemia, Hypertension/HDD, alcohol use, hx of drug use yrs ago, EF 40% echo 11/22/22, EF 64% on CMR 01/31/2024 2D Dimensions LA Volume 52.20 mL LA Volume Index 19.30 mL/m2 (M/F) 16-34 M-Mode Dimensions RVDd 2.58 cm (0.9-2.6) LA Diam 4.64 cm (1.9-4.0) LVDd 5.14 cm (3.5-5.7) LVDs 4.43 cm (3.5-5.7) IVSd 1.92 cm (0.6-1.1) PWd 1.23 cm (0.6-1.1) EF (Teich) 29.30% FS 13.80% EDV (Teich) 126.10 mL ESV (Teich) 89.10 mL LV Diastology E Decel Time 157 (160-240 msec) E/A Ratio 5.10 MED A' 5.20 cm/s LAT A' 8.00 cm/s Aortic Valve AO Peak GR. 7.80 mmHg Mitral Valve MV E Max Julio. 79.0 (40-130 cm/s) MV A Velocity 16.0 (40-130 cm/s) E/A Ratio 5.10 MV PHT 46.0 ms Tricuspid Valve TR P. Velocity 257.00 cm/s RAP Estimate 10.00 mmHg RVSP 36.50 mmHg Left Ventricle The left ventricle is normal size. The left ventricular systolic function is normal. The left ventricular ejection fraction is within the normal range. There is increased LV wall thickness. The septum is asynchronous. There is moderate hypokinesis of the septal and inferoseptal LV guthrie. Diastolic function is indeterminate. LVEF is 45%. Right Ventricle The right ventricle is normal size. The right ventricular systolic function is normal. Atria Left atrium is mildly dilated. The right atrium size is normal. There is no Doppler evidence of interatrial shunt. Aortic Valve The aortic valve opens well. There is no aortic valvular stenosis. No aortic regurgitation is present. Mitral Valve The mitral valve is normal in structure. No evidence of mitral valve stenosis. Trace mitral regurgitation. Tricuspid Valve Tricuspid valve is grossly normal in structure and function. Trace tricuspid regurgitation. There is insufficient TR jet to estimate RVSP. Pulmonic Valve The pulmonary valve is normal in structure. Trace pulmonic regurgitation. Great Vessels The aortic root is normal in size. IVC is normal in size and collapses >50% with inspiration. Pericardium There is a trivial, circumferential pericardial effusion. No echo indications of tamponade. Other Information Study Quality: Fair Conclusion Mildly reduced LV systolic function (LVEF 45%). The septum is asynchronous. There is moderate hypokinesis of the septal and inferoseptal LV guthrie. Mild LA dilation. No significant valvular stenosis or regurgitation. Trivial, circumferential pericardial effusion. No echo indications of tamponade. Compared to prior CMR (01/31/2024), the LVEF reduction is new. Electronically signed by : Antonella Joseph MD 11/03/2024 08:03:01
[2024-11-04 06:13] LABS: HCV Ab Non Reactive (Non Reactive)
--- NOTE | 2024-11-05 15:52 | CARE MANAGER ---
Spoke with patient regarding recent discharge. Patient stated that he is doing ok and has started new medication. No questions or concerns voiced at time of call.
== END 2024-11-03 12:27 | disposition home or self-care (01) ==
LOC: ER 19:44 → 2ND 19:54
PROVIDERS: Nurse Practitioner Family; Physician Assistant; Admitting Provider Internal Medicine Adolescent Medicine; Emergency Provider Emergency Medicine; PCP Nurse Practitioner Family; Visit Provider Internal Medicine Adolescent Medicine
DX: I48.91 Unspecified atrial fibrillation (principal); U07.1 COVID-19; I50.30 Unspecified diastolic (congestive) heart failure; I11.0 Hypertensive heart disease with heart failure; I42.9 Cardiomyopathy, unspecified; Z79.899 Other long term (current) drug therapy; E66.01 Morbid (severe) obesity due to excess calories; Z68.41 Body mass index [BMI] 40.0-44.9, adult
CPT/HCPCS: 36415; 71045; 80053; 83735; 83880; 84484; 85025; 85610; 85730; 86803; 87389; 87636; 93005; 93306; 99291; G0378; J1650; J3475

== ENCOUNTER 2024-11-16 14:02 | Outpatient (CLI) | payer BC, SELFPAY ==
[2024-11-16 14:03] LABS: Basophils # 0.1 K/mm3 (0-0.2); Basophils % 2.4 % (0.1-2.0); Eosinophils # 0.2 K/mm3 (0.0-0.4); Eosinophils % 3.4 % (0.1-12.0); Hematocrit 41.7 % (42.0-52.0); Hemoglobin 13.4 g/dL (14.1-18.0); Lymphocytes # 1.5 K/mm3 (0.7-4.5); Lymphocytes % 28.8 % (10-50); Mean Corpuscular HGB Conc 32.1 g/dL (31.8-35.4); Mean Corpuscular Hemoglobin 31.7 pg (27.0-31.2); Mean Corpuscular Volume 98.6 fl (80-94); Mean Platelet Volume 11.3 fl (7.4-10.4); Monocytes # 0.7 K/mm3 (0.1-1.0); Monocytes % 13.5 % (1.7-9.3); Neutrophils # 2.6 K/mm3 (1.8-7.8); Neutrophils % 51.3 % (37.0-80.0); Platelet Count 312 K/mm3 (142-424); Red Blood Count 4.23 M/mm3 (4.60-6.20); Red Cell Distribution Width 13.3 % (11.5-17.5)
[2024-11-16 14:20] LABS: Alanine Aminotransferase 55 U/L (12-78); Albumin Level 4.5 g/dl (3.5-5.0); Albumin/Globulin Ratio 1.8 (1.1-1.8); Alkaline Phosphatase 59 U/L (38-126); Anion Gap 12.7 mEq/L (5-15); Aspartate Amino Transferase 54 U/L (17-59); Bilirubin,Total 0.5 mg/dl (0.2-1.3); Blood Urea Nitrogen 21 mg/dl (9-20); Calcium 9.9 mg/dl (8.4-10.2); Carbon Dioxide 24 mmol/L (22.0-30.0); Chloride 107 mmol/L (98-107); Chol/HDL Ratio 2.5 (1-3.5); Cholesterol 179 mg/dl (140-200); Estimated Glomerular Filt Rate 81 ml/min (>60); GFR (African American) 98 ML/MIN (>60); Globulin 2.5 g/dL (1.3-3.2); Glucose 97 mg/dl (74-100); HDL Cholesterol 71 mg/dl (40-60); Magnesium 1.8 mg/dl (1.6-2.3); Potassium 4.7 mmoL/L (3.5-5.1); Sodium 139 mmol/L (136-145); Triglycerides 226 mg/dl (30-150); VLDL Cholesterol 45 mg/dL (0-40)
[2024-11-16 14:32] LABS: Iron 122 ug/dL (49-181); NT Pro Brain Natriuretic Pep. 38.1 pg/mL (0-125)
[2024-11-16 14:41] LABS: Total Iron Binding Capacity 421 ug/dL (261-462)
[2024-11-16 14:53] LABS: Thyroid Stimulating Hormone 2.66 uIU/mL (0.465-4.68)
[2024-11-16 15:08] LABS: Ferritin 55.4 ng/ml (17.9-464)
[2024-11-16 15:13] LABS: Vitamin B12 868 pg/mL (239-931)
== END 2024-11-16 23:59 | disposition home or self-care (01) ==
LOC: LAB.DROPOF 14:02
PROVIDERS: PCP Nurse Practitioner Family; Visit Provider Nurse Practitioner Family
DX: D50.9 Iron deficiency anemia, unspecified (principal); I11.0 Hypertensive heart disease with heart failure; E78.5 Hyperlipidemia, unspecified; R79.89 Other specified abnormal findings of blood chemistry; R74.8 Abnormal levels of other serum enzymes; I50.9 Heart failure, unspecified
CPT/HCPCS: 80053; 80061; 82607; 82728; 83540; 83550; 83735; 83880; 84443; 85025

== ENCOUNTER 2024-11-18 11:00 | Outpatient (RCR) | payer BC, SELFPAY | END 2024-11-18 23:59 | disposition home or self-care (01) | LOC: PT 11:00 | PROVIDERS: Visit Provider Orthopaedic Surgery | DX: M50.20 Other cervical disc displacement, unspecified cervical region (principal) | CPT/HCPCS: 97012; 97035; 97110; 97164 ==

== ENCOUNTER 2024-11-18 13:37 | Outpatient (CLI) | payer BC, SELFPAY | END 2024-11-18 23:59 | disposition home or self-care (01) | LOC: RT 13:38 | PROVIDERS: PCP Nurse Practitioner Family; Visit Provider Internal Medicine | DX: I48.0 Paroxysmal atrial fibrillation (principal); E78.5 Hyperlipidemia, unspecified; I11.0 Hypertensive heart disease with heart failure; I50.20 Unspecified systolic (congestive) heart failure; K70.0 Alcoholic fatty liver; E66.01 Morbid (severe) obesity due to excess calories; Z68.42 Body mass index [BMI] 45.0-49.9, adult | CPT/HCPCS: 93270 ==

== ENCOUNTER 2024-11-26 13:44 | Outpatient (CLI) | payer BC, SELFPAY ==
--- NOTE | 2024-11-26 13:48 | CA_ITS ---
APPROVED REPORT EXAM: Limited 2D Echocardiogram Strap Cutter: Valerie Zee RVT Ht: 6 ft 0 in Wt: 343lbs BSA: 2.68 BP: 129/82 mmHg Indications: HFrEF EF OF 45% ON 11/03/24,A-FIB,HTN,HLD M-Mode Dimensions RVDd 3.19 cm (0.9-2.6) LA Diam 4.61 cm (1.9-4.0) LVDd 5.35 cm (3.5-5.7) LVDs 3.99 cm (3.5-5.7) IVSd 0.89 cm (0.6-1.1) PWd 1.03 cm (0.6-1.1) EF (Teich) 49.70% FS 25.40% EDV (Teich) 138.30 mL ESV (Teich) 69.60 mL Other Information Study Quality: Fair Conclusion This is a limited TTE to evaluate for LV systolic function. Limited windows are obtained. The left ventricle is mildly dilated. There is normal LV wall thickness. There is mild global hypokinesis present. There is moderate hypokinesis of the septal and inferoseptal LV guthrie. The septum is asynchronous. LVEF is 45%. Compared to prior study from 11/03/2024, the LVEF is unchanged. Electronically signed by : Antonella Joseph MD 11/28/2024 01:11:51
== END 2024-11-26 23:59 | disposition home or self-care (01) ==
LOC: RT 13:44
PROVIDERS: PCP Nurse Practitioner Family; Visit Provider Internal Medicine
DX: I48.0 Paroxysmal atrial fibrillation (principal); I11.0 Hypertensive heart disease with heart failure; I50.20 Unspecified systolic (congestive) heart failure; E78.5 Hyperlipidemia, unspecified; K70.0 Alcoholic fatty liver; E66.01 Morbid (severe) obesity due to excess calories; Z68.42 Body mass index [BMI] 45.0-49.9, adult
CPT/HCPCS: 93308

== ENCOUNTER 2024-12-09 15:52 | Outpatient (CLI) | payer BC, SELFPAY ==
[2024-12-09 16:04] LABS: Basophils % 0.6 % (0.1-2.0); Eosinophils % 0.3 % (0.1-12.0); Hematocrit 44.1 % (42.0-52.0); Hemoglobin 15.2 g/dL (14.1-18.0); Lymphocytes # 1.7 K/mm3 (0.7-4.5); Lymphocytes % 25.1 % (10-50); Mean Corpuscular HGB Conc 34.5 g/dL (31.8-35.4); Mean Corpuscular Volume 92.8 fl (80-94); Mean Platelet Volume 9.8 fl (7.4-10.4); Monocytes % 15.3 % (1.7-9.3); Neutrophils # 3.8 K/mm3 (1.8-7.8); Neutrophils % 58.4 % (37.0-80.0); Platelet Count 254 K/mm3 (142-424); Red Blood Count 4.75 M/mm3 (4.60-6.20); Red Cell Distribution Width 13.1 % (11.5-17.5); White Blood Count 6.6 K/mm3 (4.8-10.8)
[2024-12-09 16:27] LABS: Albumin Level 5.7 g/dl (3.5-5.0); Chloride 103 mmol/L (98-107); Sodium 138 mmol/L (136-145)
[2024-12-09 16:28] LABS: Potassium 4.2 mmoL/L (3.5-5.1)
[2024-12-09 16:30] LABS: Alanine Aminotransferase 68 U/L (12-78); Alkaline Phosphatase 85 U/L (38-126); Anion Gap 17.2 mEq/L (5-15); Aspartate Amino Transferase 64 U/L (17-59); Bilirubin,Direct 0.1 mg/dl (0.0-0.4); Bilirubin,Indirect 1.6 mg/dL (0.0-0.9); Bilirubin,Total 1.7 mg/dl (0.2-1.3); Bilirubin,Unconjugated 1.6 mg/dL (0.0-1.1); Blood Urea Nitrogen 9 mg/dl (9-20); Calcium 10.3 mg/dl (8.4-10.2); Carbon Dioxide 22 mmol/L (22.0-30.0); Estimated Glomerular Filt Rate 91 ml/min (>60); GFR (African American) 110 ML/MIN (>60); Glucose 126 mg/dl (74-100)
[2024-12-09 16:31] LABS: Magnesium 1.8 mg/dl (1.6-2.3)
[2024-12-09 16:47] LABS: Free T4 (Free Thyroxine) 1.41 ng/dl (0.78-2.19)
[2024-12-09 17:02] LABS: Thyroid Stimulating Hormone 4.43 uIU/mL (0.465-4.68)
== END 2024-12-09 23:59 | disposition home or self-care (01) ==
LOC: LAB 15:53
PROVIDERS: PCP Nurse Practitioner Family; Visit Provider Internal Medicine
DX: I50.20 Unspecified systolic (congestive) heart failure (principal); I48.0 Paroxysmal atrial fibrillation; E66.01 Morbid (severe) obesity due to excess calories; K70.0 Alcoholic fatty liver; I10 Essential (primary) hypertension; E78.5 Hyperlipidemia, unspecified
CPT/HCPCS: 36415; 80048; 80076; 83735; 84439; 84443; 85025

== ENCOUNTER 2025-01-08 21:44 | Emergency (ER) | payer BC, SELFPAY ==
[2025-01-08 22:23] VITALS: BP 156/83; PULSE 68; RESP 20; TEMP 36.4; O2SAT 96; BMI 44.1
--- NOTE | 2025-01-08 22:35 | PC.NURSE ---
Sitter at bedside
[2025-01-08 22:40] VITALS: BP 128/105; PULSE 79; RESP 18; TEMP 36.8; O2SAT 94
--- NOTE | 2025-01-08 22:59 | HMH.EDGENADL ---
Discharge Plan Disposition Patient Disposition: Home, Self-Care Condition: Good Prescriptions Prescriptions: New sulfamethoxazole-trimethoprim 800-160 mg tablet 1 tab PO BID 7 Days Qty: 14 0RF No Action metoprolol succinate [Toprol XL] 50 mg tablet extended release 24 hr 50 mg PO DAILY Qty: 90 3RF rivaroxaban 20 mg tablet 20 mg PO HS Qty: 90 3RF Repatha SureClick 140 mg/mL pen injector 140 mg SQ Q2W Qty: 2 5RF fenofibrate 54 mg tablet See Rx Instructions .ROUTE .COMPLEX Qty: 90 3RF Dose Instruction: TAKE 1 TABLET DAILY FOR CHOLESTEROL Rx Instructions: TAKE 1 TABLET DAILY FOR CHOLESTEROL citalopram 40 mg tablet See Rx Instructions .ROUTE .COMPLEX Qty: 90 3RF Dose Instruction: TAKE 1 TABLET DAILY FOR MOOD Rx Instructions: TAKE 1 TABLET DAILY FOR MOOD buspirone 15 mg tablet See Rx Instructions .ROUTE .COMPLEX Qty: 180 3RF Dose Instruction: TAKE 1 TABLET TWICE A DAY Rx Instructions: TAKE 1 TABLET TWICE A DAY omeprazole 40 mg capsule,delayed release(DR/EC) See Rx Instructions .ROUTE .COMPLEX Qty: 90 3RF Dose Instruction: TAKE 1 CAPSULE DAILY Rx Instructions: TAKE 1 CAPSULE DAILY valsartan 80 mg tablet 80 mg PO DAILY Qty: 90 1RF dapagliflozin propanediol [Farxiga] 10 mg tablet 10 mg PO DAILY Qty: 30 3RF pregabalin 50 mg capsule 50 mg PO Q8H Qty: 90 0RF Referrals Follow up/Referrals: Trixie Yan APRN [Primary Care Provider] - See instructions Activity Restrictions/Add. Instructions Additional Instructions/Restrictions: Please take antibiotics as prescribed. Please follow up with your operative surgeon for wound check as soon as possible. Clinical Impressions Clinical Impression: Post op infection, Shingles Instructions Patient Instructions: DI for Skin Abscess Print Language Print Language: Maltese Discharge ED Provider: Jens Calzada General Adult HPI General Chief complaint: Skin/Abscess/Foreign Body Stated complaint: c-spine surg 12/30 poss inf site Time Seen by Provider: 01/08/25 22:49 Mode of Arrival: Ambulatory Source of Information: Patient Description of Symptoms (Recalled from ER Triage Doc. by RN): Pt states he had neck surgery and concerned surgical site is infected also stateshe has been having suicidal thoughts today History of Present Illness HPI narrative: 44-year-old male with history of alcohol use disorder, heart failure, obesity, paroxysmal A-fib presents for wound check of his cervical incision site. He had a surgery on his neck about a week ago. It seemed to be healing well but has gotten a bit more red so he wants to get it checked out. No purulent drainage. No fever or systemic symptoms. Patient also reports that he has had itchy painful red rash around the right upper chest wrapping around to the back. He thinks it is shingles. He has had it once before on the right side as well. He reports the symptoms are improving, they have been there for about a week. It is no longer itchy or painful at this point. Patient also screened positive for depression and suicidal thoughts on arrival. Extensive discussion with outpatient regarding this. He reports that he does have depression and is on 2 antidepressants. He has been taking this as prescribed. Today he became overwhelmed with the extent of his medical issues and also with his drinking problem and felt like it might be better if he just was not here anymore. He denies active suicidal ideation. He reports that if he were to kill himself he would use a gun. The patient's was in the room and was a part of the discussion. Patient reports that he is feeling better now than he was earlier and was never truly suicidal but was in despair. The patient's reports that she thinks he would be safe at home and she is confident that the patient would talk with her or seek help prior to any possible suicide attempt. She also has access to the guns and I recommended that she remove the guns from the home for the foreseeable future. Patient also reports that he thinks he would be safe at home and agrees that he would come to his before doing anything. Patient and agree that he is sober at this time. Related Data Previous Rx's ?Medication ?Instructions ?Recorded evolocumab 140 mg/mL subcutaneous 140 mg SQ Q2W #2 mL 07/24/24 pen injector (Sameer Bradshaw) buspirone 15 mg tablet See Rx Instructions .Route 11/16/24 .COMPLEX #180 tabs citalopram 40 mg tablet See Rx Instructions .Route 11/16/24 .COMPLEX #90 tabs fenofibrate 54 mg tablet See Rx Instructions .Route 11/16/24 .COMPLEX #90 tabs omeprazole 40 mg capsule,delayed See Rx Instructions .Route 11/16/24 release .COMPLEX #90 caps metoprolol succinate 50 mg 50 mg PO DAILY #90 tabs 11/18/24 tablet,extended release 24 hr (Toprol XL) valsartan 80 mg tablet 80 mg PO DAILY High Blood Pressure 12/04/24 #90 tabs rivaroxaban 20 mg tablet 20 mg PO HS #90 tabs 12/09/24 Farxiga 10 mg tablet 10 mg PO DAILY #30 tabs 12/15/24 (dapagliflozin propanediol) pregabalin 50 mg capsule 50 mg PO Q8H #90 caps 12/21/24 sulfamethoxazole 800 1 tab PO BID 7 days #14 tabs 01/08/25 mg-trimethoprim 160 mg tablet Allergies Allergy/AdvReac Type Severity Reaction Status Date / Time morphine (MORPHINE) Allergy Unknown I-ITCHING Verified 12/09/24 15:11 semaglutide AdvReac Severe Pancreatiti Verified 12/09/24 15:11 s Ovnakar-DLU-TfQ Reductase AdvReac Severe MUSCLE Verified 12/09/24 15:11 Inhibitor CRAMPING/PAIN pravastatin AdvReac Intermediate myalgia Verified 12/09/24 15:11 lipitor AdvReac Intermediate myalgia Uncoded 12/09/24 15:11 vascepa AdvReac Mild myalgia Uncoded 12/09/24 15:11 [facility] Disclaimer: The information contained in this section may have been updated after the patient was seen, as this information can be updated by other users. Medical History Chronic systolic (congestive) heart failure BRBPR (bright red blood per rectum) HFrEF (heart failure with reduced ejection fraction) Paroxysmal A-fib Anemia Numbness and tingling in both hands Pleurisy Chest pain (HFpEF) heart failure with preserved ejection fraction Chest pain Abdominal pain Fall Acute pain of right hip Palpitations TIRSO (obstructive sleep apnea) Hypotension Nonischemic cardiomyopathy Alcohol withdrawal Near syncope Angina pectoris Chest pain Vertigo Sprain of foot, right Laceration of blood vessel of left middle finger Elevated LFTs Congestive heart failure History of cocaine use Alcoholism Cardiomyopathy Weight gain Neck pain Edema Anxiety Hyperlipidemia Hypertension COVID-19 Heel pain, bilateral Callus of foot Keratosis Acquired hammertoes of both feet Acquired hallux valgus of both feet Acquired equinus deformity of both feet Pain in both feet Acquired pes planus of both feet Metatarsalgia of both feet Plantar fasciitis Alcohol abuse Surgical History History of right hip replacement History of cholecystectomy History of cardiac catheterization Family History Other Family history of hypertension Family history of myocardial infarction Social History Smoking Status: Never smoker second hand exposure: No alcohol intake: current alcohol intake frequency: 3 or more drinks per day counseling given: No counseling given: No current occupational status: employed Travel in the last 8 weeks: None household members: spouse housing: house lives independently: Yes marital status: number of children: 0 education level: high school 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 [employer] Recent Travel: No sexually active: Yes caffeine: No physical activity: none blane/mormon: Orthodox working smoke detector in home: Yes fire extinguisher in home: Yes carbon monox detector in home: Yes firearms in home: Yes do you feel safe at home: Yes victim of physical abuse: No victim of emotional abuse: No victim of sexual abuse: No would you like helpful sources: No Have you lived/traveled outside [place] in past 30 days?: No Contact w/someone who lives/traveled outside [place] past 30 days?: No Exposure to someone with infectious disease in past 14 days?: No Do you have a fever (greater than 100.4 F or 38 C)?: No Have you tested positive for COVID-19: No Exposed to someone with COVID-19 in past 14 days?: No Do you have a sore throat?: No Do you have a cough?: No Do you have any weakness?: No Do you have any diarrhea?: No Are you experiencing any unusual bleeding?: No Do you have any muscle aches/pain?: No Do you have any abdominal pain?: No Are you experiencing loss of taste or smell?: No Other Medical History Have you received the Flu Vaccine for this season: No Have you received the Pneumonia Vaccine: No ROS Obtained: Yes All systems reviewed & no additional complaints except as documented Physical Exam General General appearance: alert, in no apparent distress and obese Head Head exam: atraumatic and normocephalic Eye Eye exam: Present normal appearance, PERRL and EOMI ENT ENT exam: Present normal oropharynx and normal external ear exam Neck Neck exam: Present full ROM and other (Incision is mildly erythematous, not indurated, there is some serous crusting but no purulence. Erythema does not extend beyond the margins of the wound) Chest Chest inspection: Present normal inspection and symmetric chest wall rise; Absent tenderness Respiratory Respiratory exam: Present normal lung sounds bilaterally; Absent respiratory distress Cardiovascular Cardiovascular exam: Present regular rate and normal rhythm Abdominal Exam Abdominal exam: Present soft; Absent distention, tenderness or guarding Extremities Exam Extremities exam: Present normal inspection; Absent edema or joint swelling Back Exam Back exam: Present normal inspection; Absent tenderness Neurological Exam Neurological exam: Present alert and oriented X3; Absent motor sensory deficit Psychiatric Psychiatric exam: Present normal affect and normal mood Skin Skin exam: Present warm, dry, normal color and rash (Papular erythematous rash on the right anterior chest, shoulder and upper back. Some crusting noted.) Lymphatic Lymphatic Findings: no adenopathy Medical Decision Making Medical Records Medical records reviewed: Yes I reviewed the patient's medical records. Screening: Per USPSTF and CDC recommendations, given the prevalence of disease in our region, it is our hospital?s policy to screen for HIV and viral Hepatitis for all patients aged 18 and over and those with ongoing risk factors. Deny Inquiry Pt receiving controlled substance: No Deny was queried for this patient: No Vital Signs: 01/08/25 22:23 01/08/25 22:40 01/08/25 23:09 Temperature 97.6 F 98.3 F 97.9 F Temperature Source Oral Oral Oral Pulse Rate 79 80 Pulse Rate [Right Brachial] 68 Respiratory Rate 20 18 16 Blood Pressure 128/105 H 158/92 H Blood Pressure [Right Arm] 156/83 H Blood Pressure Mean [Right Arm] 107 Blood Pressure Source Automatic Cuff Automatic Cuff Blood Pressure Source [Right Arm] Automatic Cuff Blood Pressure Position Supine Blood Pressure Position [Right Arm] Sitting 02 Sat by Pulse Oximetry 96 94 L Oxygen Delivery Method Room Air Room Air Room Air 01/08/25 23:10 Temperature Temperature Source Pulse Rate 87 Pulse Rate [Right Brachial] Respiratory Rate 20 Blood Pressure 158/92 H Blood Pressure [Right Arm] Blood Pressure Mean [Right Arm] Blood Pressure Source Automatic Cuff Blood Pressure Source [Right Arm] Blood Pressure Position Blood Pressure Position [Right Arm] 02 Sat by Pulse Oximetry 96 Oxygen Delivery Method Room Air Lab Data Lab results reviewed: Yes I reviewed the patient's lab results. Orders (Tests/Meds): ED MEDICATIONS Discontinued Medications Generic Name Dose Route Start Last Admin Trade Name Nina PRN Reason Stop Dose Admin Trimethoprim/Sulfamethoxazole 1 each 01/08/25 22:55 01/08/25 23:02 Sulfa/Trimethoprim 1 Tablet PO 01/08/25 22:56 1 each ONCE ONE Administration ORDERS Category Date Time Status Consult to Behavioral Health [CONS] Routine Cons 01/08/25 22:27 Active Medical Decision Narrative: 44-year-old male with history of alcohol use disorder, morbid obesity, heart failure, GERD, recent cervical surgery presents for multiple complaints including wound check, possible shingles, suicidal thoughts. History was obtained via interactive discussion with patient, . On arrival, patient is [afebrile, hemodynamically stable, satting appropriately, alert, oriented x4, GCS 15], moving all extremities spontaneously. Full physical exam performed and significant for findings as discussed above, mild erythema of the incision site, does not appear grossly infected Differential includes but is not limited to abscess, cellulitis, postoperative infection, shingles, suicidal ideation, homicidal ideation. Extensive discussion was had with patient and regarding his mental status. At this time he is not suicidal, does not have a plan and has good collateral with his . Patient does not require hold or inpatient psychiatric admission at this time. Regarding his shingles, he given he is a week out from symptom onset and he is essentially asymptomatic at this time, I do not think he requires initiation of antiviral medications. Regarding his cervical incision, it is mildly erythematous but is not purulent. Given the redness is worsening, we will treat empirically for possible cellulitis. Interactive discussion was had with patient and family regarding his presentation. He was given a a dose of Bactrim and discharged with prescription for same. Return precautions given for worsening infection or psychiatric illness. Procedures Risk/Benefits of Procedure(s) Were Explained: Yes Critical Care Critical Care Time Critical Care Time: No
[2025-01-08] MEDS: SULFA/TRIMETHOPRIM 1 TABLET 1 EACH PO (23:02)
[2025-01-08 23:09] VITALS: BP 158/92; PULSE 80; RESP 16; TEMP 36.6; O2SAT 98
[2025-01-08 23:10] VITALS: BP 158/92; PULSE 87; RESP 20; O2SAT 96
--- NOTE | 2025-01-08 23:12 | PC.NURSE ---
Patient given information on suicide hotline; told to come back if he has any thoughts of SI
--- NOTE | 2025-01-08 23:13 | PC.NURSE ---
Pt contracted for safety with MD GOODEN cleared patient and is comfortable discharging patient. Suicide resources provided to patient
--- NOTE | 2025-01-08 23:13 | PC.NURSE ---
IV removed; catheter tip intact; bleeding controlled.
== END 2025-01-08 23:16 | disposition home or self-care (01) ==
PROVIDERS: Emergency Provider Emergency Medicine; PCP Nurse Practitioner Family
DX: B02.9 Zoster without complications (principal)
CPT/HCPCS: 99283

== ENCOUNTER 2025-02-22 07:58 | Outpatient (CLI) | payer BC, SELFPAY ==
--- NOTE | 2025-02-22 | CA_ITS ---
APPROVED REPORT EXAM: Limited 2D Echocardiogram with contrast Drier Feeder: Krystal Medina CRT Ht: 6 ft 1 in Wt: 356lbs BSA: 2.75 BP: 135/75 mmHg Indications: ef check, definity Echo Enhancing Agent Indication: Endocardial border delineation Agent(s) / Amount(s) Used: Definity 2 cc Comments: Definity ordered Other Information Study Quality: Technically Difficult Conclusion This is a limited TTE to evaluate for LV systolic function. Limited windows were obtained. Ultrasound enhancing agent is administered. Technically difficult study. The left ventricle is normal in size. There is increased LV wall thickness. There is normal global LV systolic function. There is mild hypokinesis of the septal and inferoseptal LV guthrie. LVEF is 55%. There is no evidence of LV thrombus following administration of ultrasound enhancing agent. Compared to prior study from 11/26/2024, the LVEF has improved and is now normal. Electronically signed by : Antonella Joseph MD 02/22/2025 12:27:45
--- OUTSIDE RECORDS SUMMARY | 2025-02-22 08:01 | XMS_ITS | Clinical Summary ---
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 Name Role Phone KENNETH GOTTLIEB Unavailable [phone] Niraj GOODEN, Lalito Gayle Unavailable [phone] Reason for Visit and Chief Complaint [facility] Problems Includes: Problems addressed during this encounter and other active Problems All Visits Onset Date Resolved Date Provider Condition S tatus Neck Pain 09/03/2024 Lalito Healy MD Active Last Documented On 4 9:01AM ; [facility], [facility] Joint Pain in Both Hips 09/22/2019 Jacob Mcneal MD Active Last Documented On 9 10:25AM ; [facility], [facility] Plan of Treatment Future Appointments Date Time Location Provi jimena Follow Up 03/18/2025 10:15AM [facility] Lalito Healy MD Last Documented On 5 10:58AM ; [facility], [facility] Assessments Includes: Assessments from this encounter No Assessments Recorded Medical Equipment - Implanted Devices Includes: Current Devices No Medical Equipment Recorded Medications Includes: Medications discussed during this encounter and other current Medications Current Medications (continue as prescribed) Baclofen 20 MG Oral Tablet 01/18/2025 Provider: Jermain GOTTLIEB Diagnosis: Last Documented On 5 3:08PM By Chuck Bowles ; [facility] Farxiga 10 MG Oral Tablet 01/18/2025 Provider: Diagnosis: Last Documented On 5 3:08PM By Chuck Bowles ; [facility] Naltrexone HCl 50 MG Oral Tablet 01/18/2025 Provider : KENNETH GOTTLIEB Diagnosis: Last Documented On 5 3:08PM By Chuck Bowles ; [facility] Promethazine HCl 25 MG Oral Tablet 01/17/2025 Provid er: KENNETH GOTTLIEB Diagnosis: Last Documented On 5 3:08PM By Chuck Bowles ; [facility] Ondansetron 4 MG Oral Tablet Disintegrating 01/13/2025 Provider: Honey Rizo APRN Diagnosis: Last Documented On 5 3:08PM By Chuck Bowles ; [facility] Sulfamethoxazole-Trimethopri m 800-160 MG Oral Tablet 01/13/2025 Provider: Stew Meredith PA-C Diagnosis: Last Documented On 5 3:08PM By Chuck Bowles ; [facility] Sulfamethoxazole-Trimethoprim 800-160 MG Oral Tablet 0 01/09/2025 Provider: Diagnosis: Last Documented On 5 9:13AM By Chuck Bowles ; [facility] oxyCODONE-Acetaminophen 5-325 MG Oral Tablet Provider: Lalito Healy MD Diagnosis: Last Documented On 5 3:09PM By Chuck Bowles ; [facility] Xarelto 20 MG Oral Tablet 11/03/2024 Provider: Shiva Gardner Diagnosis: Last Documented On 5 1:22PM By Chuck Bowles ; [facility] HYDROcodone-Acetaminophen 7.5-325 MG Oral Tablet 08/28 Provider: KENNETH GOTTLIEB Diagnosis: Last Documented On 4 9:03AM By Sujit Herrera ; [facility] Pregabalin 75 MG Oral Capsule 08/19/2024 Provider: KENNETH GOTTLIEB Diagnosis: Last Documented On 4 9:11AM By Kaity Reece ; [facility] Methocarbamol 750 MG Oral Tablet 08/19/2024 Provider : KENNETH GOTTLIEB Diagnosis: Last Documented On 4 9:03AM By Sujit Herrera ; [facility] Omeprazole 40 MG Oral Capsule Delayed Release 08/17/20 Provider: Honey Rizo APRN Diagnosis: Last Documented On 4 9:11AM By Kaity Reece ; [facility], [facility] Citalopram Hydrobromide 40 MG Oral Tablet 08/17/2024 Provider: Honey Rizo APRN Diagnosis: Last Documented On 4 9:11AM By Kaity Reece ; [facility], [facility] Ketorolac Tromethamine 10 MG Oral Tablet 08/16/2024 Provider: Diagnosis: Last Documented On 4 9:11AM By Kaity Reece ; [facility], [facility] Repatha SureClick 140 MG/ML Subcutaneous Solution Auto-injector 08/10/2024 Provider: Diagnosis: Last Documented On 4 9:11AM By Kaity Reece ; [facility], [facility] Medications Administered Includes: Administered Medications from this encounter No Administered Medications Recorded Results Includes: Results discussed during this encounter No Results Recorded For Specified Dates History of Present Illness Includes: History of Present Illness from this encounter No History of Present Illness Recorded Social History No Social History Recorded - Smoking Status Unknown Procedures and Surgical History Includes: Procedures from this encounter Procedures Code Diagnosis Performing Provider Service Location Service Date Laminectomy, facetectomy and foraminotomy (unilateral or pamela [address] Spinal stenosis, cervical region, Cerv disc disorder with radiculopathy, high cervical region Lalito Healy MD [facility] 12/30/2024 Last Documented On 5 2:45PM ; [facility], [facility] Medical History Includes: Medical History addressed during this encounter No Medical History Recorded Family History Includes: Family History addressed during this encounter No Family History Recorded Review of Systems Includes: Review of Systems from this encounter No Review of Systems Recorded Mental Status Includes: Mental Status from this encounter No Mental Status Recorded Functional Status Includes: Functional Status from this encounter No Functional Status Recorded Physical Exam Includes: Physical Exam from this encounter No Physical Exam Recorded Allergies Includes: Active Allergies No Known Allergies Encounters Encounter Provider Location Date Check-In Time Check-Out Time Diagnosis [facility] Lalito Healy MD Surgery 5 12/31/2024 6:17PM 11:59PM Insurance Includes: Active Insurance Policies Plan Name Member ID Group # Subscriber Relationship Effect david Dates 1 - [facility] [id number] Jeremie Salazar Self 10/18/2015 - Unknown Clinical Notes Includes: Clinical Notes from this encounter No Clinical Notes Recorded
--- OUTSIDE RECORDS SUMMARY | 2025-02-22 08:01 | XMS_ITS | Clinical Summary ---
Author Organization [facility] Address [address] [place] [address] Phone Care Team Providers Care Pattern Maker Name Role Phone KENNETH GOTTLIEB Unavailable [phone] Niraj GOODEN, Lalito Gayle Unavailable [phone] Reason for Visit and Chief Complaint The Chief Complaint is: Cervical Pain Problems Includes: Problems addressed during this encounter and other active Problems All Visits Onset Date Resolved Date Provider Condition S tatus Neck Pain 09/03/2024 Lalito Healy MD Active Last Documented On 4 9:01AM ; [facility], [facility] Joint Pain in Both Hips 09/22/2019 Jacob Mcneal MD Active Last Documented On 9 10:25AM ; [facility], [facility] Plan of Treatment Patient was seen by myself Stew Meredith PA-C. Patient will follow up 1 week we are going to get his emmy out today he has been educated to signs and symptoms to watch for about the incision if it starts draining or opening up he says see me. We will continue with the Bactrim for least another week Steri-Strips placed over the site today - Last Documented On 01/13/2025 9:43AM ; [facility], [facility] Future Appointments Date Time Location Provi jimena Follow Up 03/18/2025 10:15AM [facility] Lalito Healy MD Last Documented On 5 10:58AM ; [facility], [facility] Instructions to patient Intervention and counseling on cessation of tobacco use Last Documented On 5 9:13AM ; [facility], [facility] Lose weight Last Documented On 5 9:13AM ; [facility], [facility] Assessments Includes: Assessments from this encounter Findings - Overweight - Last Documented On 01/13/2025 9:43AM ; [facility] Right C3-4 posterior foraminotomy decompression of C4 nerve root 12/30/2023 - Last Documented On 01/13/2025 9:43AM ; [facility] Instructions Includes: Instructions from this encounter Instructions to patient Intervention and counseling on cessation of tobacco use Last Documented On 5 9:13AM ; [facility], [facility] Lose weight Last Documented On 5 9:13AM ; [facility], [facility] Medical Equipment - Implanted Devices Includes: Current Devices No Medical Equipment Recorded Medications Includes: Medications discussed during this encounter and other current Medications New / Renewed during this visit Stew Meredith PA-C on 01/13/2025 Bactrim DS 800-160 MG Oral Tablet Provider: Stew Meredith PA-C 7 day supply: 14 tablet, 0 refills Diagnosis: twice a day Pharmacy: [facility] [phone], [id number] - Last Documented On 5 9:41AM By Chuck Bowles ; [facility], [facility] Current Medications (continue as prescribed) Baclofen 20 MG Oral Tablet 01/18/2025 Provider: Jermain GOTTLIEB Diagnosis: Last Documented On 5 3:08PM By Chuck Bowles ; [facility], [facility] Farxiga 10 MG Oral Tablet 01/18/2025 Provider: Diagnosis: Last Documented On 5 3:08PM By Chuck Bowles ; [facility], [facility] Naltrexone HCl 50 MG Oral Tablet 01/18/2025 Provider : KENNETH GOTTLIEB Diagnosis: Last Documented On 5 3:08PM By Chuck Bowles ; [facility], [facility] Promethazine HCl 25 MG Oral Tablet 01/17/2025 Provid er: KENNETH GOTTLIEB Diagnosis: Last Documented On 5 3:08PM By Chuck Bowles ; [facility] Ondansetron 4 MG Oral Tablet Disintegrating 01/13/2025 Provider: Honey Rizo [employer] Diagnosis: Last Documented On 5 3:08PM By Chuck Bowles ; [facility] Sulfamethoxazole-Trimethopri m 800-160 MG Oral Tablet 01/13/2025 Provider: Stew Meredith PA-C Diagnosis: Last Documented On 5 3:08PM By Chuck Bowles ; [facility] Sulfamethoxazole-Trimethoprim 800-160 MG Oral Tablet 0 01/09/2025 Provider: Diagnosis: Last Documented On 5 9:13AM By Chuck Bowles ; [facility] oxyCODONE-Acetaminophen 5-325 MG Oral Tablet 5 Provider: Lalito Healy MD Diagnosis: Last Documented On 5 3:09PM By Chuck Bowles ; [facility] Xarelto 20 MG Oral Tablet 11/03/2024 Provider: Shiva Gardner Diagnosis: Last Documented On 5 1:22PM By Chuck Bowles ; [facility] HYDROcodone-Acetaminophen 7.5-325 MG Oral Tablet 08/28 Provider: KENNETH GOTTLIEB Diagnosis: Last Documented On 4 9:03AM By Sujit Herrera ; [facility] Pregabalin 75 MG Oral Capsule 08/19/2024 Provider: KENNETH GOTTLIEB Diagnosis: Last Documented On 4 9:11AM By Kaity Reece ; [facility] Methocarbamol 750 MG Oral Tablet 08/19/2024 Provider : KENNETH GOTTLIEB Diagnosis: Last Documented On 4 9:03AM By Sujit Herrera ; [facility] Omeprazole 40 MG Oral Capsule Delayed Release 08/17/20 24 Provider: Honey Rizo [employer] Diagnosis: Last Documented On 4 9:11AM By Kaity Reece ; [facility] Citalopram Hydrobromide 40 MG Oral Tablet 08/17/2024 Provider: Honey Rizo [employer] Diagnosis: Last Documented On 4 9:11AM By Kaity Reece ; [facility] Ketorolac Tromethamine 10 MG Oral Tablet 08/16/2024 Provider: Diagnosis: Last Documented On 4 9:11AM By Kaity Reece ; [facility], [facility] Repatha SureClick 140 MG/ML Subcutaneous Solution Auto-injector 08/10/2024 Provider: Diagnosis: Last Documented On 4 9:11AM By Kaity Reece ; [facility] Past Medications on file oxyCODONE-Acetaminophen 5-32 5 MG Oral Tablet 01/07/2025 - 01/17/2025 Provider: Lalito Healy MD Diagnosis: 1 q 6 hours prn pain Last Documented On 5 9:07AM By Lalito Healy ; [facility] Methocarbamol 750 MG Oral Tablet 01/05/2025 - 02/05/20 Provider: Stew Meredith PA-C Diagnosis: Take 1 tablet every 8 hrs prn pain/muscle spasms Last Documented On 5 11:07AM By Sujit Herrera ; [facility] Percocet 5-325 MG Oral Tablet 12/30/2024 - 01/14/2025 Provider: Lalito Healy MD Diagnosis: 1 po q 4h prn pain Last Documented On 5 8:34AM By Lalito Healy ; [facility] Medications Administered Includes: Administered Medications from this encounter No Administered Medications Recorded Vital Signs Includes: Vital Signs from this encounter Vital Name 01/13/2025 09:19A Height (in) 74 Weight (lb) 73.2125 Body Mass Index 9.4 Body Surface Area 1.4 Pain Level 3 Last Documented: On 01/13/2025 9:20AM ; [facility], [facility] Results Includes: Results discussed during this encounter No Results Recorded For Specified Dates History of Present Illness Includes: History of Present Illness from this encounter MARY Salazar is a 44 year old male. - Allergy list reviewed - Problem list reviewed - Medication list reviewed - - Review of medications documented Patient underwent a right C3-C4 posterior foraminotomy 12/30/[address] Healy. He says his right arm is feeling better went to the [facility] on Saturday as they were concerned about how the incision was looking. We had placed him on Bactrim. He says it really has not been draining. Also developed shingles after the surgery this is 3rd bout of shingles that he has had Social History Description Last Updated No recent change in diet 11/19/2024 Last Documented On 5 9:13AM ; [facility] Yes, current smoker. 11/19/2024 Last Documented On 5 9:13AM ; [facility] Alcohol use 09/29/2019 Last Documented On 5 9:13AM ; [facility] Current smoker 09/29/2019 Last Documented On 5 9:13AM ; [facility] Exercising regularly 09/29/2019 Last Documented On 5 9:13AM ; [facility] No caffeine use 09/29/2019 Last Documented On 5 9:13AM ; [facility] No recent change in diet 09/29/2019 Last Documented On 5 9:13AM ; [facility] No tobacco use 09/29/2019 Last Documented On 5 9:13AM ; [facility] Not using drugs 09/29/2019 Last Documented On 5 9:13AM ; [facility] Smoking status : Current everyday smoker 09/29/2019 Last Documented On 5 9:13AM ; [facility] Procedures and Surgical History Includes: Procedures from this encounter Procedures Code Diagnosis Performing Provider Service L ocation Service Date an MRI was performed 66614 Last Documented On 5 9:13AM ; [facility] Surgical History Last Updated History of History of Gallbladder 2024 Last Documented On 5 9:13AM ; [facility], [facility] History of total hip replacement 025 Last Documented On 5 9:13AM ; [facility] History of hernia repair 09/29/2019 Last Documented On 5 9:13AM ; [facility] Medical History Includes: Medical History addressed during this encounter Description Last Updated History of depression 11/19/2024 Last Documented On 5 9:13AM ; [facility] History of heart disease 11/19/2024 Last Documented On 5 9:13AM ; [facility] History of Hypertension 11/19/2024 Last Documented On 5 9:13AM ; [facility] History of Sleep Apnea 11/19/2024 Last Documented On 5 9:13AM ; [facility] Use of CPAP 11/19/2024 Last Documented On 5 9:13AM ; [facility], [facility] 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 at [facility] 2017 09/29/2019 Last Documented On 5 9:13AM ; [facility] A previous fracture 09/29/2019 Last Documented On 5 9:13AM ; [facility], [facility] Gallbladder disease 09/29/2019 Last Documented On 5 9:13AM ; [facility] Intermittent hypertension 09/29/2019 Last Documented On 5 9:13AM ; [facility], [facility] Family History Includes: Family History addressed during this encounter Description Last Updated No significant family history 09/29/2019 Last Documented On 5 9:13AM ; [facility], [facility] Review of Systems Includes: Review of Systems from this encounter Systemic: Not feeling tired, no recent weight loss, and no recent weight gain. Head: Headache. No sinus pain. Eyes: Vision problems. No Cataracts, no Glasses/Contacts, and no Glaucoma. Otolaryngeal: No hearing loss. Tinnitus. Cardiovascular: No chest pain or discomfort and no palpitations. Hypertension. No High Cholesterol. Pulmonary: No daytime asthma symptoms and no chronic cough. No wheezing. Gastrointestinal: No heartburn and no abdominal pain. No Indigestion, no Peptic Ulcer, no GI Stomach Bleed, no Ulcers, and no Acid Reflux. Endocrine: No hot flashes, no muscle weakness, no Diabetes, no Hypothyroid, and no Hyperthyroid. Hematologic: No easy bleeding, no tendency for easy bruising, and no Anemia. Musculoskeletal: No Arthritis. Lower back pain. No soft tissue swelling. Pain localized to one or more joints. Neurological: Dizziness. No convulsions. Numbness. Psychological: No anxiety, no emotional lability, no depression, and no insomnia. Not crying for no reason. Skin: No dry skin. No Ulcers, no Scars, and no rash. Allergic and Immunologic: No complaint of seasonal allergic reaction. Mental Status Includes: Mental Status from this encounter Description No anxiety Functional Status Includes: Functional Status from this encounter No Functional Status Recorded Physical Exam Includes: Physical Exam from this encounter Allergies Includes: Active Allergies No Known Allergies Encounters Encounter Provider Location Date Check-In Time Check-Out Time Diagnosis Post Op Stew Meredith PA-C [facility] 9:08AM 9:48AM Overweight Insurance Includes: Active Insurance Policies Plan Name Member ID Group # Subscriber Relationship Effect david Dates 1 - [facility] [id number] Jeremie Salazar Self 10/18/2015 - Unknown Clinical Notes Includes: Clinical Notes from this encounter * Progress note Date Encounter Last Documented by 01/13/2025 Post Op Last documented on 01/13/2025; 9:43 AM, Stew Meredith PA-C; [facility] Active Problems & Conditions - Joint Pain in Both Hips - Neck Pain Chief Complaint The Chief Complaint is: Cervical Pain. Referred Here Referred by PCP. History of Present Illness Jeremie Salazar is a 44 year old male. - Allergy list reviewed - Problem list reviewed - Medication list reviewed - - Review of medications documented Patient underwent a right C3-C4 posterior foraminotomy 12/30/[address] Healy. He says his right arm is feeling better went to the [facility] on Saturday as they were concerned about how the incision was looking. We had placed him on Bactrim. He says it really has not been draining. Also developed shingles after the surgery this is 3rd bout of shingles that he has had Current Medication - Citalopram Hydrobromide 40 MG Oral Tablet 90 days, 0 refills - HYDROcodone-Acetaminophen 7.5-325 MG Oral Tablet 5 days, 0 refills - Ketorolac Tromethamine 10 MG Oral Tablet 4 days, 0 refills - Methocarbamol 750 MG Oral Tablet 30 days, 0 refills - Methocarbamol 750 MG Oral Tablet Take 1 tablet every 8 hrs prn pain/muscle spasms, 30 days, 0 refills - Omeprazole 40 MG Oral Capsule Delayed Release 90 days, 0 refills - oxyCODONE-Acetaminophen 5-325 MG Oral Tablet 1 q 6 hours prn pain, 10 days, 0 refills - Percocet 5-325 MG Oral Tablet 1 po q 4h prn pain, 15 days, 0 refills - Pregabalin 75 MG Oral Capsule 30 days, 0 refills - Repatha SureClick 140 MG/ML Subcutaneous Solution Auto-injector 28 days, 0 refills - Sulfamethoxazole-Trimethoprim 800-160 MG Oral Tablet 7 days, 0 refills - Xarelto 20 MG Oral Tablet 30 days, 0 refills Past Medical/Surgical History Reported: Use of CPAP. Medical: Gallbladder disease and a fracture. Intermittent hypertension. Diagnoses: Heart disease. Sleep Apnea Hypertension. 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 Surgical: - Hernia repair - History of Gallbladder - Total hip replacement Social History Yes, current smoker. Current diet: No recent change in diet. No recent change in diet. Caffeine use: No caffeine use. Tobacco use: No tobacco use. Current smoker and smoking status: Current everyday smoker. Alcohol: Alcohol use. Drug Use: Not using drugs. Habits: Exercising regularly. Allergies - No Known Allergies Family History No significant family history Review Of Systems Systemic: Not feeling tired, no recent weight loss, and no recent weight gain. Head: Headache. No sinus pain. Eyes: Vision problems. No Cataracts, no Glasses/Contacts, and no Glaucoma. Otolaryngeal: No hearing loss. Tinnitus. Cardiovascular: No chest pain or discomfort and no palpitations. Hypertension. No High Cholesterol. Pulmonary: No daytime asthma symptoms and no chronic cough. No wheezing. Gastrointestinal: No heartburn and no abdominal pain. No Indigestion, no Peptic Ulcer, no GI Stomach Bleed, no Ulcers, and no Acid Reflux. Endocrine: No hot flashes, no muscle weakness, no Diabetes, no Hypothyroid, and no Hyperthyroid. Hematologic: No easy bleeding, no tendency for easy bruising, and no Anemia. Musculoskeletal: No Arthritis. Lower back pain. No soft tissue swelling. Pain localized to one or more joints. Neurological: Dizziness. No convulsions. Numbness. Psychological: No anxiety, no emotional lability, no depression, and no insomnia. Not crying for no reason. Skin: No dry skin. No Ulcers, no Scars, and no rash. Allergic and Immunologic: No complaint of seasonal allergic reaction. Physical Findings - Vitals taken 01/13/2025 09:19 am Height 74 in Weight 73 lbs 3.4 oz Body Mass Index 9.4 kg/m2 Body Surface Area 1.4 m2 Pain Level 3 There is some mild erythema with the incision I think they are related to the emmy there is no drainage with it Assessment - Overweight Right C3-4 posterior foraminotomy decompression of C4 nerve root 12/30/2023 Previous Tests Imaging: MRI Scan: An MRI was performed. Available previous imaging studies were reviewed Available previous history reviewed Counseling/Education - Tobacco use - Use of tobacco assessment performed - Intervention and counseling on cessation of tobacco use - Lose weight Plan StartCited - Other Bactrim DS 800-160 MG tablet twice a day, 7 days, 0 refills EndCited Patient was seen by myself Stew Meredith PA-C. Patient will follow up 1 week we are going to get his emmy out today he has been educated to signs and symptoms to watch for about the incision if it starts draining or opening up he says see me. We will continue with the Bactrim for least another week Steri-Strips placed over the site today Notes This dictation was done with voice recognition software and may contain errors and omissions. Care Team - KENNETH GOTTLIEB Health Reminders - Assess BMI satisfied 01/13/2025. - Assess Tobacco Use satisfied 09/29/2019. - Follow Up Plan BMI Management satisfied 01/13/2025. - Smoking & Tobacco Cessation Intervention and Counseling satisfied 01/13/2025.
--- OUTSIDE RECORDS SUMMARY | 2025-02-22 08:01 | XMS_ITS | Clinical Summary ---
Author Organization [facility] , [facility] Address [address] [place] [address] Phone Care Team Providers Care Intelligence Director Name Role Phone KENNETH GOTTLIEB Unavailable [phone] Niraj GOODEN, Lalito Gayle Unavailable [phone] Reason for Visit and Chief Complaint [Patient Encounter] Problems Includes: Problems addressed during this encounter and other active Problems All Visits Onset Date Resolved Date Provider Condition S tatus Neck Pain 09/03/2024 Lalito Healy MD Active Last Documented On 4 9:01AM ; [facility], [facility] Joint Pain in Both Hips 09/22/2019 Jacob Mcneal MD Active Last Documented On 9 10:25AM ; [facility], [facility] Plan of Treatment Future Appointments Date Time Location Provi jimena Follow Up 03/18/2025 10:15AM [facility] Lalito Healy MD Last Documented On 5 10:58AM ; [facility], [facility] Assessments Includes: Assessments from this encounter No Assessments Recorded Medical Equipment - Implanted Devices Includes: Current Devices No Medical Equipment Recorded Medications Includes: Medications discussed during this encounter and other current Medications New / Renewed during this visit Stew Meredith PA-C on 01/05/2025 Methocarbamol 750 MG Oral Tablet Provider: Stew Meredith PA-C 30 day supply: 90 tablet, 0 refills Diagnosis: Take 1 tablet every 8 hrs pr n pain/muscle spasms [facility] [phone], [address] - Last Documented On 5 11:07AM By Sujit Herrera ; [facility], [facility] Current Medications (continue as prescribed) Baclofen 20 MG Oral Tablet 01/18/2025 Provider: Jermain GOTTLIEB Diagnosis: Last Documented On 5 3:08PM By Chuck Bowles ; [facility] Farxiga 10 MG Oral Tablet 01/18/2025 Provider: Diagnosis: Last Documented On 5 3:08PM By Chuck Bowles ; [facility] Naltrexone HCl 50 MG Oral Tablet 01/18/2025 Provider : KENNETH GOTTLIEB Diagnosis: Last Documented On 5 3:08PM By Chuck Bowles ; [facility] Promethazine HCl 25 MG Oral Tablet 01/17/2025 Provid er: KENNETH GOTTLIEB Diagnosis: Last Documented On 5 3:08PM By Chuck Bowles ; [facility] Ondansetron 4 MG Oral Tablet Disintegrating 01/13/2025 Provider: Honey Rizo APRN Diagnosis: Last Documented On 5 3:08PM By Chuck Bowles ; [facility] Sulfamethoxazole-Trimethopri m 800-160 MG Oral Tablet 01/13/2025 Provider: Stew Meredith PA-C Diagnosis: Last Documented On 5 3:08PM By Chuck Bowles ; [facility] Sulfamethoxazole-Trimethoprim 800-160 MG Oral Tablet 0 01/09/2025 Provider: Diagnosis: Last Documented On 5 9:13AM By Chuck Bowles ; [facility] oxyCODONE-Acetaminophen 5-325 MG Oral Tablet 5 Provider: Lalito Healy MD Diagnosis: Last Documented On 5 3:09PM By Chuck Bowles ; [facility] Xarelto 20 MG Oral Tablet 11/03/2024 Provider: Shiva Gardner Diagnosis: Last Documented On 5 1:22PM By Chuck Bowles ; [facility] HYDROcodone-Acetaminophen 7.5-325 MG Oral Tablet 08/28 Provider: KENNETH GOTTLIEB Diagnosis: Last Documented On 4 9:03AM By Sujit Herrera ; [facility], [facility] Pregabalin 75 MG Oral Capsule 08/19/2024 Provider: KENENTH GOTTLIEB Diagnosis: Last Documented On 4 9:11AM By Kaity Reece ; [facility] Methocarbamol 750 MG Oral Tablet 08/19/2024 Provider : KENNETH GOTTLIEB Diagnosis: Last Documented On 4 9:03AM By Sujit Herrera ; [facility], [facility] Omeprazole 40 MG Oral Capsule Delayed Release 08/17/20 Provider: Honey Rizo APRN Diagnosis: Last Documented On 4 9:11AM By Kaity Reece ; [facility] Citalopram Hydrobromide 40 MG Oral Tablet 08/17/2024 Provider: Honey Rizo APRN Diagnosis: Last Documented On 4 9:11AM By Kaity Reece ; [facility] Ketorolac Tromethamine 10 MG Oral Tablet 08/16/2024 Provider: Diagnosis: Last Documented On 4 9:11AM By Kaity Reece ; [facility], [facility] Repatha SureClick 140 MG/ML Subcutaneous Solution Auto-injector 08/10/2024 Provider: Diagnosis: Last Documented On 4 9:11AM By Kaity Reece ; [facility], [facility] Medications Administered Includes: Administered Medications from this encounter No Administered Medications Recorded Results Includes: Results discussed during this encounter No Results Recorded For Specified Dates History of Present Illness Includes: History of Present Illness from this encounter No History of Present Illness Recorded Social History No Social History Recorded - Smoking Status Unknown Medical History Includes: Medical History addressed during [...] Location Date Check-In Time Check-Out Time Diagnosis [Patient Encounter] Stew Meredith PA-C 01/05/2025 10:56AM 11:59PM Insurance Includes: Active Insurance Policies Plan Name Member ID Group # Subscriber Relationship Effect david Dates 1 - [facility] [place] [id number] Jeremie Salazar Self 10/18/2015 - Unknown Clinical Notes Includes: Clinical Notes from this encounter No Clinical Notes Recorded
--- OUTSIDE RECORDS SUMMARY | 2025-02-22 08:01 | XMS_ITS | Data Portability ---
Author Organization [place] [facility] [place] Address [address] [place] [id number] Assessment Encounter Date Assessment Date Assessment LastModified by Organization Details LastModified Time 09/09/2023 09/09/2023 43-year-old male with history of recurrent pancreatitis. He has a history of alcohol abuse, currently in remission and remote cholecystectomy. He was admitted at [facility] 08/29/23-08/31/23 with mildly elevated serum lipase noted at that time, but with CT imaging not showing pancreatic abnormality. His symptoms have been attributed abdominal distress related to Wegovy use. He has discontinued this. -Will treat residual nausea with procholperazine 10 mg TIDPRN. He was instructed to contact the office with recurrent symptoms. I have counseled the patient on the importance of strict alcohol cessation. If his symptoms become persistent, he should undergo evaluation for chronic pancreatitis. Not available 09/09/2023 16:48:28 Plan of Treatment Reminders Order Date Submit Date Provider Last Modified By Organization Details Last Modified Time Details Appointments None recorded. Lab None recorded. Referral None recorded. Procedures None recorded. Surgeries None recorded. Imaging None recorded. Medication Orders prochlorper azine maleate 10 mg tablet 2022 023 [id number] [id number], [address], [place], [address], 16:41:56 Patient TargetsNo targets recorded. Patient InstructionsNo instructions recorded. Reason for Referral None Reported. Problems Name Problem SNOMED Code Status Onset Date Resolution Date Notes Provider Name and Address Organization Details Recorded Time Nausea [id number] Active 023 Cornelius Justin PA-C [address], [place], [address], [place] [facility] [place] [facility] [place] 09/09/2023 15:54:27 Problem Notes None recorded. Medical Equipment None Reported. Allergies No known drug allergies Medications Name Sig Start Date Stop Date Status Note LastModified by Organization Details LastModified Time furosemide 40 mg tablet TAKE 1 TABLET BY MOUTH ONCE DAILY active Not Available Not Available No t Available citalopram 40 mg tablet TAKE 1 TABLET BY MOUTH ONCE DAILY FOR MOOD active Not Available Not Available No t Available trazodone 50 mg tablet TAKE 1 TABLET BY MOUTH AT BEDTIME active Not Available Not Available No t Available azithromycin 250 mg tablet TAKE 2 TABLETS BY MOUTH ON DAY 1, AND THEN TAKE 1 TABLET BY MOUTH ONCE A DAY ON DAY 2 THROUGH DAY 5 active Not Available Not Available No t Available ibuprofen 800 mg tablet TAKE 1 TABLET BY MOUTH EVERY 8 HOURS NEEDED FOR MODERATE PAIN active Not Available Not Available No t Available hydrocodone 5 mg-acetamino phen 325 mg tablet TAKE ONE TABLET BY MOUTH EVERY 8 HOURS NEEDED FOR moderate TO SEVERE pain MAY CAUSE DROWSINESS active Not Available Not Available N ot Available meloxicam 15 mg tablet TAKE 1 TABLET BY MOUTH ONCE DAILY active Not Available Not Available No t Available naltrexone 50 mg tablet TAKE 1 TABLET BY MOUTH ONCE DAILY active Not Available Not Available No t Available famotidine 40 mg tablet TAKE ONE TABLET BY MOUTH EVERY DAY active Not Available Not Available No t Available thiamine HCl (vitamin B1) 100 mg tablet TAKE 1 TABLET BY MOUTH ONCE DAILY active Not Available Not Available No t Available valsartan 80 mg tablet TAKE 1 TABLET BY MOUTH ONCE DAILY active Not Available Not Available No t Available bacitracin zinc 500 unit/gram topical ointment APPLY OINTMENT TOPICALLY TWICE DAILY active Not Available Not Available Not Available prochlorpera zine maleate 10 mg tablet TAKE 1 TABLET BY MOUTH THREE TIMES DAILY NEEDED FOR 21 DAYS active Not Available Not Available Not Available omeprazole 40 mg capsule,tim yed release TAKE 1 CAPSULE BY MOUTH ONCE DAILY active Not Available Not Available No t Available spironolacto ne 25 mg tablet TAKE 1 TABLET BY MOUTH ONCE DAILY active Not Available Not Available No t Available famotidine 20 mg tablet TAKE 1 TABLET BY MOUTH TWICE DAILY FOR 6 WEEKS active Not Available Not Available No t Available amlodipine 10 mg tablet active Not Available Not Available Not Available trazodone 150 mg tablet TAKE 1 TABLET BY MOUTH ONCE DAILY active Not Available Not Available No t Available buspirone 10 mg tablet TAKE 1 TABLET BY MOUTH ONCE DAILY active Not Available Not Available No t Available promethazine 25 mg tablet TAKE 1 TABLET BY MOUTH THREE TIMES DAILY NEEDED FOR NAUSEA AND VOMITING. DO NOT COMBINE WITH OTHER NAUSEA MEDICATIONS active Not Available Not Available Not Available gabapentin 300 mg capsule TAKE 1 CAPSULE BY MOUTH ONCE DAILY AT BEDTIME NIGHTLY active Not Available Not Available No t Available hydroxyzine HCl 25 mg tablet TAKE 1 TABLET BY MOUTH TWICE DAILY active Not Available Not Available No t Available methylpredni solone 4 mg tablets in a dose pack TAKE BY MOUTH DIRECTED ON INSIDE OF PACKAGE active Not Available Not Available No t Available ondansetron 4 mg disintegrati ng tablet DISSOLVE 1 TABLET IN MOUTH EVERY 8 HOURS NEEDED FOR NAUSEA AND VOMITING active Not Available Not Available No t Available valsartan 40 mg tablet TAKE 1 TABLET BY MOUTH ONCE DAILY active Not Available Not Available No t Available carvedilol phosphate ER 80 mg capsule,ext. [id number] multiphase TAKE 1 CAPSULE BY MOUTH ONCE DAILY WITH MEAL/FOOD active Not Available Not Available No t Available carvedilol phosphate ER 40 mg capsule,ext. [id number] multiphase active Not Available Not Available N ot Available fenofibrate 54 mg tablet TAKE 1 TABLET BY MOUTH ONCE DAILY FOR CHOLESTEROL active Not Available Not Available Not Available Mucus Relief ER 600 mg tablet, extended release TAKE 1 TABLET BY MOUTH TWICE DAILY NEEDED FOR COUGH active Not Available Not Available No t Available Entresto 97 mg-103 mg tablet TAKE 1 TABLET BY MOUTH TWICE DAILY active Not Available Not Available No t Available Entresto 49 mg-51 mg tablet TAKE 1 TABLET BY MOUTH TWICE DAILY active Not Available Not Available No t Available Vraylar 1.5 mg capsule TAKE 1 CAPSULE BY MOUTH ONCE DAILY active Not Available Not Available No t Available Tab-A-Maricruz 400 mcg tablet TAKE 1 TABLET BY MOUTH ONCE DAILY active Not Available Not Available No t Available Wegovy 1.7 mg/0.75 mL subcutaneous pen injector INJECT 1.7 MG SUBCUTANEOU SLY ONCE A WEEK. ADMINISTER WEEKS 13 - 16 OF THERAPY active Not Available Not Available No t Available Wegovy 0.25 mg/0.5 mL subcutaneous pen injector active Not Available Not Available Not Available Wegovy 0.5 mg/0.5 mL subcutaneous pen injector INJECT 1 SYRINGE SUBCUTANEOU SLY ONCE A WEEK. ADMINISTER WEEKS 5-8 OF THERAPY active Not Available Not Available N ot Available Vitals Date Recorded Body weight Body mass index (BMI) Body height Body temperature Oxygen saturation Oxygen saturation in Arterial blood by Pulse oximetry Heart rate Heart rate Systolic blood pressure Diastolic blood pressure Provider Name and Address Organization Details Last Updated DateTime 3 148007. 58 g 40.5 kg/m2 185.42 cm 98.4 [degF] 98 % 98 % 76 /min 74 /min 128 mm[Hg] 81 mm[Hg] Agustin Reyes [place] [facility] [place] [facility] [place] 3 14:47:37 Social History Question Answer Notes LastModified by Organization D etails LastModified Time Do You Or Have You Ever Used Any Other Forms Of Tobacco Or Nicotine? Yes Information not available 09/09/2023 Sex: Unknown Functional Status None recorded. Mental Status None recorded. Family History Nothing Reported. Medical History No medical history recorded. Past Encounters Encounter ID Performer Location Encounter Start Date Encounter Closed Date Diagnosis/Indication Diagnosis SNOMED-CT Code Diagnosis ICD10 Code Diagnosis Note [id number] Cornelius Justin PA-C [facility] [address] [address] 09/09/2023 14:27:13 09/09/2023 15:16:02 Nausea 740636020 R11.0 History of pancreatitis [id number] 9107 Z87.19 Health Concerns Section Related Observation LastModified by Organization Detai ls LastModified Time None Recorded Concern Status LastModified by Organization Details LastModified Time None Recorded Advance Directives Directive None Recorded Payers Encounter Date Sequence Insurance Name Policy Number Policy Branch Covered Member ID Branch Member ID Guarantor Name 09/09/2023 1 [place] [id number] Jeremie Salazar [id number] Notes Date Note Type Note Provider Name and Address Organization Details Recorded Time 09/09/2023 text/html Mr. Mcgovern is a pleasant 43-year-old male who was referred by Honey Rzio APRN for evaluation of pancreatitis. He was admitted at [facility] from 08/29 to 08/31 due to epigastric pain and N/V. He has a history of pancreatitis 4 times previous to this. He has a history of alcohol abuse that has been in remission for the past 4-5 months. He also has undergone cholecystectomy previously. In the ED, he underwent CT imaging that showed mild sigmoid colon wall thickening vs. underdistension, but no pancreatic abnormality was noted. Serum lipase was mildly elevated at just over the upper limits of normal. He is prescribed Wegovy, which his symptoms have been attributed to. He has stopped Wegovy. His symptoms are improving, but he has some persistent nausea. Zofran has not helped this. Promethazine helps, but makes him drowsy, so he can't take it while at work. His pain has resolved. Cornelius Justin PA-C [address], [place], [address], [facility] - [facility] [place] 09/09/2023 16:48:42
--- OUTSIDE RECORDS SUMMARY | 2025-02-22 08:01 | XMS_ITS | Clinical Summary ---
Author Organization [facility] Address [address] [place] [address] Phone Care Team Providers Care Food Order Delivery Runner Name Role Phone KENNETH GOTTLIEB Unavailable [phone] Niraj GOODEN, Lalito Gayle Unavailable [phone] Reason for Visit and Chief Complaint The Chief Complaint is: Cervical Pain Problems Includes: Problems addressed during this encounter and other active Problems All Visits Onset Date Resolved Date Provider Condition S tatus Neck Pain 09/03/2024 Lalito Healy MD Active Last Documented On 4 9:01AM ; [facility], [facility] Joint Pain in Both Hips 09/22/2019 Jacob Mcneal MD Active Last Documented On 9 10:25AM ; [facility], [facility] Plan of Treatment Patient was seen by myself and Dr. Niraj Meredith PA-C. Patient will follow up 4 weeks we are going to had some physical therapy at this point in time for some stretching strengthening - Last Documented On 02/18/2025 11:27AM ; [facility], [facility] Pending Tests Order Diagnosis Results Due Ordering P rovider Therapy - Physical Therapy Cervical Cervicalgia 02/18/25 Lalito Healy MD Last Documented On 5 10:51AM ; [facility], [facility] Future Appointments Date Time Location Provi jimena Follow Up 03/18/2025 10:15AM [facility] Lalito Healy MD Last Documented On 5 10:58AM ; [facility], [facility] Instructions to patient Intervention and counseling on cessation of tobacco use Last Documented On 5 10:25AM ; [facility], [facility] Lose weight Last Documented On 10:25AM ; [facility] Assessments Includes: Assessments from this encounter Findings - Overweight - Last Documented On 02/18/2025 11:27AM ; [facility] Right C3-C4 foraminotomy 12/30/2024 - Last Documented On 02/18/2025 11:27AM ; [facility], [facility] Instructions Includes: Instructions from this encounter Instructions to patient Intervention and counseling on cessation of tobacco use Last Documented On 5 10:25AM ; [facility] Lose weight Last Documented On 10:25AM ; [facility], [facility] Medical Equipment - Implanted Devices Includes: Current Devices No Medical Equipment Recorded Medications Includes: Medications discussed during this encounter and other current Medications Current Medications (continue as prescribed) Baclofen 20 MG Oral Tablet 01/18/2025 Provider: Jermain GOTTLIEB Diagnosis: Last Documented On 5 3:08PM By Chuck Bowles ; [facility], [facility] Farxiga 10 MG Oral Tablet 01/18/2025 Provider: Diagnosis: Last Documented On 5 3:08PM By Chuck Bowles ; [facility], [facility] Naltrexone HCl 50 MG Oral Tablet 01/18/2025 Provider : KENNETH GOTTLIEB Diagnosis: Last Documented On 5 3:08PM By Chuck Bowles ; [facility], [facility] Promethazine HCl 25 MG Oral Tablet 01/17/2025 Provid er: KENNETH GOTTLIEB Diagnosis: Last Documented On 5 3:08PM By Chuck Bowles ; [facility], [facility] Ondansetron 4 MG Oral Tablet Disintegrating 01/13/2025 Provider: Honey Rizo APRN Diagnosis: Last Documented On 5 3:08PM By Chuck Bowles ; [facility], [facility] Sulfamethoxazole-Trimethopri m 800-160 MG Oral Tablet 01/13/2025 Provider: Stew Meredith PA-C Diagnosis: Last Documented On 5 3:08PM By Chuck Bowles ; [facility], [facility] Sulfamethoxazole-Trimethoprim 800-160 MG Oral Tablet 0 01/09/2025 Provider: Diagnosis: Last Documented On 5 9:13AM By Chuck Bowles ; [facility] oxyCODONE-Acetaminophen 5-325 MG Oral Tablet 5 Provider: Lalito Healy MD Diagnosis: Last Documented On 5 3:09PM By Chuck Bowles ; [facility] Xarelto 20 MG Oral Tablet 11/03/2024 Provider: Shiva Gardner Diagnosis: Last Documented On 5 1:22PM By Chuck Bowles ; [facility] HYDROcodone-Acetaminophen 7.5-325 MG Oral Tablet 08/28 Provider: KENNETH GOTTLIEB Diagnosis: Last Documented On 4 9:03AM By Sujit Herrera ; [facility] Pregabalin 75 MG Oral Capsule 08/19/2024 Provider: KENNETH GOTTLIEB Diagnosis: Last Documented On 4 9:11AM By Kaity Reece ; [facility] Methocarbamol 750 MG Oral Tablet 08/19/2024 Provider : KENNETH GOTTLIEB Diagnosis: Last Documented On 4 9:03AM By Sujit Herrera ; [facility] Omeprazole 40 MG Oral Capsule Delayed Release 08/17/20 Provider: Honey Rizo APRN Diagnosis: Last Documented On 4 9:11AM By Kaity Reece ; [facility] Citalopram Hydrobromide 40 MG Oral Tablet 08/17/2024 Provider: Honey Rizo APRN Diagnosis: Last Documented On 4 9:11AM By Kaity Reece ; [facility] Ketorolac Tromethamine 10 MG Oral Tablet 08/16/2024 Provider: Diagnosis: Last Documented On 4 9:11AM By aKity Reece ; [facility] Repatha SureClick 140 MG/ML Subcutaneous Solution Auto-injector 08/10/2024 Provider: Diagnosis: Last Documented On 4 9:11AM By Kaity Reece ; [facility] Past Medications on file Bactrim DS 800-160 MG Oral Tablet 01/13/2025 - 01/20/2025 Provider: Stew Ryder Diagnosis: twice a day Last Documented On 9:41AM By [facility] Bowles ; [facility] oxyCODONE-Acetaminophen 5-32 5 MG Oral Tablet 01/07/2025 - 01/17/2025 Provider: Lalito Healy MD Diagnosis: 1 q 6 hours prn pain Last Documented On 9:07AM By Lalito Healy ; [facility], [facility] Methocarbamol 750 MG Oral Tablet 01/05/2025 - 02/05/20 Provider: Stew Meredith PA-C Diagnosis: Take 1 tablet every 8 hrs prn pain/muscle spasms Last Documented On 11:07AM By Sujit Herrera ; [facility] Percocet 5-325 MG Oral Tablet 12/30/2024 - 01/14/2025 Provider: Lalito Healy MD Diagnosis: 1 po q 4h prn pain Last Documented On 8:34AM By Lalito Healy ; [facility] Medications Administered Includes: Administered Medications from this encounter No Administered Medications Recorded Vital Signs Includes: Vital Signs from this encounter Vital Name 02/18/2025 11:27A Height (in) 74 Weight (lb) 350 Body Mass Index 44.9 Body Surface Area 2.8 Pain Level 3 Last Documented: On 02/18/2025 11:27A M ; [facility] Results Includes: Results discussed during this encounter No Results Recorded For Specified Dates History of Present Illness Includes: History of Present Illness from this encounter MARY Salazar is a 44 year old male. - Allergy list reviewed - Problem list reviewed - Medication list reviewed - - Review of medications documented Follow up right C3-C4 foraminotomy 12/30/2024 he has had a couple of days after being here last he is riding in the car and and go over the grocery store had some increasing right shoulder pain in the headache once he is rested it has kind of resolved overall he is doing better than what he did prior to the surgery with the right arm pain Social History Description Last Updated No recent change in diet 11/19/2024 Last Documented On 10:25AM ; [facility] Yes, current smoker. 11/19/2024 Last Documented On 5 10:25AM ; [facility], [facility] Alcohol use 09/29/2019 Last Documented On 5 10:25AM ; [facility], [facility] Current smoker 09/29/2019 Last Documented On 5 10:25AM ; [facility], [facility] Exercising regularly 09/29/2019 Last Documented On 5 10:25AM ; [facility], [facility] No caffeine use 09/29/2019 Last Documented On 5 10:25AM ; [facility], [facility] No recent change in diet 09/29/2019 Last Documented On 5 10:25AM ; [facility], [facility] No tobacco use 09/29/2019 Last Documented On 5 10:25AM ; [facility], [facility] Not using drugs 09/29/2019 Last Documented On 5 10:25AM ; [facility], [facility] Smoking status : Current everyday smoker 09/29/2019 Last Documented On 5 10:25AM ; [facility], [facility] Procedures and Surgical History Includes: Procedures from this encounter Procedures Code Diagnosis Performing Provider Service L ocation Service Date an MRI was performed 20451 Last Documented On 5 10:25AM ; [facility], [facility] Surgical History Last Updated History of History of Gallbladder 2024 Last Documented On 5 10:25AM ; [facility], [facility] History of total hip replacement Last Documented On 5 10:25AM ; [facility] History of hernia repair 09/29/2019 Last Documented On 5 10:25AM ; [facility] Medical History Includes: Medical History addressed during this encounter Description Last Updated History of depression 11/19/2024 Last Documented On 5 10:25AM ; [facility], [facility] History of heart disease 11/19/2024 Last Documented On 5 10:25AM ; [facility], [facility] History of Hypertension 11/19/2024 Last Documented On 5 10:25AM ; [facility], [facility] History of Sleep Apnea 11/19/2024 Last Documented On 5 10:25AM ; [facility], [facility] Use of CPAP 11/19/2024 Last Documented On 5 10:25AM ; [facility], [facility] 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 at [facility] 2017 09/29/2019 Last Documented On 5 10:25AM ; [facility], [facility] A previous fracture 09/29/2019 Last Documented On 5 10:25AM ; [facility], [facility] Gallbladder disease 09/29/2019 Last Documented On 5 10:25AM ; [facility], [facility] Intermittent hypertension 09/29/2019 Last Documented On 5 10:25AM ; [facility], [facility] Family History Includes: Family History addressed during this encounter Description Last Updated No significant family history 09/29/2019 Last Documented On 5 10:25AM ; [facility], [facility] Review of Systems Includes: Review of [...] Location Date Check-In Time Check-Out Time Diagnosis Follow Up Lalito Healy MD [facility] 5 10:13AM 10:51AM Overweight Insurance Includes: Active Insurance Policies Plan Name Member ID Group # Subscriber Relationship Effect david Dates 1 - [facility] [id number] Jeremie Salazar Self 10/18/2015 - Unknown Clinical Notes Includes: Clinical Notes from this encounter No Clinical Notes Recorded
--- OUTSIDE RECORDS SUMMARY | 2025-02-22 08:01 | XMS_ITS | Clinical Summary ---
Author Organization [facility] Address [address] [place] [address] Phone Care Team Providers Care Php Engineer Name Role Phone KENNETH GOTTLIEB Unavailable [phone] Niraj GOODEN, Lalito Gayle Unavailable [phone] Reason for Visit and Chief Complaint The Chief Complaint is: Cervical Pain Problems Includes: Problems addressed during this encounter and other active Problems All Visits Onset Date Resolved Date Provider Condition S tatus Neck Pain 09/03/2024 Lalito Healy MD Active Last Documented On 4 9:01AM ; [facility], [facility] Joint Pain in Both Hips 09/22/2019 Jacob Mcneal MD Active Last Documented On 9 10:25AM ; [facility] Plan of Treatment Patient was seen by myself Stew Meredith PA-C. Patient will follow up [address] Healy I think we still keep him out of work no significant bending lifting twisting still with this he can work on some gentle stretching finish out the Bactrim some starts looking worse with the incision he is to let us know - Last Documented On 01/20/2025 3:42PM ; [facility] Future Appointments Date Time Location Provi jimena Follow Up 03/18/2025 10:15AM [facility] Lalito Healy MD Last Documented On 5 10:58AM ; [facility] Instructions to patient Intervention and counseling on cessation of tobacco use Last Documented On 5 3:09PM ; [facility] Lose weight Last Documented On 5 3:09PM ; [facility] Assessments Includes: Assessments from this encounter Findings - Overweight - Last Documented On 01/20/2025 3:42PM ; [facility] Right C3-C4 foraminotomy 12/30/2024 - Last Documented On 01/20/2025 3:42PM ; [facility] Instructions Includes: Instructions from this encounter Instructions to patient Intervention and counseling on cessation of tobacco use Last Documented On 5 3:09PM ; [facility] Lose weight Last Documented On 5 3:09PM ; [facility] Medical Equipment - Implanted Devices Includes: Current Devices No Medical Equipment Recorded Medications Includes: Medications discussed during this encounter and other current Medications Current Medications (continue as prescribed) Baclofen 20 MG Oral Tablet 01/18/2025 Provider: Jermain GOTTLIEB Diagnosis: Last Documented On 5 3:08PM By Chuck Bowles ; [facility] Farxiga 10 MG Oral Tablet 01/18/2025 Provider: Diagnosis: Last Documented On 5 3:08PM By Chuck Bowles ; [facility] Naltrexone HCl 50 MG Oral Tablet 01/18/2025 Provider : KENNETH GOTTLIEB Diagnosis: Last Documented On 5 3:08PM By Chuck Bowles ; [facility] Promethazine HCl 25 MG Oral Tablet 01/17/2025 Provid er: KENNETH GOTTLIEB Diagnosis: Last Documented On 5 3:08PM By Chuck Bowles ; [facility] Ondansetron 4 MG Oral Tablet Disintegrating 01/13/2025 Provider: Honey Rizo APRN Diagnosis: Last Documented On 5 3:08PM By Chuck Bowles ; [facility] Sulfamethoxazole-Trimethopri m 800-160 MG Oral Tablet 01/13/2025 Provider: Stew Meredith PA-C Diagnosis: Last Documented On 5 3:08PM By Chuck Bowles ; [facility] Sulfamethoxazole-Trimethoprim 800-160 MG Oral Tablet 0 01/09/2025 Provider: Diagnosis: Last Documented On 5 9:13AM By Chuck Bowles ; [facility] oxyCODONE-Acetaminophen 5-325 MG Oral Tablet 5 Provider: Lalito Healy MD Diagnosis: Last Documented On 5 3:09PM By Chuck Bowles ; [facility] Xarelto 20 MG Oral Tablet 11/03/2024 Provider: Shiva Gardner Diagnosis: Last Documented On 5 1:22PM By Chuck Bowles ; [facility] HYDROcodone-Acetaminophen 7.5-325 MG Oral Tablet 08/28 Provider: KENNETH GOTTLIEB Diagnosis: Last Documented On 4 9:03AM By Sujit Herrera ; [facility] Pregabalin 75 MG Oral Capsule 08/19/2024 Provider: KENNETH GOTTLIEB Diagnosis: Last Documented On 4 9:11AM By Kaity Reece ; [facility] Methocarbamol 750 MG Oral Tablet 08/19/2024 Provider : KENNETH GOTTLIEB Diagnosis: Last Documented On 4 9:03AM By Sujit Herrera ; [facility] Omeprazole 40 MG Oral Capsule Delayed Release 08/17/20 24 Provider: Honey Rizo APRN Diagnosis: Last Documented On 4 9:11AM By Kaity Reece ; [facility] Citalopram Hydrobromide 40 MG Oral Tablet 08/17/2024 Provider: Honey Rizo APRN Diagnosis: Last Documented On 4 9:11AM By Kaity Reece ; [facility] Ketorolac Tromethamine 10 MG Oral Tablet 08/16/2024 Provider: Diagnosis: Last Documented On 4 9:11AM By Kaity Reece ; [facility] Repatha SureClick 140 MG/ML Subcutaneous Solution Auto-injector 08/10/2024 Provider: Diagnosis: Last Documented On 4 9:11AM By Kaity Reece ; [facility] Past Medications on file Bactrim DS 800-160 MG Oral Tablet 01/13/2025 - 01/20/2025 Provider: Stew Ryder Diagnosis: twice a day Last Documented On 5 9:41AM By Chuck Bowles ; [facility] oxyCODONE-Acetaminophen 5-32 5 MG Oral Tablet 01/07/2025 - 01/17/2025 Provider: Lalito Healy MD Diagnosis: 1 q 6 hours prn pain Last Documented On 9:07AM By Lalito Healy ; [facility] Methocarbamol 750 MG Oral Tablet 01/05/2025 - 02/05/20 Provider: Stew Meredith PA-C Diagnosis: Take 1 tablet every 8 hrs prn pain/muscle spasms Last Documented On 11:07AM By Sujit Herrera ; [facility] Percocet 5-325 MG Oral Tablet 12/30/2024 - 01/14/2025 Provider: Lalito Healy MD Diagnosis: 1 po q 4h prn pain Last Documented On 8:34AM By Lalito Healy ; [facility] Medications Administered Includes: Administered Medications from this encounter No Administered Medications Recorded Vital Signs Includes: Vital Signs from this encounter Vital Name 01/20/2025 03:13P Height (in) 74 Weight (lb) 341 Body Mass Index 43.8 Body Surface Area 2.7 Pain Level 4 Last Documented: On 01/20/2025 3:13PM ; [facility] Results Includes: Results discussed during this encounter No Results Recorded For Specified Dates History of Present Illness Includes: History of Present Illness from this encounter MARY Salazar is a 44 year old male. - Allergy list reviewed - Problem list reviewed - Medication list reviewed - - Review of medications documented Patient is here today follow up of his right C3-C4 foraminotomy yesterday was little bit more active doing some things around the house and just had more neck pain but no right arm pain. He is still on this Bactrim that he had gotten from the ER and I refilled it last week no fevers. He is complaining more neck pain than anything at this point in time Social History Description Last Updated No recent change in diet 11/19/2024 Last Documented On 5 3:09PM ; [facility] Yes, current smoker. 11/19/2024 Last Documented On 5 3:09PM ; [facility] Alcohol use 09/29/2019 Last Documented On 5 3:09PM ; [facility] Current smoker 09/29/2019 Last Documented On 5 3:09PM ; [facility] Exercising regularly 09/29/2019 Last Documented On 5 3:09PM ; [facility] No caffeine use 09/29/2019 Last Documented On 5 3:09PM ; [facility] No recent change in diet 09/29/2019 Last Documented On 5 3:09PM ; [facility] No tobacco use 09/29/2019 Last Documented On 5 3:09PM ; [facility] Not using drugs 09/29/2019 Last Documented On 5 3:09PM ; [facility] Smoking status : Current everyday smoker 09/29/2019 Last Documented On 5 3:09PM ; [facility] Procedures and Surgical History Includes: Procedures from this encounter Procedures Code Diagnosis Performing Provider Service L ocation Service Date an MRI was performed 39729 Last Documented On 5 3:09PM ; [facility] Surgical History Last Updated History of History of Gallbladder 2024 Last Documented On 5 3:09PM ; [facility] History of total hip replacement 025 Last Documented On 5 3:09PM ; [facility] History of hernia repair 09/29/2019 Last Documented On 5 3:09PM ; [facility] Medical History Includes: Medical History addressed during this encounter Description Last Updated History of depression 11/19/2024 Last Documented On 5 3:09PM ; [facility] History of heart disease 11/19/2024 Last Documented On 5 3:09PM ; [facility] History of Hypertension 11/19/2024 Last Documented On 5 3:09PM ; [facility] History of Sleep Apnea 11/19/2024 Last Documented On 5 3:09PM ; [facility] Use of CPAP 11/19/2024 Last Documented On 5 3:09PM ; [facility] 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 at [facility] 2017 09/29/2019 Last Documented On 5 3:09PM ; [facility] A previous fracture 09/29/2019 Last Documented On 5 3:09PM ; [facility] Gallbladder disease 09/29/2019 Last Documented On 5 3:09PM ; [facility] Intermittent hypertension 09/29/2019 Last Documented On 5 3:09PM ; [facility] Family History Includes: Family History addressed during this encounter Description Last Updated No significant family history 09/29/2019 Last Documented On 5 3:09PM ; [facility] Review of Systems Includes: Review of Systems [...] Time Diagnosis Post Op Stew Meredith PA-C [facility] 5 3:05PM 3:21PM Overweight Insurance Includes: Active Insurance Policies Plan Name Member ID Group # Subscriber Relationship Effect david Dates 1 - [employer] [id number] Jeremie Salazar Self 10/18/2015 - Unknown Clinical Notes Includes: Clinical Notes from this encounter * Progress note Date Encounter Last Documented by 01/20/2025 Post Op Last documented on 01/20/2025; 3:42 PM, Stew Meredith PA-C; [facility] Active Problems & Conditions - Joint Pain in Both Hips - Neck Pain Chief Complaint The Chief Complaint is: Cervical Pain. Referred Here Referred by PCP. History of Present Illness Jeremie Salazar is a 44 year old male. - Allergy list reviewed - Problem list reviewed - Medication list reviewed - - Review of medications documented Patient is here today follow up of his right C3-C4 foraminotomy yesterday was little bit more active doing some things around the house and just had more neck pain but no right arm pain. He is still on this Bactrim that he had gotten from the ER and I refilled it last week no fevers. He is complaining more neck pain than anything at this point in time Current Medication - Baclofen 20 MG Oral Tablet 10 days, 0 refills - Citalopram Hydrobromide 40 MG Oral Tablet 90 days, 0 refills - Farxiga 10 MG Oral Tablet 30 days, 0 refills - HYDROcodone-Acetaminophen 7.5-325 MG Oral Tablet 5 days, 0 refills - Ketorolac Tromethamine 10 MG Oral Tablet 4 days, 0 refills - Methocarbamol 750 MG Oral Tablet 30 days, 0 refills - Methocarbamol 750 MG Oral Tablet Take 1 tablet every 8 hrs prn pain/muscle spasms, 30 days, 0 refills - Naltrexone HCl 50 MG Oral Tablet 30 days, 0 refills - Omeprazole 40 MG Oral Capsule Delayed Release 90 days, 0 refills - Ondansetron 4 MG Oral Tablet Disintegrating 3 days, 0 refills - oxyCODONE-Acetaminophen 5-325 MG Oral Tablet 7 days, 0 refills - Pregabalin 75 MG Oral Capsule 30 days, 0 refills - Promethazine HCl 25 MG Oral Tablet 8 days, 0 refills - Repatha SureClick 140 MG/ML Subcutaneous Solution Auto-injector 28 days, 0 refills - Sulfamethoxazole-Trimethoprim 800-160 MG Oral Tablet 7 days, 0 refills - Sulfamethoxazole-Trimethoprim 800-160 MG Oral Tablet 7 days, 0 refills - Xarelto 20 MG Oral Tablet 30 days, 0 refills Past Medical/Surgical History Reported: Use of CPAP. Medical: Gallbladder disease and a fracture. Intermittent hypertension. Diagnoses: Heart disease. Sleep Apnea Hypertension. 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 Surgical: - Hernia repair - History [...] allergic reaction. Physical Findings - Vitals taken 01/20/2025 03:13 pm Height 74 in Weight 341 lbs Body Mass Index 43.8 kg/m2 Body Surface Area 2.7 m2 Pain Level 4 Incision looks clean dry intact there was a little bit of scab at the top of the incision no significant erythema or drainage Assessment - Overweight Right C3-C4 foraminotomy 12/30/2024 Previous Tests Imaging: MRI Scan: An MRI was performed. Available previous imaging studies were reviewed Available previous history reviewed Counseling/Education - Tobacco use - Use of tobacco assessment performed - Intervention and counseling on cessation of tobacco use - Lose weight Plan Patient was seen by myself Stew Meredith PA-C. Patient will follow up [address] Healy I think we still keep him out of work no significant bending lifting twisting still with this he can work on some gentle stretching finish out the Bactrim some starts looking worse with the incision he is to let us know Notes This dictation was done with voice recognition software and may contain errors and omissions. Care Team - KENNETH GOTTLIEB Health Reminders - Assess BMI satisfied 01/20/2025. - Assess Tobacco Use satisfied 09/29/2019. - Follow Up Plan BMI Management satisfied 01/20/2025. - Smoking & Tobacco Cessation Intervention and Counseling satisfied 01/20/2025.
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
[2025-02-22] MEDS: DEFINITY US ECHO CONTRAST 2ML INJ 2 MG IV (08:57)
== END 2025-02-22 23:59 | disposition home or self-care (01) ==
LOC: RT 07:58
PROVIDERS: PCP Nurse Practitioner Family; Visit Provider Internal Medicine
DX: I50.20 Unspecified systolic (congestive) heart failure (principal)
CPT/HCPCS: 93308; Q9957

== ENCOUNTER 2025-04-20 14:55 | Outpatient (CLI) | payer BC, SELFPAY ==
--- OUTSIDE RECORDS SUMMARY | 2025-03-25 15:30 | XMS_ITS | Encounter Summary ---
Author Organization [facility] Address [address] [place] [address] Phone [email or web address] Care Team Providers Care Carpenter Mate Name Role Phone Nick Munoz MD Primary Care Provider [phone] Reason for Referral * Consultation (Routine) - Closed Specialty Diagnoses / Procedures Referred By Marie ware Referred To Contact Physical Therapy Diagnoses Physical deconditioning History of cervical spinal surgery Encounter for fitness for duty examination Tiffanie Villa PA [address] [address] Phone: tel: fax: VERÓNICA PT WC/WH [address] [place] [address] Phone: tel: fax: Referral ID Status Reason Start Date Expiration Date V isits Requested Visits Authorized [id number] Closed Consult & Treat 03/25/2025 09/21/2025 1 1 Reason for Visit * Reason Comments Return to Work / Duty Encounter Details Date Type Department Care Team (Latest Contact Info) Description 03/25/2025 3:30 PM EDT Office Visit VER[facility]NICA [facility] [address] [place] [address] Tiffanie Villa PA [address] [place] [address] Physical deconditioning (Primary Dx); History of cervical spinal surgery; History of atrial fibrillation; Encounter for fitness for duty examination Social History Tobacco Use Types Packs/Day Years Used Date Smoking Tobacco: Never Smokeless Tobacco: Current Chew Tobacco Cessation:Ready to Q uit: Not Asked; Counseling Given: Not Answered Intimate Partner Violence Answer Date R ecorded Insults You Not on file 01/28/2022 Threatens You Not on file 01/28/2022 Screams at You Not on file 01/28/2022 Physically Hurt Not on file 01/28/2022 Intimate Partner Violence Score Not on file 01/28/2022 Depression Answer Date Recorded PHQ Total Score 0 09/12/2022 Stress Answer Date Recorded Stress in your Life Not on file 09/07/2024 Dealing with Stress 3 09/07/2024 Sex and Gender Information Value Date Recorded Sex Assigned at Not on file Legal Sex Male 7:28 AM CDT Gender Identity Not on file Sexual Orientation Not on file documented as of this encounter Last Filed Vital Signs Vital Sign Reading Time Taken Comments Blood Pressure 146/91 03/25/2025 3:28 PM EDT Pulse 122 03/25/2025 3:28 PM EDT Temperature - - Respiratory Rate 16 03/25/2025 3:28 PM EDT Oxygen Saturation 97% 03/25/2025 3:28 PM EDT Inhaled Oxygen Concentration - - Weight - - Height - - Body Mass Index - - documented in this encounter Patient Instructions * Patient Instructions* AAMIR Chino - 03/25/2025 3:30 PM EDT 1. Duty status: No Work Until Follow-up after WC/WH 2. Preventive stretching 3. Referrals: Work conditioning 1 week and Work hardening 1 week 4. Follow up: after work hardening. 5. Call [facility] @ [phone] for any questions/concerns/appointments. 6. Projected return to full rotation: 4-5 weeks documented in this encounter Progress Notes * AAMIR Chino - 03/25/2025 3:30 PM EDT Subjective Jeremie Saalzar is a 45 y.o. male who presents for personal return to work. WD ID: [id number] Employer: [employer] [place] [facility]: [id number] Shift: 1 Full-time GL and #: Zaheer Campo Previous/current indefinite restrictions? No LDW: 08/08/2024 DOS: 12/30/2024 PROCEDURE: C3 C4 repair SURGEON: Dr. Healy RELEASE: Regular Duty 03/29/2025 Additional notes from phone call: Tm was diagnosed with AFIB while off and will have a release fromcardiologist as well as ortho. [facility] 03/30 11:30. Off work for C3-C4 repair initially, during one of his follow ups for his neck, he was found to be in AF, so was sent to the ER. Now on xarelto and BB, along with other cardiac meds to manage, updated med rec. Was seen in ER 11/02/24 for AF, has not felt any flare ups since this episode, tracks HR with watch. Denies any concerns with neck, feeling good, feels ready to RTW. Triage nurse: Laverne Cronin RN HPI As noted in CC. PMLOA. LDW 08/08/2024. TM was off work for ~ 8 months to have cervical spine surgeryon 12/30/[address] Healy, no complications. 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 TM reports neck surgery was a success, he is no longer having problems withneck pain, no right arm numbness or tingling. TM has a release from Dr. Healy to RTW without restrictions on 03/29/25. Prior to surgery during pre-op appointment provider found he had an abnormal rhythm, he was went to ED diagnosed with A-fib and Covid, was told covid was most likely what caused his A-fib. He is treating with ict sales representative Dr. Joseph at [facility]. 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 TM states he is able and ready to get back to work. History Reviewed: Tobacco Allergies Meds Problems Med Hx Surg Hx Fam Hx Objective Visit Vitals BP (!) 146/91 Pulse (!) 122 Resp 16 SpO2 97% Smoking Status Never Review of Systems Constitutional: Negative. Respiratory: Negative. Cardiovascular: Negative for chest pain and palpitations. Musculoskeletal: No neck pain Neurological: Negative for numbness (or tingling). PHQ-9 Total Score: 0 (08/10/2024 10:44 AM) Physical Exam Vitals and nursing note reviewed. Cardiovascular: Rate and Rhythm: Normal rate and regular rhythm. Pulses: Normal pulses. Heart sounds: Normal heart sounds. Pulmonary: Effort: Pulmonary effort is normal. Breath sounds: Normal breath sounds. NECK Inspection Scars: right posterior neck Swelling: none Erythema: none Lesions: no visible/palpable lesions Palpation Tenderness: none Muscle Spasms: none Vascular present and normal Neuromotor normal range of motion without pain flexion 5/5 UE: 5/5 Special Tests Spurling's Test: without radiation. equal and symmetrical bilaterally Gait Normal Assessment: ICD-10-CM ICD-9-CM 1. Physical deconditioning R53.81 799.3 Ambulatory referral to Work Conditioning/Hardening 2. History of cervical spinal surgery Z98.890 V45.89 Ambulatory referral to Work Conditioning/Hardening C3-C4 on 12/30/[address] Healy 3. History of atrial fibrillation Z86.79 V12.59 ECG 12 lead 4. Encounter for fitness for duty examination Z02.89 V70.5 Ambulatory referral to Work Conditioning/Hardening Orders Placed This Encounter Procedures Ambulatory referral to Work Conditioning/Hardening ECG 12 lead Patient Instructions 1. Duty status: No Work Until Follow-up after WC/WH 2. Preventive stretching 3. Referrals: Work conditioning 1 week and Work hardening 1 week 4. Follow up: after work hardening. 5. Call [facility] @ [phone] for any questions/concerns/appointments. 6. Projected return to full rotation: 4-5 weeks documented in this encounter Plan of Treatment Scheduled Referrals Name Type Priority Associated Diagnoses Orde r Schedule Ambulatory referral to Work Conditioning/Hardeni ng Outpatient Referral Routine Physical deconditioning History of cervical spinal surgery Encounter for fitness for duty examination Expected: 03/30/2025, Expires: 09/25/2025 documented as of this encounter Procedures Procedure Name Priority Date/Time Associated Diagnosis Comments ECG 12-LEAD Routine 03/25/2025 3:53 PM EDT History of atrial fibrillation documented in this encounter Results * ECG 12 lead (03/25/2025 3:53 PM EDT) Tiffanie Davey PA - 03/25/2025 3:53 PM EDT Base line due to hx of A-fib 10/27 - sinus rhythm with left BBB, TM has know hx 20-30 years LBBB. us Tiffanie RUTLEDGE ECG ORDERABLES Final Result documented in this encounter Visit Diagnoses Diagnosis Physical deconditioning- Primary Muscular wasting and disuse atrophy, not elsewhere classified History of cervical spinal surgery History of atrial fibrillation Personal history of other diseases of circulatory system Encounter for fitness for duty examination documented in this encounter Care Teams Carpenter Mate Relationship Specialty Start Date End Date Nick Munoz MD [address] [place] [address] [facility] [address] PCP - General Mine Inspector Federal 10/05/19 documented as of this encounter
--- OUTSIDE RECORDS SUMMARY | 2025-04-08 15:00 | XMS_ITS | Encounter Summary ---
Author Organization [facility] Address [address] [place] [address] Phone [email or web address] Care Team Providers Care Printing Press Operator Name Role Phone Nick Munoz MD Primary Care Provider [phone] Reason for Visit * Reason Comments [facility] Offerings Encounter Details Date Type Department Care Team (Late st Contact Info) Description 04/08/2025 3:00 PM EDT [facility] [address] [place] [address] Tifafnie Villa PA [address] [place] [address] History of cervical spinal surgery (Primary Dx); History of atrial fibrillation; Encounter for fitness for duty examination Social History Tobacco Use Types Packs/Day Years Used Date Smoking Tobacco: Never Smokeless Tobacco: Current Chew Intimate Partner Violence Answer Date R ecorded [...] Sign Reading Time Taken Comments Blood Pressure 137/87 04/08/2025 2:32 PM EDT Pulse 83 04/08/2025 2:32 PM EDT Temperature - - Respiratory Rate 16 04/08/2025 2:32 PM EDT Oxygen Saturation 97% 04/08/2025 2:32 PM EDT Inhaled Oxygen Concentration - - Weight - - Height - - Body Mass Index - - documented in this encounter Patient Instructions * Patient Instructions* AAMIR Chino - 04/08/2025 3:00 PM EDT 1. Duty status: Reintroduction starting 04/12/25 - 1:1 x 5 days then 2:1 x 5 days 2. Preventive stretching 3. Referrals: None 4. Follow up: as needed. 5. Call [facility] @ [phone] for any questions/concerns/appointments. 6. Projected return to full rotation: 04/26/25 documented in this encounter Progress Notes * AAMIR Chino - 04/08/2025 3:00 PM EDT Subjective Jeremie Salazar is a 45 y.o. male who presents for personal return to work. WD ID: [id number] Employer: [employer]: [id number] Shift: 1 Full-time GL and #: Zaheer Campo Previous/current indefinite restrictions? No LDW: 08/08/2024 DOS: 12/30/2024 PROCEDURE: C3 C4 repair SURGEON: Dr. Healy RELEASE: Regular Duty 03/29/2025 Additional notes from phone call: Tm was diagnosed with AFIB while off and will have a release fromcardiologist as well as ortho. PMLOA. S/p WCWH, went well. No complaints. Feeling ready to RTW. Triage nurse: Laverne Cronin RN HPI As noted in CC. PMLOA. LDW 08/08/2024. TM was off work for ~ 8 months to have cervical spine surgeryon 12/30/[address] Healy. During pre-op for surgery provider found he had an abnormal rhythm and was diagnosed with A-fib, he is treating with a grease buffer Dr. Joseph at [facility], has scheduled f/u in 3 months. TM is here after completion and WC/WH and reports he did well. He is not having any problems with neck pain, no right arm numbness or tingling, has some neck stiffness, ROM is good. 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 TM states he is able and ready to get ba ck to work. History Reviewed: Tobacco Allergies Meds Problems Med Hx Surg Hx Fam Hx Objective Visit Vitals BP 137/87 Pulse 83 Resp 16 SpO2 97% Smoking Status Never Review of Systems Constitutional: Negative. Respiratory: Negative. Cardiovascular: Negative for chest pain and palpitations. Musculoskeletal: Has some neck stiffness, no pain Neurological: Negative for numbness (or tingling). PHQ-9 Total Score: 0 (04/08/2025 2:34 PM) Physical Exam Vitals and nursing note reviewed. Constitutional: Appearance: He is not toxic-appearing. Cardiovascular: Rate and Rhythm: Normal rate and regular rhythm. Pulses: Normal pulses. Heart sounds: Normal heart sounds. Pulmonary: Effort: Pulmonary effort is normal. Breath sounds: Normal breath sounds. Psychiatric: Mood and Affect: Mood normal. Behavior: Behavior normal. NECK Inspection Scars: right posterior neck Swelling: none Erythema: none Lesions: no visible/palpable lesions Palpation Tenderness: none Muscle Spasms: none Vascular present and normal Neuromotor normal range of motion without pain flexion 5/5 UE: 5/5 Special Tests Spurling's Test: without radiation. equal and symmetrical bilaterally Gait Normal Assessment: ICD-10-CM ICD-9-CM 1. History of cervical spinal surgery Z98.890 V45.89 C3-C4 repair on 12/30/[address] Healy 2. History of atrial fibrillation Z86.79 V12.59 3. Encounter for fitness for duty examination Z02.89 V70.5 No orders of the defined types were placed in this encounter. Patient Instructions 1. Duty status: Reintroduction starting 04/12/25 - 1:1 x 5 days then 2:1 x 5 days 2. Preventive stretching 3. Referrals: None 4. Follow up: as needed. 5. Call [facility] @ [phone] for any questions/concerns/appointments. 6. Projected return to full rotation: 04/26/25 documented in this encounter Plan of Treatment Not on file documented as of this encounter Visit Diagnoses Diagnosis History of cervical spinal surgery- Primary History of atrial fibrillation Personal history of other diseases of circulatory system Encounter for fitness for duty examination documented in this encounter Care Teams Printing Press Operator Relationship Specialty Start Date End Date Nick Munoz MD [address] [place] [address] TOYIN VALENCIA [address] PCP - General Academic Administrator 10/05/19 documented as of this encounter
--- OUTSIDE RECORDS SUMMARY | 2025-04-20 14:58 | XMS_ITS | Encounter Summary ---
Author Organization Healthcare Address [address] [place] [address] Care Team Providers Care Diesel Engine Inspector Name Role Phone Honey Rizo AFFIRMATIVE ACTION SPECIALIST Primary Care Provider [phone] Wallace Horvath MD Unavailable [phone] Trixie Yan AFFIRMATIVE ACTION SPECIALIST Primary Care Provider [phone] Encounter Details Date Type Department Care Team (Late st Contact Info) Description 08/16/2024 Orders Only External Location [address] [place] [address] Natty Cox, DO [address] [place] [address] Social History Tobacco Use Types Packs/Day Years Used Date Smoking Tobacco: Never Smokeless Tobacco: Former Snuff Quit: 11/2023 Alcohol Use Standard Drinks/Week Comments Not Currently 24 (1 standard drink = 0.6 oz pu re alcohol) PHQ-2 Answer Date Recorded Patient Health Questionnaire-2 Score 0 04/07/2024 PHQ-2A Answer Date Recorded Patient Health Questionnaire-2 Score 0 11/14/2022 Sex and Gender Information Value Date Recorded Sex Assigned at Not on file Legal Sex Male 8:34 PM EDT Gender Identity Not on file Sexual Orientation Not on file documented as of this encounter Plan of Treatment Not on file documented as of this encounter Procedures Procedure Name Priority Date/Time Associated Diagnosis Comments CT OUTSIDE IMAGES 08/16/2024 11:36 AM EDT documented in this encounter Results * CT OUTSIDE IMAGES (08/16/2024 11:36 AM EDT) Anatomical Region Laterality Modality Computed Tomogra phy 08/16/2024 11:3 6 AM EDT Natty Cox DO IMG CT PROCEDURES Final Result documented in this encounter Visit Diagnoses Not on filedocumented in this encounter Additional Health Concerns Assessment Noted Time A fall risk assessment has been complete d for the patient 05/12/2024 11:41 AM EDT A Body Mass Index follow-up plan has been documented for the patient 05/12/2024 11:54 AM EDT documented as of this encounter Care Teams Diesel Engine Inspector Relationship Specialty Start Date End Date Honey Rizo APRN [address] [place] [address] PCP - General 11/13/23 08/27/24 Trixie Yan APRN [address] [place] [address] PCP - General 08/28/24 Wallace Horvath MD [address] [facility] [address] [place] [address] 01/23/24 documented as of this encounter
--- OUTSIDE RECORDS SUMMARY | 2025-04-20 14:58 | XMS_ITS | Data Portability ---
Author Organization [place] [facility] [place] [facility] [place] [facility] Address [address] [place] [address] Assessment Encounter Date Assessment Date Assessment LastModified by Organization Details LastModified Time 09/09/2023 09/09/2023 43-year-old male with history of recurrent pancreatitis. He has a history of alcohol abuse, currently in remission and remote cholecystectomy. He was admitted at [facility] 08/29/23-08/31/23 with mildly elevated serum lipase noted [...] azine maleate 10 mg tablet 2022 023 [facility] - [facility], [address] [place] [address], [place], [address], 16:41:56 Patient TargetsNo targets recorded. Patient InstructionsNo instructions recorded. Reason for Referral None Reported. Problems Name Problem SNOMED Code Status Onset Date Resolution Date Notes Provider Name and Address Organization Details Recorded Time Nausea [id number] Active 023 Cornelius Justin PA-C [address], [place], [address], [place] [facility] [place] [facility] [place] 09/09/2023 15:54:27 Problem Notes None recorded. Medical [...] Available carvedilol phosphate ER 80 mg capsule,ext. [id number] multiphase TAKE 1 CAPSULE BY MOUTH ONCE DAILY WITH MEAL/FOOD active Not Available Not Available No t Available carvedilol phosphate ER 40 mg capsule,ext. [id number] multiphase active Not Available Not Available N [...] Address Organization Details Last Updated DateTime 3 762738. 58 g 40.5 kg/m2 185.42 cm 98.4 [degF] 98 % 98 % 76 /min 74 /min 128 mm[Hg] 81 mm[Hg] Agustin Reyes [place] - [facility] [place] 3 14:47:37 Social History None recorded. Functional Status Question Answer Note LastModified by Organization D etails LastModified Time Do you or have you ever used any other forms of tobacco or nicotine? Yes Information not available 09/09/2023 Mental Status None recorded. Family History Nothing Reported. Medical History No medical history recorded. Past Encounters Encounter ID Performer Location Encounter Start Date Encounter Closed Date Diagnosis/Indication Diagnosis SNOMED-CT Code Diagnosis ICD10 Code Diagnosis Note [id number] Cornelius Justin PA-C [facility] [address] [address] 09/09/2023 14:27:13 09/09/2023 15:16:02 Nausea 758946668 R11.0 History of pancreatitis 5267927814 9107 Z87.19 Health Concerns Section Related Observation LastModified by Organization Detai ls LastModified Time None Recorded Concern Status LastModified by Organization Details LastModified Time None Recorded Advance Directives Directive None Recorded Payers Insurance Date Sequence Insurance Name Policy Number Policy Branch Covered Member ID Branch Member ID Guarantor Name 09/09/2023 1 [place] Princess Salazar [id number] 09/09/2023 1 [place] [id number] Mami Salazar [id number] Notes Date Note Type Note Provider Name and Address Organization Details Recorded Time 09/09/2023 text/html Mr. Mcgovern is a pleasant 43-year-old male who was referred by Honey Rizo APRN for evaluation of pancreatitis. He was admitted at [facility] from 08/29 to 08/31 due to epigastric [...] His pain has resolved. Cornelius Justin PA-C [address], [place], [address], [facility] [place] [facility] [place] [facility] [place] 09/09/2023 16:48:42
--- OUTSIDE RECORDS SUMMARY | 2025-04-20 14:58 | XMS_ITS | Encounter Summary ---
Author Organization Healthcare Address [address] [place] [address] Care Team Providers Care Windows Vmware Administrator Name Role Phone Honey Rizo IT SERVICE DELIVERY MANAGER Primary Care Provider Wallace Horvath MD Unavailable [phone] Trixie Yan IT SERVICE DELIVERY MANAGER Primary Care Provider [phone] Encounter Details Date Type Department Care Team (Late st Contact Info) Description 08/16/2024 Orders Only External Location [address] [place] [address] Natty Cox, DO [address] [place] [address] Social History Tobacco Use Types [...] documented as of this encounter Care Teams Windows Vmware Administrator Relationship Specialty Start Date End Date Honey Rizo APRN [address] [place] [address] PCP - General 11/13/23 08/27/24 Trixie Yan APRN [address] [place] [address] PCP - General 08/28/24 Wallace Horvath MD [address] [facility] [address] [place] [address] 01/23/24 documented as of this encounter
--- OUTSIDE RECORDS SUMMARY | 2025-04-20 14:58 | XMS_ITS | Encounter Summary ---
Author Organization Healthcare Address [address] [place] [address] Care Team Providers Care Pest Control Specialist Name Role Phone Honey Rizo DOMESTIC FREIGHT FORWARDER Primary Care Provider [phone] Wallace Horvath MD Unavailable [phone] Trixie Yan DOMESTIC FREIGHT FORWARDER Primary Care Provider [phone] Encounter Details Date Type Department Care Team (Late st Contact Info) Description 08/16/2024 Orders Only External Location [address] [place] [address] Natty Cox, DO [address] [place] [address] Social History Tobacco Use Types [...] Associated Diagnosis Comments CT OUTSIDE IMAGES 08/16/2024 11:28 AM EDT documented in this encounter Results * CT OUTSIDE IMAGES (08/16/2024 11:28 AM EDT) Anatomical Region Laterality Modality Computed Tomogra phy 08/16/2024 11:2 8 AM EDT Natty Cox DO IMG CT [...] documented as of this encounter Care Teams Pest Control Specialist Relationship Specialty Start Date End Date Honey Rizo APRN [address] [place] [address] PCP - General 11/13/23 08/27/24 Trixie Yan APRN [address] [place] [address] PCP - General 08/28/24 Wallace Horvath MD [address] [facility] [address] [place] [address] 01/23/24 documented as of this encounter
--- OUTSIDE RECORDS SUMMARY | 2025-04-20 14:58 | XMS_ITS | Encounter Summary ---
Author Organization [facility] Address [address] [place] [address] Phone [email or web address] [email or web address] Care Team Providers Care Agronomist Name Role Phone Nick Munoz MD Primary Care Provider [phone] Encounter Details Date Type Department Care Team (Late st Contact Info) Description 03/22/[address] [place] [address] Elena Gordon, RN [address] [place] [address] Social History Tobacco Use Types Packs/Day Years [...] on file documented as of this encounter Progress Notes * Elena Gordon RN - 03/22/2025 1:20 PM EDT Per [facility] [id number] documented in this encounter Plan of Treatment Not on file documented as of this encounter Visit Diagnoses Not on filedocumented in this encounter Care Teams Agronomist Relationship Specialty Start Date End Date Nick Munoz MD [address] [place] [address] [place] [address] PCP - General Purchasing Coordinator 10/05/19 documented as of this encounter
--- OUTSIDE RECORDS SUMMARY | 2025-04-20 14:58 | XMS_ITS | Encounter Summary ---
Author Organization Healthcare Address [address] [place] [address] Care Team Providers Care Retail Merchandiser Technician Name Role Phone Honey Rizo MARKING DEVICES ASSEMBLER Primary Care Provider [phone] Wallace Horvath MD Unavailable [phone] Trixie Yan MARKING DEVICES ASSEMBLER Primary Care Provider [phone] Encounter Details Date Type Department Care Team (Late st Contact Info) Description 08/16/2024 Orders Only External Location [address] [place] [address] Natty Cox, DO [address] [place] [address] Social History Tobacco Use Types [...] Associated Diagnosis Comments CT OUTSIDE IMAGES 08/16/2024 11:40 AM EDT documented in this encounter Results * CT OUTSIDE IMAGES (08/16/2024 11:40 AM EDT) Anatomical Region Laterality Modality Computed Tomogra phy 08/16/2024 11:4 0 AM EDT Natty Cox DO IMG CT [...] documented as of this encounter Care Teams Retail Merchandiser Technician Relationship Specialty Start Date End Date Honey Rizo APRN [address] [place] [address] PCP - General 11/13/23 08/27/24 Trixie Yan APRN [address] [place] [address] PCP - General 08/28/24 Wallace Horvath MD [address] [facility] [address] [place] [address] 01/23/24 documented as of this encounter
--- OUTSIDE RECORDS SUMMARY | 2025-04-20 14:58 | XMS_ITS | Encounter Summary ---
Author Organization [facility] Address [address] [place] [address] Care Team Providers Care Manager Government Name Role Phone Honey Rizo RESTAURANT HOSPITALITY MANAGER Primary Care Provider [phone] Wallace Horvath MD Unavailable [phone] Trixie Yan RESTAURANT HOSPITALITY MANAGER Primary Care Provider [phone] Encounter Details Date Type Department Care Team (Late st Contact Info) Description 07/28/2024 Orders Only External Location [address] [place] [address] Provider, External Social History Tobacco Use Types Packs/Day Years [...] Procedure Name Priority Date/Time Associated Diagnosis Comments MR NEURO OUTSIDE IMAGES 07/28/2024 3:36 PM EDT documented in this encounter Results * MR NEURO OUTSIDE IMAGES (07/28/2024 3:36 PM EDT) Anatomical Region Laterality Modality Magnetic Resonan ce 07/28/2024 3:36 PM EDT us External Provider IMG MRI PROCEDURES Final Resul t documented in this encounter Visit Diagnoses Not on filedocumented in this encounter Additional Health Concerns Assessment Noted Time A fall risk assessment has been complete d for the patient 05/12/2024 11:41 AM EDT A Body Mass Index follow-up plan has been documented for the patient 05/12/2024 11:54 AM EDT documented as of this encounter Care Teams Manager Government Relationship Specialty Start Date End Date Honey Rizo APRN [address] [place] [address] PCP - General 11/13/23 08/27/24 Trixie Yan APRN [address] [place] [address] PCP - General 08/28/24 Wallace Horvath MD [address] [place] [address] [address] [place] [address] 01/23/24 documented as of this encounter
--- OUTSIDE RECORDS SUMMARY | 2025-04-20 14:58 | XMS_ITS | Encounter Summary ---
Author Organization [facility] Address [address] [place] [address] Care Team Providers Care Industrial Technology Education Teacher Name Role Phone Honey Rizo BLAST FURNACE BLOWER Primary Care Provider [phone] Wallace Horvath MD Unavailable [phone] Trixie Yan BLAST FURNACE BLOWER Primary Care Provider [phone] Encounter Details Date Type Department Care Team (Late st Contact Info) Description 08/16/2024 Orders Only External Location [address] [place] [address] Natty Cox, DO [address] [place] [address] Social History Tobacco Use Types [...] Associated Diagnosis Comments CT OUTSIDE IMAGES 08/16/2024 11:33 AM EDT documented in this encounter Results * CT OUTSIDE IMAGES (08/16/2024 11:33 AM EDT) Anatomical Region Laterality Modality Computed Tomogra phy 08/16/2024 11:3 3 AM EDT Natty Cox DO IMG CT [...] documented as of this encounter Care Teams Industrial Technology Education Teacher Relationship Specialty Start Date End Date Honey Rizo APRN [address] [place] [address] PCP - General 11/13/23 08/27/24 Trixie Yan APRN [address] [place] [address] PCP - General 08/28/24 Wallace Horvath MD [address] [facility] [address] [place] [address] 01/23/24 documented as of this encounter
--- OUTSIDE RECORDS SUMMARY | 2025-04-20 14:58 | XMS_ITS | Encounter Summary ---
Author Organization [facility] Address [address] [place] [address] Phone [email or web address] Care Team Providers Care Director Occupational Name Role Phone Nick Munoz MD Primary Care Provider [phone] Encounter Details Date Type Department Care Team (Late st Contact Info) Description 03/22/2025 Telephone [place] [address] [facility] [address] [place] [address] Elena Gordon, RN [address] [place] [address] Social History Tobacco Use Types [...] on file documented as of this encounter Miscellaneous Notes * Telephone Encounter - Elena Gordon RN - 03/22/2025 11:03 AM EDT Jeremie Salazar calls clinic to discuss return to work after personal medical leave of absence for neck surgery. WD ID: [id number] Employer: [employer]: [id number] Shift: 1 Full-time GL and #: Zaheer Campo Previous/current indefinite restrictions? No LDW: 08/08/2024 DOS: 12/30/2023 PROCEDURE: C3 C4 repair SURGEON: Dr. Healy RELEASE: Regular Duty 03/29/2025 Additional notes from phone call: Tm was diagnosed with AFIB while off and will have a release fromcardiologist as well as ortho If WMLOA, still getting compensation from work comp? N/A If WMLOA, treatment for any personal medical condition during leave? Yes, was diagnosed with Afib. If PMLOA, work-related injury immediately before leave? No Same day occ or personal follow up scheduled? Yes Reviewed and/or scheduled for WC/WH? Spoke to Roshan 03/30/2025 @ 1130. Request sent to confirm cost center? Email sent to Princess Black and Kadi Mixon Addendum-Per [email or web address] Elena Gordon RN documented in this encounter Plan of Treatment Not on file documented as of this encounter Visit Diagnoses Not on filedocumented in this encounter Care Teams Director Occupational Relationship Specialty Start Date End Date Nick Munoz MD [address] [place] [address] [place] [address] PCP - General Sports Information Director 10/05/19 documented as of this encounter
--- OUTSIDE RECORDS SUMMARY | 2025-04-20 14:58 | XMS_ITS | Clinical Summary ---
Author Organization [facility] Address [address] [place] [address] Phone [email or web address] Care Team Providers Care Drug Coordinator Name Role Phone Nick Munoz MD Primary Care Provider [phone] Allergies Active Allergy Reactions Criticality Noted Date Comments Morphine And Codeine Hives 07/02/2016 Statins High 04/04/2023 Other Reaction(s): Other - please document in the comment field Muscle cramps Medications citalopram (CeleXA) 40 MG tablet Take 50 mg by mouth 1 (one) time each day. 10 9 Active omeprazole (PriLOSEC) [address] capsule 1 Active traZODone (DESYREL) 50 MG tablet 3 Active fenofibrate (TRICOR) 54 MG tablet Take 54 mg by mouth 1 (one) time each day. 3 Active sacubitril-blair sartan (Entresto) 97-103 MG per tablet Take 1 tablet by mouth in the morning and 1 tablet in the evening. Active valsartan (DIOVAN) 80 MG tablet 3 Active Multiple Vitamin (Tab-A-Maricruz) tablet Take 1 tablet by mouth 1 (one) time each day. 3 Active Vraylar 1.5 MG capsule Take 1 capsule by mouth 1 (one) time each day. 3 Active thiamine (VITAMIN B-1) 100 MG tablet Take 100 mg by mouth 1 (one) time each day. 3 Active carvedilol CR (COREG CR) 80 MG 24 hr capsule TAKE 1 CAPSULE BY MOUTH ONCE DAILY WITH MEAL/FOOD 3 Active busPIRone (BUSPAR) 15 MG tablet Take 15 mg by mouth in the morning and 15 mg before bedtime. 3 Active Evolocumab (Repatha SureClick) 140 MG/ML solution auto-injector INJECT 140 MG SUBCUTANEOUSLY ONCE EVERY 2 WEEKS 4 Active meloxicam (MOBIC) 15 MG tablet Take 15 mg by mouth 1 (one) time each day. 4 Active methylPREDNISo lone (MEDROL DOSPAK) 4 MG tablet TAKE BY MOUTH DIRECTED ON INSIDE OF PACKAGE 4 Active methocarbamol (ROBAXIN) 750 MG tablet TAKE 1 TABLET BY MOUTH EVERY 8 HOURS NEEDED FOR MUSCLE SPASM /PAIN Active metoprolol succinate XL (TOPROL-XL) 25 MG 24 hr tablet 5 Active naltrexone (DEPADE) 50 MG tablet Take 50 mg by mouth 1 (one) time each day. 5 Active Xarelto 20 MG tablet 5 Active valsartan (DIOVAN) 80 MG tablet Take 1 tablet by mouth 1 (one) time each day. Active Farxiga 10 MG tablet 5 Active Active Problems Problem Noted Date Diagnosed Date Return to work evaluation 06/27/2020 Essential hypertension 03/05/2011 Overview (04/02/2018): Pain in joint, hand 01/19/2011 Overview (04/02/2018): Pneumonia due to infectious organism 03/15/2010 Overview (04/02/2018): Hernia of other specified site, with obstruction 08/15/2009 Overview (04/02/2018): Examination for medicolegal reason 03/16/2009 Overview (04/02/2018): Disorder of middle ear and mastoid 09/10/2008 Overview (04/02/2018): Other examination of ears and hearing 02/03/2008 Overview (04/02/2018): Resolved Problems Problem Noted Date Diagnosed Date Resolved Date Dizziness and giddiness 02/07/201205/06 Overview (04/02/2018): Acute sinusitis 11/05/2011 06/03/2023 Overview (04/02/2018): Abdominal pain, left lower quadrant 06/02/2009 06/03/2023 Overview (04/02/2018): Encounters Date Type Department Care Team Description 04/08/2025 3:00 PM EDT Office Visit [place] [address] [facility] [address] [place] [address] Tiffanie Villa PA History of cervical spinal surgery (Primary Dx); History of atrial fibrillation; Encounter for fitness for duty examination 03/25/2025 3:30 PM EDT Office Visit [place] [address] [place] [address] Tiffanie Villa PA Physical deconditioning (Primary Dx); History of cervical spinal surgery; History of atrial fibrillation; Encounter for fitness for duty examination 03/22/[address] [place] [address] Elena Gordon, GRACIA 03/22/[address] [place] [address] Elena Gordon, RN from Last 3 Months Social History Tobacco Use Types Packs/Day Years [...] on file Sexual Orientation Not on file Last Filed Vital Signs Vital Sign Reading Time Taken Comments Blood Pressure 137/87 04/08/2025 2:32 PM EDT Pulse 83 04/08/2025 2:32 PM EDT Temperature 36.2 C (97.2 F) 08/10/2024 10:38 AM EDT Respiratory Rate 16 04/08/2025 2:32 PM EDT Oxygen Saturation 97% 04/08/2025 2:32 PM EDT Inhaled Oxygen Concentration - - Weight 154 kg (340 lb) 08/10/2024 10:38 AM EDT Height 185.4 cm (6' 1 ) 08/10/2024 10:38 AM EDT Body Mass Index 44.86 08/10/2024 10:38 AM EDT Plan of Treatment Health Maintenance Due Date Last Done Comments Dental Cleaning/Exam 1980 HIV Screening 1979 Hepatitis C Screening 1979 Annual Preventive Exam 1997 Hep B Infection Screening - Triple Screen 1997 Hepatitis A Immunization (1 of 2 - Risk 2-dose series) 1998 Hepatitis B Immunization (1 of 3 - 19+ 3-dose series) 1998 Pneumococcal: Ped (0 to 5 Yrs) and At-Risk Member (6 to 64 Yrs) (1 of 2 - PCV) 1998 Colorectal Cancer Screening 2009 Covid-19 Immunization (3 - season) 2024 08/25/2021, 07/28/2021 Influenza Immunization (Season Ended) 2025 10/18/2017, 08/16/2016 Tetanus Diphtheria and Pertussis Immunization (3 - Td or Tdap) 12/17/2032 12/17/2022, 11/05/1995 HIB Immunization Aged Out No longer e ligible based on patient's age to complete this topic HPV Immunization Aged Out No longer e ligible based on patient's age to complete this topic Polio Immunization Aged Out No longer eligible based on patient's age to complete this topic Procedures Procedure Name Priority Date/Time Associated Diagnosis Comments ECG 12-LEAD Routine 03/25/2025 3:53 PM EDT History of atrial fibrillation from Last 3 Months Results * ECG 12 lead (03/25/2025 3:53 PM EDT) Tiffanie Davey PA - 03/25/2025 3:53 PM EDT Base line due to hx of A-fib 10/27 - sinus rhythm with left BBB, TM has know hx 20-30 years LBBB. us Tiffanei RUTLEDGE ECG ORDERABLES Final Result from Last 3 Months Insurance [facility] [place] [address] [address] [place] [address] AN[address] [place] [address] [facility] [id number] [place] [address] Care Teams Drug Coordinator Relationship Specialty Start Date End Date Nick Munoz MD [address] [place] [address] [address] [place] [place] [address] PCP - General Machine Striper 10/05/19
--- OUTSIDE RECORDS SUMMARY | 2025-04-20 14:58 | XMS_ITS | Encounter Summary ---
Author Organization [facility] Address [address] [place] [address] Care Team Providers Care Pharmacovigilance Specialist Name Role Phone Honey Rizo DIRECTOR SUMMER [employer]ESSIONS Primary Care Provider Wallace Horvath MD Unavailable [phone] Trixie Yan DIRECTOR [employer]IONS Primary Care Provider [phone] Encounter Details Date Type Department Care Team (Late st Contact Info) Description 08/16/2024 Orders Only External Location [address] [place] [address] Natty Cox, DO [address] [place] [address] Social History Tobacco Use Types [...] Associated Diagnosis Comments CT OUTSIDE IMAGES 08/16/2024 11:30 AM EDT documented in this encounter Results * CT OUTSIDE IMAGES (08/16/2024 11:30 AM EDT) Anatomical Region Laterality Modality Computed Tomogra phy 08/16/2024 11:3 0 AM EDT Natty Cox DO IMG [...] documented as of this encounter Care Teams Pharmacovigilance Specialist Relationship Specialty Start Date End Date Honey Rizo APRN [address] [place] [address] PCP - General 11/13/23 08/27/24 Trixie Yan APRN [address] [place] [address] PCP - General 08/28/24 Wallace Horvath MD [address] [facility] [address] [place] [address] 01/23/24 documented as of this encounter
--- OUTSIDE RECORDS SUMMARY | 2025-04-20 14:58 | XMS_ITS | Clinical Summary ---
Author Organization [facility] Address [address] [place] [address] Care Team Providers Care Crepe Sole Wire Brusher Name Role Phone Wallace Horvath MD Unavailable [phone] Trixie Yan APRN Primary Care Provider [phone] Allergies Active Allergy Reactions Criticality Noted Date Comments Semaglutide(0.25 Or 0.5mg-Dos) Other - please document in the comment field Low 09/01/2024 Statins Other - please docum ent in the comment field High 04/04/2023 Muscle cramps Medications citalopram (CeleXA) 40 MG tablet Take 0.5 tablets (20 mg) by mouth 1 (one) time each day. 7 Active carvedilol CR (Coreg CR) 80 MG 24 hr capsule Take 1 capsule (80 mg) by mouth 1 (one) time each day. 2 Active Multiple Vitamin (Tab-A-Maricruz) tablet Take 1 tablet by mouth 1 (one) time each day. 3 Active omeprazole (PriLOSEC) [address] capsule Take 1 capsule (40 mg) by mouth 1 (one) time each day. 3 Active valsartan (Diovan) 80 MG tablet Take 1 tablet (80 mg) by mouth 1 (one) time each day. 3 Active Repatha SureClick 140 MG/ML solution auto-injector INJECT 140 MG SUBCUTANEOUSLY ONCE EVERY 2 WEEKS 4 Active fenofibrate (Tricor) 54 MG tablet Take 1 tablet (54 mg) by mouth 1 (one) time each day. 4 Active busPIRone (Buspar) 15 MG tablet Take 1 tablet (15 mg) by mouth 2 (two) times a day. Active gabapentin (Neurontin) 100 MG capsule Take 1 capsule (100 mg) by mouth 3 (three) times a day. If this medication makes you drowsy you may take it only at bedtime 30 capsule 4 Active acetaminophen (Tylenol Extra Strength) 500 MG tablet Take 2 tablets (1,000 mg) by mouth every 8 (eight) hours. 100 tablet 4 Active oxyCODONE (Roxicodone) 5 MG immediate release tablet Take 1 tablet (5 mg) by mouth every 8 (eight) hours if needed for severe pain. 20 tablet 4 Active traMADol (Ultram) 50 MG tablet Take 1 tablet (50 mg) by mouth every 8 (eight) hours if needed for moderate pain. 30 tablet 4 Active valACYclovir (Valtrex) 1 g tablet TAKE 1 TABLET BY MOUTH EVERY 8 HOURS FOR 10 DAYS 4 Active pregabalin (Lyrica) 75 MG capsule Take 1 capsule (75 mg) by mouth 2 (two) times a day. 4 Active naproxen (Naprosyn) 500 MG tablet Take 1 tablet (500 mg) by mouth 2 (two) times a day. 4 Active naloxone (Narcan) 4 mg/0.1 mL nasal spray CALL 911. DO NOT PRIME. ADMINISTER A SINGLE SPRAY IN NOSTRIL. IF NO TO MINIMAL RESPONSE AFTER 2-5 MINUTES, AN ADDITIONAL DOSE MAY BE GIVEN IN THE ALTERNATE NOSTRIL, THEN NEEDED (IF DOSES ARE AVAILABLE) EVERY 2-5 MINUTES 4 Active methocarbamol (Robaxin) 750 MG tablet TAKE 1 TABLET BY MOUTH EVERY 4 HOURS 4 Active meloxicam (Mobic) 15 MG tablet Take 1 tablet (15 mg) by mouth. 4 Active ketorolac (Toradol) 10 MG tablet TAKE 1 TABLET BY MOUTH EVERY 8 HOURS NEEDED FOR PAIN FOR 3 DAYS 4 Active ibuprofen 800 MG tablet Take 1 tablet (800 mg) by mouth every 8 (eight) hours. 4 Active HYDROcodone-ac etaminophen ([place]) 7.5-325 MG tablet TAKE 1 TABLET BY MOUTH EVERY 4 TO 6 HOURS NEEDED FOR PAIN 4 Active diazePAM (Valium) 5 MG tablet TAKE 1 TABLET BY MOUTH EVERY 8 HOURS NEEDED FOR MUSCLE SPASM 4 Active cyclobenzaprin e (Flexeril) 5 MG tablet 4 Active baclofen (Lioresal) 10 MG tablet Take 1 tablet (10 mg) by mouth 3 (three) times a day if needed for muscle spasms. 4 Active Active Problems Problem Noted Date Diagnosed Date Arthritis of right hip 03/23/2024 AVN (avascular necrosis of bone) 01/23/2024 Family History Medical History Relation Name Comments Hypertension Father Anesthesia problems Neg Hx Malig Hyperthermia Neg Hx Relation Name Status Comments Father Social History Tobacco Use Types Packs/Day Years Used Date Smoking Tobacco: Never Smokeless Tobacco: Former Snuff Quit: 11/04/2023 Tobacco Cessation:Counseling Given: Not Answered Alcohol Use Standard Drinks/Week Comments Yes 24 (1 standard drink = 0.6 oz [...] Sign Reading Time Taken Comments Blood Pressure 118/74 09/01/2024 12:06 PM EDT Pulse 93 08/28/2024 8:24 AM EDT Temperature 36.3 C (97.4 F) 03/23/2024 1:49 PM EDT Respiratory Rate 16 03/23/2024 2:52 PM EDT Oxygen Saturation 95% 08/28/2024 8:24 AM EDT Inhaled Oxygen Concentration - - Weight 156 kg (345 lb) 09/01/2024 12:06 PM EDT Height 185.4 cm (6' 1 ) 09/01/2024 12:06 PM EDT Body Mass Index 45.52 09/01/2024 12:06 PM EDT Plan of Treatment Health Maintenance Due Date Last Done Comments [facility]-HIV Screening 1979 [facility]-Hepatitis C Screening 1979 [facility]-Infant/Child/Adol SDOH Screenings 1979 [facility]- SDOH Screenings 1997 [facility]-Adult SDOH Screenings 1997 [facility]-Hepatitis B Vaccines (1 of 3 - 19+ 3-dose series) 1998 CT Colonography 02/26/2024 Colonoscopy 02/26/2024 FIT-DNA 02/26/2024 FIT 02/26/2024 FOBT 02/26/2024 Sigmoidoscopy 02/26/2024 [facility]-Colorectal Cancer Screening 02/26/2024 [id number] Vaccine ( - 2023- season) 2024 08/25/2021, 07/28/2021 [facility]-Depression Screening 04/07/2025 04/07/2024 [facility]-Influenza Vaccine (Season Ended) 2025 10/18/2017, 08/16/2016 [facility]-Zoster Vaccines (1 of 2) 2029 [facility]-DTaP,Tdap,and Td Vaccines (3 - Td or Tdap) 12/17/2032 12/17/2022, 11/05/1995 [facility]-Obesity Intervention Completed 024, 08/28/2024, 05/12/2024, Additional history exists HPV Vaccines Aged Out No longer eligi ble based on patient's age to complete this topic [facility]-HIB Vaccines Aged Out No longer e ligible based on patient's age to complete this topic [facility]-Hepatitis A Vaccines Aged Out No longer eligible based on patient's age to complete this topic [facility]-IPV Vaccines Aged Out No longer e ligible based on patient's age to complete this topic [facility]-Pneumococcal Vaccine: Pediatrics (0 to 5 Years) and At-Risk Patients (6 to 49 Years) Aged Out No longer eligible based on patient's age to complete this topic [facility]-Rotavirus Vaccines Aged Out No lo nger eligible based on patient's age to complete this topic Goals Goal Patient Goal Type Associated Problems Recent Progress Patient-Stated? Author Autogenerat ed Goal Care Plan Autogenerated Problem No Rachel [employer] Implanted Type Area Cage Unloader Device Identifier Shelf Expiration Date Model / Serial / Lot Chg Shell R3 3 Hole Acet 58mm - [id number] Implanted:Qty: 1 on 03/23/2024 by Nick Rivas MD at [facility] Hip Right: Hip [employer]-[id number] 03/31/2033 [id number] / / [id number] Chg Head Oxinium Fem 10/17 28m - [id number] Implanted:Qty: 1 on 03/23/2024 by Nick Rivas MD at [facility] Hip Right: Hip [employer]-[id number] 12/07/2033 [id number] / / [id number] Liner Or3o Dual Mbility 44 58 - [id number] Implanted:Qty: 1 on 03/23/2024 by Nick Rivas MD at [facility] Liner Right: Hip [employer]-[id number] 11/03/2033 [id number] / / [id number] Liner Or3o Dual Mbility Xlpe 28 44 - [id number] Implanted:Qty: 1 on 03/23/2024 by Nick Rivas MD at [facility] Liner Right: Hip [employer]-[id number] 09/03/2033 [id number] / / [id number] Chg Screw Ref Spher Head 35mm - [id number] Implanted:Qty: 1 on 03/23/2024 by Nick Rivas MD at [facility] Screw Right: Hip [employer]-[id number] 12/13/2033 [id number] / / [id number] Chg Screw Ref Spher Head 25mm - [id number] Implanted:Qty: 1 on 03/23/2024 by Nick Rivas MD at [facility] Screw Right: Hip [employer]-[id number] 11/22/2033 [id number] / / [id number] Polarstem Cementless Tiha 7 - [id number] Implanted:Qty: 1 on 03/23/2024 by Nick Rivas MD at [facility] Stem Right: Hip [employer]-[id number] 02/28/2030 [id number] / / [id number] Additional Health Concerns Active Problems Noted Date Diagnosed Date Autogenerated Problem 02/13/[address] [place] [place] [address] ANTHEM Advance Directives * Full Code (Latest Code Status on File) Date Activated Date Inactivated Comments 03/23/2024 11:19 AM 03/23/2024 6:31 PM Question Answer Comments Patient has decision-making capacity? Yes Care Teams Crepe Sole Wire Brusher Relationship Specialty Start Date End Date Trixie Yan APRN [address] [place] [address] PCP - General 08/28/24 Wallace Horvath MD [address] [facility] [address] [place] [address] 01/23/24
--- NOTE | 2025-04-20 15:15 | CA_ITS ---
APPROVED REPORT EXAM: Limited 2D Echocardiogram Knitting Machine Operator Automatic: Alexandria Khan, RCS, RVS Ht: 6 ft 1 in Wt: 335lbs BSA: 2.68 BP: 130/86 mmHg Rhythm: Atrial Fibrillation Indications: SOA, EF check 2D Dimensions IVSd 1.05 cm M: 0.6-1.2 LVEF (Visual) 62.10 % PWd 1.11 cm M: 0.6 - 1.2 EF AP4 39.00 % LVDd 5.58 cm M: 4.2 - 5.9 GL Strain -16.0 % LVDs 3.69 cm M: 2.5 - 4.0 M-Mode Dimensions LA Diam 4.29 cm (1.9-4.0) EPSs 0.74 cm Other Information Study Quality: Fair Conclusion This is a limited TTE to evaluate for LV systolic function. Limited windows are obtained. The left ventricle is normal in size. There is increased LV wall thickness. There is low-normal global LV systolic function. There is mild hypokinesis of the the septal and inferoseptal LV guthrie. LVEF is 50%. Electronically signed by : Antonella Joseph MD 04/24/2025 16:49:55
== END 2025-04-20 23:59 | disposition home or self-care (01) ==
LOC: RT 14:55
PROVIDERS: PCP Nurse Practitioner Family; Visit Provider Internal Medicine
DX: I51.7 Cardiomegaly (principal); R93.1 Abnormal findings on diagnostic imaging of heart and coronary circulation
CPT/HCPCS: 93308

== ENCOUNTER 2025-06-24 15:42 | Outpatient (CLI) | payer BC, SELFPAY ==
--- OUTSIDE RECORDS SUMMARY | 2025-06-16 11:40 | XMS_ITS ---
Author Organization [facility] Address [address] [place] [address] Care Team Providers Care Office Administrator Name Role Phone Trixie Yan APRN Primary Care Provider Mirta Silvestre Unavailable Self Referral, Self Unavailable Unavailable Tito Cordero Unavailable [phone] Allergies No Known Allergies REASON FOR VISIT interested in pelleting Medications Medication SIG (Take, Route, Frequency, Duration) Notes Start Date End Date Status Fenofibrate 54 MG Tablet Oral; Duration: 90 Days Active Omeprazole 40 MG Capsule Delayed Release Oral; Duration: 90 Days A ctive busPIRone HCl 15 MG Tablet Oral; Duration: 90 Days Acti ve Citalopram Hydrobromide 40 MG Tablet Oral; Duration: 90 Days Acti ve Zepbound 5 MG/0.5ML Solution Auto-injector Subcutaneous; Duration: 28 Days Active Farxiga 10 MG Tablet Oral; Duration: 90 Days Active Xarelto 20 MG Tablet Oral; Duration: 90 Days Active Metoprolol Succinate ER 25 MG Tablet Extended Release 24 Hour Oral; Duration: 90 Days A ctive Vraylar 1.5 MG Capsule Oral; Duration: 90 Days Active Repatha SureClick 140 MG/ML Solution Auto-injector INJECT CONTENTS OF 1 PEN SUBCUTANEOUSLY EVERY TWO WEEKS Subcutaneous; Duration: 28 Days Active Social History Tobacco Use: Social History Observation Description Date Details (start date - stop date) Never Smoker NA - NA Social History Drug/Alcohol: Social Info Question Answer Notes AUDIT-C (Standard) Did you have a drink containing alcohol in the past year? Yes How often did you have a drink containing alcohol in the past year? Declined to specify (0 point) How many drinks did you have on a typical day when you were drinking in the past year? Declined to specify (0 point) How often did you have six or more drinks on one occasion in the past year? Declined to specify (0 point) Points 0 Interpretation Negative Tobacco Use: Social Info Question Answer Notes Tobacco Control (Standard) Tobacco use: Nonsmoker Problems Problem Type SNOMED Code ICD Code Onset Dates Problem Status W/U Status Risk Notes Problem Chronic fatigue (R53.82) Active confirmed Problem Male sexual dysfunction (1680847) Male sexual dysfunction (N53.9) Active confirmed *Discussed with patient BHRT pellet therapy and alterative treatments through prescriptions . Noted history for CHF, HTN, and current Xarelto, discussed with patient that he will not have to discontinue his Xarelto for the procedure, however with pellets being cardiac driven in terms of their absorption these factors will contribute to him absorbing his pellets quicker in the 4-6 month window for patients. Discussed DIM and need for daily twice a day use while receiving pellets, will send labs to [facility] and have our patient navigator contact the patient regarding pricing. Vital Signs Height 74 in 06/16/2025 Weight 360 lbs 06/16/2025 BMI 46.22 BMI 06/16/2025 Patient requested his BP to be taken at the end of his OV, however he left before staff was able to obtain. Encounters Encounter Location Date Provider Diagnosis [facility] [address] [place] [address] 06/16/2025 Tito Cordero Chronic fatigue R53.82 and Male sexual dysfunction N53.9 Assessments Encounter Date Diagnosis (ICD Code) Assessment Notes Treatment Notes Treatment Clinical Notes Section Notes 06/16/2025 Chronic fatigue (ICD-10 - R53.82) 06/16/2025 Male sexual dysfunction (ICD-10 - N53.9) *Discussed with patient BHRT pellet therapy and alterative treatments through prescriptions. Noted history for CHF, HTN, and current Xarelto, discussed with patient that he will not have to discontinue his Xarelto for the procedure, however with pellets being cardiac driven in terms of their absorption these factors will contribute to him absorbing his pellets quicker in the 4-6 month window for patients. Discussed DIM and need for daily twice a day use while receiving pellets, will send labs to [facility] and have our patient navigator contact the patient regarding pricing. Plan Of Treatment Pending Test Test Name Order Date Prostate Specific Antigen (PSA) 06/16/20 TIBC ( Total Iron Binding Capacity) 06/04 Ferritin 06/16/2025 DHEA-S 06/16/2025 Iron 06/16/2025 homocysteine 06/16/2025 CBC with Differential 06/16/2025 THYROID PANEL, FREE T3 06/16/2025 THYROID PANEL, FREE T4 06/16/2025 CMP 06/16/2025 Hemoglobin A1c w Est Avg/Mean Gluc 06/16 Estradiol 06/16/2025 Testosterone, Free and Total (includes S HBG) 06/16/2025 Thyroglobulin Panel 06/16/2025 Thyroid Peroxidase (TPO) Ab 06/16/2025 Reverse T3 06/16/2025 LIPID PANEL 06/16/2025 HS CRP 06/16/2025 VITAMIN B12 06/16/2025 TSH 06/16/2025 1, 25 OH vitamin D 06/16/2025 Cortisol, Total 06/16/2025 Future Test Test Name Order Date Ref - Patient Navigator Consultation Next Appt Details Follow Up: Pending receipt o f labs, Reason: BHRT History and Physical Notes * HPI (History of Present Illness) Category Sub-Category Detail Notes Category Not es Depression Screening PHQ-9 Little Inte rest or pleasure in doing things: Not at all Feeling down, depressed, or hopeless: No t at all Trouble falling or staying asleep or sle eping too much: Not at all Feeling tired or having little energy: N ot at all Poor appetite or overeating: Not at all Feeling bad about yourself - or that you are a failure or have let yourself or your family down: Not at all Trouble concentrating on thi ngs, such as reasding the newspaper or watching television: Not at all Moving or speaking so slowly that other people have noticed. Or the opposite being so fidgety or restless that you have been moving around a lot more than usual.: Not at all Thoughts that you woud be be tter off or of hurting yourself in some way: Not at all Total Score: 0 BHRT Male Health Assessment Physical Exhaustion (fatigue, lack of energy, stamina or motivation): Severe (3 points) 06/16/25 - Patient presents today in consideration for BHRT pellet treatments to address his listed symptoms above. Patient denies any historical HRT but states having a friend who has had them done and swears by them. Patient does take Xarelto for CHF with a noted history of HTN as well. Sleep Problems (difficulty f alling asleep or sleeping through the night): Mild (1 Point) Irritability (mood swings, f eeling aggressive, angers easily): None (0 points) Anxiety (feeling overwhelmed , feeling panicky, or feeling nervous): Moderate (2 points) Decline in drive or interest (loss of zest for life, feeling down or sad): Severe (3 points) Joint and muscular symptoms (poor recovery after workout, inability to add muscle, joint pain, muscle weakness): None (0 points) Difficulties with memory (co ncentration, finding the right word, or retaining information): Severe (3 points) Sexual Desire or Performance (reduced or diminished): Severe (3 points) Erectile changes (weaker ere ctions, loss of morning erections): Moderate (2 points) Ejaculations (infrequent or absent): None (0 points) Sweating (night sweats or in creased episodes of sweating): Severe (3 points) Hair loss, rapid, or thinning: None (0 p oints) Feeling cold all the time, h aving cold hands or feet: None (0 points) Headaches or migraines (incr ease in frequency or intensity): None (0 points) Weight (difficulty losing we ight despite diet/exercise): Very Severe (4 points) Bladder problems (difficulty in urinating, increased need to urinate): None (0 points) Goals For Optimizing Hormones:: 1) energ y, 2) weight loss, 3) more sexual Taking Probiotics?: No Taking [place] 3?: No Activity Level: Moderate Currently on Thyroid Meds?: No Currently on Testosterone Therapy?: No Currently on 5a Reductase (Prostate)?: N o Experiencing Symptoms (diffi culty to start urinating, straining to urinate, or increased urgency/frequency)?: No Urological Work-Up Performed and Okay?: No Has Prostate Cancer?: No Has Robert's Thyroiditis?: No Examination Category Sub-Category Detail Notes Category Not es General examination Neck, thyroid : normal ROM o f C spine for age, non-tender, normal alignment Heart: no signs of cyanosis or circulatory insufficiency Lungs: no evidence of respi ratory distress Extremities: no clubbing, edema, or rash General appearance: in no acute distress , no suicidal ideation, normal affect Skin: no obvious bruise or breakage Neurologic exam: no evidence of sedat ion Abdomen: normal Gait and Posture Normal Gait Progress Notes * Jeremie SALAZAR CDOB:[birth year] (45 yo M)Acc No.[id number]:06/16/2025 Patient: Jeremie Rosas Provider: Alejanrdo Cordero PA-C :1980 A ge:45 Y S ex:Male Date:06/16/2025 Address:[address] [place] [address], [place], [id number] Pcp:Trixie Yan APRN Check Out:04:35 PM EST Subjective: * Chief Complaints: * I nterested in pelleting * HPI: B HRT: Male Health Assessment P hysical Exhaustion (fatigue, lack of energy, stamina or motivation) S evere (3 points) S leep Problems (difficulty falling asleep or sleeping through the night) M ild (1 Point) I rritability (mood swings, feeling aggressive, angers easily) N one (0 points) A nxiety (feeling overwhelmed, feeling panicky, or feeling nervous) M oderate (2 points) D ecline in drive or interest (loss of zest for life, feeling down or sad) S evere (3 points) J oint and muscular symptoms (poor recovery after workout, inability to add muscle, joint pain, muscle weakness) N one (0 points) D ifficulties with memory (concentration, finding the right word, or retaining information) S evere (3 points) S exual Desire or Performance (reduced or diminished) S evere (3 points) E rectile changes (weaker erections, loss of morning erections) M oderate (2 points) E jaculations (infrequent or absent) N one (0 points) S weating (night sweats or increased episodes of sweating) S evere (3 points) H air loss, rapid, or thinning N one (0 points) F eeling cold all the time, having cold hands or feet N one (0 points) H eadaches or migraines (increase in frequency or intensity) N one (0 points) W eight (difficulty losing weight despite diet/exercise) V esteban Severe (4 points) B ladder problems (difficulty in urinating, increased need to urinate) N one (0 points) G oals For Optimizing Hormones: 1 ) energy, 2) weight loss, 3) more sexual T aking Probiotics? N o T aking [place] 3? N o A ctivity Level M oderate C urrently on Thyroid Meds? N o C urrently on Testosterone Therapy? N o C urrently on 5a Reductase (Prostate)? N o E xperiencing Symptoms (difficulty to start urinating, straining to urinate, or increased urgency/frequency)? N o U rological Work-Up Performed and Okay? N o H as Prostate Cancer? N o H as Robert's Thyroiditis? N o 06/16/25 - Patient presents today in consideration for BHRT pellet treatments to address his listed symptoms above. Patient denies any historical HRT but states having a friend who has had them done and swears by them. Patient does take Xarelto for CHF with a noted history of HTN as well. D epression Screening: PHQ-9 L ittle Interest or pleasure in doing things?Not at all F eeling down, depressed, or hopeless N ot at all T rouble falling or staying asleep or sleeping too much N ot at all F eeling tired or having little energy N ot at all P oor appetite or overeating N ot at all F eeling bad about yourself - or that you are a failure or have let yourself or your family down N ot at all T rouble concentrating on things, such as reasding the newspaper or watching television N ot at all M oving or speaking so slowly that other people have noticed. Or the opposite being so fidgety or restless that you have been moving around a lot more than usual. N ot at all T houghts that you woud be better off or of hurting yourself in some way N ot at all T otal Score 0 * ROS: 0 1. General: Default for all 1 3 systems reviewed, all negative unless indicated otherwise. * Medical History: Congestive Heart Failure Hypertension Medical History Verified * Surgical History: C2 c3 spacer Knee replacement right Surgical History verified. * Hospitalization/Major Diagno stic Procedure: Pancreatitis CHF Hospitalization Verified. * Family History: F ather: diagnosed with Alcohol Abuse. P aternal Grand Father: diagnosed with Cancer Primary Site. F amily History Verified.. * Social History: T obacco Use: T obacco Control (Standard) T obacco use: N onsmoker D rug/Alcohol: A GILSON-C (Standard) D id you have a drink containing alcohol in the past year? Y es H ow often did you have a drink containing alcohol in the past year? D eclined to specify (0 point) H ow many drinks did you have on a typical day when you were drinking in the past year? D eclined to specify (0 point) H ow often did you have six or more drinks on one occasion in the past year? D eclined to specify (0 point) P oints 0 I nterpretation N egative S ocial History Verified. * Medications: T akingMetoprolol Succinate ER 25 MG Tablet Extended Release 24 Hour Oral Vraylar 1.5 MG Capsule Oral Xarelto 20 MG Tablet Oral Repatha SureClick 140 MG/ML Solution Auto-injector INJECT CONTENTS OF 1 PEN SUBCUTANEOUSLY EVERY TWO WEEKS Subcutaneous Zepbound 5 MG/0.5ML Solution Auto-injector Subcutaneous busPIRone HCl 15 MG Tablet Oral Citalopram Hydrobromide 40 MG Tablet Oral Fenofibrate 54 MG Tablet Oral Omeprazole 40 MG Capsule Delayed Release Oral Farxiga 10 MG Tablet Oral Medication List reviewed and reconciled with the patientTaking Metoprolol Succinate ER 25 MG Tablet Extended Release 24 Hour Oral Taking Vraylar 1.5 MG Capsule Oral Taking Xarelto 20 MG Tablet Oral Taking Repatha SureClick 140 MG/ML Solution Auto- injector INJECT CONTENTS OF 1 PEN SUBCUTANEOUSLY EVERY TWO WEEKS Subcutaneous Taking Zepbound 5 MG/0.5ML Solution Auto-injector Subcutaneous Taking busPIRone HCl 15 MG Tablet Oral Taking Citalopram Hydrobromide 40 MG Tablet Oral Taking Fenofibrate 54 MG Tablet Oral Taking Omeprazole 40 MG Capsule Delayed Release Oral Taking Farxiga 10 MG Tablet Oral Medication List reviewed and reconciled with the patient * Allergies: N .K.D.A.yesAllergies Verified. Objective: * Vitals: H t:74in, Wt:360lbs, BMI:46.22BMI, Pain Scale:0. Patient requested his BP to be taken at the end of his OV, however he left before staff was able to obtain. * Examination: G eneral examination: General appearance: i n no acute distress, no suicidal ideation, normal affect. Gait and Posture N ormal Gait. Neck, thyroid : n ormal ROM of C spine for age, non-tender, normal alignment. Heart: n o signs of cyanosis or circulatory insufficiency.? Lungs: n o evidence of respiratory distress. Abdomen: n ormal. Neurologic exam: n o evidence of sedation. Extremities: n o clubbing, edema, or rash. Skin: n o obvious bruise or breakage. ? Assessment: * Assessment: 1. C hronic fatigue - R53.82 (Primary) 2 . M trino sexual dysfunction - N53.9? Notes :*Discussed with patient BHRT pellet therapy and alterative treatments through prescriptions. Noted history for CHF, HTN, and current Xarelto, discussed with patient that he will not have to discontinue his Xarelto for the procedure, however with pellets being cardiac driven in terms of their absorption these factors will contribute to him absorbing his pellets quicker in the 4-6 month window for patients. Discussed DIM and need for daily twice a day use while receiving pellets, will send labs to [facility] and have our patient navigator contact the patient regarding pricing. Plan: * Treatment: 2. M trino sexual dysfunction P rocedure: Ref - Patient Navigator Consultation (Ordered for 06/16/2025) * Follow Up: P ending receipt of labs (Reason: BHRT) Billing Information: * Visit Code: 74118 NP4: New Patient Level 4 (45-59min). Care Plan Details* * Sign off status: Completed true * Provider: Alejanrdo Cordero PA-C Date: 06/16/2025 Generated for Karla peterson/Marquise/Ilanitting on: 06/24/2025 03:46 PM EDT
--- OUTSIDE RECORDS SUMMARY | 2025-06-24 15:45 | XMS_ITS | Encounter Summary ---
Author Organization [facility] Address [address] [id number] Care Team Providers Care Laborer Sawmill Name Role Phone Wallace Horvath MD Unavailable [phone] Trixie Yan APRN Primary Care Provider [phone] Encounter Details Date Type Department Care Team (Latest Contact Info) Description 05/17/2025 Travel Social History Tobacco Use Types Packs/Day Years Used Date Smoking Tobacco: Never Smokeless Tobacco: Former Snuff Quit: 11/04/2023 Alcohol Use Standard Drinks/Week Comments Yes 24 [...] has been complete d for the patient 09/01/2024 12:02 PM EDT A Body Mass Index follow-up plan has been documented for the patient 09/02/2024 2:11 PM EDT documented as of this encounter Care Teams Laborer Sawmill Relationship Specialty Start Date End Date Trixie Yan APRN [address] [place], [place] [id number] PCP - General 08/28/24 Wallace Horvath MD [address] [facility] [address] [place] [address] 01/23/24 documented as of this encounter
--- OUTSIDE RECORDS SUMMARY | 2025-06-24 15:45 | XMS_ITS | Clinical Summary ---
Author Organization [facility] Address [address] [place] [address] Phone [email or web address] Care Team Providers Care Utility Tender Carding Name Role Phone Nick Munoz MD Primary Care Provider [phone] Allergies Active Allergy Reactions Criticality Noted Date [...] Description 04/08/2025 3:00 PM EDT Office Visit [facility] [address] [place] [address] Tiffanie Villa PA History of cervical spinal surgery (Primary Dx); History of atrial fibrillation; Encounter for fitness for duty examination 03/25/2025 3:30 PM EDT Office Visit [facility] [address] [place] [address] Tiffanie Villa PA Physical deconditioning (Primary Dx); History of cervical spinal surgery; History of atrial fibrillation; Encounter for fitness for duty examination from Last 3 Months Social History Tobacco [...] Health Maintenance Due Date Last Done Comments CT Colonography 1979 Colonoscopy 1979 Colorectal Cancer Screening Combo 1979 DNA Cologuard 1979 Dental Cleaning/Exam 1979 FIT or FOBT Test 1979 HIV Screening 1979 Hepatitis C Screening 1979 Sigmoidoscopy 1979 Annual Preventive Exam 1997 Hep B Infection Screening - Triple Screen 1997 Hepatitis A Immunization (1 of 2 - Risk 2-dose series) 1998 Hepatitis B Immunization (1 of 3 - 19+ 3-dose series) 1998 Pneumococcal: Ped (0 to 5 Yr s) and At-Risk Member (6 to 64 Yrs) (1 of 2 - PCV) 1998 Covid-19 Immunization (3 - season) 2024 08/25/2021, 07/28/2021 Influenza Immunization (#1) 07/05/202510/04, 08/16/2016 Tetanus Diphtheria and Pertussis Immunization (3 [...] us Tiffanie RUTLEDGE ECG ORDERABLES Final Result from Last 3 Months Insurance ANTH IN COPAY 5 Care Teams Utility Tender Carding Relationship Specialty Start Date End Date Nick Munoz MD [address] [place] [address] [address] [place] [address] PCP - General Machine Maintenance Repairer 10/05/19
--- OUTSIDE RECORDS SUMMARY | 2025-06-24 15:46 | XMS_ITS | Encounter Summary ---
Author Organization [facility] Address [address] [place] [address] Care Team Providers Care Bi Lead Name Role Phone Honey Rizo DISTANCE LEARNING COORDINATOR Primary Care Provider [phone] Wallace Horvath MD Unavailable [phone] Trixie Yan DISTANCE LEARNING COORDINATOR Primary Care Provider [phone] Encounter Details Date Type Department Care Team (Late st Contact Info) Description 07/28/2024 Orders Only External Location [address] [place] [address] Provider, External Social History Tobacco Use Types [...] documented as of this encounter Care Teams Bi Lead Relationship Specialty Start Date End Date Honey Rizo APRN [address] [place] [address] PCP - General 11/13/23 08/27/24 Trixie Yan APRN [address] [place] [address] PCP - General 08/28/24 Wallace Horvath MD [address] [place] [address] [address] [place] [address] 01/23/24 documented as of this encounter
--- OUTSIDE RECORDS SUMMARY | 2025-06-24 15:46 | XMS_ITS | Clinical Summary ---
Author Organization [facility] Address [address] [place] [address] Care Team Providers Care Geodesist Name Role Phone Wallace Horvath MD Unavailable [phone] Trixie Yan APRN Primary Care Provider [phone] Allergies Active Allergy Reactions Criticality Noted Date [...] 8 (eight) hours. 4 Active HYDROcodone-ac etaminophen ([place]) 7.5-325 MG tablet TAKE 1 TABLET BY [...] 03/23/2024 AVN (avascular necrosis of bone) 01/23/2024 Encounters Date Type Department Care Team Description 05/17/2025 Travel from Last 3 Months Family History Medical History Relation Name Comments [...] Health Maintenance Due Date Last Done Comments Y-HIV Screening 1979 [facility]-Hepatitis C Screening 1979 [facility]-/Child/Adol SDOH Screenings 1979 [facility]- SDOH Screenings 1997 [facility]-Adult SDOH Screenings 1997 [facility]-Hepatitis B Vaccines (1 of 3 - 19+ 3-dose series) 1998 CT Colonography 02/26/2024 Colonoscopy 02/26/2024 FIT-DNA 02/26/2024 FIT 02/26/2024 FOBT 02/26/2024 Sigmoidoscopy 02/26/2024 [facility]-Colorectal Cancer Screening 02/26/2024 [id number] Vaccine (3 - 2023- season) 2024 08/25/2021, 07/28/2021 [facility]-Depression Screening 04/07/2025 04/07/2024 [facility]-Influenza Vaccine (#1) 2025 10/18/2017, [facility]-Zoster Vaccines (1 of 2) 2029 [facility]-DTaP,Tdap,and [...] on patient's age to complete this topic Medical Devices Implanted Type Area Family Nurse Practitioner Device Identifier Shelf Expiration Date Model / Serial / Lot Chg Shell R3 3 Hole Acet 58mm - [id number] Implanted:Qty: 1 on 03/23/2024 by Nick Rivas MD at [facility] Hip Right: Hip [employer]hew [employer]-[id number] 03/31/2033 [id number] / / [id number] Chg Head Oxinium Fem 10/17 28m - [id number] Implanted:Qty: 1 on 03/23/2024 by Nick Rivas MD at [facility] Hip Right: Hip [employer]-[id number] 12/07/2033 [id number] / / [id number] Liner Or3o Dual Mbility 44 58 - [id number] Implanted:Qty: 1 on 03/23/2024 by Nick Rivas MD at [facility] Liner Right: Hip [employer]-[id number] 11/03/2033 [id number] / / [id number] Liner Or3o Dual Mbility Xlpe 28 44 - [id number] Implanted:Qty: 1 on 03/23/2024 by Nick Rivas MD at [facility] Liner Right: Hip [employer]-[id number] 09/03/2033 [id number] / / [id number] Chg Screw Ref Spher Head 35mm - [id number] Implanted:Qty: 1 on 03/23/2024 by Nick Rivas MD at [facility] Screw Right: Hip [employer]-[id number] 12/13/2033 [id number] / / [id number] Chg Screw Ref Spher Head 25mm - [id number] Implanted:Qty: 1 on 03/23/2024 by Nick Rivas MD at [facility] Screw Right: Hip [employer]-[id number] 11/22/2033 [id number] / / [id number] Polarstem Cementless Tiha 7 - [id number] Implanted:Qty: 1 on 03/23/2024 by Nick Rivas MD at [facility] Stem Right: Hip [employer]-[id number] 02/28/2030 [id number] / / [id number] Insurance ANTHEM Advance Directives * Full Code (Latest Code Status on File) Date Activated Date Inactivated Comments 03/23/2024 11:19 AM 03/23/2024 6:31 PM Question Answer Comments Patient has decision-making capacity? Yes Care Teams Geodesist Relationship Specialty Start Date End Date Trixie Yan APRN [address] [place] [address] PCP - General 08/28/24 Wallace Horvath MD [address] [facility] [address] [place] [address] 01/23/24
--- OUTSIDE RECORDS SUMMARY | 2025-06-24 15:46 | XMS_ITS | Encounter Summary ---
Author Organization [facility] Address [address] [place] [address] Care Team Providers Care Marine Biologist Name Role Phone Honey Rizo HOSE WRAPPER Primary Care Provider [phone] Wallace Horvath MD Unavailable [phone] Trixie Yan HOSE WRAPPER Primary Care Provider [phone] Encounter Details Date Type Department Care Team (Late st Contact Info) Description 08/16/2024 Orders Only External Location [address] [place] [address] Natty Cox, DO [address] [place] [address] Social History Tobacco Use Types [...] documented as of this encounter Care Teams Marine Biologist Relationship Specialty Start Date End Date Honey Rizo APRN [address] [place] [address] PCP - General 11/13/23 08/27/24 Trixie Yan APRN [address] [place] [address] PCP - General 08/28/24 Wallace Horvath MD 201 [facility] [address] [place] [address] 01/23/24 documented as of this encounter
--- OUTSIDE RECORDS SUMMARY | 2025-06-24 15:46 | XMS_ITS | Encounter Summary ---
Author Organization [facility] Address [address] [place] [address] Care Team Providers Care Acid Supervisor Name Role Phone Honey Rizo PRINTED CIRCUIT BOARD PANELS TRIMMER Primary Care Provider [phone] Wallace Horvath MD Unavailable [phone] Trixie Yan PRINTED CIRCUIT BOARD PANELS TRIMMER Primary Care Provider [phone] Encounter Details Date Type Department Care Team (Late st Contact Info) Description 08/16/2024 Orders Only External Location [address] [place] [address] Natty Cox, DO [address] [place] [address] Social History Tobacco Use Types [...] documented as of this encounter Care Teams Acid Supervisor Relationship Specialty Start Date End Date Honey Rizo APRN [address] [place] [address] PCP - General 11/13/23 08/27/24 Trixie Yan APRN [address] [place] [address] PCP - General 08/28/24 Wallace Horvath MD [address] [facility] [address] [place] [address] 01/23/24 documented as of this encounter
--- OUTSIDE RECORDS SUMMARY | 2025-06-24 15:46 | XMS_ITS | Encounter Summary ---
Author Organization [facility] Address [address] [place] [address] Care Team Providers Care Automobile Body Repair Supervisor Name Role Phone Honey Rizo MACHINIST HELPER MARINE Primary Care Provider [phone] Wallace Horvath MD Unavailable [phone] Trixie Yan MACHINIST HELPER MARINE Primary Care Provider [phone] Encounter Details Date Type Department Care Team (Late st Contact Info) Description 08/16/2024 Orders Only External Location [address] [place] [address] Natty Cox, DO [address] [place] [address] Social History Tobacco Use Types [...] documented as of this encounter Care Teams Automobile Body Repair Supervisor Relationship Specialty Start Date End Date Honey Rizo APRN [address] [place] [address] PCP - General 11/13/23 08/27/24 Trixie Yan APRN [address] [place] [address] PCP - General 08/28/24 Wallace Horvath MD [address] [facility] [address] [place] [address] 01/23/24 documented as of this encounter
--- OUTSIDE RECORDS SUMMARY | 2025-06-24 15:46 | XMS_ITS | Encounter Summary ---
Author Organization [facility] Address [address] [place] [address] Care Team Providers Care Equity Research Associate Name Role Phone Honey Rizo LANG PATH THERAPIST Primary Care Provider [phone] Wallace Horvath MD Unavailable [phone] Trixie Yan LANG PATH THERAPIST Primary Care Provider [phone] Encounter Details Date Type Department Care Team (Late st Contact Info) Description 08/16/2024 Orders Only External Location [address] [place] [address] Natty Cox, DO [address] [place] [address] Social History Tobacco Use Types [...] documented as of this encounter Care Teams Equity Research Associate Relationship Specialty Start Date End Date Honey Rizo APRN [address] [place] [address] PCP - General 11/13/23 08/27/24 Trixie Yan APRN [address] [place] [address] PCP - General 08/28/24 Wallace Horvath MD 201 [facility] [address] [place] [address] 01/23/24 documented as of this encounter
--- OUTSIDE RECORDS SUMMARY | 2025-06-24 15:46 | XMS_ITS | Patient Health Record ---
Author Organization [facility] Address [address] [place] [address] Care Team Providers Care Cyber Security Architect Name Role Phone Trixie Yan APRN Primary Care Provider Mirta Silvestre Unavailable [phone] Self Referral, Self Unavailable Unavailable Tito Cordero Unavailable [phone] Allergies No Known Allergies Reason For Referral No Information Medications Medication SIG (Take, Route, Frequency, Duration) Notes Start Date End Date Status Farxiga 10 MG Tablet Oral; Duration: 90 Days Active Fenofibrate 54 MG Tablet Oral; Duration: 90 Days Active Omeprazole 40 MG Capsule Delayed Release Oral; Duration: 90 Days A ctive Xarelto 20 MG Tablet Oral; Duration: 90 Days Active Metoprolol Succinate ER 25 MG Tablet Extended Release 24 Hour Oral; Duration: 90 Days A ctive Vraylar 1.5 MG Capsule Oral; Duration: 90 Days Active busPIRone HCl 15 MG Tablet Oral; Duration: 90 Days Acti ve Citalopram Hydrobromide 40 MG Tablet Oral; Duration: 90 Days Acti ve Repatha SureClick 140 MG/ML Solution Auto-injector INJECT CONTENTS OF 1 PEN SUBCUTANEOUSLY EVERY TWO WEEKS Subcutaneous; Duration: 28 Days Active Zepbound 5 MG/0.5ML Solution Auto-injector Subcutaneous; Duration: 28 Days Active Social History [...] (R53.82) Active confirmed Problem Male sexual dysfunction (8377177) Male sexual dysfunction (N53.9) Active confirmed *Discussed [...] while receiving pellets, will send labs to [facility] and have our patient navigator contact the patient regarding pricing. Vital Signs Height 74 in 06/16/2025 Patient request ed his BP to be taken at the end of his OV, however he left before staff was able to obtain. Weight 360 lbs 06/16/2025 Patient request ed his BP to be taken at the end of his OV, however he left before staff was able to obtain. BMI 46.22 BMI 06/16/2025 Patient request ed his BP to be taken at the end of his OV, however he left before staff was able to obtain. Encounters Encounter Location Date Provider Diagnosis Andreia Garces [address] [place] [address] 06/16/2025 Tito Cordero Chronic fatigue R53.82 and Male sexual dysfunction N53.9 [address] Garces [address] [place] [address] [address] 06/16/2025 Tito Cordero Assessments Encounter Date Diagnosis (ICD Code) Assessment [...] while receiving pellets, will send labs to [facility] and have our patient navigator contact the patient regarding pricing. Plan Of Treatment Pending Test Test Name Order Date Prostate Specific Antigen (PSA) 06/16/20 25 TIBC ( Total Iron Binding Capacity) 06/04 [...] Order Date Ref - Patient Navigator Consultation Insurance Providers Payer Name Payer Address Payer Phone Subscriber Number Group Number Insured Name Patient Relationship to Insured Coverage Start Date Coverage End Date Maritza [place] [address] [place] [address] [id number] Princess Salazar Spouse - patient is the spouse of the insured Medical (General) History Medical History History ICD Code Congestive Heart Failure Hypertension Surgical History Surgery Date(Month/Year) C2 c3 spacer Knee replacement right Hospitalization History Reason Date(Month/Year) CHF Pancreatitis
--- OUTSIDE RECORDS SUMMARY | 2025-06-24 15:46 | XMS_ITS | Encounter Summary ---
Author Organization [facility] Address [address] [place] [address] Care Team Providers Care Bonsai Tender Name Role Phone Honey Rizo LACTATION SPECIALIST Primary Care Provider [phone] Wallace Horvath MD Unavailable [phone] Trixie Yan LACTATION SPECIALIST Primary Care Provider [phone] Encounter Details Date Type Department Care Team (Late st Contact Info) Description 08/16/2024 Orders Only External Location [address] [place] [address] Natty Cox, DO [address] [place] [address] Social History Tobacco Use Types [...] documented as of this encounter Care Teams Bonsai Tender Relationship Specialty Start Date End Date Honey Rizo APRN [address] [place] [address] PCP - General 11/13/23 08/27/24 Trixie Yan APRN [address] [place] [address] PCP - General 08/28/24 Wallace Horvath MD 201 [facility] [address] [place] [address] 01/23/24 documented as of this encounter
--- OUTSIDE RECORDS SUMMARY | 2025-06-24 15:46 | XMS_ITS | Encounter Summary ---
Author Organization [facility] Address [address] [place] [address] Care Team Providers Care Supervisor Ship Maintenance Services Name Role Phone Honey Rizo IT ADMIN Primary Care Provider [phone] Wallace Horvath MD Unavailable [phone] Trixie Yan IT ADMIN Primary Care Provider [phone] Encounter Details Date Type Department Care Team (Late st Contact Info) Description 08/16/2024 Orders Only External Location [address] [place] [address] Natty Cox, DO [address] [place] [address] Social History Tobacco Use Types [...] documented as of this encounter Care Teams Supervisor Ship Maintenance Services Relationship Specialty Start Date End Date Honey Rizo APRN [address] [place] [address] PCP - General 11/13/23 08/27/24 Trixie Yan APRN [address] [place] [address] PCP - General 08/28/24 Wallace Horvath MD 201 [facility] [address] [place] [address] 01/23/24 documented as of this encounter
--- OUTSIDE RECORDS SUMMARY | 2025-06-24 15:46 | XMS_ITS | Clinical Summary ---
Author Organization [facility] Address [address] [place] [address] Care Team Providers Care Food Analyst Name Role Phone Nick Munoz MD Primary Care Provider + Allergies Active Allergy Reactions Criticality Noted Date Comments Morphine And Codeine Hives 07/02/2016 Medications citalopram (CeleXA) 40 MG tablet Take 40 mg by mouth daily. Active amLODIPine-wandy zepril (LOTREL) 5-40 MG per capsule Take 1 capsule by mouth daily. Active atorvastatin (LIPITOR) 40 MG tablet Take 40 mg by mouth daily. Active carvedilol CR (COREG CR) 40 MG 24 hr capsule Take 40 mg by mouth daily. Active Active Problems Problem Noted Date Diagnosed Date Lumbar herniated disc 07/02/2016 Social History Tobacco Use Types Packs/Day Years Used Date Smoking Tobacco: Never Smokeless Tobacco: Current Chew Alcohol Use Standard Drinks/Week Comments Yes 0 (1 standard drink = 0.6 oz pur e alcohol) Abuse Screen Answer Date Recorded Unsafe at Home or Work/School Not on file Feels Threatened by Someone? Not on file 09/2023 Does Anyone Keep You from Co ntacting Others or Doint Things Outside the Home? Not on file 08/14/2023 Physical Sign of Abuse Present Not on file 1 Housing Stability Answer Date Recorded Current Living Arrangements Not on file 08/04 Potentially Unsafe Housing Conditions Not on billy e 08/14/2023 Family and Community Support Answer Richard e Recorded Help with Day-to-Day Activities Not on file 08/14/2023 Lonely or Isolated Not on file 08/14/2023 Employment Answer Date Recorded Do you want help finding or keeping work or a alexandra b? Not on file 08/14/2023 Disabilities Answer Date Recorded Concentrating, Remembering, or Making Decisions Difficulty Not on file 08/14/2023 Doing Errands Independently Difficulty Not on fi le 08/14/2023 Education Answer Date Recorded Help with school or training? Not on file Preferred Language Not on file 08/14/2023 Sex and Gender Information Value Date Recorded Sex Assigned at Not on file Legal Sex Male 9:48 AM EDT Gender Identity Not on file Sexual Orientation Not on file Last Filed Vital Signs Vital Sign Reading Time Taken Comments Blood Pressure 138/82 07/02/2016 2:28 PM EDT Pulse - - Temperature 37 C (98.6 F) 07/02/2016 2:28 PM EDT Respiratory Rate - - Oxygen Saturation - - Inhaled Oxygen Concentration - - Weight 115 kg (253 lb) 07/02/2016 2:28 PM EDT Height 185.4 cm (6' 1 ) 07/02/2016 2:28 PM EDT Body Mass Index 33.38 07/02/2016 2:28 PM EDT Plan of Treatment Health Maintenance Due Date Last Done Comments TDAP/TD VACCINES (1 - Tdap) 1998 ANNUAL PHYSICAL 11/22/2022 HEPATITIS C SCREENING 11/22/2022 COLOGUARD 02/26/2024 COLON CANCER SCREENING 5 YEA R SIGMOIDOSCOPY 02/26/2024 COLONOSCOPY 02/26/2024 COLORECTAL CANCER SCREENING 02/26/2024 CT COLONOGRAPHY 02/26/2024 FECAL OCCULT BLOOD TEST 02/26/2024 FIT Testing (1 year) 02/26/2024 COVID-19 Vaccine ( - 2023-2 5 season) 2024 INFLUENZA VACCINE 08/04/2025 Pneumococcal Vaccine 0-49 Aged Out No longer eligible based on patient's age to complete this topic Insurance [facility] PPO Care Teams Food Analyst Relationship Specialty Start Date End Date Nick Munoz MD PCP - General Family Medicine 07/02/16
== END 2025-06-24 23:59 | disposition home or self-care (01) ==
LOC: LAB 15:43
PROVIDERS: PCP Nurse Practitioner Family; Visit Provider Physician Assistant
DX: R53.82 Chronic fatigue, unspecified (principal)

== ENCOUNTER 2025-06-25 08:37 | Outpatient (CLI) | payer BC, SELFPAY ==
--- OUTSIDE RECORDS SUMMARY | 2025-06-16 11:40 | XMS_ITS ---
Author Organization [facility] Address [address] [place] [address] Care Team Providers Care Waiter/Waitress Captain Name Role Phone Trixie Yan APRN Primary Care Provider Mirta Silvestre Unavailable [phone] Self Referral, Self Unavailable Unavailable Tito Cordero Unavailable [phone] Allergies No Known Allergies REASON FOR VISIT [...] (R53.82) Active confirmed Problem Male sexual dysfunction (2814203) Male sexual dysfunction (N53.9) Active confirmed *Discussed [...] while receiving pellets, will send labs to [facility] and have our patient navigator contact the patient regarding pricing. Vital Signs Height 74 in 06/16/2025 Weight 360 lbs 06/16/2025 BMI 46.22 BMI 06/16/2025 Patient requested his BP to be taken at the end of his OV, however he left before staff was able to obtain. Encounters Encounter Location Date Provider Diagnosis [facility] [address] [place] [address] 06/16/2025 Tito Cordero Chronic fatigue R53.82 and [...] while receiving pellets, will send labs to [facility] and have our patient navigator contact the [...] 3) more sexual Taking Probiotics?: No Taking [place] 3?: No Activity Level: Moderate Currently on [...] Jeremie SALAZAR CDOB:[birth year] (45 yo M)Acc No.[id number]:06/16/2025 Patient: Jeremie Rosas Provider: Alejandro Cordero PA-C :1980 A ge:45 Y S ex:Male Date:06/16/2025 Address:[address] [place] [address], [place], [id number] Pcp:Trixie Yan APRN Check Out:04:35 PM EST [...] T aking Probiotics? N o T aking [place] 3? N o A ctivity Level M [...] while receiving pellets, will send labs to [facility] and have our patient navigator contact the patient regarding pricing. Plan: * Treatment: 2. M trino sexual dysfunction P rocedure: Ref - Patient Navigator Consultation (Ordered for 06/16/2025) * Follow Up: P ending receipt of labs (Reason: BHRT) Billing Information: * Visit Code: 29696 NP4: New Patient Level 4 (45-59min). Care Plan Details* * Sign off status: Completed true * Provider: Alejandro Cordero PA-C Date: 06/16/2025 Generated for Karla peterson/Marquise/Ilanitting on: 0 06/25/2025 08:39 AM EDT
--- OUTSIDE RECORDS SUMMARY | 2025-06-25 08:39 | XMS_ITS | Clinical Summary ---
Author Organization [facility] Address [address] [place] [address] Phone [email or web address] Care Team Providers Care Binding Nicker Name Role Phone Nick Munoz MD Primary Care Provider [phone] Allergies Active Allergy Reactions Criticality Noted Date [...] Description 04/08/2025 3:00 PM EDT Office Visit [facility] [address] [place] [address] Tiffanie Villa PA History of cervical spinal surgery (Primary Dx); History of atrial fibrillation; Encounter for fitness for duty examination 03/25/2025 3:30 PM EDT Office Visit [facility] [address] [place] [address] Tiffanie Villa PA Physical deconditioning (Primary Dx); [...] Insurance ANTH IN COPAY 5 Care Teams Binding Nicker Relationship Specialty Start Date End Date Nick Munoz MD [address] [place] [address] [address] [address] PCP - General Art Dealer 10/05/19
--- OUTSIDE RECORDS SUMMARY | 2025-06-25 08:39 | XMS_ITS | Encounter Summary ---
Author Organization [facility] Address [address] [id number] Care Team Providers Care Sex Worker Or Escort Name Role Phone Wallace Horvath MD Unavailable [phone] Trixie Yan APRN Primary Care Provider [phone] Encounter Details Date Type Department Care Team [...] documented as of this encounter Care Teams Sex Worker Or Escort Relationship Specialty Start Date End Date Trixie Yan APRN [address] [place], [place] [address] PCP - General 08/28/24 Wallace Horvath MD 201 [facility] [address] [place] [address] 01/23/24 documented as of this encounter
--- OUTSIDE RECORDS SUMMARY | 2025-06-25 08:40 | XMS_ITS | Encounter Summary ---
Author Organization [facility] Address [address] [place] [address] Care Team Providers Care Leather Production Worker Name Role Phone Honey Rizo SCRAP IRON LOADER Primary Care Provider [phone] Wallace Horvath MD Unavailable [phone] Trixie Yan SCRAP IRON LOADER Primary Care Provider [phone] Encounter Details Date Type Department Care Team (Late st Contact Info) Description 07/28/2024 Orders Only External Location [address] [place] [address] Provider, External Social History Tobacco Use Types [...] documented as of this encounter Care Teams Leather Production Worker Relationship Specialty Start Date End Date Honey Rizo APRN [address] [place] [address] PCP - General 11/13/23 08/27/24 Trixie Yan APRN [address] [place] [address] PCP - General 08/28/24 Wallace Horvath MD [address] [place] [address] [address] [place] [address] 01/23/24 documented as of this encounter
--- OUTSIDE RECORDS SUMMARY | 2025-06-25 08:40 | XMS_ITS | Encounter Summary ---
Author Organization [facility] Address [address] [place] [address] Care Team Providers Care Lead Caster Name Role Phone Honey Rizo SHIRT IRONER SUPERVISOR Primary Care Provider [phone] Wallace Horvath MD Unavailable [phone] Trixie Yan SHIRT IRONER SUPERVISOR Primary Care Provider [phone] Encounter Details Date Type Department Care Team (Late st Contact Info) Description 08/16/2024 Orders Only External Location [address] [place] [address] Natty Cox, DO [address] [place] [address] Social History Tobacco Use Types [...] documented as of this encounter Care Teams Lead Caster Relationship Specialty Start Date End Date Honey Rizo APRN [address] [place] [address] PCP - General 11/13/23 08/27/24 Trixie Yan APRN [address] [place] [address] PCP - General 08/28/24 Wallace Horvath MD 201 [facility] [address] [place] [address] 01/23/24 documented as of this encounter
--- OUTSIDE RECORDS SUMMARY | 2025-06-25 08:40 | XMS_ITS | Encounter Summary ---
Author Organization Healthcare Address [address] [place] [address] Care Team Providers Care Engine Room Operator Name Role Phone Honey Rizo MEDIA MONITOR Primary Care Provider [phone] Wallace Horvath MD Unavailable [phone] Tirxie Yan MEDIA MONITOR Primary Care Provider [phone] Encounter Details Date Type Department Care Team (Late st Contact Info) Description 08/16/2024 Orders Only External Location [address] [place] [address] Natty Cox, DO [address] [place] [address] Social History Tobacco Use Types [...] documented as of this encounter Care Teams Engine Room Operator Relationship Specialty Start Date End Date Honey Rizo APRN [address] [place] [address] PCP - General 11/13/23 08/27/24 Trixie Yan APRN [address] [place] [address] PCP - General 08/28/24 Wallace Horvath MD [address] [facility] [address] [place] [address] 01/23/24 documented as of this encounter
--- OUTSIDE RECORDS SUMMARY | 2025-06-25 08:40 | XMS_ITS | Clinical Summary ---
Author Organization [facility] Address [address] [place] [address] Care Team Providers Care Director Business Development Name Role Phone Wallace Horvath MD Unavailable [phone] Trixie Yan APRN Primary Care Provider [phone] Allergies Active Allergy Reactions Criticality Noted Date [...] 8 (eight) hours. 4 Active HYDROcodone-ac etaminophen ([place]) 7.5-325 MG tablet TAKE 1 TABLET BY [...] 02/26/2024 Sigmoidoscopy 02/26/2024 [facility]-Colorectal Cancer Screening 02/26/2024 [id number] Vaccine (3 - 2023- season) 2024 08/25/2021, [...] this topic Medical Devices Implanted Type Area Naturopathic Doctor Device Identifier Shelf Expiration Date Model / Serial / Lot Chg Shell R3 3 Hole Acet 58mm - [id number] Implanted:Qty: 1 on 03/23/2024 by Nick Rivas MD at [facility] Hip Right: Hip [employer]hew [employer]-[id number] 03/31/2033 [id number] / / [id number] Chg Head Oxinium Fem 10/17 28m - [id number] Implanted:Qty: 1 on 03/23/2024 by Nick Rivas MD at [facility] Hip Right: Hip [employer]-[id number] 12/07/2033 [id number] / / [id number] Liner Or3o Dual Mbility 44 58 - [id number] Implanted:Qty: 1 on 03/23/2024 by Nick Rivas MD at [facility] Liner Right: Hip [employer]-[id number] 11/03/2033 [id number] / / [id number] Liner Or3o Dual Mbility Xlpe 28 44 - [id number] Implanted:Qty: 1 on 03/23/2024 by Nick Rivas MD at [facility] Liner Right: Hip [employer]-[id number] 09/03/2033 [id number] / / [id number] Chg Screw Ref Spher Head 35mm - [id number] Implanted:Qty: 1 on 03/23/2024 by Nick Rivas MD at [facility] Screw Right: Hip [employer]-[id number] 12/13/2033 [id number] / / [id number] Chg Screw Ref Spher Head 25mm - [id number] Implanted:Qty: 1 on 03/23/2024 by Nick Rivas MD at [facility] Screw Right: Hip [employer]-[id number] 11/22/2033 [id number] / / [id number] Polarstem Cementless Tiha 7 - [id number] Implanted:Qty: 1 on 03/23/2024 by Nick Rivas MD at [facility] Stem Right: Hip [employer]-[id number] 02/28/2030 [id number] / / [id number] Insurance ANTHEM Advance Directives * Full Code (Latest Code Status on File) Date Activated Date Inactivated Comments 03/23/2024 11:19 AM 03/23/2024 6:31 PM Question Answer Comments Patient has decision-making capacity? Yes Care Teams Director Business Development Relationship Specialty Start Date End Date Trixie Yan APRN [address] [place] [address] PCP - General 08/28/24 Wallace Horvath MD 201 [facility] [address] [place] [address] 01/23/24
--- OUTSIDE RECORDS SUMMARY | 2025-06-25 08:40 | XMS_ITS | Patient Health Record ---
Author Organization [facility] Address [address] [place] [address] Care Team Providers Care Meatcutter Name Role Phone Trixie Yan APRN Primary Care Provider Mirta Silvestre Unavailable Self Referral, Self Unavailable Unavailable Tito Cordero Unavailable [phone] Allergies No Known Allergies Reason For Referral [...] (R53.82) Active confirmed Problem Male sexual dysfunction (5292028) Male sexual dysfunction (N53.9) Active confirmed *Discussed [...] while receiving pellets, will send labs to [facility] and have our patient navigator [...] Provider Diagnosis Andreia Garces [address] [place] [address] 06/16/2025 Tito Cordero Chronic fatigue R53.82 and Male sexual dysfunction N53.9 [address] Gar[address] [place] [address] [address] 06/16/2025 Tito Cordero Assessments Encounter Date Diagnosis [...] while receiving pellets, will send labs to [facility] and have our patient navigator [...] Date Coverage End Date Maritza [place] of [place] [address] [place] [address] [id number] Princess Salaazr Spouse - patient is the spouse of the insured Medical (General) History Medical History History ICD Code Congestive Heart Failure Hypertension Surgical History Surgery Date(Month/Year) C2 c3 spacer Knee replacement right Hospitalization History Reason Date(Month/Year) CHF Pancreatitis
--- OUTSIDE RECORDS SUMMARY | 2025-06-25 08:40 | XMS_ITS | Encounter Summary ---
Author Organization Healthcare Address [address] [place] [address] Care Team Providers Care Upsetter Helper Name Role Phone Honey Rizo RESIDENTIAL AIR SEALING TECHNICIAN Primary Care Provider [phone] Wallace Horvath MD Unavailable [phone] Trixie Yan RESIDENTIAL AIR SEALING TECHNICIAN Primary Care Provider [phone]- [phone] Encounter Details Date Type Department Care Team (Late st Contact Info) Description 08/16/2024 Orders Only External Location [address] [place] [address] Natty Cox, DO [address] [place] [address] Social History Tobacco Use Types [...] documented as of this encounter Care Teams Upsetter Helper Relationship Specialty Start Date End Date Honey Rizo APRN [address] [place] [address] PCP - General 11/13/23 08/27/24 Trixie Yan APRN [address] [place] [address] PCP - General 08/28/24 Wallace Horvath MD [address] [facility] [address] [place] [address] 01/23/24 documented as of this encounter
--- OUTSIDE RECORDS SUMMARY | 2025-06-25 08:40 | XMS_ITS | Clinical Summary ---
Author Organization [facility] Address [address] [place] [address] Care Team Providers Care Insole Tape Stitcher Uco Name Role Phone Nick Munoz MD Primary [...] age to complete this topic Insurance [facility] PPO Care Teams Insole Tape Stitcher Uco Relationship Specialty Start Date End Date Nick Munoz MD PCP - General Family Medicine 07/02/16
--- OUTSIDE RECORDS SUMMARY | 2025-06-25 08:40 | XMS_ITS | Encounter Summary ---
Author Organization Healthcare Address [address] [place] [address] Care Team Providers Care Fight Manager Name Role Phone Honey Rizo MEAT MARKET MANAGER Primary Care Provider [phone] Wallace Horvath MD Unavailable [phone] Trixie Yan MEAT MARKET MANAGER Primary Care Provider [phone] Encounter Details Date Type Department Care Team (Late st Contact Info) Description 08/16/2024 Orders Only External Location [address] [place] [address] Natty Cox, DO [address] [place] [address] Social History Tobacco Use Types [...] documented as of this encounter Care Teams Fight Manager Relationship Specialty Start Date End Date Honey Rizo APRN [address] [place] [address] PCP - General 11/13/23 08/27/24 Trixie Yan APRN [address] [place] [address] PCP - General 08/28/24 Wallace Horvath MD 201 [facility] [address] [place] [address] 01/23/24 documented as of this encounter
--- OUTSIDE RECORDS SUMMARY | 2025-06-25 08:40 | XMS_ITS | Encounter Summary ---
Author Organization Healthcare Address [address] [place] [address] Care Team Providers Care Fork Assembler Name Role Phone Honey Rizo COTTON CANDY MAKER Primary Care Provider [phone] Wallace Horvath MD Unavailable [phone] Trixie Yan COTTON CANDY MAKER Primary Care Provider [phone] Encounter Details Date Type Department Care Team (Late st Contact Info) Description 08/16/2024 Orders Only External Location [address] [place] [address] Natty Cox, DO [address] [place] [address] Social History Tobacco Use Types [...] documented as of this encounter Care Teams Fork Assembler Relationship Specialty Start Date End Date Honey Rizo APRN [address] [place] [address] PCP - General 11/13/23 08/27/24 Trixie Yan APRN [address] [place] [address] PCP - General 08/28/24 Wallace Horvath MD 201 [facility] [address] [place] [address] 01/23/24 documented as of this encounter
--- OUTSIDE RECORDS SUMMARY | 2025-06-25 08:40 | XMS_ITS | Encounter Summary ---
Author Organization Healthcare Address [address] [place] [address] Care Team Providers Care Curb Setter Name Role Phone Honey Rizo COMMUNITY ENGAGEMENT LEADER Primary Care Provider [phone] Wallace Horvath MD Unavailable [phone] Trixie Yan COMMUNITY ENGAGEMENT LEADER Primary Care Provider [phone] Encounter Details Date Type Department Care Team (Late st Contact Info) Description 08/16/2024 Orders Only External Location [address] [place] [address] Natty Cox, DO [address] [place] [address] Social History Tobacco Use Types [...] documented as of this encounter Care Teams Curb Setter Relationship Specialty Start Date End Date Honey Rizo APRN [address] [place] [address] PCP - General 11/13/23 08/27/24 Trixie Yan APRN [address] [place] [address] PCP - General 08/28/24 Wallace Horvath MD 201 [facility] [address] [place] [address] 01/23/24 documented as of this encounter
[2025-06-25 09:09] LABS: Hematocrit 45.0 % (42.0-52.0); Hemoglobin 14.4 g/dL (14.1-18.0); Immature Granulocytes % 0.5 %; Mean Corpuscular HGB Conc 32.0 g/dL (31.8-35.4); Mean Corpuscular Hemoglobin 29.8 pg (27.0-31.2); Mean Corpuscular Volume 93.2 fl (80-94); Nucleated Red Blood Cells % 0 %; Platelet Count 192 K/mm3 (142-424); Red Blood Count 4.83 M/mm3 (4.60-6.20); Red Cell Distribution Width-SD 45.5 fL; White Blood Count 3.7 K/mm3 (4.8-10.8)
[2025-06-25 10:04] LABS: Alanine Aminotransferase 88 U/L (12-78); Albumin Level 4.6 g/dl (3.5-5.0); Albumin/Globulin Ratio 1.6 (1.1-1.8); Alkaline Phosphatase 88 U/L (38-126); Anion Gap 18.2 mEq/L (5-15); Aspartate Amino Transferase 89 U/L (17-59); Bilirubin,Total 0.8 mg/dl (0.2-1.3); Blood Urea Nitrogen 8 mg/dl (9-20); Calcium 9.5 mg/dl (8.4-10.2); Carbon Dioxide 19 mmol/L (22.0-30.0); Chloride 105 mmol/L (98-107); Cholesterol 180 mg/dl (140-200); Creatinine,Serum 0.90 mg/dl (0.66-1.25); Estimated Glomerular Filt Rate 91 ml/min (>60); GFR (African American) 110 ML/MIN (>60); Globulin 2.8 g/dL (1.3-3.2); Glucose 95 mg/dl (74-100); HDL Cholesterol 107 mg/dl (40-60); Potassium 4.2 mmoL/L (3.5-5.1); Sodium 138 mmol/L (136-145); Total Protein,Serum 7.4 g/dl (6.3-8.2); Triglycerides 135 mg/dl (30-150)
[2025-06-25 10:09] LABS: Free T4 (Free Thyroxine) 1.05 ng/dl (0.78-2.19)
[2025-06-25 10:10] LABS: Free Thyroxine Index 2.5 ug/dL (5.93-13.13); T4 (Thyroxine) 7.1 ug/dl (5.53-11.0); Triiodothryronine (T3) Uptake 35 % (23.5-40.5)
[2025-06-25 10:20] LABS: Iron 89 ug/dL (49-181)
[2025-06-25 10:21] LABS: C-Reactive Protein 2.7 mg/L (0-4)
[2025-06-25 10:24] LABS: Thyroid Stimulating Hormone 1.06 uIU/mL (0.465-4.68)
[2025-06-25 10:27] LABS: 25-OH Vitamin D, Total 41.9 ng/mL (30-100)
[2025-06-25 10:29] LABS: Total Iron Binding Capacity 387 ug/dL (261-462)
[2025-06-25 10:36] LABS: Thyroid Stimulating Hormone 1.06 uIU/mL (0.465-4.68)
[2025-06-25 10:39] LABS: Ferritin 46.7 ng/ml (17.9-464)
[2025-06-25 10:55] LABS: Vitamin B12 706 pg/mL (239-931)
[2025-06-25 11:26] LABS: Hemoglobin A1C 5.6 % (4.0-6.0)
[2025-06-26 11:11] LABS: Triiodothyronine (T3) Free 3.2 pg/mL (2.0-4.4)
== END 2025-06-25 23:59 | disposition home or self-care (01) ==
LOC: LAB 08:37
PROVIDERS: PCP Nurse Practitioner Family; Visit Provider Physician Assistant
DX: R53.82 Chronic fatigue, unspecified (principal)
CPT/HCPCS: 36415; 80053; 80061; 82306; 82533; 82607; 82627; 82670; 82728; 82947; 83036; 83090; 83540; 83550; 84402; 84403; 84436; 84439; 84443; 84479; 84481; 84482; 85025; 86140; 86376; 86800; G0103

== ENCOUNTER 2025-08-31 10:50 | Outpatient (CLI) | payer BC, SELFPAY ==
--- OUTSIDE RECORDS SUMMARY | 2025-07-13 12:00 | XMS_ITS ---
Author Organization [facility] Address [address] [place] [address] Care Team Providers Care Radar Systems Engineer Name Role Phone Trixie Yan APRN Primary Care Provider Mirta Silvestre Unavailable Self Referral, Self Unavailable Unavailable Tito Cordero Unavailable [phone] REASON FOR VISIT RT Lab Review Medications Medication SIG (Take, Route, Frequency, Duration) Notes Start Date End Date Status Fenofibrate 54 MG Tablet Oral; Duration: 90 Days Active Omeprazole 40 MG Capsule Delayed Release Oral; Duration: 90 Days A ctive Farxiga 10 MG Tablet Oral; Duration: 90 Days Active busPIRone HCl 15 MG Tablet Oral; Duration: 90 Days Acti ve Citalopram Hydrobromide 40 MG Tablet Oral; Duration: 90 Days Acti ve Zepbound 5 MG/0.5ML Solution Auto-injector Subcutaneous; Duration: 28 Days Active Metoprolol Succinate ER 25 MG Tablet Extended Release 24 Hour Oral; Duration: 90 Days A ctive Vraylar 1.5 MG Capsule Oral; Duration: 90 Days Active Xarelto 20 MG Tablet Oral; Duration: 90 Days Active Repatha SureClick [...] Notes Tobacco Control (Standard) Tobacco use: Nonsmoker Vital Signs Height 74 in 07/13/2025 Weight 360 lbs 07/13/2025 BMI 46.22 BMI 07/13/2025 Encounters Encounter Location Date Provider Diagnosis [facility] [address] [place] [address] 07/13/2025 Tito Cordero Chronic fatigue R53.82 and Male sexual dysfunction N53.9 Assessments Encounter Date Diagnosis (ICD Code) Assessment Notes Treatment Notes Treatment Clinical Notes Section Notes 07/13/2025 Chronic fatigue (ICD-10 - R53.82) 07/13/2025 Male sexual dysfunction (ICD-10 - N53.9) *Have discussed with patient BHRT pellet therapy and alternative treatments through prescriptions. Noted history for CHF, [...] while receiving pellets, will send labs to [facility] and have our patient navigator contact the patient regarding pricing. *Labs reviewed at today's visit, most notably his total testosterone at 434, free T at 12.3, vitamin D at 41.9 (boom worker) and discussed supplementation with 10,000 IU Vitamin D x 90 days followed by 5,000 IU daily. Patient is ideal candidate for pellet therapy with calculations suggesting 2200 to 2400 mg T200 pellets and will schedule at his discretion. Plan Of Treatment Next Appt Details Follow Up: Pending schedulin g of pellets, Reason: BHRT Provider Name:Tito Cordero , 09/17/2025 09:00:00 AM, [address], [place], [address], [id number] History and Physical Notes * HPI (History [...] energy, stamina or motivation): Severe (3 points) 07/13/25 - Patient presents today in consideration for BHRT pellet treatments to address his listed symptoms above. Patient denies any historical HRT but states having a friend who has had them done and swears by them. Patient does take Xarelto for CHF with a noted history of HTN as well. Patient presents for review of his labwork and plans for moving forward with pellets. Sleep Problems (difficulty f alling asleep or [...] 3) more sexual Taking Probiotics?: No Taking Cana 3?: No Activity Level: Moderate Currently on [...] Jeremie SALAZAR CDOB:[birth year] (45 yo M)Acc No.[id number]:07/13/2025 [facility] OV Patient: Toño keita Jeremie Toño Provider: Alejandro Cordero PA-C :1980 A ge:45 Y S ex:Male Date:07/13/2025 Address:[facility] [address], [address], [id number] Pcp:Trixie Yan APRN Check In:04:22 PM ESTCheck O ut:04:30 PM EST Subjective: * Chief Complaints: * B HRT Lab Review * HPI: B HRT: Male Health Assessment [...] T aking Probiotics? N o T aking Cana 3? N o A ctivity Level M [...] o H as Robert's Thyroiditis? N o 07/13/25 - Patient presents today in consideration for BHRT pellet treatments to address his listed symptoms above. Patient denies any historical HRT but states having a friend who has had them done and swears by them. Patient does take Xarelto for CHF with a noted history of HTN as well. Patient presents for review of his labwork and plans for moving forward with pellets. D epression Screening: PHQ-9 L ittle Interest [...] * Medical History: Congestive Heart Failure Hypertension * Surgical History: C2 c3 spacer Knee replacement right * Hospitalization/Major Diagno stic Procedure: Pancreatitis CHF * Family History: F ather: diagnosed with Alcohol Abuse. P aternal Grand Father: diagnosed with Cancer Primary Site. * Social History: T obacco Use: T [...] P oints 0 I nterpretation N egative * Medications: T akingMetoprolol Succinate ER 25 [...] Release Oral Farxiga 10 MG Tablet Oral Taking Metoprolol Succinate ER 25 MG Tablet Extended Release 24 Hour Oral Taking Vraylar 1.5 MG Capsule Oral Taking Xarelto 20 MG Tablet Oral Taking Repatha SureClick 140 MG/ML Solution Auto-injector INJECT CONTENTS OF 1 PEN SUBCUTANEOUSLY EVERY TWO WEEKS Subcutaneous Taking Zepbound 5 MG/0.5ML Solution Auto-injector Subcutaneous Taking busPIRone HCl 15 MG Tablet Oral Taking Citalopram Hydrobromide 40 MG Tablet Oral Taking Fenofibrate 54 MG Tablet Oral Taking Omeprazole 40 MG Capsule Delayed Release Oral Taking Farxiga 10 MG Tablet Oral Objective: * Vitals: H t:74in, Wt:360lbs, BMI:46.22BMI, BP: Not Taken - Collection Device Broken, HR: Not Taken - Collection Device Broken, Pain Scale:0. * Examination: G eneral examination: General appearance: [...] or breakage. ? Assessment: * Assessment: 1. M trino sexual dysfunction - N53.9 (Primary) N otes :*Have discussed with patient BHRT pellet therapy and alternative treatments through prescriptions. Noted history for CHF, [...] while receiving pellets, will send labs to [facility] and have our patient navigator contact the patient regarding pricing. *Labs reviewed at today's visit, most notably his total testosterone at 434, free T at 12.3, vitamin D at 41.9 (boom worker) and discussed supplementation with 10,000 IU Vitamin D x 90 days followed by 5,000 IU daily. Patient is ideal candidate for pellet therapy with calculations suggesting 2200 to 2400 mg T200 pellets and will schedule at his discretion. 2 . C hronic fatigue - R53.82 Plan: * Follow Up: P ending scheduling of pellets (Reason: BHRT) Billing Information: * Visit Code: 11650 Tele - Office Visit, Est Pt., Level 4. Modifiers: 95 Care Plan Details* * Sign off status: Completed true * Provider: Alejandro Cordero PA-C Date: 0 07/13/2025 Generated for Karla peterson/Marquise/Ilanitting on: 1 12:23 PM EDT
--- OUTSIDE RECORDS SUMMARY | 2025-08-20 05:40 | XMS_ITS ---
Author Organization [facility] Address [address] [place] [address] Care Team Providers Care Transmission Tester Name Role Phone Trixie Yan APRN Primary Care Provider Unava ilMirta Whitley Unavailable Self Referral, Self Unavailable Unavailable Tito Cordero Unavailable [phone] REASON FOR VISIT 1st Pelleting Encounters Encounter Location Date Provider Diagnosis [facility] [address] [place] [address] 08/20/2025 Tito Cordero Chronic fatigue R53.82 and Male sexual dysfunction N53.9 Assessments Encounter Date Diagnosis (ICD Code) Assessment Notes Treatment Notes Treatment Clinical Notes Section Notes 08/20/2025 Chronic fatigue (ICD-10 - R53.82) 08/20/2025 Male sexual dysfunction (ICD-10 - N53.9) Plan Of Treatment Next Appt Details Provider Name:Tito Cordero , 09/17/2025 09:00:00 AM, [address] [place], [address], [phone] Progress Notes * Jeremie SALAZAR CDOB:[birth year] (45 yo M)Acc No.[id number]:08/20/2025 Patient: Jeremie Rosas Provider: Alejandro Cordero PA-C :1980 A ge:45 Y S ex:Male Date:08/20/2025 Address:[address] [id number] Pcp:Trixie Yan APRN Check In:09:41 AM EST Billing Information: * Procedure Codes: BHOTM BHOT Pellet Insertion - Male. Care Plan Details* * Sign off status: Completed true * Provider: Alejandro Cordero PA-C Date: Generated for Karla peterson/Marquise/eTransmitting on: 12:22 PM EDT
[2025-08-31 16:07] LABS: Alanine Aminotransferase 68 U/L (12-78); Albumin Level 4.2 g/dl (3.5-5.0); Alkaline Phosphatase 110 U/L (38-126); Aspartate Amino Transferase 70 U/L (17-59); Bilirubin,Direct 0.3 mg/dl (0.0-0.4); Bilirubin,Indirect 0.5 mg/dL (0.0-0.9); Bilirubin,Total 0.8 mg/dl (0.2-1.3); Bilirubin,Unconjugated 0.5 mg/dL (0.0-1.1); Total Protein,Serum 7.7 g/dl (6.3-8.2)
--- OUTSIDE RECORDS SUMMARY | 2025-09-01 12:23 | XMS_ITS | Encounter Summary ---
Author Organization Healthcare Address [address] [place] [address] Care Team Providers Care Director Child Abuse Therapy Name Role Phone Honey Rizo CERTIFIED RESIDENTIAL MEDICATION AIDE Primary Care Provider [phone] Wallace Horvath MD Unavailable [phone] Trixie Yan CERTIFIED RESIDENTIAL MEDICATION AIDE Primary Care Provider [phone] Encounter Details Date Type Department Care Team (Late st Contact Info) Description 08/16/2024 Orders Only External Location [address] [place] [address] Natty Cox, DO [address] [place] [address] Social History Tobacco Use Types [...] documented as of this encounter Care Teams Director Child Abuse Therapy Relationship Specialty Start Date End Date Honey Rizo APRN [address] [place] [address] PCP - General 11/13/23 08/27/24 Trixie Yan APRN [address] [place] [address] PCP - General 08/28/24 Wallace Horvath MD 201 [facility] [address] [place] [address] 01/23/24 documented as of this encounter
--- OUTSIDE RECORDS SUMMARY | 2025-09-01 12:23 | XMS_ITS | Encounter Summary ---
Author Organization Healthcare Address [address] [place] [address] Care Team Providers Care Cigarette Making Machine Hopper Feeder Name Role Phone Honey Rizo RESOURCE COORDINATOR Primary Care Provider [phone] Wallace Horvath MD Unavailable [phone] Trixie Yan RESOURCE COORDINATOR Primary Care Provider [phone] Encounter Details Date Type Department Care Team (Late st Contact Info) Description 08/16/2024 Orders Only External Location [address] [place] [address] Natty Cox, DO [address] [place] [address] Social History Tobacco Use Types [...] documented as of this encounter Care Teams Cigarette Making Machine Hopper Feeder Relationship Specialty Start Date End Date Honey Rizo APRN [address] [place] [address] PCP - General 11/13/23 08/27/24 Trixie Yan APRN [address] [place] [address] PCP - General 08/28/24 Wallace Horvath MD 201 [facility] [address] [place] [address] 01/23/24 documented as of this encounter
--- OUTSIDE RECORDS SUMMARY | 2025-09-01 12:23 | XMS_ITS | Encounter Summary ---
Author Organization Healthcare Address [address] [place] [address] Care Team Providers Care Sheet Metal Shop Supervisor Name Role Phone Honey Rizo HEPATOLOGIST Primary Care Provider [phone] Wallace Horvath MD Unavailable [phone] Trixie Yan HEPATOLOGIST Primary Care Provider [phone] Encounter Details Date Type Department Care Team (Late st Contact Info) Description 08/16/2024 Orders Only External Location [address] [place] [address] Natty Cox, DO [address] [place] [address] Social History Tobacco Use Types [...] documented as of this encounter Care Teams Sheet Metal Shop Supervisor Relationship Specialty Start Date End Date Honey Rizo APRN [address] [place] [address] PCP - General 11/13/23 08/27/24 Trixie Yan APRN [address] [place] [address] PCP - General 08/28/24 Wallace Horvath MD 201 [facility] [address] [place] [address] 01/23/24 documented as of this encounter
--- OUTSIDE RECORDS SUMMARY | 2025-09-01 12:23 | XMS_ITS | Encounter Summary ---
Author Organization Healthcare Address [address] [place] [address] Care Team Providers Care Embedded Software Developer Name Role Phone Honey Rizo BENCH REPAIR TECHNICIAN Primary Care Provider [phone] Wallace Horvath MD Unavailable [phone] Trixie Yan BENCH REPAIR TECHNICIAN Primary Care Provider [phone] Encounter Details Date Type Department Care Team (Late st Contact Info) Description 08/16/2024 Orders Only External Location [address] [place] [address] Natty Cox, DO [address] [place] [address] Social History Tobacco Use Types [...] documented as of this encounter Care Teams Embedded Software Developer Relationship Specialty Start Date End Date Honey Rizo APRN [address] [place] [address] PCP - General 11/13/23 08/27/24 Trixie Yan APRN [address] [place] [address] PCP - General 08/28/24 Wallace Horvath MD 201 [facility] [address] [place] [address] 01/23/24 documented as of this encounter
--- OUTSIDE RECORDS SUMMARY | 2025-09-01 12:23 | XMS_ITS | Clinical Summary ---
Author Organization [facility] Address [address] [place] [address] Care Team Providers Care Security System Analyst Name Role Phone Wallace Horvath MD Unavailable [phone] Trixie Yan APRN Primary Care Provider [phone] Allergies Active Allergy Reactions Criticality Noted Date [...] 8 (eight) hours. 4 Active HYDROcodone-ac etaminophen ([place]) 7.5-325 MG tablet TAKE 1 TABLET BY [...] [facility]-HIV Screening 1979 [facility]-Hepatitis C Screening 1980 [facility]-/Child/Adol SDOH Screenings 1980 [facility]- SDOH Screenings 1997 [facility]-Adult SDOH Screenings 1997 [facility]-Hepatitis B Vaccines (1 of 3 - 19+ 3-dose series) 1998 CT Colonography 02/26/2024 Colonoscopy 02/26/2024 FIT-DNA 02/26/2024 FIT 02/26/2024 FOBT 02/26/2024 Sigmoidoscopy 02/26/2024 [facility]-Colorectal Cancer Screening 02/26/2024 [facility]-Depression Screening 04/07/2025 04/07/2024 TPF-CLAOT-00 Vaccine (3 - 2024- season) 2025 08/25/2021, 07/28/2021 [facility]-Influenza Vaccine (#1) 2025 10/18/2017, [facility]-Zoster Vaccines [...] this topic Medical Devices Implanted Type Area Surveying Teacher Device Identifier Shelf Expiration Date Model / Serial / Lot Chg Shell R3 3 Hole Acet 58mm - [id number] Implanted:Qty: 1 on 03/23/2024 by Nick Rivas MD at [facility] Hip Right: Hip [employer]-[id number] 03/31/2033 [id number] / / [id number] Chg Head Oxinium Fem 10/17 28m - [id number] Implanted:Qty: 1 on 03/23/2024 by Nick Rivas MD at [facility] Hip Right: Hip [employer]-[id number] 12/07/2033 [id number] / / [id number] Liner Or3o Dual Mbility 44 58 - [id number] Implanted:Qty: 1 on 03/23/2024 by Nick Rivas MD at [facility] Liner Right: Hip [employer]-[id number] 11/03/2033 [id number] / / [id number] Liner Or3o Dual Mbility Xlpe 28 44 - [id number] Implanted:Qty: 1 on 03/23/2024 by Nick Rivas MD at [facility] Liner Right: Hip [employer]-[id number] 09/03/2033 [id number] / / [id number] Chg Screw Ref Spher Head 35mm - [id number] Implanted:Qty: 1 on 03/23/2024 by Nick Rivas MD at [facility] Screw Right: Hip [employer]-[id number] 12/13/2033 [id number] / / [id number] Chg Screw Ref Spher Head 25mm - [id number] Implanted:Qty: 1 on 03/23/2024 by Nick Rivas MD at [facility] Screw Right: Hip [employer]-[id number] 11/22/2033 [id number] / / [id number] Polarstem Cementless Tiha 7 - [id number] Implanted:Qty: 1 on 03/23/2024 by Nick Rivas MD at [facility] Stem Right: Hip [employer]-[id number] 02/28/2030 [id number] / / [id number] Insurance ANTHEM Advance Directives * Full Code (Latest Code Status on File) Date Activated Date Inactivated Comments 03/23/2024 11:19 AM 03/23/2024 6:31 PM Question Answer Comments Patient has decision-making capacity? Yes Care Teams Security System Analyst Relationship Specialty Start Date End Date Trixie Yan APRN [address] [place] [address] PCP - General 08/28/24 Wallace Horvath MD 201 [facility] [address] [place] [address] 01/23/24
--- OUTSIDE RECORDS SUMMARY | 2025-09-01 12:23 | XMS_ITS | Encounter Summary ---
Author Organization [facility] Address [address] [place] [address] Care Team Providers Care High School Football Coach Name Role Phone Honey Rizo BRINE PLANT OPERATOR Primary Care Provider [phone] Wallace Horvath MD Unavailable [phone] Trixie Yan BRINE PLANT OPERATOR Primary Care Provider [phone] Encounter Details Date Type Department Care Team (Late st Contact Info) Description 07/28/2024 Orders Only External Location [address] [place] [address] Provider, External Social History Tobacco Use Types [...] documented as of this encounter Care Teams High School Football Coach Relationship Specialty Start Date End Date Honey Rizo APRN [address] [place] [address] PCP - General 11/13/23 08/27/24 Trixie Yan APRN [address] [place] [address] PCP - General 08/28/24 Wallace Horvath MD [address] [place] [address] [address] [place] [address] 01/23/24 documented as of this encounter
--- OUTSIDE RECORDS SUMMARY | 2025-09-01 12:23 | XMS_ITS | Encounter Summary ---
Author Organization Healthcare Address [address] [place] [address] Care Team Providers Care Heel Attacher Name Role Phone Honey Rizo SPECIAL FORCES OFFICER Primary Care Provider [phone] Wallace Horvath MD Unavailable [phone] Trixie Yan SPECIAL FORCES OFFICER Primary Care Provider [phone] Encounter Details Date Type Department Care Team (Late st Contact Info) Description 08/16/2024 Orders Only External Location [address] [place] [address] Natty Cox, DO [address] [place] [address] Social History Tobacco Use Types [...] documented as of this encounter Care Teams Heel Attacher Relationship Specialty Start Date End Date Honey Rizo APRN [address] [place] [address] PCP - General 11/13/23 08/27/24 Trixie Yan APRN [address] [place] [address] PCP - General 08/28/24 Wallace Horvath MD 201 [facility] [address] [place] [address] 01/23/24 documented as of this encounter
--- OUTSIDE RECORDS SUMMARY | 2025-09-01 12:23 | XMS_ITS | Clinical Summary ---
Author Organization [facility] Address [address] [place] [address] Care Team Providers Care Special Equipment Technician Name Role Phone Nick Munoz MD Primary [...] TEST 02/26/2024 FIT Testing (1 year) 02/26/2024 INFLUENZA VACCINE 06/04/2025 Pneumococcal Vaccine 0-49 Aged Out No longer eligible based on patient's age to complete this topic Insurance [facility] PPO Member Subscriber Plan / Payer (Ef fective 2007-Present) Name:Jeremie Salazar Relation to Subscriber:Self Name:Jeremie Salazar Payer ID:[id number] (NAIC) Type:Not on file Address: [address] [place] [id number] Care Teams Special Equipment Technician Relationship Specialty Start Date End Date Nick Munoz MD PCP - General Family Medicine 07/02/16
--- OUTSIDE RECORDS SUMMARY | 2025-09-01 12:23 | XMS_ITS | Patient Health Record ---
Author Organization [facility] Address [address] [place] [address] Care Team Providers Care Conservation Educator Name Role Phone Trixie Yan APRN Primary Care Provider Mirta Silvestre Unavailable Self Referral, Self Unavailable Unavailable Tito Cordero Unavailable [phone] Allergies No Known Allergies Reason For Referral No Information Medications Medication SIG (Take, Route, Frequency, Duration) Notes Start Date End Date Status Zepbound 5 MG/0.5ML Solution Auto-injector Subcutaneous; Duration: [...] TWO WEEKS Subcutaneous; Duration: 28 Days Active Fenofibrate 54 MG Tablet Oral; Duration: 90 Days Active Omeprazole 40 MG Capsule Delayed Release Oral; Duration: 90 Days A ctive Farxiga 10 MG Tablet Oral; Duration: 90 Days Active busPIRone HCl 15 MG Tablet Oral; Duration: 90 Days Acti ve Citalopram Hydrobromide 40 MG Tablet Oral; Duration: 90 Days Acti ve Social History Tobacco Use: Social History Observation [...] W/U Status Risk Notes Problem Chronic fatigue syndrome (75573851) Chronic fatigue (R53.82) Active confirmed Problem Male sexual dysfunction (2061404) Male sexual dysfunction (N53.9) Active confirmed *Have discussed with patient BHRT pellet therapy [...] while receiving pellets, will send labs to [facility] and have our patient navigator contact the patient regarding pricing. 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 Patient is ideal candidate for pellet therapy with calculations suggesting 2200 to 2400 mg T200 pellets and will schedule at his discretion. Vital Signs Height 74 in 07/13/2025 Weight 360 lbs 07/13/2025 BMI 46.22 BMI 07/13/2025 Encounters Encounter Location Date Provider Diagnosis [facility] [address] [place] [address] 06/16/2025 Tito Gil Chronic fatigue R53.82 and Male sexual dysfunction N53.9 [facility] [address] [place] [address] 07/13/2025 Tito Gil Chronic fatigue R53.82 and Male sexual dysfunction N53.9 [facility] [address] [place] [address] 08/20/2025 Tito Gil Chronic fatigue R53.82 and Male sexual dysfunction N53.9 [facility] [address] [place] [address] 06/16/2025 Tito Cordero Assessments Encounter Date Diagnosis [...] while receiving pellets, will send labs to [facility] and have our patient navigator contact the patient regarding pricing. 07/13/2025 Chronic fatigue (ICD-10 - R53.82) 07/13/2025 [...] while receiving pellets, will send labs to [facility] and have our patient navigator contact the patient regarding pricing. 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 Patient is ideal candidate for pellet therapy with calculations suggesting 2200 to 2400 mg T200 pellets and will schedule at his discretion. 08/20/2025 Chronic fatigue (ICD-10 - R53.82) 08/20/2025 Male sexual dysfunction (ICD-10 - N53.9) Plan Of Treatment Pending Test Test Name Order Date Prostate Specific Antigen (PSA) 08/13/20 25 TIBC ( Total Iron Binding Capacity) [...] - Patient Navigator Consultation Next Appt Details Provider Name:Tito Cordero , 09/17/2025 09:00:00 AM, [address], [place], [address], [phone] Insurance Providers Payer Name Payer Address Payer Phone Subscriber Number Group Number Insured Name Patient Relationship to Insured Coverage Start Date Coverage End Date [employer] [facility] [address] [place] [address] [id number] Princess Salazar Spouse - patient is the spouse of the insured Medical (General) History Medical History History ICD Code Congestive Heart Failure Hypertension Surgical History Surgery Date(Month/Year) C2 c3 spacer Knee replacement right Hospitalization History Reason Date(Month/Year) CHF Pancreatitis
--- OUTSIDE RECORDS SUMMARY | 2025-09-01 12:23 | XMS_ITS | Clinical Summary ---
Author Organization [facility] Address [address] [place] [address] Phone [email or web address] Care Team Providers Care Food Service Ambassador Name Role Phone Nick Munoz MD Primary Care Provider [phone] Allergies Active Allergy Reactions Criticality Noted Date [...] left lower quadrant 06/02/2009 06/03/2023 Overview (04/02/2018): Social History Tobacco Use Types Packs/Day Years [...] of 3 - 19+ 3-dose series) 1998 Pneumococcal Immunization (1 of 2 - PCV) 1998 Covid-19 Immunization (3 - season) 2025 08/25/2021, 07/28/2021 Influenza Immunization (#1) 07/05/202510/04, 08/16/2016 [...] patient's age to complete this topic Insurance [employer] 5 Care Teams Food Service Ambassador Relationship Specialty Start Date End Date Nick Munoz MD [address] [place] [address] [place] [id number] PCP - General Manager Cath Lab 10/05/19
--- OUTSIDE RECORDS SUMMARY | 2025-09-01 12:23 | XMS_ITS | Encounter Summary ---
Author Organization [facility] Address [address] [place] [address] Care Team Providers Care Mechanical Design Engineer Products Name Role Phone Honey Rizo TRANSPORTATION MAINTENANCE OPERATOR Primary Care Provider [phone] Wallace Horvath MD Unavailable [phone] Trixie Yan TRANSPORTATION MAINTENANCE OPERATOR Primary Care Provider [phone] Encounter Details Date Type Department Care Team (Late st Contact Info) Description 08/16/2024 Orders Only External Location [address] [place] [address] Natty Cox, DO [address] [place] [address] Social History Tobacco Use Types [...] documented as of this encounter Care Teams Mechanical Design Engineer Products Relationship Specialty Start Date End Date Honey Rizo APRN [address] [place] [address] PCP - General 11/13/23 08/27/24 Trixie Yan APRN [address] [place] [address] PCP - General 08/28/24 Wallace Horvath MD [address] [place] [address] 01/23/24 documented as of this encounter
[2025-09-03 15:44] LABS: Lyme B. burgdorferi PCR Blood Negative (Negative)
== END 2025-08-31 23:59 | disposition home or self-care (01) ==
LOC: LAB.DROPOF 09-01 12:20
PROVIDERS: PCP Nurse Practitioner Family; Visit Provider Nurse Practitioner Family
DX: K76.0 Fatty (change of) liver, not elsewhere classified (principal); M25.50 Pain in unspecified joint
CPT/HCPCS: 80076; 87476

== ENCOUNTER 2025-10-12 15:48 | Outpatient (CLI) | payer BC, SELFPAY ==
[2025-10-12 16:25] LABS: Hematocrit 46.7 % (42.0-52.0); Hemoglobin 14.5 g/dL (14.1-18.0); Immature Granulocytes % 0.3 %; Mean Corpuscular HGB Conc 31.0 g/dL (31.8-35.4); Mean Corpuscular Hemoglobin 28.9 pg (27.0-31.2); Mean Corpuscular Volume 93.0 fl (80-94); Nucleated Red Blood Cells % 0 %; Platelet Count 186 K/mm3 (142-424); Red Blood Count 5.02 M/mm3 (4.60-6.20); Red Cell Distribution Width-SD 47.0 fL; White Blood Count 3.9 K/mm3 (4.8-10.8)
[2025-10-12 17:03] LABS: Alanine Aminotransferase 100 U/L (12-78); Albumin Level 4.4 g/dl (3.5-5.0); Alkaline Phosphatase 98 U/L (38-126); Anion Gap 15.3 mEq/L (5-15); Aspartate Amino Transferase 82 U/L (17-59); Bilirubin,Direct 0.3 mg/dl (0.0-0.4); Bilirubin,Indirect 0.7 mg/dL (0.0-0.9); Bilirubin,Total 1.0 mg/dl (0.2-1.3); Bilirubin,Unconjugated 0.7 mg/dL (0.0-1.1); Blood Urea Nitrogen 10 mg/dl (9-20); Calcium 10.0 mg/dl (8.4-10.2); Carbon Dioxide 26 mmol/L (22.0-30.0); Chloride 103 mmol/L (98-107); Cholesterol 188 mg/dl (140-200); Creatinine,Serum 1.10 mg/dl (0.66-1.25); Estimated Glomerular Filt Rate 72 ml/min (>60); GFR (African American) 87 ML/MIN (>60); Glucose 89 mg/dl (74-100); HDL Cholesterol 66 mg/dl (40-60); Magnesium 2.1 mg/dl (1.6-2.3); Potassium 4.3 mmoL/L (3.5-5.1); Sodium 140 mmol/L (136-145); Total Protein,Serum 7.5 g/dl (6.3-8.2); Triglycerides 161 mg/dl (30-150)
[2025-10-12 17:23] LABS: Free T4 (Free Thyroxine) 0.92 ng/dl (0.78-2.19)
[2025-10-12 17:37] LABS: Thyroid Stimulating Hormone 2.46 uIU/mL (0.465-4.68)
== END 2025-10-12 23:59 | disposition home or self-care (01) ==
LOC: LAB 15:50
PROVIDERS: PCP Nurse Practitioner Family; Visit Provider Internal Medicine
DX: I49.1 Atrial premature depolarization (principal); I47.19 Other supraventricular tachycardia; I49.3 Ventricular premature depolarization; I49.5 Sick sinus syndrome; I48.0 Paroxysmal atrial fibrillation; E78.5 Hyperlipidemia, unspecified; I10 Essential (primary) hypertension
CPT/HCPCS: 36415; 80048; 80061; 80076; 83735; 84439; 84443; 85025; 93270

== ENCOUNTER 2025-10-13 15:22 | Outpatient (CLI) | payer BC, SELFPAY ==
[2025-10-13 16:52] LABS: Albumin Level 4.5 g/dl (3.5-5.0); Iron 45 ug/dL (49-181)
[2025-10-13 17:01] LABS: C-Reactive Protein 2.0 mg/L (0-4); Total Iron Binding Capacity 455 ug/dL (261-462)
[2025-10-13 17:13] LABS: 25-OH Vitamin D, Total 59.0 ng/mL (30-100)
[2025-10-13 17:32] LABS: Ferritin 17.2 ng/ml (17.9-464)
[2025-10-13 17:46] LABS: Vitamin B12 891 pg/mL (239-931)
[2025-10-13 19:19] LABS: Hemoglobin A1C 5.2 % (4.0-6.0)
[2025-10-15 11:17] LABS: LH <0.3 mIU/mL (1.7-8.6); Testosterone,Total 1359 ng/dL (264-916)
[2025-10-15 12:34] LABS: Triiodothyronine (T3) Free 3.5 pg/mL (2.0-4.4)
[2025-10-15 15:12] LABS: PSA, Free 0.14 ng/mL
[2025-10-18 01:09] LABS: Testosterone,Free 22.0 pg/mL (6.8-21.5)
== END 2025-10-13 23:59 | disposition home or self-care (01) ==
LOC: LAB 15:22
PROVIDERS: PCP Nurse Practitioner Family; Visit Provider Anesthesiology Pain Medicine
DX: G93.32 Myalgic encephalomyelitis/chronic fatigue syndrome (principal)
CPT/HCPCS: 36415; 82040; 82306; 82533; 82607; 82670; 82728; 83002; 83036; 83090; 83540; 83550; 84146; 84153; 84154; 84270; 84402; 84403; 84481; 86140; 86376